=== PATIENT | female | born 1970 | race Caucasian/White ===

== ENCOUNTER 2016-12-08 21:55 | Emergency (ER) | payer OTHER ==
[2016-12-08 22:15] VITALS: BP 144/77
--- NOTE | 2016-12-08 23:25 | UC ---
Malik Duncan Matthew, scribed for AnthonyLeonor DO on 12/08/16 at 2234 . General HPI - HPI Summary HPI Summary: A 46 y/o female presents to the [facility] wanting a medication refill of prozac 120mg/daily. She's been without the medication for 4 days. The patient stated that she had the prescription filled 4 days ago and misplaced the medications. She has a Hx of depression and anxiety and she's been on prozac since she was 14. Associated symptoms include tiredness and cough. She states that she is very anxious and depressed but, she's not having any thoughts of hurting herself or others. She did not lose her klonopin dosage and has been taking it as prescribed. She denies nausea, vomiting, headache, SOB, chest pain, sore throat, ear ache, and abdominal pain. She see's Dr. Member for her medications. - History of Current Complaint Chief Complaint: UCGeneralIllness Stated Complaint: MED REFILL Hx Obtained From: Patient Associated Signs & Symptoms: Positive: Cough, Other - Anxiety, Depression. Negative: Abdominal Pain, Chest Pain, Fever, Headache, Nausea, SOB, Vomiting - Allergy/Home Medications Allergies/Adverse Reactions: Allergies Allergy/AdvReac Type Severity Reaction Status Date / Time Hydromorphone [From Dilaudid] Allergy Severe Nausea Verified 07/17/16 15:01 PMH/Surg Hx/FS Hx/Imm Hx Endocrine History Of: Reports: Diabetes - Type 2, Thyroid Disease - HYPOTHYROIDISM Cardiovascular History Of: Denies: Cardiac Disorders, Hypertension Respiratory History Of: Reports: Asthma Denies: COPD GI/ History Of: Denies: Ulcer Psychological History Of: Reports: Anxiety, Depression - Surgical History Surgical History: Yes Surgery Procedure, Year, and Place: D&C - Family History Known Family History: Positive: Respiratory Disease - COPD, Blood Disorder - blood clots, Other - COPD Family History: FHx of anxiety, depression, OCD - Social History Alcohol Use: Rare Substance Use Type: None Smoking Status (MU): Heavy Every Day Tobacco Smoker Type: Cigarettes Amount Used/How Often: 1/2 ppd or more Length of Time of Smoking/Using Tobacco: since age 13 Have You Smoked in the Last Year: Yes Cessation Counseling: Patient Advised to Stop - Immunization History Most Recent Influenza Vaccination: 2016/2016 season Review of Systems Constitutional: Negative Skin: Negative Eyes: Negative ENT: Negative Respiratory: Negative Cardiovascular: Negative Gastrointestinal: Negative Genitourinary: Negative Motor: Negative Neurovascular: Negative Musculoskeletal: Negative Neurological: Negative Psychological: Anxious, Depressed All Other Systems Reviewed And Are Negative: Yes Physical Exam Triage Information Reviewed: Yes Appearance: Well-Appearing, No Pain Distress, Well-Nourished Vital Signs: Initial Vital Signs Temp 98.5 F 12/08/16 22:06 Pulse 126 12/08/16 22:06 Resp 20 12/08/16 22:06 BP 144/77 12/08/16 22:06 Pulse Ox 96 12/08/16 22:06 Vital Signs Reviewed: Yes Eyes: Positive: Conjunctiva Clear. Negative: Discharge ENT: Positive: Hearing grossly normal. Negative: Muffled/hoarse voice Neck: Positive: Supple, Nontender Respiratory: Positive: Lungs clear, Normal breath sounds, No respiratory distress, No accessory muscle use Cardiovascular: Positive: RRR, No Murmur Musculoskeletal Exam: Normal Musculoskeletal: Positive: Strength Intact Neurological: Positive: Alert, Muscle Tone Normal Psychological Exam: Other - Anxious Skin Exam: Normal Course/Dx - Differential Dx - Multi-Symptom Provider Diagnoses: depression, anxiety - Physician Notifications Discussed Patient Care With: Pharmacist Neha ([facility]) at 22:47 --She said that she does see people getting dosages as high as the dosage prescribed of prozac even though its above the normal maximum daily dosage. Discharge - Discharge Plan Condition: Stable Disposition: HOME Prescriptions: Fluoxetine LIQ* 120 mg PO DAILY #900 ml Patient Education Materials: Depression (ED), Anxiety (ED) Referrals: Vinicio Angela MD [Primary Care Provider] - (follow up in 4-6 days) Additional Instructions: WE WILL REFILL YOUR MEDICATION. PLEASE FOLLOW UP WITH YOUR PCP AND YOUR PSYCHIATRIST THIS WEEK. The documentation as recorded by the Malik jordan Matthew accurately reflects the service I personally performed and the decisions made by me, Leonor Cruz DO.
== END 2016-12-08 23:00 | disposition home or self-care (01) ==
LOC: UCEAST 21:55
DX: F41.8 Other specified anxiety disorders (principal); Z76.0 Encounter for issue of repeat prescription; Z88.5 Allergy status to narcotic agent; F17.210 Nicotine dependence, cigarettes, uncomplicated
CPT/HCPCS: 99212; G0463

== ENCOUNTER 2017-03-25 20:27 | Emergency (ER) | payer OTHER ==
[2017-03-25 20:37] VITALS: BP 106/64
--- NOTE | 2017-03-25 20:42 | UC ---
Cardiac HPI - HPI Summary HPI Summary: 46 YEAR OLD FEMALE PRESENTS WITH COMPLAINS OF LEFT SIDED ARM NUMBNESS/WEAKNESS. PATIENT IS CONCERNED ABOUT A MS/STROKE SO I WILL SEND HER. - History of Current Complaint Chief Complaint: UCGeneralIllness Stated Complaint: CHEST COMPLAINT Time Seen by Provider: 03/25/17 20:41 - Allergy/Home Medications Allergies/Adverse Reactions: Allergies Allergy/AdvReac Type Severity Reaction Status Date / Time environmental Allergy Wheezing Uncoded 03/25/17 22:05 PMH/Surg Hx/FS Hx/Imm Hx - Surgical History Surgical History: Yes Surgery Procedure, Year, and Place: D&C - Family History Known Family History: Positive: Respiratory Disease - COPD, Blood Disorder - blood clots, Other - COPD Family History: FHx of anxiety, depression, OCD - Social History Alcohol Use: Rare Substance Use Type: None Smoking Status (MU): Current Every Day Smoker Type: Cigarettes Amount Used/How Often: 1 PPD Length of Time of Smoking/Using Tobacco: since age 13 Have You Smoked in the Last Year: Yes - Immunization History Most Recent Influenza Vaccination: season Review of Systems Constitutional: Negative Skin: Negative Eyes: Negative ENT: Negative Respiratory: Negative Cardiovascular: Palpitations, Chest Pain, Other - LEFT ARM NUMBNESS Gastrointestinal: Negative Genitourinary: Negative Motor: Negative Neurovascular: Negative Musculoskeletal: Arthralgia Neurological: Negative, Weakness, Paresthesia, Numbness, Other - LEFT ARM NUMBNESS/WEAKNESS Psychological: Negative All Other Systems Reviewed And Are Negative: Yes Physical Exam Triage Information Reviewed: Yes Vital Signs: Initial Vital Signs Temp 37.0 C 03/25/17 20:31 Pulse 91 03/25/17 20:31 Resp 16 03/25/17 20:31 BP 106/64 03/25/17 20:31 Pulse Ox 99 03/25/17 20:31 Eye Exam: Normal ENT Exam: Normal Dental Exam: Normal Neck exam: Normal Neck: Positive: 1 Respiratory Exam: Normal Cardiovascular Exam: Normal Abdominal Exam: Normal Musculoskeletal: Positive: Other: - LEFT ARM WEAKNESS/NUMBNESS Neurological: Positive: Fatigued Psychological Exam: Normal Skin Exam: Normal - Clinical Impression Provider Diagnoses: CHEST PAIN. LEFT ARM NUMBNESS/WEAKNESS Discharge - Discharge Plan Condition: Guarded Disposition: AGAINST MEDICAL ADVICE Referrals: Vinicio Angela MD [Primary Care Provider] - If Needed
== END 2017-03-25 21:30 | disposition left against medical advice (07) ==
LOC: UCEAST 20:27
DX: R07.9 Chest pain, unspecified (principal); R20.0 Anesthesia of skin; F17.210 Nicotine dependence, cigarettes, uncomplicated
CPT/HCPCS: 99212; G0463

== ENCOUNTER 2017-03-25 21:51 | Emergency (ER) | payer OTHER ==
[2017-03-26 00:44] LABS: Hematocrit 39 % (35-47); Hemoglobin 12.5 g/dl (12.0-16.0); Mean Corpuscular HGB Conc 32 g/dl (31-36); Mean Corpuscular Hemoglobin 31 pg (27-31); Mean Corpuscular Volume 97 fL (80-97); Mean Platelet Volume 9 um3 (7.4-10.4); Red Cell Distribution Width 14 % (10.5-15); White Blood Count 11.9 10^3/ul (3.5-10.8)
--- NOTE | 2017-03-26 00:45 | ED ---
Complex/Multi-Sys Presentation - HPI Summary HPI Summary: Patient sent from [facility] with CC of left upper extremity numbness and tingling which has been intermittent. She also states she has been more lethargic than normal. She has been working out more frequently and taking glucosamine OTC, but denies other changes to medical history. Patient states she is disabled and stays home. She is a smoker. Denies SOB, chest pain, diaphoresis or weakness. - History Of Current Complaint Chief Complaint: EDGeneral Time Seen by Provider: 03/25/17 23:19 Hx Obtained From: Patient Onset/Duration: Sudden Onset Timing: Constant Severity Currently: Mild Severity Initially: Mild Associated Signs And Symptoms: Positive: Weakness - Allergies/Home Medications Allergies/Adverse Reactions: Allergies Allergy/AdvReac Type Severity Reaction Status Date / Time environmental Allergy Wheezing Uncoded 03/25/17 22:05 PMH/Surg Hx/FS Hx/Imm Hx Previously Healthy: Yes Endocrine/Hematology History: Reports: Hx Diabetes - Type 2, Hx Thyroid Disease - HYPOTHYROIDISM Cardiovascular History: Reports: Hx Hypercholesterolemia Denies: Hx Hypertension Respiratory History: Reports: Hx Asthma Denies: Hx Chronic Obstructive Pulmonary Disease (COPD) GI History: Denies: Hx Ulcer Musculoskeletal History: Denies: Hx Rheumatoid Arthritis, Hx Osteoporosis Psychiatric History: Reports: Hx Anxiety, Hx Depression - Surgical History Surgery Procedure, Year, and Place: D&C - Immunization History Hx Pertussis Vaccination: No Immunizations Up to Date: Unable to Obtain/Confirm Infectious Disease History: Denies: Hx Clostridium Difficile, Hx Hepatitis, Hx Human Immunodeficiency Virus (HIV), Hx of Known/Suspected MRSA, Hx Shingles, Hx Tuberculosis, Hx Known/ Suspected VRE, Hx Known/Suspected VRSA, History Other Infectious Disease, Traveled Outside the [place] in Last 30 Days - Family History Known Family History: Positive: Respiratory Disease - COPD, Blood Disorder - blood clots, Other - COPD Family History: FHx of anxiety, depression, OCD - Social History Occupation: Unemployed Lives: With Family Alcohol Use: Rare Hx Substance Use: No Substance Use Type: Reports: None Hx Tobacco Use: Yes Smoking Status (MU): Current Every Day Smoker Type: Cigarettes Amount Used/How Often: 1 PPD Length of Time of Smoking/Using Tobacco: since age 13 Have You Smoked in the Last Year: Yes Review of Systems Constitutional: Negative Eyes: Negative Cardiovascular: Negative Respiratory: Negative Positive: no symptoms reported, see HPI Musculoskeletal: Negative Positive: Weakness, Paresthesia, Numbness Psychological: Normal All Other Systems Reviewed And Are Negative: Yes Physical Exam Triage Information Reviewed: Yes Vital Signs On Initial Exam: Initial Vitals Temp Pulse Resp BP Pulse Ox 98.7 F 69 16 99/62 99 03/25/17 22:00 03/25/17 22:00 03/25/17 22:00 03/25/17 22:00 03/25/17 22:00 Vital Signs Reviewed: Yes Appearance: Positive: Well-Appearing, Well-Nourished Skin: Positive: Warm, Skin Color Reflects Adequate Perfusion Respiratory/Lung Sounds: Positive: Clear to Auscultation, Breath Sounds Present Cardiovascular: Positive: Normal, RRR, Pulses are Symmetrical in both Upper and Lower Extremities Musculoskeletal: Positive: Normal, Strength/ROM Intact Neurological: Positive: Sensory/Motor Intact, Alert, Oriented to Person Place, Time, Speech Normal Psychiatric: Positive: Normal AVPU Assessment: Alert - Yanci Coma Scale Coma Scale Total: 15 Diagnostics - Vital Signs Vital Signs Temp Pulse Resp BP Pulse Ox 03/25/17 23:57 67 18 98 03/25/17 22:49 98.7 F 66 16 98/56 98 03/25/17 22:00 98.7 F 69 16 99/62 99 - Laboratory Result Diagrams: 03/26/17 00:27 03/26/17 00:27 Lab Statement: Any lab studies that have been ordered have been reviewed, and results considered in the medical decision making process. Complex Multi-Symp Course/Dx Course Of Treatment: Labs WNL. Discussed treament options with patient. She prefers to follow up with PCP. Ok for discharge. Rx for ibuprofen. - Diagnoses Provider Diagnoses: Lethargy Discharge - Discharge Plan Condition: Stable Disposition: HOME Prescriptions: Ibuprofen TAB* [Motrin TAB* 600 MG] 600 mg PO Q8H PRN #30 tab PRN Reason: Pain Referrals: Vinicio Angela MD [Primary Care Provider] - Additional Instructions: Follow up with Dr. Angela if symptoms become worse. Continue to exercise as normal Discontinue sugar foods Drink plenty of water Stop smoking
[2017-03-26 00:55] LABS: Albumin 4.1 g/dL (3.2-5.2); BUN/Creatinine Ratio 11.1 (8-20); Calcium 9.3 mg/dL (8.6-10.3); EGFR African American 86.7 (>60); EGFR Non-African American 67.4 (>60); Globulin 2.8 g/dL (2-4); Potassium 3.9 mmol/L (3.5-5.0); Total Bilirubin 0.3 mg/dL (0.2-1.0); Total Protein 6.9 g/dL (6.4-8.9)
[2017-03-26 01:01] VITALS: BP 95/58
[2017-03-26] MEDS ORDERED: Ibuprofen TAB* 600 MG PO ONE (01:32)
== END 2017-03-26 01:43 | disposition home or self-care (01) ==
LOC: ED 21:51
DX: R53.83 Other fatigue (principal); R20.0 Anesthesia of skin; R20.2 Paresthesia of skin; E11.9 Type 2 diabetes mellitus without complications; E03.9 Hypothyroidism, unspecified; J45.909 Unspecified asthma, uncomplicated; F41.9 Anxiety disorder, unspecified; F32.9 Major depressive disorder, single episode, unspecified; F17.210 Nicotine dependence, cigarettes, uncomplicated
CPT/HCPCS: 36415; 80053; 84484; 85025; 86141; 99282; A9270-GY

== ENCOUNTER 2017-05-25 21:58 | Emergency (ER) | payer OTHER ==
[2017-05-25 22:16] VITALS: BP 97/66
[2017-05-25] MEDS ORDERED: Penicillin VK TAB* 250 MG PO ONE (22:26)
[2017-05-25] MEDS ORDERED: Ibuprofen TAB* 600 MG PO ONE (22:27)
--- NOTE | 2017-05-25 22:36 | UC ---
UC Dental HPI - HPI Summary HPI Summary: 47 yo female had right upper molar extracted today request script for motrin is also concern re infection has had chill no documented fever also requests nicotine patch because dentist told her not to smoke for three days \ - History of Current Complaint Chief Complaint: UCDentalProblem Stated Complaint: TOOTH PAIN Time Seen by Provider: 05/25/17 22:18 Hx Obtained From: Patient Hx Last Menstrual Period: 2.5 WEEKS AGO Onset/Duration: Gradual Onset, Lasting Hours Severity: Severe Pain Intensity: 7 Pain Scale Used: 0-10 Numeric Aggravating: Chewing Alleviating: Nothing Related History: Swelling - Allergies/Home Medications Allergies/Adverse Reactions: Allergies Allergy/AdvReac Type Severity Reaction Status Date / Time environmental Allergy Wheezing Uncoded 05/25/17 22:09 PMH/Surg Hx/FS Hx/Imm Hx Previously Healthy: Yes Endocrine History: Diabetes, Hypothyroidism, Dyslipidemia Psychological History: Depression - Surgical History Surgical History: Yes Surgery Procedure, Year, and Place: D&C. DENTAL EXTRACTION - Family History Known Family History: Positive: Respiratory Disease - COPD, Blood Disorder - blood clots, Other - COPD Family History: FHx of anxiety, depression, OCD - Social History Alcohol Use: None Substance Use Type: None Smoking Status (MU): Current Every Day Smoker Type: Cigarettes Amount Used/How Often: 3/4 PPD Length of Time of Smoking/Using Tobacco: since age 13 Have You Smoked in the Last Year: Yes - Immunization History Most Recent Influenza Vaccination: season Review of Systems Constitutional: Chills Skin: Negative Eyes: Negative ENT: Dental Pain Respiratory: Negative Cardiovascular: Negative Gastrointestinal: Negative Genitourinary: Negative Motor: Negative Neurovascular: Negative Musculoskeletal: Negative Neurological: Negative Psychological: Negative Is Patient Immunocompromised?: No All Other Systems Reviewed And Are Negative: Yes Physical Exam Triage Information Reviewed: Yes Appearance: Well-Appearing, No Pain Distress, Well-Nourished Vital Signs: Initial Vital Signs Temp 98 F 05/25/17 22:04 Pulse 86 05/25/17 22:04 Resp 16 05/25/17 22:04 BP 97/66 05/25/17 22:04 Pulse Ox 99 05/25/17 22:04 Eye Exam: Normal Eyes: Positive: Conjunctiva Clear ENT: Positive: Hearing grossly normal, TMs normal. Negative: Nasal congestion, Nasal drainage, Tonsillar exudate, Trismus, Muffled/hoarse voice Dental: Positive: Other: - see image Neck: Positive: Supple, Nontender, No Lymphadenopathy Respiratory: Positive: Lungs clear, Normal breath sounds, No respiratory distress, No accessory muscle use Cardiovascular: Positive: RRR, No Murmur Musculoskeletal: Positive: ROM Intact, No Edema Neurological: Positive: Alert Psychological Exam: Normal Skin Exam: Normal Dental Complaint Course/Dx - Differential Dx/Diagnosis Provider Diagnoses: dental pain s/p extraction. tobacco use Discharge - Discharge Plan Condition: Stable Disposition: HOME Prescriptions: Ibuprofen TAB* [Motrin TAB*] 600 mg PO Q6H PRN #40 tab PRN Reason: Pain Nicotine PATCH 21 MG/24 HR* 21 mg TRANSDERM DAILY #1 patch Penicillin VK 500 MG TAB(NF) [Penicillin VK 500 mg Tab] 500 mg PO QID #28 tab Patient Education Materials: Toothache (ED) Referrals: Vinicio Angela MD [Primary Care Provider] - If Needed Additional Instructions: call dentist tomorrow if not improved
== END 2017-05-25 22:43 | disposition home or self-care (01) ==
LOC: UCEAST 21:58
DX: K08.89 Other specified disorders of teeth and supporting structures (principal); K08.409 Partial loss of teeth, unspecified cause, unspecified class; E11.9 Type 2 diabetes mellitus without complications; E03.9 Hypothyroidism, unspecified; E78.5 Hyperlipidemia, unspecified; F32.9 Major depressive disorder, single episode, unspecified; F17.210 Nicotine dependence, cigarettes, uncomplicated
CPT/HCPCS: 99212; A9270-GY; G0463

== ENCOUNTER 2017-06-23 15:31 | Emergency (ER) | payer OTHER ==
[2017-06-23 15:51] VITALS: BP 115/73
--- NOTE | 2017-06-23 16:30 | UC ---
Complaint Female HPI - HPI Summary HPI Summary: 47 yo female presents with moderate sore throat x 3 days also dysuria and frequency of urination x 1 day just finishing her period - History Of Current Complaint Chief Complaint: UCGU Stated Complaint: UTI,SORE THROAT Time Seen by Provider: 06/23/17 16:30 Hx Obtained From: Patient Hx Last Menstrual Period: 2 wks ago Onset/Duration: Gradual Onset, Lasting Days Timing: Constant Severity Initially: Mild Pain Intensity: 4 Pain Scale Used: 0-10 Numeric Character: Burning Aggravating Factor(s): Urination Associated Signs And Symptoms: Negative: Fever, Back Pain, Vaginal Bleeding/ Discharge, Vaginal Discharge, Nausea, Vomiting(# Of Episodes =), Genital Swelling, Genital Blisters, Retained Foregin Body (Specify) - Allergies/Home Medications Allergies/Adverse Reactions: Allergies Allergy/AdvReac Type Severity Reaction Status Date / Time environmental Allergy Wheezing Uncoded 06/23/17 15:52 PMH/Surg Hx/FS Hx/Imm Hx Previously Healthy: Yes Endocrine History: Diabetes Cardiovascular History: Hypertension - Surgical History Surgical History: Yes Surgery Procedure, Year, and Place: D&C. DENTAL EXTRACTION - Family History Known Family History: Positive: Respiratory Disease - COPD, Blood Disorder - blood clots, Other - COPD Family History: FHx of anxiety, depression, OCD - Social History Alcohol Use: None Substance Use Type: Prescribed Smoking Status (MU): Current Every Day Smoker Type: Cigarettes Amount Used/How Often: 3/4 PPD Length of Time of Smoking/Using Tobacco: since age 13 Have You Smoked in the Last Year: Yes - Immunization History Most Recent Influenza Vaccination: 2015/2016 season Review of Systems Constitutional: Negative Skin: Negative Eyes: Negative ENT: Sore Throat Respiratory: Negative Cardiovascular: Negative Gastrointestinal: Negative Genitourinary: Dysuria, Frequency, Urgency Motor: Negative Neurovascular: Negative Musculoskeletal: Negative Neurological: Negative Psychological: Negative Is Patient Immunocompromised?: No All Other Systems Reviewed And Are Negative: Yes Physical Exam Triage Information Reviewed: Yes Appearance: Well-Appearing, No Pain Distress, Well-Nourished Vital Signs: Initial Vital Signs Temp 98.7 F 06/23/17 15:48 Pulse 83 06/23/17 15:48 Resp 18 06/23/17 15:48 BP 115/73 06/23/17 15:48 Pulse Ox 99 10/06/17 15:48 Vital Signs Reviewed: Yes Eyes: Positive: Conjunctiva Clear ENT: Positive: Hearing grossly normal. Negative: Nasal congestion, Nasal drainage, TMs normal, TM bulging, TM dull, TM red, Tonsillar swelling, Tonsillar exudate, Trismus, Muffled/hoarse voice Dental: Negative: Gross Decay/Caries @, Dental Fracture @, Abscess @ Neck: Positive: Supple, Nontender, No Lymphadenopathy Respiratory: Positive: Lungs clear, Normal breath sounds, No respiratory distress, No accessory muscle use Cardiovascular: Positive: RRR, No Murmur Abdomen Description: Positive: Nontender, No Organomegaly, Soft. Negative: CVA Tenderness (R), CVA Tenderness (L) Bowel Sounds: Positive: Present Musculoskeletal: Positive: ROM Intact, No Edema Neurological: Positive: Alert Psychological Exam: Normal Skin Exam: Normal Complaint Female Dx - Differential Dx/Diagnosis Provider Diagnoses: pharyngitis. dysuria Discharge - Discharge Plan Condition: Stable Disposition: HOME Prescriptions: Cephalexin CAP* [Keflex 500 CAP*] 500 mg PO BID #20 cap Oxybutynin Chloride [Oxybutynin Chloride ER] 10 mg PO DAILY #7 tab Phenazopyridine TAB* [Pyridium 100 mg TAB*] 100 mg PO TID #6 tab Patient Education Materials: Pharyngitis (ED), Dysuria (ED) Referrals: Vinicio Angela MD [Primary Care Provider] - 4 Days (if not better)
[2017-06-23] MEDS ORDERED: Cephalexin CAP* 500 MG PO ONE (16:49)
[2017-06-23] MEDS ORDERED: Phenazopyridine TAB* 100 MG PO ONE (16:49)
== END 2017-06-23 17:04 | disposition home or self-care (01) ==
LOC: UCEAST 15:31
DX: J02.9 Acute pharyngitis, unspecified (principal); E11.9 Type 2 diabetes mellitus without complications; I10 Essential (primary) hypertension; F17.210 Nicotine dependence, cigarettes, uncomplicated; R30.0 Dysuria
CPT/HCPCS: 81003; 87070; 87086; 87651; 99213; A9270-GY; G0463

== ENCOUNTER 2017-08-03 20:20 | Emergency (ER) | payer OTHER ==
[2017-08-03 20:26] VITALS: BP 104/49
--- NOTE | 2017-08-03 21:10 | UC ---
Back Pain HPI - HPI Summary HPI Summary: Patient presents with complaints of thoracic back pain x several days. Patient states she was helping a friend move, and she stepped backwards and fell onto some boxes and has been having thoracic back pain since. She denies any incontinence of bowel or bladder, or saddle anasthesia She also has a red spot on her nose that has been evaluated by a dermatologists , and she states that recently it became larger, redder and more painful. - History of Current Complaint Chief Complaint: UCBackPain Stated Complaint: FALL; BACK PAIN Time Seen by Provider: 08/03/17 20:55 Hx Obtained From: Patient Hx Last Menstrual Period: 2 WEEKS AGO Onset/Duration: Sudden Onset, Lasting Days Timing: Constant Severity Initially: Moderate Severity Currently: Moderate Back Pain: Is Discrete @ - t-10,11 Character: Sharp Aggravating Factor(s): Other - palpation Associated Signs And Symptoms: Positive: Bruising - Risk Factors AAA Risk Factors: Negative TAD Risk Factors: Negative Cauda Equina Risk Factors: Negative - Allergies/Home Medications Allergies/Adverse Reactions: Allergies Allergy/AdvReac Type Severity Reaction Status Date / Time environmental Allergy Wheezing Uncoded 08/03/17 20:26 Home Medications: Home Medications Calcium 500 mg PO 08/03/17 [History] Cholecalciferol TAB* [Vitamin D TAB*] 08/03/17 [History] PMH/Surg Hx/FS Hx/Imm Hx Previously Healthy: Yes - Surgical History Surgical History: Yes Surgery Procedure, Year, and Place: D&C. DENTAL EXTRACTION - Family History Known Family History: Positive: Respiratory Disease - COPD, Blood Disorder - blood clots, Other - COPD Family History: FHx of anxiety, depression, OCD - Social History Occupation: Disabled Lives: Alone Alcohol Use: None Substance Use Type: None Smoking Status (MU): Current Every Day Smoker Type: Cigarettes Amount Used/How Often: 1 PPD Length of Time of Smoking/Using Tobacco: since age 13 Have You Smoked in the Last Year: Yes - Immunization History Most Recent Influenza Vaccination: 2016/2016 season Review of Systems Constitutional: Negative Skin: Negative Eyes: Negative ENT: Negative Respiratory: Negative Cardiovascular: Negative Gastrointestinal: Negative Genitourinary: Negative Motor: Negative Neurovascular: Negative Musculoskeletal: Myalgia Neurological: Negative Psychological: Negative All Other Systems Reviewed And Are Negative: Yes Physical Exam Triage Information Reviewed: Yes Appearance: Well-Appearing Vital Signs: Initial Vital Signs Temp 96.8 F 08/03/17 20:22 Pulse 71 08/03/17 20:22 Resp 16 08/03/17 20:22 BP 104/49 08/03/17 20:22 Pulse Ox 100 08/03/17 20:22 Vital Signs Reviewed: Yes Eye Exam: Normal ENT Exam: Normal Neck exam: Normal Neck: Positive: 1 Respiratory Exam: Normal Cardiovascular Exam: Normal Abdominal Exam: Normal Musculoskeletal: Positive: Other: - back inspection, bruising noted left of midline at t11,12,L1,L2.Palpation, tenderness to palpation left of paraspinal processes. rom, intact in all planes. neuro, no deficits to touch distally. Neurological Exam: Normal Psychological Exam: Normal Skin Exam: Normal Back Pain Course/Dx - Course Course Of Treatment: Patient presents s/p traumatic injury of the thoracic and lumbar spine, with smal bruise noted lateral of vertebra at T11,12 and L1,L2. She is neuro-vasc intact. Rom intact. No sign of cauda equina syndrome. Xrays were obtained and were read by the radiologist as negative, which I reviwed with the patient. She also has a red spot on her nose that looks like a pimple, but she states she had the area looked at by a hot molder and I recommend that she follow up with the dermatolgist again. - Differential Dx/Diagnosis Differential Diagnosis/HQI/PQRI: Other - contusion back pain Provider Diagnoses: contusion. back pain Discharge - Discharge Plan Condition: Stable Disposition: HOME Patient Education Materials: Low Back Strain (ED) Referrals: Vinicio Angela MD [Primary Care Provider] - Verena Booth [Medical Doctor] -
--- NOTE | 2017-08-03 21:32 | RAD ---
Indication: Mid to lower thoracic spine pain post fall. Comparison: No relevant prior exams available on the [facility] [place]ACS for comparison. Technique: Standing AP and lateral views centered at the thoracic lumbar junction. Report: Negative for mid to inferior thoracic or lumbar spine fracture or malalignment. Mild multilevel degenerative spondylosis with small vertebral endplate osteophytosis. Moderate disc space narrowing at T7-T8 and T8-T9 without significant change. Unremarkable paraspinal soft tissue contours. IMPRESSION: No traumatic injury evident. No significant change in degenerative spondylosis.
== END 2017-08-03 21:45 | disposition home or self-care (01) ==
LOC: UCEAST 20:20
DX: S20.229A Contusion of unspecified back wall of thorax, initial encounter (principal); M54.9 Dorsalgia, unspecified; F17.210 Nicotine dependence, cigarettes, uncomplicated; W19.XXXA Unspecified fall, initial encounter; Y92.9 Unspecified place or not applicable
CPT/HCPCS: 72080; 99212; G0463

== ENCOUNTER 2018-04-04 15:27 | Emergency (ER) | payer OTHER ==
[2018-04-04 15:48] VITALS: BP 108/66
--- NOTE | 2018-04-04 17:53 | UC ---
Psychiatric Complaint HPI - HPI Summary HPI Summary: Patient is a 48-year-old female with a significant history for anxiety and other psychiatric issues presenting to the with concern for a Klonopin medication refill. During her stay, however she admits to her Klonopin being recently refilled a few hours ago. She is also concerned with a stroke as she has been sweating more frequently now that it is harder temperature outside. She is also requesting a new psychiatrist. Denies any SI/HI at this time. She has been out of Klonopin 4 days. - History Of Current Complaint Chief Complaint: UCMedRefill Stated Complaint: MEDICATION REFILL Time Seen by Provider: 04/04/18 15:40 Hx Obtained From: Patient Hx Last Menstrual Period: unknown 03/07/18 ?: No Onset/Duration: Sudden Onset Timing: Constant Severity Initially: Moderate Severity Currently: Moderate Character: Anxious Aggravating Factor(s): Medication Non-compliance Alleviating Factor(s): Nothing Associated Signs And Symptoms: Negative Has Suicidal: Thoughts Has Homicidal: Thoughts - Allergies/Home Medications Allergies/Adverse Reactions: Allergies Allergy/AdvReac Type Severity Reaction Status Date / Time environmental Allergy Wheezing Uncoded 04/04/18 15:48 Home Medications: Home Medications clonazePAM [Clonazepam] 2 mg PO 04/04/18 [History] PMH/Surg Hx/FS Hx/Imm Hx Previously Healthy: Yes - Surgical History Surgical History: Yes Surgery Procedure, Year, and Place: D&C. DENTAL EXTRACTION - Family History Known Family History: Positive: Respiratory Disease - COPD, Blood Disorder - blood clots, Other - COPD Family History: FHx of anxiety, depression, OCD - Social History Occupation: Unemployed, Disabled Lives: Alone Alcohol Use: None Substance Use Type: None Smoking Status (MU): Current Every Day Smoker Type: Cigarettes Amount Used/How Often: 1 PPD Length of Time of Smoking/Using Tobacco: since age 13 Have You Smoked in the Last Year: Yes - Immunization History Most Recent Influenza Vaccination: 2016/2016 season Review of Systems Constitutional: Negative Skin: Negative Respiratory: Negative Cardiovascular: Negative Motor: Negative Neurovascular: Negative Musculoskeletal: Negative Psychological: Anxious Is Patient Immunocompromised?: No All Other Systems Reviewed And Are Negative: Yes Physical Exam Triage Information Reviewed: Yes Appearance: Well-Appearing, Well-Nourished Vital Signs: Initial Vital Signs Temp 99.1 F 04/04/18 15:43 Pulse 92 04/04/18 15:43 Resp 22 04/04/18 15:43 BP 108/66 04/04/18 15:43 Pulse Ox 99 04/04/18 15:43 Vital Signs Reviewed: Yes Eye Exam: Normal Eyes: Positive: Conjunctiva Clear Neck exam: Normal Neck: Positive: Supple, No Lymphadenopathy Respiratory Exam: Normal Respiratory: Positive: Chest non-tender Cardiovascular Exam: Normal Musculoskeletal: Positive: Strength Intact Neurological: Positive: Alert Psychological: Positive: Decreased Age Appropriate Behavior, Other: - anxious Psych Complaint Course/Dx - Course Course Of Treatment: I have assured her that her Klonopin has been refilled. I am willing to give her our referral group to call to make a request for a new psychiatrist, however we do not have a list on hand in the . I reassured her she is not suffering from he stroke as she appears to be well-hydrated. - Differential Dx/Diagnosis Provider Diagnoses: Anxiety Discharge - Sign-Out/Discharge Documenting (check all that apply): Patient Departure - Discharge Plan Condition: Stable Disposition: HOME Referrals: [facility] [place] [facility] [place] [facility] [Outside] Vinicio Angela MD [Primary Care Provider] - Additional Instructions: We do not have a list of psychiatrists, however, please call the physician referral center for a recommendation - Billing Disposition and Condition Condition: STABLE Disposition: Home
== END 2018-04-04 17:00 | disposition home or self-care (01) ==
LOC: UCEAST 15:27
DX: F41.9 Anxiety disorder, unspecified (principal); F17.210 Nicotine dependence, cigarettes, uncomplicated; Z91.048 Other nonmedicinal substance allergy status; Z79.899 Other long term (current) drug therapy
CPT/HCPCS: 99212; G0463

== ENCOUNTER → 2018-04-27 10:58 | Emergency (ER) | payer OTHER | END | disposition left against medical advice (07) | LOC: ED 10:58 | DX: M79.89 Other specified soft tissue disorders (principal); Z53.21 Procedure and treatment not carried out due to patient leaving prior to being seen by health care provider ==

== ENCOUNTER 2018-04-28 17:44 | Emergency (ER) | payer OTHER ==
--- NOTE | 2018-04-28 17:46 | UC ---
UC General HPI - History of Current Complaint Stated Complaint: EDEMA Time Seen by Provider: 04/28/18 17:46 Hx Last Menstrual Period: unknown 03/07/18 - Allergy/Home Medications Allergies/Adverse Reactions: Allergies Allergy/AdvReac Type Severity Reaction Status Date / Time environmental Allergy Wheezing Uncoded 04/28/18 17:53 PMH/Surg Hx/FS Hx/Imm Hx - Surgical History Surgical History: Yes Surgery Procedure, Year, and Place: D&C. DENTAL EXTRACTION - Family History Known Family History: Positive: Respiratory Disease - COPD, Blood Disorder - blood clots, Other - COPD Family History: FHx of anxiety, depression, OCD - Social History Alcohol Use: None Substance Use Type: None Smoking Status (MU): Current Every Day Smoker Type: Cigarettes Amount Used/How Often: 1 PPD Length of Time of Smoking/Using Tobacco: since age 13 Have You Smoked in the Last Year: Yes - Immunization History Most Recent Influenza Vaccination: 2016/2016 season Review of Systems Constitutional: Negative Discharge - Discharge Plan Referrals: Vinicio Angela MD [Primary Care Provider] -
[2018-04-28 17:52] VITALS: BP 130/65
--- NOTE | 2018-04-28 19:02 | UC ---
UC General HPI - HPI Summary HPI Summary: The patient is a 48-year-old female that presents here for evaluation of bilateral leg edema. She has worn support hose in the past. She states that her left leg edema has been chronic for over 2 years. She is here today because her right leg is started to swell. He has no pain. He states she is here because she wants to make sure the cause of her swelling is not cardiac. He denies any chest pain or shortness of breath. He is a diabetic. Eyes any history of renal disease. She states that she has fatty liver. She denies any past cardiac history. - History of Current Complaint Chief Complaint: UCLowerExtremity Stated Complaint: EDEMA Time Seen by Provider: 04/28/18 17:46 Hx Obtained From: Patient Hx Last Menstrual Period: 2 wks ago Onset/Duration: Gradual Onset, Lasting Hours, Lasting Weeks Onset Severity: Mild Current Severity: Moderate Pain Intensity: 0 Associated Signs & Symptoms: Positive: Edema - Allergy/Home Medications Allergies/Adverse Reactions: Allergies Allergy/AdvReac Type Severity Reaction Status Date / Time environmental Allergy Wheezing Uncoded 04/28/18 17:53 PMH/Surg Hx/FS Hx/Imm Hx Previously Healthy: Yes - Surgical History Surgical History: Yes Surgery Procedure, Year, and Place: D&C. DENTAL EXTRACTION - Family History Known Family History: Positive: Respiratory Disease - COPD, Blood Disorder - blood clots, Other - COPD Family History: FHx of anxiety, depression, OCD - Social History Alcohol Use: None Substance Use Type: None Smoking Status (MU): Current Every Day Smoker Type: Cigarettes Amount Used/How Often: 1 PPD Length of Time of Smoking/Using Tobacco: since age 13 Have You Smoked in the Last Year: Yes - Immunization History Most Recent Influenza Vaccination: 2015/2016 season Review of Systems Constitutional: Negative Skin: Negative Eyes: Negative ENT: Negative Respiratory: Negative Cardiovascular: Negative Gastrointestinal: Negative Genitourinary: Negative Motor: Negative Neurovascular: Negative Musculoskeletal: Edema Neurological: Negative Psychological: Negative Is Patient Immunocompromised?: No All Other Systems Reviewed And Are Negative: Yes Physical Exam Triage Information Reviewed: Yes Appearance: Well-Appearing, No Pain Distress, Well-Nourished Vital Signs: Initial Vital Signs Temp 98.7 F 04/28/18 17:49 Pulse 112 04/28/18 17:49 Resp 18 04/28/18 17:49 BP 130/65 04/28/18 17:49 Pulse Ox 98 04/28/18 17:49 Vital Signs Reviewed: Yes Eyes: Positive: Conjunctiva Clear ENT: Positive: Hearing grossly normal. Negative: Nasal congestion, Nasal drainage, Tonsillar exudate, Trismus, Hoarse voice, Dental tenderness, Sinus tenderness Neck: Positive: Supple, Nontender Respiratory: Positive: Lungs clear, Normal breath sounds, No respiratory distress, No accessory muscle use Cardiovascular: Positive: RRR, No Murmur Abdomen Description: Positive: Nontender, No Organomegaly Musculoskeletal: Positive: ROM Intact, Edema @ - l>R Neurological: Positive: Alert Psychological Exam: Normal Skin Exam: Normal Diagnostics - EKG Cardiac Rate: Tachycardia Cardiac Rhythm: Sinus: Normal Ectopy: None ST Segment: Normal EKG Comparison: No Significant Change Course/Dx - Differential Dx - Multi-Symptom Provider Diagnoses: peripheral edema Discharge - Sign-Out/Discharge Documenting (check all that apply): Patient Departure - Discharge Plan Condition: Stable Disposition: HOME Prescriptions: Furosemide TAB* [Lasix TAB*] 20 mg PO DAILY #3 tab Patient Education Materials: Leg Edema (ED) Referrals: Vinicio Angela MD [Primary Care Provider] - As Soon As Possible (please call Monday to make an appt) Additional Instructions: blood work pending - Billing Disposition and Condition Condition: STABLE Disposition: Home
[2018-04-29 13:56] LABS: ABS Basophils 0.1 10^3/ul (0-0.2); ABS Eosinophils 0.3 10^3/ul (0-0.6); ABS Lymphocytes 1.9 10^3/ul (1.0-4.8); ABS Monocytes 0.5 10^3/ul (0-0.8); ABS Neutrophils 6.3 10^3/ul (1.5-7.7); ABS Nucleated RBC 0 10^3/ul; Eosinophil % 3.5 % (0-6); Hematocrit 35 % (35-47); Hemoglobin 11.6 g/dl (12.0-16.0); Mean Corpuscular HGB Conc 34 g/dl (31-36); Mean Corpuscular Hemoglobin 32 pg (27-31); Mean Corpuscular Volume 95 fL (80-97); Mean Platelet Volume 8.9 um3 (7.4-10.4); Nucleated Red Blood Cells % 0.1; Platelet Count 263 10^3/ul (150-450); Red Blood Count 3.66 10^6/ul (4.00-5.40); Red Cell Distribution Width 14 % (10.5-15); White Blood Count 9.1 10^3/ul (3.5-10.8)
[2018-04-29 14:12] LABS: EGFR Non-African American 71.4 (>60)
--- NOTE | 2018-04-29 15:45 | UC ---
- Progress Note Progress Note: CBC and CMP unremarkable when compared with trended. No change Discharge - Sign-Out/Discharge Documenting (check all that apply): Post-Discharge Follow Up - Discharge Plan Condition: Stable Disposition: HOME Prescriptions: Furosemide TAB* [Lasix TAB*] 20 mg PO DAILY #3 tab Patient Education Materials: Leg Edema (ED) Referrals: Vinicio Angela MD [Primary Care Provider] - As Soon As Possible (please call Monday to make an appt) Additional Instructions: blood work pending - Billing Disposition and Condition Condition: STABLE Disposition: Home
== END 2018-04-28 19:05 | disposition home or self-care (01) ==
LOC: UCEAST 17:44
DX: R60.0 Localized edema (principal); R00.0 Tachycardia, unspecified; Z83.6 Family history of other diseases of the respiratory system; Z83.2 Family history of diseases of the blood and blood-forming organs and certain disorders involving the immune mechanism; F17.210 Nicotine dependence, cigarettes, uncomplicated
CPT/HCPCS: 36415; 80053; 81003; 85025; 93005; 99212; G0463

== ENCOUNTER 2018-05-12 20:20 | Emergency (ER) | payer OTHER ==
--- NOTE | 2018-05-12 20:36 | UC ---
General HPI - HPI Summary HPI Summary: Patient is her with many c/o 1. lost albuterol MDI, ran out of KLonopin (this is confirmed with [facility] ), 3. requesting some minipress until she can see mental health due to increased nightmares, would like to review labs that we maddi a few days ago. 5. c/o nausea and vomiting--(while here and after supportive communication patient was taking po with out difficulty, no nausea or vomiting - History of Current Complaint Chief Complaint: UCMedRefill Stated Complaint: SCRIPT REFILL Time Seen by Provider: 05/12/18 20:29 Hx Obtained From: Patient Hx Last Menstrual Period: 2 wks ago Onset/Duration: Gradual Onset, Worse Since - past 3 days Timing: Constant Onset Severity: Moderate Current Severity: Moderate Associated Signs & Symptoms: Positive: Nausea, Vomiting - Allergy/Home Medications Allergies/Adverse Reactions: Allergies Allergy/AdvReac Type Severity Reaction Status Date / Time shrimp Allergy Severe Anaphylatic Verified 05/12/18 20:38 Shock environmental Allergy Wheezing Uncoded 05/12/18 20:38 Home Medications: Home Medications traZODone TAB* [Desyrel TAB*] 05/12/18 [History] PMH/Surg Hx/FS Hx/Imm Hx Previously Healthy: No Endocrine History: Diabetes, Hypothyroidism, Dyslipidemia Cardiovascular History: Hypertension Psychological History: Anxiety, Depression, Post Traumatic Stress Disorder - Surgical History Surgical History: Yes Surgery Procedure, Year, and Place: D&C. DENTAL EXTRACTION - Family History Known Family History: Positive: Respiratory Disease - COPD, Blood Disorder - blood clots, Other - COPD Family History: FHx of anxiety, depression, OCD - Social History Occupation: Disabled Lives: Dormitory/Roommates Alcohol Use: None Substance Use Type: None Smoking Status (MU): Current Every Day Smoker Type: Cigarettes Amount Used/How Often: 1 PPD Length of Time of Smoking/Using Tobacco: since age 13 Have You Smoked in the Last Year: Yes - Immunization History Most Recent Influenza Vaccination: 2016/2016 season Review of Systems Constitutional: Negative Skin: Negative Eyes: Negative ENT: Negative Respiratory: Cough Cardiovascular: Negative Gastrointestinal: Vomiting, Nausea Genitourinary: Negative Motor: Negative Neurovascular: Negative Musculoskeletal: Negative Neurological: Negative Psychological: Negative Is Patient Immunocompromised?: No All Other Systems Reviewed And Are Negative: Yes Physical Exam Triage Information Reviewed: Yes Appearance: No Pain Distress, Well-Nourished, Ill-Appearing - chronic poor condition appears older than stated age Vital Signs Reviewed: Yes Eye Exam: Normal Eyes: Positive: Conjunctiva Clear ENT Exam: Normal ENT: Positive: Normal ENT inspection, Hearing grossly normal, TMs normal, Uvula midline. Negative: Pharynx normal, Nasal congestion, Trismus, Muffled voice, Hoarse voice, Sinus tenderness Dental Exam: Normal Neck exam: Normal Neck: Positive: Supple, Nontender Respiratory Exam: Normal Respiratory: Positive: Chest non-tender, Lungs clear, Normal breath sounds, No respiratory distress, No accessory muscle use Cardiovascular Exam: Normal Cardiovascular: Positive: RRR, No Murmur, Pulses Normal, Brisk Capillary Refill Abdominal Exam: Normal Abdomen Description: Positive: Nontender, No Organomegaly, Soft. Negative: CVA Tenderness (R), CVA Tenderness (L), McBurney's Point Tenderness Musculoskeletal Exam: Normal Musculoskeletal: Positive: Strength Intact, ROM Intact, No Edema Neurological Exam: Normal Neurological: Positive: Alert, Muscle Tone Normal Psychological Exam: Normal Skin Exam: Normal Course/Dx - Course Course Of Treatment: will refill klonopin to prevent acute w/d, minipress for 7 days, dispense albuterol plan to follow with pcp and [facility] - Differential Dx - Multi-Symptom Provider Diagnoses: acute exacerbation of chronic anxiety, benzo withdrawl, bronchospams, nicotine dependant Discharge - Sign-Out/Discharge Documenting (check all that apply): Patient Departure All imaging exams completed and their final reports reviewed: No Studies - Discharge Plan Condition: Stable Disposition: HOME Prescriptions: clonazePAM TAB(*) [KlonoPIN TAB(*)] 2 mg PO TID PRN #30 tab MDD 6mg PRN Reason: Anxiety Prazosin CAP* [Minipress CAP*] 1 mg PO BEDTIME #7 cap Patient Education Materials: How to Stop Smoking (ED), Obsessive Compulsive Disorder (DC), Anxiety (ED) Referrals: Vinicio Angela MD [Primary Care Provider] - [facility] [Outside] - 2 Days - Billing Disposition and Condition Condition: STABLE Disposition: Home
[2018-05-12 20:38] VITALS: BP 128/90
[2018-05-12] MEDS ORDERED: Albuterol HFA INHALER* 8 gm MDI INH ONE (21:48)
[2018-05-12] MEDS ORDERED: LORazepam TAB(*) 1 MG PO ONE (21:49)
== END 2018-05-12 22:10 | disposition home or self-care (01) ==
LOC: UCEAST 20:20
DX: F41.8 Other specified anxiety disorders (principal); F19.939 Other psychoactive substance use, unspecified with withdrawal, unspecified; J98.01 Acute bronchospasm; F17.210 Nicotine dependence, cigarettes, uncomplicated
CPT/HCPCS: 81003; 99213; A9270-GY; G0463

== ENCOUNTER 2018-05-18 18:30 | Emergency (ER) | payer OTHER ==
[2018-05-18 18:48] VITALS: BP 155/96
--- NOTE | 2018-05-18 19:13 | UC ---
Abdominal Pain Female HPI - HPI Summary HPI Summary: Patient comes to the urgent care this evening with chief complaint of nausea vomiting diarrhea. She also complains of chills and hot flashes. This is similar to the complaint she is here with 5 days ago. She said she had a day or 2 good in between but all symptoms have returned - History of Current Complaint Chief Complaint: UCGeneralIllness Stated Complaint: VOMITING,CHILLS,HOT FLASHES Time Seen by Provider: 05/18/18 19:06 Hx Obtained From: Patient Hx Last Menstrual Period: NOW ?: No Onset/Duration: Other - acute on chronic discomfort Timing: Constant Pain Intensity: 9 Pain Scale Used: 0-10 Numeric Location: Diffuse Radiates: No Character: Cramping Aggravating Factor(s): Food Alleviating Factor(s): Nothing Associated Signs and Symptoms: Positive: Decreased Appetite, Nausea, Vomiting, Diarrhea Allergies/Adverse Reactions: Allergies Allergy/AdvReac Type Severity Reaction Status Date / Time shrimp Allergy Severe Anaphylatic Verified 05/18/18 18:48 Shock environmental Allergy Wheezing Uncoded 05/18/18 18:48 Home Medications: Home Medications Prazosin CAP* [Minipress CAP*] 05/18/18 [History Confirmed 05/18/18] PMH/Surg Hx/FS Hx/Imm Hx Previously Healthy: No Endocrine History: Hypothyroidism GI/ History: Gastroesophageal Reflux Psychological History: Anxiety, Post Traumatic Stress Disorder - Surgical History Surgical History: Yes Surgery Procedure, Year, and Place: D&C. DENTAL EXTRACTION - Family History Known Family History: Positive: Respiratory Disease - COPD, Blood Disorder - blood clots, Other - COPD Family History: FHx of anxiety, depression, OCD - Social History Occupation: Unemployed Lives: Dormitory/Roommates Alcohol Use: None Substance Use Type: None Smoking Status (MU): Current Every Day Smoker Type: Cigarettes Amount Used/How Often: 1/2 PPD Length of Time of Smoking/Using Tobacco: since age 13 Have You Smoked in the Last Year: Yes - Immunization History Most Recent Influenza Vaccination: 2016/2016 season Review of Systems Constitutional: Fever, Chills, Fatigue Skin: Negative Eyes: Negative ENT: Negative Respiratory: Negative Cardiovascular: Negative Gastrointestinal: Abdominal Pain, Vomiting, Diarrhea, Nausea Genitourinary: Negative Motor: Negative Neurovascular: Negative Musculoskeletal: Negative Neurological: Negative Psychological: Anxious Is Patient Immunocompromised?: No All Other Systems Reviewed And Are Negative: Yes Physical Exam Triage Information Reviewed: Yes Appearance: Ill-Appearing - appears uncomfortable and older than stated age, Pain Distress, Obese Vital Signs: Initial Vital Signs Temp 96.7 F 05/18/18 18:42 Pulse 95 05/18/18 18:42 Resp 20 05/18/18 18:42 BP 155/96 05/18/18 18:42 Pulse Ox 97 05/18/18 18:42 Vital Signs Reviewed: Yes Eye Exam: Normal Eyes: Positive: Conjunctiva Clear ENT Exam: Normal ENT: Positive: Normal ENT inspection, Hearing grossly normal. Negative: Trismus , Muffled voice, Hoarse voice Dental Exam: Normal Neck exam: Normal Neck: Positive: Supple, Nontender Respiratory Exam: Normal Respiratory: Positive: Normal breath sounds, No respiratory distress Cardiovascular Exam: Normal Cardiovascular: Positive: RRR, Pulses Normal, Brisk Capillary Refill Abdominal Exam: Normal Abdomen Description: Positive: No Organomegaly, Soft, Other: - diffuse discomfort Musculoskeletal Exam: Normal Musculoskeletal: Positive: Strength Intact, ROM Intact, No Edema Neurological Exam: Normal Neurological: Positive: Alert, Muscle Tone Normal Psychological Exam: Normal Skin Exam: Normal Abd Pain Female Course/Dx - Course Course Of Treatment: this is her second presentation to urgent care with continued worsening symptoms will start iv fluids and send to hospital for further assessment - Differential Dx/Diagnosis Provider Diagnoses: acute on chronic abdmen pain nausea/vomiting/diarrhea Discharge - Sign-Out/Discharge Documenting (check all that apply): Patient Departure All imaging exams completed and their final reports reviewed: No Studies - Discharge Plan Condition: Fair Disposition: TRANS HIGHER LVL OF CARE FAC Patient Education Materials: Acute Nausea and Vomiting (ED) Referrals: Vinicio Angela MD [Primary Care Provider] - Additional Instructions: Nothing to eat or drink please go directly to the emergency department for a higher level f care--- - Billing Disposition and Condition Condition: FAIR Disposition: Trans Higher Lvl of Care Fac
[2018-05-18] MEDS ORDERED: NS 0.9% 1000 ML* 1,000 ML IV ONE (19:17)
== END 2018-05-18 19:40 | disposition short-term general hospital (02) ==
LOC: UCEAST 18:30
DX: R10.9 Unspecified abdominal pain (principal); R19.7 Diarrhea, unspecified; K21.9 Gastro-esophageal reflux disease without esophagitis; E03.9 Hypothyroidism, unspecified
CPT/HCPCS: 99213; G0463

== ENCOUNTER 2018-05-18 20:01 | Emergency (ER) | payer OTHER ==
[2018-05-18] MEDS ORDERED: NS 0.9% 1000 ML* 2,000 ML IV ONE (20:43)
[2018-05-18] MEDS ORDERED: PROCHLORPERAZINE INJ 5 MG/ML 2 ML VIAL IV ONE (20:45)
--- NOTE | 2018-05-18 20:52 | ED ---
Abdominal Pain/Female - HPI Summary HPI Summary: This patient is a 48 year old F BIBA to [facility] with a chief complaint of intermittent diffuse abdominal pain since 4 days ago. The patient reports that she has been unable to keep anything down. The patient was seen at [facility] 4 days ago and was diagnosed with dehydration. At that time she was able to keep down fluids and was not prescribed anything to help with the nausea. The patient rates the pain 0/10 in severity. Symptoms aggravated by food. Symptoms alleviated by nothing. Patient reports N/V/D and chills. Patient denies fever, recent travel, or questionable foods. The patient notes that her diet has been unhealthy foods such as subs and cheeseburgers. Patient has type 2 diabetes and fatty liver disease. - History of Current Complaint Chief Complaint: EDAbdPain Stated Complaint: ABD PAIN Time Seen by Provider: 05/18/18 20:43 Hx Obtained From: Patient Hx Last Menstrual Period: NOW Onset/Duration: Gradual Onset, Lasting Days - 4 days, Still Present Timing: Intermittent Episode Lasting Severity Initially: Mild Severity Currently: None Pain Intensity: 0 Pain Scale Used: 0-10 Numeric Location: Diffuse Radiates: No Aggravating Factor(s): Food Alleviating Factor(s): Nothing Associated Signs and Symptoms: Positive: Nausea, Vomiting, Diarrhea Allergies/Adverse Reactions: Allergies Allergy/AdvReac Type Severity Reaction Status Date / Time shrimp Allergy Severe Anaphylatic Verified 05/18/18 18:48 Shock environmental Allergy Wheezing Uncoded 05/18/18 18:48 PMH/Surg Hx/FS Hx/Imm Hx Endocrine/Hematology History: Reports: Hx Diabetes - Type 2, Hx Thyroid Disease - HYPOTHYROIDISM Cardiovascular History: Reports: Hx Hypercholesterolemia Denies: Hx Hypertension Respiratory History: Reports: Hx Asthma Denies: Hx Chronic Obstructive Pulmonary Disease (COPD) GI History: Reports: Other GI Disorders - fatty liver disease Denies: Hx Ulcer Musculoskeletal History: Denies: Hx Rheumatoid Arthritis, Hx Osteoporosis Psychiatric History: Reports: Hx Anxiety, Hx Depression - Surgical History Surgery Procedure, Year, and Place: D&C. DENTAL EXTRACTION Infectious Disease History: No Infectious Disease History: Denies: Hx Clostridium Difficile, Hx Hepatitis, Hx Human Immunodeficiency Virus (HIV), Hx of Known/Suspected MRSA, Hx Shingles, Hx Tuberculosis, Hx Known/ Suspected VRE, Hx Known/Suspected VRSA, History Other Infectious Disease, Traveled Outside the [place] in Last 30 Days - Family History Known Family History: Positive: Respiratory Disease - COPD, Blood Disorder - blood clots, Other - COPD Family History: FHx of anxiety, depression, OCD - Social History Alcohol Use: Rare Hx Substance Use: No Substance Use Type: Reports: None Hx Tobacco Use: Yes Smoking Status (MU): Current Every Day Smoker Type: Cigarettes Amount Used/How Often: 1/2 PPD Length of Time of Smoking/Using Tobacco: since age 13 Have You Smoked in the Last Year: Yes Review of Systems Positive: Chills. Negative: Fever Negative: Epistaxis Negative: Cough Positive: Abdominal Pain, Vomiting, Diarrhea, Nausea Negative: Headache All Other Systems Reviewed And Are Negative: Yes Physical Exam - Summary Physical Exam Summary: Appearance: Well-appearing, Well-nourished, lying in bed comfortably Skin: Warm, dry, no obvious rash Eyes: sclera anicteric, no conjunctival pallor ENT: mucous membranes moist, pharynx appears normal Neck: Supple, nontender Respiratory: Clear to auscultation, no signs of respiratory distress Cardiovascular: Normal S1, S2. No murmurs. Normal distal pulses in tibial and radial bilaterally. Abdomen: Soft, nontender, normal active bowel sounds present Musculoskeletal: Normal, Strength/ROM Intact Neurological: A&Ox3, awake and alert, mentation is normal, speech is fluent and appropriate Psychiatric: affect is normal, does not appear anxious or depressed Triage Information Reviewed: Yes Vital Signs On Initial Exam: Initial Vitals Temp Pulse Resp BP Pulse Ox 97.5 F 80 16 127/85 96 05/18/18 20:30 05/18/18 20:30 05/18/18 20:30 05/18/18 20:30 05/18/18 20:30 Vital Signs Reviewed: Yes Diagnostics - Vital Signs Vital Signs Temp Pulse Resp BP Pulse Ox 05/18/18 20:40 80 127/85 96 05/18/18 20:30 97.5 F 80 16 127/85 96 - Laboratory Result Diagrams: 05/18/18 21:14 05/18/18 21:14 Lab Statement: Any lab studies that have been ordered have been reviewed, and results considered in the medical decision making process. Abdominal Pain Fem Course/Dx - Course Course Of Treatment: This is a 48-year-old woman who developed symptoms of a viral gastroenteritis but 4 days ago. She was improving until she advanced her diet, probably too quickly with cheeseburger and other heavy foods. His has resulted in a recurrence of her nausea and vomiting and diarrhea today. On exam she is perhaps mildly dehydrated. She has been given IV fluids here as well as antiemetics intravenously and is now tolerating ice chips. Her blood work appears unremarkable, with normal renal function and normal liver function tests. - Diagnoses Provider Diagnoses: Gastroenteritis Discharge - Sign-Out/Discharge Documenting (check all that apply): Patient Departure - Discharge Plan Condition: Improved Disposition: HOME Prescriptions: Prochlorperazine TAB* [Compazine Tab*] 10 mg PO Q6H PRN #10 tab PRN Reason: Nausea Patient Education Materials: Acute Nausea and Vomiting (ED) Referrals: Vinicio Angela MD [Primary Care Provider] - Additional Instructions: Stick to clear liquid diet over the next 24 hours. If you're feeling better you can advance your diet, but do so slowly, starting with simple foods such as rice and noodles. If you do okay with that you can advance further. - Attestation Statements Document Initiated by Scribe: Yes Documenting Scribe: Gali Pimentel Provider For Whom Scribe is Documenting (Include Credential): Chivo Rodrigues MD Scribe Attestation: I, Gali Pimentel, scribed for Chivo Rodrigues MD on 05/18/18 at 2311.
[2018-05-18 21:27] LABS: ABS Basophils 0.1 10^3/ul (0-0.2); ABS Eosinophils 0.1 10^3/ul (0-0.6); ABS Lymphocytes 1.3 10^3/ul (1.0-4.8); ABS Monocytes 0.6 10^3/ul (0-0.8); ABS Neutrophils 5.1 10^3/ul (1.5-7.7); ABS Nucleated RBC 0 10^3/ul; Eosinophil % 1.1 % (0-6); Hematocrit 38 % (35-47); Hemoglobin 12.9 g/dl (12.0-16.0); Lymphocyte % 17.6 % (25-47); Mean Corpuscular HGB Conc 34 g/dl (31-36); Mean Corpuscular Hemoglobin 32 pg (27-31); Mean Corpuscular Volume 95 fL (80-97); Mean Platelet Volume 7.7 um3 (7.4-10.4); Nucleated Red Blood Cells % 0.1; Platelet Count 290 10^3/ul (150-450); Red Cell Distribution Width 14 % (10.5-15); White Blood Count 7.1 10^3/ul (3.5-10.8)
[2018-05-18 21:43] LABS: EGFR Non-African American 71.4 (>60)
[2018-05-19 00:01] VITALS: BP 168/97
== END 2018-05-18 23:30 | disposition home or self-care (01) ==
LOC: ED 20:01
DX: K52.9 Noninfective gastroenteritis and colitis, unspecified (principal); E11.9 Type 2 diabetes mellitus without complications; K76.0 Fatty (change of) liver, not elsewhere classified; F17.210 Nicotine dependence, cigarettes, uncomplicated
CPT/HCPCS: 36415; 80053; 83605; 84702; 85025; 96361; 96374; 99284; J0780

== ENCOUNTER 2018-05-20 21:06 | Emergency (ER) | payer OTHER ==
[2018-05-20 21:20] VITALS: BP 128/82
--- NOTE | 2018-05-20 21:51 | UC ---
Abdominal Pain Female HPI - HPI Summary HPI Summary: takes lomotil chronically for diarrhea secondary to IBS---is here for a bridge scrip for lomotil, patient believes diarrhea is about the same as always--maybe a little more-- - History of Current Complaint Chief Complaint: UCMedRefill Stated Complaint: MEDICATION REFILL Time Seen by Provider: 05/20/18 21:19 Hx Obtained From: Patient Hx Last Menstrual Period: currently ?: No Onset/Duration: Gradual Onset, Still Present Timing: Constant Pain Intensity: 1 Location: Other - diffuse abdomen pain Radiates: No Character: Cramping Aggravating Factor(s): Nothing Alleviating Factor(s): Other: - lomotil Associated Signs and Symptoms: Positive: Nausea - chronic, Vomiting - chronic, Diarrhea - chronic Allergies/Adverse Reactions: Allergies Allergy/AdvReac Type Severity Reaction Status Date / Time shrimp Allergy Severe Anaphylatic Verified 05/20/18 21:21 Shock seafood Allergy Severe hives, Uncoded 05/20/18 21:21 difficulty breathing environmental Allergy Wheezing Uncoded 05/20/18 21:21 Home Medications: Home Medications Calcium Carbonate [Calcium] 500 mg PO DAILY 05/20/18 [History Confirmed 05/20/18 ] Gabapentin CAP(*) [Neurontin 300 CAP(*)] 1 tab PO BEDTIME 05/20/18 [History Confirmed 05/20/18] PMH/Surg Hx/FS Hx/Imm Hx Previously Healthy: No Endocrine History: Diabetes Other GI/ History: IBS Psychological History: Anxiety, Post Traumatic Stress Disorder - Surgical History Surgical History: Yes Surgery Procedure, Year, and Place: D&C. DENTAL EXTRACTION - Family History Known Family History: Positive: Respiratory Disease - COPD, Blood Disorder - blood clots, Other - COPD Family History: FHx of anxiety, depression, OCD - Social History Occupation: Disabled Lives: Dormitory/Roommates Alcohol Use: Rare Substance Use Type: None Smoking Status (MU): Current Every Day Smoker Type: Cigarettes Amount Used/How Often: 1/2 PPD Length of Time of Smoking/Using Tobacco: since age 13 Have You Smoked in the Last Year: Yes Household Exposure Type: Cigarettes - Immunization History Most Recent Influenza Vaccination: 2016/2016 season Review of Systems Constitutional: Negative Skin: Negative Eyes: Negative ENT: Negative Respiratory: Negative Cardiovascular: Negative Gastrointestinal: Abdominal Pain, Vomiting, Diarrhea, Nausea Genitourinary: Negative Motor: Negative Neurovascular: Negative Musculoskeletal: Negative Neurological: Negative Psychological: Negative Is Patient Immunocompromised?: No All Other Systems Reviewed And Are Negative: Yes Physical Exam Triage Information Reviewed: Yes Appearance: Well-Appearing, No Pain Distress, Well-Nourished Vital Signs: Initial Vital Signs Temp 99.1 F 05/20/18 21:12 Pulse 108 05/20/18 21:12 Resp 20 05/20/18 21:12 BP 128/82 05/20/18 21:12 Pulse Ox 98 05/20/18 21:12 Vital Signs Reviewed: Yes Eye Exam: Normal Eyes: Positive: Conjunctiva Clear ENT Exam: Normal ENT: Positive: Normal ENT inspection, Hearing grossly normal. Negative: Trismus , Muffled voice, Hoarse voice Neck exam: Normal Neck: Positive: Supple, Nontender Respiratory Exam: Normal Respiratory: Positive: Chest non-tender, No respiratory distress, No accessory muscle use Cardiovascular Exam: Normal Cardiovascular: Positive: Pulses Normal, Brisk Capillary Refill Abdominal Exam: Normal Abdomen Description: Positive: No Organomegaly, Soft, Other: - diffuse cramping. Negative: CVA Tenderness (R), CVA Tenderness (L), Distended, Guarding , Hepatomegaly, Peritoneal Signs Bowel Sounds: Positive: Present Musculoskeletal Exam: Normal Musculoskeletal: Positive: Strength Intact, ROM Intact, No Edema Neurological Exam: Normal Neurological: Positive: Alert, Muscle Tone Normal Psychological Exam: Normal Skin Exam: Normal Abd Pain Female Course/Dx - Course Course Of Treatment: will obtain stool sample for guiac, culture, bridge lomotil rx referrral to [facility] if she cannot get a timely appointment with Dr. Angela - Differential Dx/Diagnosis Provider Diagnoses: Chronic Diarrhea Discharge - Sign-Out/Discharge Documenting (check all that apply): Patient Departure All imaging exams completed and their final reports reviewed: No Studies - Discharge Plan Condition: Stable Disposition: HOME Prescriptions: Diphenoxylate HCl/Atropine [Lomotil 2.5-0.025 mg Tablet] 1 each PO BID PRN #20 tablet MDD 2 PRN Reason: Diarrhea Patient Education Materials: Irritable Bowel Syndrome (ED), Chronic Diarrhea ( ED) Referrals: [facility] [Outside] - 2 Days Vinicio Angela MD [Primary Care Provider] - 3 Days - Billing Disposition and Condition Condition: STABLE Disposition: Home - Attestation Statements Provider Attestation: Per institutional requirements, I have reviewed the chart, however, I was not consulted specifically or made aware of this patient by the midlevel provider. I did not personally evaluate, interact with , or disposition this patient.
[2018-05-20] MEDS ORDERED: Ondansetron ODT TAB* 4 MG PO ONE (21:55)
== END 2018-05-20 22:00 | disposition home or self-care (01) ==
LOC: UCEAST 21:06
DX: K52.9 Noninfective gastroenteritis and colitis, unspecified (principal); R11.2 Nausea with vomiting, unspecified; Z76.0 Encounter for issue of repeat prescription; Z91.013 Allergy to seafood; Z91.048 Other nonmedicinal substance allergy status; F17.210 Nicotine dependence, cigarettes, uncomplicated
CPT/HCPCS: 99212; A9270-GY; G0463

== ENCOUNTER 2018-06-09 21:44 | Emergency (ER) | payer OTHER ==
[2018-06-09 21:52] VITALS: BP 130/87
--- NOTE | 2018-06-09 22:35 | UC ---
Lower Extremity/Ankle HPI - HPI Summary HPI Summary: complains of 6 days of "restless leg syndrome" states she is her because the pharmacist told her there were 2 prescription medications that would help--- Patient states she sleeps for about 7 hours 5am-12n - History of Current Complaint Chief Complaint: UCLowerExtremity Stated Complaint: RESTLESS LEGS Time Seen by Provider: 06/09/18 22:00 Hx Obtained From: Patient Hx Last Menstrual Period: 1 WEEK AGO ?: No Onset/Duration: Gradual Onset, Lasting Days Pain Intensity: 0 Aggravating Factor(s): Nothing Alleviating Factor(s): Nothing Able to Bear Weight: Yes - Allergies/Home Medications Allergies/Adverse Reactions: Allergies Allergy/AdvReac Type Severity Reaction Status Date / Time shrimp Allergy Severe Anaphylatic Verified 06/09/18 21:52 Shock seafood Allergy Severe hives, Uncoded 05/20/18 21:21 difficulty breathing environmental Allergy Wheezing Uncoded 05/20/18 21:21 PMH/Surg Hx/FS Hx/Imm Hx Previously Healthy: No - polypharmacy Psychological History: Anxiety, Depression, Other Other Psychological History: substance abuse disorder - Surgical History Surgical History: Yes Surgery Procedure, Year, and Place: D&C. DENTAL EXTRACTION - Family History Known Family History: Positive: Respiratory Disease - COPD, Blood Disorder - blood clots, Other - COPD Family History: FHx of anxiety, depression, OCD - Social History Occupation: Disabled Lives: Dormitory/Roommates Alcohol Use: None Substance Use Type: None Smoking Status (MU): Current Every Day Smoker Type: Cigarettes Amount Used/How Often: 1/2 PPD Length of Time of Smoking/Using Tobacco: since age 13 Have You Smoked in the Last Year: Yes Household Exposure Type: Cigarettes - Immunization History Most Recent Influenza Vaccination: 2015/2016 season Review of Systems Constitutional: Negative Skin: Negative Eyes: Negative ENT: Negative Respiratory: Negative Cardiovascular: Negative Gastrointestinal: Negative Genitourinary: Negative Motor: Negative Neurovascular: Negative Musculoskeletal: Myalgia Neurological: Negative Psychological: Anxious Is Patient Immunocompromised?: No All Other Systems Reviewed And Are Negative: Yes Physical Exam Triage Information Reviewed: Yes Appearance: Obese, Other: - unkept Vital Signs: Initial Vital Signs Temp 97.8 F 06/09/18 21:49 Pulse 94 06/09/18 21:49 Resp 16 06/09/18 21:49 BP 130/87 09/22/18 21:49 Pulse Ox 100 06/09/18 21:49 Vital Signs Reviewed: Yes Eye Exam: Normal Eyes: Positive: Conjunctiva Clear ENT Exam: Normal ENT: Positive: Normal ENT inspection, Hearing grossly normal. Negative: Trismus , Muffled voice, Hoarse voice Dental Exam: Normal Neck exam: Normal Neck: Positive: Supple, Nontender Respiratory Exam: Normal Respiratory: Positive: Chest non-tender, No respiratory distress, No accessory muscle use Cardiovascular Exam: Normal Cardiovascular: Positive: RRR, Pulses Normal, Brisk Capillary Refill Abdominal Exam: Normal Musculoskeletal Exam: Normal Musculoskeletal: Positive: Strength Intact, ROM Intact, No Edema Neurological Exam: Normal Neurological: Positive: Alert, Muscle Tone Normal Psychological Exam: Normal Skin Exam: Normal Lower Extremity Course/Dx - Course Course Of Treatment: follow with Dr. Angela. rest sleep when your body is able -- to ed should symptoms worsen or fail to improve - Differential Dx/Diagnosis Provider Diagnoses: polypharmacy, restless legs Discharge - Sign-Out/Discharge Documenting (check all that apply): Patient Departure All imaging exams completed and their final reports reviewed: No Studies - Discharge Plan Condition: Stable Disposition: HOME Patient Education Materials: Restless Legs Syndrome (ED) Referrals: Vinicio Angela MD [Primary Care Provider] - 2 Days - Billing Disposition and Condition Condition: STABLE Disposition: Home
== END 2018-06-09 22:38 | disposition home or self-care (01) ==
LOC: UCEAST 21:44
DX: G25.81 Restless legs syndrome (principal); F17.210 Nicotine dependence, cigarettes, uncomplicated
CPT/HCPCS: 99212; G0463

== ENCOUNTER 2018-06-12 17:52 | Emergency (ER) | payer OTHER ==
--- NOTE | 2018-06-12 22:25 | ED ---
Lower Extremity - HPI Summary HPI Summary: Patient complains of nighttime numbness and tingling in bilateral lower extremities and makes her want to move her legs at night which is keeping her awake at night. Patient states she has had prior diagnosis of restless leg syndrome. Patient states she has appointment with PCP next Monday but cannot wait due to pain. Denies fever, cough, sore throat, CP, SOB, N/V/D, bowel pain , change in urine, change in BM, rash. Medical history is HDL, anxiety, DM 2, hypothyroid, peripheral edema. - History of Current Complaint Chief Complaint: EDExtremityLower Stated Complaint: SWOLLEN FEET/LEG ISSUE Time Seen by Provider: 06/12/18 21:26 Hx Obtained From: Patient Hx Last Menstrual Period: 1 WEEK AGO Mechanism Of Injury: Unknown Onset of Pain: Days Onset/Duration: Days Severity Initially: Moderate Severity Currently: Moderate Pain Intensity: 6 Pain Scale Used: 0-10 Numeric Timing: Intermittent Character Of Pain: Throbbing Associated Signs And Symptoms: Positive: Swelling Aggravating Factor(s): Other Able to Bear Weight: Yes - Allergies/Home Medications Allergies/Adverse Reactions: Allergies Allergy/AdvReac Type Severity Reaction Status Date / Time shrimp Allergy Severe Anaphylatic Verified 06/09/18 21:52 Shock seafood Allergy Severe hives, Uncoded 05/20/18 21:21 difficulty breathing environmental Allergy Wheezing Uncoded 05/20/18 21:21 PMH/Surg Hx/FS Hx/Imm Hx Endocrine/Hematology History: Reports: Hx Diabetes - Type 2, Hx Thyroid Disease - HYPOTHYROIDISM Cardiovascular History: Reports: Hx Hypercholesterolemia Denies: Hx Hypertension Respiratory History: Reports: Hx Asthma Denies: Hx Chronic Obstructive Pulmonary Disease (COPD) GI History: Reports: Other GI Disorders - fatty liver disease Denies: Hx Ulcer Musculoskeletal History: Denies: Hx Rheumatoid Arthritis, Hx Osteoporosis Psychiatric History: Reports: Hx Anxiety, Hx Depression - Surgical History Surgery Procedure, Year, and Place: D&C. DENTAL EXTRACTION - Immunization History Immunizations Up to Date: Yes Infectious Disease History: No Infectious Disease History: Denies: Hx Clostridium Difficile, Hx Hepatitis, Hx Human Immunodeficiency Virus (HIV), Hx of Known/Suspected MRSA, Hx Shingles, Hx Tuberculosis, Hx Known/ Suspected VRE, Hx Known/Suspected VRSA, History Other Infectious Disease, Traveled Outside the [place] in Last 30 Days - Family History Known Family History: Positive: Respiratory Disease - COPD, Blood Disorder - blood clots, Other - COPD Family History: FHx of anxiety, depression, OCD - Social History Alcohol Use: Rare Hx Substance Use: No Substance Use Type: Reports: None Hx Tobacco Use: Yes Smoking Status (MU): Current Every Day Smoker Type: Cigarettes Amount Used/How Often: 1/2 PPD Length of Time of Smoking/Using Tobacco: since age 13 Have You Smoked in the Last Year: Yes Review of Systems Constitutional: Negative Eyes: Negative ENT: Negative Cardiovascular: Negative Respiratory: Negative Gastrointestinal: Negative Genitourinary: Negative Positive: Myalgia Skin: Negative Neurological: Negative Psychological: Normal All Other Systems Reviewed And Are Negative: Yes Physical Exam - Summary Physical Exam Summary: Mild edema to left lower extremity. Motor function intact bilaterally lower extremities. No evidence of bone, erythema, ecchymosis, deformity, swelling, extra warmth. No tenderness to palpation. Coughs soft nontender bilaterally. Full range of motion of all joints of bilateral lower extremities. Triage Information Reviewed: Yes Vital Signs On Initial Exam: Initial Vitals Temp Pulse Resp BP Pulse Ox 97 F 88 16 136/87 98 06/12/18 18:23 06/12/18 18:23 06/12/18 18:23 06/12/18 18:23 06/12/18 18:23 Vital Signs Reviewed: Yes Appearance: Positive: Well-Appearing Skin: Positive: Warm Head/Face: Positive: Normal Head/Face Inspection Eyes: Positive: Normal Neck: Positive: Supple Respiratory/Lung Sounds: Positive: Clear to Auscultation Cardiovascular: Positive: Normal Abdomen Description: Positive: Nontender Musculoskeletal: Positive: Normal Neurological: Positive: Normal Psychiatric: Positive: Normal AVPU Assessment: Alert - [place] Coma Scale Best Eye Response: 4 - Spontaneous Best Motor Response: 6 - Obeys Commands Best Verbal Response: 5 - Oriented Coma Scale Total: 15 Diagnostics - Vital Signs Vital Signs Temp Pulse Resp BP Pulse Ox 06/12/18 18:23 97 F 88 16 136/87 98 - Laboratory Lab Statement: Any lab studies that have been ordered have been reviewed, and results considered in the medical decision making process. Lower Extremity Course/Dx - Course Course Of Treatment: Patient complains of nighttime numbness and tingling in bilateral lower extremities and makes her want to move her legs at night which is keeping her awake at night. Patient states she has had prior diagnosis of restless leg syndrome. Patient states she has appointment with PCP next Monday but cannot wait due to pain. Denies fever, cough, sore throat, CP, SOB, N/V/D, bowel pain, change in urine, change in BM, rash. Medical history is HDL, anxiety, DM 2, hypothyroid, peripheral edema. Physical exam:Mild edema to left lower extremity. Motor function intact bilaterally lower extremities. No evidence of bone, erythema, ecchymosis, deformity, swelling, extra warmth. No tenderness to palpation. Coughs soft nontender bilaterally. Full range of motion of all joints of bilateral lower extremities. Vital signs normal. Patient given Rx for 7 days of Requip. Patient has appointment with PCP X Monday. - Diagnoses Provider Diagnoses: Restless leg syndrome Discharge - Sign-Out/Discharge Documenting (check all that apply): Patient Departure - Discharge Plan Condition: Stable Disposition: HOME Prescriptions: Ropinirole TAB* [Requip TAB*] 0.5 mg PO BEDTIME 7 Days #7 tab Patient Education Materials: Restless Legs Syndrome (ED) Referrals: Vinicio Angela MD [Primary Care Provider] - Additional Instructions: Follow-up with your appointment for primary care next Monday for further evaluation. Return to the ED for any new or worsening symptoms - Billing Disposition and Condition Condition: STABLE Disposition: Home
[2018-06-12] MEDS: Gabapentin CAP(*) 300 MG PO ONE ×2 (22:34→22:38)
[2018-06-12] MEDS ORDERED: Ropinirole TAB* 0.5 MG TAB PO ONE (22:44)
[2018-06-12 22:56] VITALS: BP 130/78
== END 2018-06-12 22:55 | disposition home or self-care (01) ==
LOC: ED 17:52
DX: G25.81 Restless legs syndrome (principal); E11.9 Type 2 diabetes mellitus without complications
CPT/HCPCS: 99282; A9270-GY

== ENCOUNTER 2018-10-07 12:25 | Emergency (ER) | payer OTHER ==
[2018-10-07 12:37] VITALS: BP 130/81
--- NOTE | 2018-10-07 12:46 | UC ---
Eye Complaint HPI - HPI Summary HPI Summary: has had itchy eyes for 2-3 days, today eyes turned red and draining white matter denies any exposure to soap or chemical in eye - History of Current Complaint Chief Complaint: UCEye Stated Complaint: EYE ISSUE Time Seen by Provider: 10/07/18 12:29 Hx Obtained From: Patient Hx Last Menstrual Period: 09/05/19 Onset/Duration: Gradual Onset Timing: Constant Severity Currently: Moderate Pain Intensity: 7 Location of Injury: Conjunctiva Character: Dull Aggravating Factor(s): Blinking Alleviating Factor(s): Nothing Associated Signs And Symptoms: Positive: Drainage (Clear). Negative: Photophobia, Fever, Swelling Related History: Similar Episode - conjunctivitis - Allergies/Home Medications Allergies/Adverse Reactions: Allergies Allergy/AdvReac Type Severity Reaction Status Date / Time shrimp Allergy Severe Anaphylatic Verified 10/07/18 12:38 Shock seafood Allergy Severe hives, Uncoded 10/07/18 12:38 difficulty breathing environmental Allergy Wheezing Uncoded 10/07/18 12:38 PMH/Surg Hx/FS Hx/Imm Hx Previously Healthy: Yes Endocrine History: Hypothyroidism, Dyslipidemia Cardiovascular History: Hypertension Respiratory History: Asthma Psychological History: Anxiety, Depression - Surgical History Surgical History: Yes Surgery Procedure, Year, and Place: D&C. DENTAL EXTRACTION - Family History Known Family History: Positive: Respiratory Disease - COPD, Blood Disorder - blood clots, Other - COPD Family History: FHx of anxiety, depression, OCD - Social History Occupation: Disabled Lives: With Family Alcohol Use: Rare Substance Use Type: None Smoking Status (MU): Current Every Day Smoker Type: Cigarettes Amount Used/How Often: 1/2 PPD Length of Time of Smoking/Using Tobacco: since age 13 Have You Smoked in the Last Year: Yes Household Exposure Type: Cigarettes Cessation Counseling: Patient Advised to Stop - Immunization History Most Recent Influenza Vaccination: 2016/2016 season Review of Systems All Other Systems Reviewed And Are Negative: Yes Constitutional: Positive: Negative Skin: Negative: Rash Eyes: Positive: Drainage, Eye Redness. Negative: Blurred Vision ENT: Positive: Negative. Negative: Sinus Pain/Tenderness Respiratory: Positive: Negative. Negative: Cough Cardiovascular: Positive: Negative Gastrointestinal: Positive: Negative Neurological: Positive: Negative Psychological: Positive: Negative Is Patient Immunocompromised?: No Physical Exam Triage Information Reviewed: Yes Appearance: Obese Vital Signs: Initial Vital Signs Temp 98.7 F 10/07/18 12:34 Pulse 90 10/07/18 12:34 Resp 16 10/07/18 12:34 BP 130/81 10/07/18 12:34 Pulse Ox 95 10/07/18 12:34 Vital Signs Reviewed: Yes Eyes: Positive: Conjunctiva Inflamed, Discharge - bilateral white discharge,, yellow exudate lower lashes ENT Exam: Normal ENT: Positive: Pharynx normal, TMs normal. Negative: Nasal congestion, Sinus tenderness Neck exam: Normal Neck: Positive: No Lymphadenopathy Respiratory Exam: Normal Respiratory: Positive: Lungs clear Cardiovascular Exam: Normal Cardiovascular: Positive: RRR Musculoskeletal Exam: Normal Psychological Exam: Normal Skin Exam: Normal Skin: Negative: Rashes Eye Complaint Course/Dx - Differential Dx/Diagnosis Differential Diagnosis/HQI/PQRI: Conjunctivitis, Corneal Abrasion, Foreign Body Provider Diagnosis: Conjunctivitis Discharge - Sign-Out/Discharge Documenting (check all that apply): Patient Departure All imaging exams completed and their final reports reviewed: No Studies - Discharge Plan Condition: Good Disposition: HOME Prescriptions: Sulfacetamide 10 % OPTH.ANA* [Sulamyd 10% Opth*] 1 drop BOTH EYES Q4H 7 Days #1 btl Referrals: Vinicio Angela MD [Primary Care Provider] - - Billing Disposition and Condition Condition: GOOD Disposition: Home
== END 2018-10-07 13:00 | disposition home or self-care (01) ==
LOC: UCEAST 12:25
DX: H10.33 Unspecified acute conjunctivitis, bilateral (principal); F17.200 Nicotine dependence, unspecified, uncomplicated
CPT/HCPCS: 99212; G0463

== ENCOUNTER 2018-10-20 18:02 | Emergency (ER) | payer OTHER ==
[2018-10-20 18:20] VITALS: BP 117/70
--- NOTE | 2018-10-20 19:13 | UC ---
Eye Complaint HPI - HPI Summary HPI Summary: 48-year-old woman here with a chief complaint of irritation of her eyelids. Worse on the right than the left. No vision changes no trauma. She has tried some sulfa-based antibiotic ointment that did not seem to help. She saw her primary care doctor about it. Patient reports some difficulty with insurance paying for various medications to include antihistamine eyedrops. Patient is allergic to ketotifen eye drop. - History of Current Complaint Chief Complaint: UCEye Stated Complaint: EYE ISSUES Time Seen by Provider: 10/20/18 18:44 Hx Last Menstrual Period: 09/04/2018 Pain Intensity: 8 - Allergies/Home Medications Allergies/Adverse Reactions: Allergies Allergy/AdvReac Type Severity Reaction Status Date / Time shrimp Allergy Severe Anaphylatic Verified 10/07/18 12:38 Shock ketotifen [From [place]] Allergy Eyes Verified 10/20/18 18:22 Itchy/Swollen/Red/Watery seafood Allergy Severe hives, Uncoded 10/07/18 12:38 difficulty breathing environmental Allergy Wheezing Uncoded 10/07/18 12:38 PMH/Surg Hx/FS Hx/Imm Hx Previously Healthy: Yes Endocrine History: Hypothyroidism GI/ History: Gastroesophageal Reflux - Surgical History Surgical History: Yes Surgery Procedure, Year, and Place: D&C. DENTAL EXTRACTION - Family History Known Family History: Positive: Respiratory Disease - COPD, Blood Disorder - blood clots, Other - COPD Family History: FHx of anxiety, depression, OCD - Social History Alcohol Use: Rare Substance Use Type: None Smoking Status (MU): Current Every Day Smoker Type: Cigarettes Amount Used/How Often: 1/2 PPD Length of Time of Smoking/Using Tobacco: since age 13 Have You Smoked in the Last Year: Yes Household Exposure Type: Cigarettes - Immunization History Most Recent Influenza Vaccination: 2016/2016 season Review of Systems All Other Systems Reviewed And Are Negative: Yes Constitutional: Positive: Negative Skin: Positive: Rash - eyelids Eyes: Positive: Other - see hpi ENT: Positive: Negative Respiratory: Positive: Negative Cardiovascular: Positive: Negative Gastrointestinal: Positive: Negative Motor: Positive: Negative Neurovascular: Positive: Negative Musculoskeletal: Positive: Negative Neurological: Positive: Negative Psychological: Positive: Negative Is Patient Immunocompromised?: No Physical Exam Triage Information Reviewed: Yes Appearance: Well-Appearing, No Pain Distress, Well-Nourished Vital Signs: Initial Vital Signs Temp 96.8 F 10/20/18 18:09 Pulse 116 10/20/18 18:09 Resp 16 10/20/18 18:09 BP 117/70 10/20/18 18:09 Pulse Ox 97 10/20/18 18:09 Vital Signs Reviewed: Yes Eyes: Positive: Other: - 2 some dry flaking in the base of erythema with some discharge around both eyes and the eyelids worse on the right of the left. ENT: Negative: Nasal congestion, Nasal drainage Neck exam: Normal Neck: Positive: Supple Respiratory: Positive: No respiratory distress Musculoskeletal Exam: Normal Musculoskeletal: Positive: Strength Intact, ROM Intact Neurological Exam: Normal Neurological: Positive: Alert, Muscle Tone Normal Psychological Exam: Normal Psychological: Positive: Age Appropriate Behavior Skin: Positive: Other - 2 some dry flaking in the base of erythema with some discharge around both eyes and the eyelids worse on the right of the left. Eye Complaint Course/Dx - Course Course Of Treatment: Pharmacies are closed right now so we are giving her some tobramycin eyedrops here. 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 Patient reports insurance doesn't pay for the antihistamines. Patient will follow-up with her primary care doctor she can also follow up with ophthalmology or dermatology. - Differential Dx/Diagnosis Provider Diagnosis: Blepharitis of both eyes Discharge - Sign-Out/Discharge Documenting (check all that apply): Patient Departure All imaging exams completed and their final reports reviewed: No Studies - Discharge Plan Condition: Stable Disposition: HOME Prescriptions: Gentamicin 0.3% OPTH.OINT* 1 applic OPHTHALMIC TID #1 tube Patient Education Materials: Blepharitis (ED) Referrals: Vinicio Angela MD [Primary Care Provider] - Additional Instructions: FOLLOW UP WITH YOUR DOCTOR IF NOT COMPLETELY IMPROVED. GET RECHECKED SOONER WITH ANY WORSENING OF YOUR CONDITION OR QUESTIONS OR CONCERNS. - Billing Disposition and Condition Condition: STABLE Disposition: Home
[2018-10-20] MEDS ORDERED: Tobramycin 0.3% OPHTH.SOL* 5 ML BOT (regular eye drops) BOTH EYES ONE (19:27)
== END 2018-10-20 19:25 | disposition home or self-care (01) ==
LOC: UCEAST 18:02
DX: H01.006 Unspecified blepharitis left eye, unspecified eyelid (principal); H01.003 Unspecified blepharitis right eye, unspecified eyelid; F17.210 Nicotine dependence, cigarettes, uncomplicated; Z88.8 Allergy status to other drugs, medicaments and biological substances; Z91.013 Allergy to seafood; Z91.09 Other allergy status, other than to drugs and biological substances
CPT/HCPCS: 99202; A9270-GY; G0463

== ENCOUNTER 2018-11-11 12:32 | Emergency (ER) | payer OTHER ==
[2018-11-11 12:46] VITALS: BP 103/68
--- NOTE | 2018-11-11 13:37 | UC ---
Skin Complaint HPI - HPI Summary HPI Summary: Patient is a 48 year old woman, who present today to the urgent care with skin lesions for past 3-4 days. She reports that she has noticed three small areas of redness to right calf 3-4 days ago. She reports that she has been on keflex for the past 4 days for an eye infection . She denies any discharge but it's tender to palpate Denies any fever, chills, cough chest pain or shortness of breath . Denies any abdominal pain , nausea or vomiting , diarrhea or constipation. - History of Current Complaint Chief Complaint: UCSkin Time Seen by Provider: 11/11/18 13:05 Stated Complaint: THAKUR ON LEG Hx Obtained From: Patient Hx Last Menstrual Period: 1 month ago ?: No Pain Intensity: 0 - Allergy/Home Medications Allergies/Adverse Reactions: Allergies Allergy/AdvReac Type Severity Reaction Status Date / Time shrimp Allergy Severe Anaphylatic Verified 11/11/18 12:46 Shock ketotifen [From [place]] Allergy Eyes Verified 11/11/18 12:46 Itchy/Swollen/Red/Watery seafood Allergy Severe hives, Uncoded 11/11/18 12:46 difficulty breathing environmental Allergy Wheezing Uncoded 11/11/18 12:46 eye drops Allergy Unknown Uncoded 11/11/18 12:46 Reaction Details Home Medications: Home Medications Cephalexin CAP* [Keflex CAP*] 500 mg PO QID 11/11/18 [History Confirmed 11/11/18 ] metFORMIN* [Glucophage 500 MG TAB *] 500 mg PO BID 11/11/18 [History Confirmed 11/11/18] PMH/Surg Hx/FS Hx/Imm Hx - Additional Past Medical History Additional PMH: Type 2 DM Hypothyroidism Asthma Previously Healthy: Yes - Surgical History Surgical History: Yes Surgery Procedure, Year, and Place: D&C. DENTAL EXTRACTION - Family History Known Family History: Positive: Respiratory Disease - COPD, Blood Disorder - blood clots, Other - COPD Family History: FHx of anxiety, depression, OCD - Social History Alcohol Use: Rare Substance Use Type: None Smoking Status (MU): Current Every Day Smoker Type: Cigarettes Amount Used/How Often: 1/2 PPD Length of Time of Smoking/Using Tobacco: since age 13 Have You Smoked in the Last Year: Yes Household Exposure Type: Cigarettes - Immunization History Most Recent Influenza Vaccination: 2016/2016 season Review of Systems All Other Systems Reviewed And Are Negative: Yes Constitutional: Positive: Negative Skin: Positive: Other - lesions on skin Eyes: Positive: Negative ENT: Positive: Negative Respiratory: Positive: Negative Cardiovascular: Positive: Negative Gastrointestinal: Positive: Negative Genitourinary: Positive: Negative Motor: Positive: Negative Neurovascular: Positive: Negative Musculoskeletal: Positive: Negative Neurological: Positive: Negative Psychological: Positive: Negative Is Patient Immunocompromised?: No Physical Exam - Summary Physical Exam Summary: Physical Exam: Const: Appears well. No signs of apparent distress present. Alert and oriented x 3. Musculo: Walks with a normal gait. Head/Face: Atraumatic, normocephalic on inspection. Eyes: EOMI and PERRLA in both eyes. Conjunctivae clear. No discharge noted ENT: Hearing normal,. CVS: Regular rate and Rhythm, S1S2 normal , no murmurs identified. Extremities: Peripheral circulation is grossly normal. Pulses 2+ Abdomen : Soft non tender. Skin: Right calf : 3 small areas of erythema with scabbing noted in the right lateral calf around the follicles . No drainage noted . Tender to palpate. No fluctuation noted Neuro: Cranial nerves II to XII intact, motor and sensory intact. DTR Intact bilaterally. Mood is normal. Affect is normal. Triage Information Reviewed: Yes Vital Signs: Initial Vital Signs Temp 98.8 F 11/11/18 12:41 Pulse 111 11/11/18 12:41 Resp 16 11/11/18 12:41 BP 103/68 11/11/18 12:41 Pulse Ox 97 11/11/18 12:41 Vital Signs Reviewed: Yes Course/Dx - Course Course Of Treatment: During the visit today, we discussed the findings and further plan. I will prescribe the medication to the pharmacy . Advise her to stop Keflex and start Bactrim. She will also start using Bactroban locally. Patient expressed understanding . - Diagnoses Provider Diagnosis: Folliculitis Discharge - Sign-Out/Discharge Documenting (check all that apply): Patient Departure All imaging exams completed and their final reports reviewed: No Studies - Discharge Plan Condition: Stable Disposition: HOME Prescriptions: Mupirocin 2% OINT* [Bactroban 2 % Oint*] 1 applic TOPICAL BID 7 Days #1 tube Sulfamethox/Trimethoprim DS* [Bactrim DS 800/160 TAB*] 1 tab PO BID 10 Days #20 tab Patient Education Materials: Folliculitis (ED) Referrals: Vinicio Angela MD [Primary Care Provider] - 1 Week Additional Instructions: Please start a using the medications as prescribed to the pharmacy Follow up with your primary care doctor in 1 week. Return to Urgent care / ER if symptoms get worse. - Billing Disposition and Condition Condition: STABLE Disposition: Home
== END 2018-11-11 13:45 | disposition home or self-care (01) ==
LOC: UCEAST 12:32
DX: L73.9 Follicular disorder, unspecified (principal); E11.9 Type 2 diabetes mellitus without complications; J45.909 Unspecified asthma, uncomplicated; F17.210 Nicotine dependence, cigarettes, uncomplicated; Z79.84 Long term (current) use of oral hypoglycemic drugs; Z91.09 Other allergy status, other than to drugs and biological substances; Z91.013 Allergy to seafood; Z88.8 Allergy status to other drugs, medicaments and biological substances
CPT/HCPCS: 99212; G0463

== ENCOUNTER 2019-03-01 20:38 | Emergency (ER) | payer OTHER ==
[2019-03-01 20:50] VITALS: BP 145/83
--- NOTE | 2019-03-01 21:16 | UC ---
Nausea/Vomiting/Diarrhea HPI - HPI Summary HPI Summary: 48-year-old woman comes in with a chief complaint of diarrhea. Patient has a history of chronic diarrhea. She seen her primary care doctor and gastroenterology at [place]. She has used Lomotil the past which she says doesn 't work anymore. Last 4 days ago is been much worse. She reports that the diarrhea is green. She goes multiple times a day basically every time she drinks anything. No abdominal cramping but no focal abdominal pain or anything that stays. No fevers. Has felt a little dizzy. No complaint of let in the stool. She is also worried about her liver and kidneys. No recent antibiotics. - History of Current Complaint Chief Complaint: UCGI Stated Complaint: DIARRHEA Time Seen by Provider: 03/01/19 20:44 Hx Last Menstrual Period: 1 month ago Pain Intensity: 0 - Allergies/Home Medications Allergies/Adverse Reactions: Allergies Allergy/AdvReac Type Severity Reaction Status Date / Time shrimp Allergy Severe Anaphylatic Verified 03/01/19 20:50 Shock ketotifen [From [place]] Allergy Eyes Verified 03/01/19 20:50 Itchy/Swollen/Red/Watery seafood Allergy Severe hives, Uncoded 03/01/19 20:50 difficulty breathing environmental Allergy Wheezing Uncoded 03/01/19 20:50 eye drops Allergy Unknown Uncoded 03/01/19 20:50 Reaction Details PMH/Surg Hx/FS Hx/Imm Hx Previously Healthy: Yes Endocrine History: Diabetes, Hypothyroidism - Surgical History Surgical History: Yes Surgery Procedure, Year, and Place: D&C. DENTAL EXTRACTION - Family History Known Family History: Positive: Respiratory Disease - COPD, Blood Disorder - blood clots, Other - COPD Family History: FHx of anxiety, depression, OCD - Social History Alcohol Use: Weekly Substance Use Type: None Smoking Status (MU): Current Every Day Smoker Type: Cigarettes Amount Used/How Often: 1/2 PPD Length of Time of Smoking/Using Tobacco: since age 13 Have You Smoked in the Last Year: Yes Household Exposure Type: Cigarettes - Immunization History Most Recent Influenza Vaccination: 2016/2016 season Review of Systems All Other Systems Reviewed And Are Negative: Yes Constitutional: Positive: Negative Skin: Positive: Negative Eyes: Positive: Negative ENT: Positive: Negative Respiratory: Positive: Negative Cardiovascular: Positive: Negative Gastrointestinal: Positive: Diarrhea Genitourinary: Positive: Negative Motor: Positive: Negative Neurovascular: Positive: Negative Musculoskeletal: Positive: Negative Neurological: Positive: Negative Psychological: Positive: Negative Is Patient Immunocompromised?: No Physical Exam Triage Information Reviewed: Yes Appearance: Well-Appearing, No Pain Distress, Well-Nourished Vital Signs: Initial Vital Signs Temp 98.6 F 03/01/19 20:43 Pulse 107 03/01/19 20:43 Resp 18 03/01/19 20:43 BP 145/83 03/01/19 20:43 Pulse Ox 97 03/01/19 20:43 Vital Signs Reviewed: Yes Eye Exam: Normal Eyes: Positive: Conjunctiva Clear ENT: Positive: Pharynx normal, Other - ORAL MUCOSA MOIST Neck: Positive: Supple Respiratory: Positive: Lungs clear, Normal breath sounds, No respiratory distress Cardiovascular: Positive: RRR Abdomen Description: Positive: Nontender, Soft Musculoskeletal Exam: Normal Musculoskeletal: Positive: Strength Intact, ROM Intact Neurological: Positive: Alert Psychological: Positive: Age Appropriate Behavior Skin Exam: Normal Naus/Vom/Diarrhea Course/Dx - Course Course Of Treatment: Stool results and CMP pending. F/U gastroenterology and pmd; reeval sooner if worse. - Differential Dx/Diagnosis Provider Diagnosis: Diarrhea Discharge - Sign-Out/Discharge Documenting (check all that apply): Patient Departure All imaging exams completed and their final reports reviewed: No Studies - Discharge Plan Condition: Stable Disposition: HOME Patient Education Materials: Chronic Diarrhea (ED) Referrals: Vinicio Angela MD [Primary Care Provider] - Rafa Vidal DO [Doctor of Osteopathy] - Additional Instructions: FOLLOW UP WITH GASTROENTEROLOGY OR YOUR PRIMARY CARE DOCTOR IF NOT COMPLETELY IMPROVED. GET RECHECKED SOONER IF YOUR CONDITION WORSENS OR ANY QUESTIONS OR CONCERNS. - Billing Disposition and Condition Condition: STABLE Disposition: Home
[2019-03-02 14:15] LABS: Albumin 4.1 g/dL (3.2-5.2); Calcium 9.2 mg/dL (8.6-10.3); Total Bilirubin 0.6 mg/dL (0.2-1.0)
[2019-03-02 14:21] LABS: Albumin/Globulin Ratio 1.3 (1-3); BUN/Creatinine Ratio 11.1 (8-20); EGFR African American 91.3 (>60); EGFR Non-African American 75.5 (>60); Globulin 3.1 g/dL (2-4); Total Protein 7.2 g/dL (6.4-8.9)
== END 2019-03-01 21:51 | disposition home or self-care (01) ==
LOC: UCEAST 20:38
DX: R19.7 Diarrhea, unspecified (principal); E11.9 Type 2 diabetes mellitus without complications; F17.210 Nicotine dependence, cigarettes, uncomplicated
CPT/HCPCS: 36415; 80053; 99212; G0463

== ENCOUNTER 2019-03-29 14:40 | Emergency (ER) | payer OTHER ==
[2019-03-29 15:00] VITALS: BP 118/74
== END 2019-03-29 15:20 | disposition left against medical advice (07) ==
LOC: UCEAST 14:40
DX: Z53.8 Procedure and treatment not carried out for other reasons (principal)

== ENCOUNTER 2019-04-25 18:41 | Emergency (ER) | payer OTHER ==
[2019-04-25 18:56] VITALS: BP 150/90
--- NOTE | 2019-04-25 19:49 | UC ---
Lower Extremity/Ankle HPI - HPI Summary HPI Summary: 49 year old female with PMH + for HDL, anxiety, DM II, anxiety who presents very upset that she has a DVT in bilateral legs. Patients mother recently passed of DVT as well as her father. She has a long standing history of peripheral edema but believes it has been worse over the past 3-4 days. She notes increased pain with ambulation and increased swelling from normal. Per her notes from prior visits, it has been documented that the patient has peripheral edema, worse on the left. She notes she has seen Dr. Angela for this for years without any explanation. I asked if he had done blood work to rule out a clotting disorder, but the patient was not sure. - History of Current Complaint Chief Complaint: UCLowerExtremity Stated Complaint: LEG SWELLING Time Seen by Provider: 04/25/19 19:12 Hx Obtained From: Patient Hx Last Menstrual Period: unknown ?: No Onset/Duration: Sudden Onset, Lasting Weeks, Still Present Severity Initially: Moderate Severity Currently: Moderate Pain Intensity: 5 Pain Scale Used: 0-10 Numeric Aggravating Factor(s): Standing, Ambulation Alleviating Factor(s): Rest, Elevation Able to Bear Weight: Yes - Allergies/Home Medications Allergies/Adverse Reactions: Allergies Allergy/AdvReac Type Severity Reaction Status Date / Time shrimp Allergy Severe Anaphylatic Verified 04/25/19 19:00 Shock ketotifen [From [place]] Allergy Eyes Verified 04/25/19 19:00 Itchy/Swollen/Red/Watery seafood Allergy Severe hives, Uncoded 04/25/19 19:00 difficulty breathing environmental Allergy Wheezing Uncoded 04/25/19 19:00 eye drops Allergy Unknown Uncoded 04/25/19 19:00 Reaction Details PMH/Surg Hx/FS Hx/Imm Hx Previously Healthy: No Psychological History: Anxiety - Surgical History Surgical History: Yes Surgery Procedure, Year, and Place: D&C. DENTAL EXTRACTION - Family History Known Family History: Positive: Respiratory Disease - COPD, Blood Disorder - blood clots, Other - COPD Family History: FHx of anxiety, depression, OCD - Social History Alcohol Use: Weekly Substance Use Type: None Smoking Status (MU): Current Every Day Smoker Type: Cigarettes Amount Used/How Often: 1/2 PPD Length of Time of Smoking/Using Tobacco: since age 13 Have You Smoked in the Last Year: Yes Household Exposure Type: Cigarettes - Immunization History Most Recent Influenza Vaccination: season Review of Systems All Other Systems Reviewed And Are Negative: Yes Constitutional: Positive: Negative Skin: Positive: Rash - mild redness Respiratory: Negative: Shortness Of Breath Cardiovascular: Negative: Palpitations, Chest Pain Musculoskeletal: Positive: Arthralgia, Decreased ROM, Edema, Myalgia Psychological: Positive: Anxious Is Patient Immunocompromised?: No Physical Exam Triage Information Reviewed: Yes Appearance: Well-Appearing, No Pain Distress, Well-Nourished Vital Signs: Initial Vital Signs Temp 97.8 F 04/25/19 18:50 Pulse 92 04/25/19 18:50 Resp 17 04/25/19 18:50 BP 150/90 04/25/19 18:50 Pulse Ox 98 04/25/19 18:50 Vital Signs Reviewed: Yes Eyes: Positive: Conjunctiva Clear ENT: Positive: Hearing grossly normal Neck: Positive: Supple, Nontender, No Lymphadenopathy Respiratory: Positive: Chest non-tender, Lungs clear, Normal breath sounds, No respiratory distress, No accessory muscle use. Negative: Crackles, Rhonchi, Stridor, Wheezing Cardiovascular: Positive: RRR, No Murmur Musculoskeletal: Positive: Edema @ - b/l LEs with L>R, minimal TTP over L ankle with mild erythema noted. pitting edema +1 b/l, mild worse on L. full ROM of ankle b/l active, = strength against resistence b/l, neg homans b/l. VA 2+ b/l. no knee pain, tenderness. SITLT distal to knees b/l. Neurological: Positive: Alert, Muscle Tone Normal Psychological Exam: Normal Psychological: Positive: Other: - anxious Skin: Positive: Other - b/l LEs with L>R, minimal TTP over L ankle with mild erythema noted. pitting edema +1 b/l, mild worse on L. full ROM of ankle b/ l active, = strength against resistence b/l, neg homans b/l. VA 2+ b/l. no knee pain, tenderness. SITLT distal to knees b/l. Lower Extremity Course/Dx - Course Course Of Treatment: Venous dppler- negative L side. Blood work drawn for possible cause Due to increased erythema, keflex prescription given, follow up with PCP within 2-3 days for re-eval, wound check. - Differential Dx/Diagnosis Differential Diagnosis/HQI/PQRI: Cellulitis, DVT, Osteomyelitis, Tendonitis, Tenosynovitis Provider Diagnosis: Cellulitis of right leg, Peripheral edema Discharge - Sign-Out/Discharge Documenting (check all that apply): Patient Departure All imaging exams completed and their final reports reviewed: Yes - Discharge Plan Condition: Good Disposition: HOME Prescriptions: Cephalexin CAP* [Keflex CAP*] 500 mg PO TID #21 cap Patient Education Materials: Cellulitis (ED), Leg Edema (ED) Referrals: Vinicio Angela MD [Primary Care Provider] - Additional Instructions: Cellulitis - Keflex 500mg three times daily x 7 days - Increase fluid intake - Elevate legs as much as possible - Tylenol/ Motrin as needed for pain - Compression stockings while awake. - Follow up with primary physician within 2-3 days for re-check - lab results will be in tomorrow, call for results, we will call with abnormals. - Billing Disposition and Condition Condition: GOOD Disposition: Home - Attestation Statements Provider Attestation: This patient was not seen by me. I was available for consult. ANTOINE
[2019-04-25] MEDS ORDERED: Cephalexin CAP* 500 MG PO ONE (20:43)
[2019-04-25 23:30] LABS: Albumin 3.8 g/dL (3.2-5.2); Calcium 8.9 mg/dL (8.6-10.3); Potassium 3.8 mmol/L (3.5-5.0); Total Bilirubin 0.2 mg/dL (0.2-1.0)
[2019-04-25 23:36] LABS: Albumin/Globulin Ratio 1.5 (1-3); BUN/Creatinine Ratio 9.6 (8-20); EGFR African American 102.5 (>60); EGFR Non-African American 84.7 (>60); Globulin 2.6 g/dL (2-4); Total Protein 6.4 g/dL (6.4-8.9)
[2019-04-25 23:39] LABS: INR 1.01 (0.82-1.09)
--- NOTE | 2019-04-26 07:27 | UC ---
- Progress Note Progress Note: PLEASE CALL PATIENT. LABWORK ALL NORMAL EXCEPT SLIGHTLY ELEVATED D-DIMER. THIS IS NONSPECIFIC. NO NEED FOR ANY ACUTE INTERVENTION ESPECIALLY IN LIGHT OF NEGATIVE VENOUS DOPPLER. FOLLOW-UP WITH PCP. Course/Dx - Diagnoses Provider Diagnoses: Cellulitis of right leg, Peripheral edema Discharge - Sign-Out/Discharge Documenting (check all that apply): Post-Discharge Follow Up All imaging exams completed and their final reports reviewed: Yes - Discharge Plan Condition: Good Disposition: HOME Prescriptions: Cephalexin CAP* [Keflex CAP*] 500 mg PO TID #21 cap Patient Education Materials: Cellulitis (ED), Leg Edema (ED) Referrals: Vinicio Angela MD [Primary Care Provider] - Additional Instructions: Cellulitis - Keflex 500mg three times daily x 7 days - Increase fluid intake - Elevate legs as much as possible - Tylenol/ Motrin as needed for pain - Compression stockings while awake. - Follow up with primary physician within 2-3 days for re-check - lab results will be in tomorrow, call for results, we will call with abnormals. - Billing Disposition and Condition Condition: GOOD Disposition: Home
== END 2019-04-25 21:04 | disposition home or self-care (01) ==
LOC: UCEAST 18:41
DX: L03.115 Cellulitis of right lower limb (principal); R60.9 Edema, unspecified; E11.9 Type 2 diabetes mellitus without complications; F41.9 Anxiety disorder, unspecified; E78.5 Hyperlipidemia, unspecified; F17.210 Nicotine dependence, cigarettes, uncomplicated; Z83.2 Family history of diseases of the blood and blood-forming organs and certain disorders involving the immune mechanism
CPT/HCPCS: 36415; 80053; 85379; 85610; 99212; A9270-GY; G0463

== ENCOUNTER 2019-04-28 18:06 | Emergency (ER) | payer OTHER ==
[2019-04-28 19:26] LABS: ABS Basophils 0.1 10^3/ul (0-0.2); ABS Eosinophils 0.3 10^3/ul (0-0.6); ABS Lymphocytes 1.1 10^3/ul (1.0-4.8); ABS Monocytes 0.6 10^3/ul (0-0.8); ABS Neutrophils 6.5 10^3/ul (1.5-7.7); Hematocrit 38 % (35-47); Mean Corpuscular HGB Conc 34 g/dL (31-36); Mean Corpuscular Hemoglobin 33 pg (27-31); Mean Corpuscular Volume 97 fL (80-97); Mean Platelet Volume 7.5 fL (7.4-10.4); Platelet Count 288 10^3/uL (150-450); Red Blood Count 3.97 10^6 /uL (3.70-4.87); Red Cell Distribution Width 13 % (10-15); White Blood Count 8.7 10^3/uL (3.5-10.8)
[2019-04-28 19:43] LABS: Albumin 3.7 g/dL (3.2-5.2); Albumin/Globulin Ratio 1.2 (1-3); BUN/Creatinine Ratio 7.7 (8-20); C Reactive Protein 1.08 mg/L (<8.01); Calcium 8.5 mg/dL (8.6-10.3); EGFR Non-African American 78.5 (>60); Potassium 3.9 mmol/L (3.5-5.0); Total Bilirubin 0.4 mg/dL (0.2-1.0); Total Protein 6.7 g/dL (6.4-8.9)
--- NOTE | 2019-04-28 20:36 | ED ---
Lower Extremity - HPI Summary HPI Summary: Patient complains of bilateral lower extremity edema times years with increase in recent swelling bilaterally, and edema and bilateral eyelids tonight. Patient states swelling worse with standing, improved with lying down and elevation. Denies fever, cough, sore throat, CP, SOB, N/V/D, abdominal pain, change in urine, change in BM. Medical history is DM, hypothyroid. - History of Current Complaint Chief Complaint: EDExtremityLower Stated Complaint: LEG SWELLING PER EMS Time Seen by Provider: 04/28/19 18:24 Hx Obtained From: Patient Hx Last Menstrual Period: unknown Mechanism Of Injury: Unknown Onset/Duration: Weeks Severity Initially: Moderate Severity Currently: Moderate Pain Intensity: 4 Pain Scale Used: 0-10 Numeric Timing: Intermittent, Lasting Hours Location: Is Discrete @ Associated Signs And Symptoms: Positive: Swelling Aggravating Factor(s): Standing, Ambulation Alleviating Factor(s): Rest, Elevation Able to Bear Weight: Yes - Allergies/Home Medications Allergies/Adverse Reactions: Allergies Allergy/AdvReac Type Severity Reaction Status Date / Time shrimp Allergy Severe Anaphylatic Verified 04/25/19 19:00 Shock ketotifen [From [place]] Allergy Eyes Verified 04/25/19 19:00 Itchy/Swollen/Red/Watery seafood Allergy Severe hives, Uncoded 04/25/19 19:00 difficulty breathing environmental Allergy Wheezing Uncoded 04/25/19 19:00 eye drops Allergy Unknown Uncoded 04/25/19 19:00 Reaction Details PMH/Surg Hx/FS Hx/Imm Hx Endocrine/Hematology History: Reports: Hx Diabetes - Type 2, Hx Thyroid Disease - HYPOTHYROIDISM Cardiovascular History: Reports: Hx Hypercholesterolemia Denies: Hx Hypertension Respiratory History: Reports: Hx Asthma Denies: Hx Chronic Obstructive Pulmonary Disease (COPD) GI History: Reports: Other GI Disorders - fatty liver disease Denies: Hx Ulcer Musculoskeletal History: Denies: Hx Rheumatoid Arthritis, Hx Osteoporosis Sensory History: Denies: Hx Legally Blind Opthamlomology History: Denies: Hx Eye Prosthesis EENT History: Denies: Hx Deafness Neurological History: Denies: Hx Dementia Psychiatric History: Reports: Hx Anxiety, Hx Depression - Surgical History Surgery Procedure, Year, and Place: D&C. DENTAL EXTRACTION Infectious Disease History: No Infectious Disease History: Denies: Hx Clostridium Difficile, Hx Hepatitis, Hx Human Immunodeficiency Virus (HIV), Hx of Known/Suspected MRSA, Hx Shingles, Hx Tuberculosis, Hx Known/ Suspected VRE, Hx Known/Suspected VRSA, History Other Infectious Disease, Traveled Outside the [place] in Last 30 Days - Family History Known Family History: Positive: Respiratory Disease - COPD, Blood Disorder - blood clots, Other - COPD Family History: FHx of anxiety, depression, OCD - Social History Alcohol Use: Weekly Hx Substance Use: No Substance Use Type: Reports: None Hx Tobacco Use: Yes Smoking Status (MU): Current Every Day Smoker Type: Cigarettes Amount Used/How Often: 1/2 PPD Length of Time of Smoking/Using Tobacco: since age 13 Have You Smoked in the Last Year: Yes Review of Systems Constitutional: Negative Eyes: Negative ENT: Negative Cardiovascular: Negative Respiratory: Negative Gastrointestinal: Negative Genitourinary: Negative Musculoskeletal: Negative Skin: Other Neurological: Negative Psychological: Normal All Other Systems Reviewed And Are Negative: Yes Physical Exam - Summary Physical Exam Summary: Mild swelling of bilateral eyelids with no erythema, ecchymosis, deformity noted. EOMI. No conjunctival injection noted or discharge noted. Bilateral lower extremity edema 1+ pitting edema. PMS intact distally. No erythema, ecchymosis, deformity noted. Calves soft nontender bilaterally. Triage Information Reviewed: Yes Vital Signs On Initial Exam: Initial Vitals Temp Pulse Resp BP Pulse Ox 98.2 F 106 18 134/107 97 04/28/19 18:12 04/28/19 18:12 04/28/19 18:12 04/28/19 18:12 04/28/19 18:12 Vital Signs Reviewed: Yes Appearance: Positive: Well-Appearing Skin: Positive: Warm Head/Face: Positive: Normal Head/Face Inspection Eyes: Positive: Normal ENT: Positive: Normal ENT inspection Neck: Positive: Supple Respiratory/Lung Sounds: Positive: Clear to Auscultation Cardiovascular: Positive: Normal Abdomen Description: Positive: Nontender Musculoskeletal: Positive: Normal Neurological: Positive: Normal Psychiatric: Positive: Normal AVPU Assessment: Alert - [place] Coma Scale Best Eye Response: 4 - Spontaneous Best Motor Response: 6 - Obeys Commands Best Verbal Response: 5 - Oriented Coma Scale Total: 15 Diagnostics - Vital Signs Vital Signs Temp Pulse Resp BP Pulse Ox 04/28/19 19:14 88 118/84 92 04/28/19 19:00 99 93 04/28/19 18:44 91 115/83 93 04/28/19 18:15 108 95 04/28/19 18:14 104 134/107 95 04/28/19 18:12 98.2 F 106 18 134/107 97 - Laboratory Lab Results: Lab Results 04/28/19 04/28/19 04/28/19 Range/Units 19:13 19:18 19:18 WBC 8.7 (3.5-10.8) 10^3/uL RBC 3.97 (3.70-4.87) 10^6 /uL Hgb 13.0 (12.0-16.0) g/dL Hct 38 (35-47) % MCV 97 (80-97) fL MCH 33 H (27-31) pg MCHC 34 (31-36) g/dL RDW 13 (10-15) % Plt Count 288 (150-450) 10^3/uL MPV 7.5 (7.4-10.4) fL Neut % (Auto) 75.6 % Lymph % (Auto) 13.0 % [place] % (Auto) 7.2 % Eos % (Auto) 3.0 % Baso % (Auto) 1.2 % Absolute Neuts (auto) 6.5 (1.5-7.7) 10^3/ul Absolute Lymphs (auto) 1.1 (1.0-4.8) 10^3/ul Absolute Monos (auto) 0.6 (0-0.8) 10^3/ul Absolute Eos (auto) 0.3 (0-0.6) 10^3/ul Absolute Basos (auto) 0.1 (0-0.2) 10^3/ul Absolute Nucleated RBC 0.0 10^3/ul Nucleated RBC % 0.0 Sodium 138 (135-145) mmol/L Potassium 3.9 (3.5-5.0) mmol/L Chloride 104 (101-111) mmol/L Carbon Dioxide 27 (22-32) mmol/L Anion Gap 7 (2-11) mmol/L BUN 6 (6-24) mg/dL Creatinine 0.78 (0.51-0.95) mg/dL Est GFR ( Amer) 95.0 (>60) Est GFR (Non-Af Amer) 78.5 (>60) BUN/Creatinine Ratio 7.7 L (8-20) Glucose 105 H (70-100) mg/dL Calcium 8.5 L (8.6-10.3) mg/dL Total Bilirubin 0.40 (0.2-1.0) mg/dL AST 29 (13-39) U/L ALT 21 (7-52) U/L Alkaline Phosphatase 61 (34-104) U/L C-Reactive Protein 1.08 (<8.01) mg/L B-Natriuretic Peptide 92 (<=100) pg/mL Total Protein 6.7 (6.4-8.9) g/dL Albumin 3.7 (3.2-5.2) g/dL Globulin 3.0 (2-4) g/dL Albumin/Globulin Ratio 1.2 (1-3) Result Diagrams: 04/28/19 19:18 04/28/19 19:18 Lab Statement: Any lab studies that have been ordered have been reviewed, and results considered in the medical decision making process. Lower Extremity Course/Dx - Course Course Of Treatment: Patient complains of bilateral lower extremity edema times years with increase in recent swelling bilaterally, and edema and bilateral eyelids tonight. Patient states swelling worse with standing, improved with lying down and elevation. Denies fever, cough, sore throat, CP, SOB, N/V/D, abdominal pain, change in urine, change in BM. Medical history is DM, hypothyroid. Vital signs within normal limits. Labs unremarkable. Chest x- ray unremarkable. Bilateral eyelid edema improved on second exam. Follow-up with primary care for management of edema. - Diagnoses Provider Diagnoses: Bilateral lower extremity edema Discharge - Sign-Out/Discharge Documenting (check all that apply): Patient Departure Patient Received Moderate/Deep Sedation with Procedure: No - Discharge Plan Condition: Stable Disposition: HOME Patient Education Materials: Leg Edema (ED) Referrals: Vinicio Angela MD [Primary Care Provider] - Additional Instructions: Follow-up with primary care for further evaluation. - Billing Disposition and Condition Condition: STABLE Disposition: Home - Attestation Statements Provider Attestation: I was available for consultation for this patient. I did not evaluate the patient or participate in any medical decision making or disposition decisions unless I am specifically named in the chart as having consulted on the patient. If I have consulted on the patient, please see my own ED note on the patient encounter. Negra Rothman MD
[2019-04-28 20:58] VITALS: BP 115/78
== END 2019-04-28 21:17 | disposition home or self-care (01) ==
LOC: ED 18:06
DX: R60.0 Localized edema (principal); H02.846 Edema of left eye, unspecified eyelid; H02.843 Edema of right eye, unspecified eyelid; E11.9 Type 2 diabetes mellitus without complications; Z88.8 Allergy status to other drugs, medicaments and biological substances; Z91.013 Allergy to seafood; F17.210 Nicotine dependence, cigarettes, uncomplicated
CPT/HCPCS: 36415; 71046; 80053; 83880; 85025; 86140; 99282

== ENCOUNTER 2019-05-21 05:37 | Emergency (ER) | payer OTHER ==
--- NOTE | 2019-05-21 05:50 | ED ---
HPI Chest Pain - HPI Summary HPI Summary: Pt. is a 49 y.o female who presents to the ER with complaints of ongoing left sided chest pain, leg swelling, and now swelling to eyes. Pt. was admitted after a dx of PEs on CTA. She is currently on Xarelto which she states she has been taking on a regular basis other than possibly missing one dose. She notes SOB has improved. Pt. notes she has been having leg swelling for years. Pt. was concerned with increased leg swelling and swelling around her eyes so presents for re-exam. Pt. had an echo done on admission that showed normal EF and no heart strain. Pt. denies fever, cough, cp, ad. pain. Sxs are moderate in severity. No current modifying factors. Pt. currently taking morphine chronically for pain. Pt. medical hx of PE, HTN, HLD, depression, obesity, alcohol and nicotine use. - History of Current Complaint Chief Complaint: EDChestPainROMI Time Seen by Provider: 05/21/19 05:45 Hx Obtained From: Patient Hx Last Menstrual Period: unknown Pain Intensity: 10 - Additional Pertinent History Primary Care Physician: PATRICA - Allergy/Home Medications Allergies/Adverse Reactions: Allergies Allergy/AdvReac Type Severity Reaction Status Date / Time shrimp Allergy Severe Anaphylatic Verified 05/11/19 17:48 Shock ketotifen [From [place]] Allergy Eyes Verified 05/11/19 17:48 Itchy/Swollen/Red/Watery seafood Allergy Severe hives, Uncoded 05/11/19 17:48 difficulty breathing environmental Allergy Wheezing Uncoded 05/11/19 17:48 eye drops Allergy Unknown Uncoded 05/11/19 17:48 Reaction Details PMH/Surg Hx/FS Hx/Imm Hx Previously Healthy: Yes Endocrine/Hematology History: Reports: Hx Diabetes - Type 2, Hx Thyroid Disease - HYPOTHYROIDISM Cardiovascular History: Reports: Hx Hypercholesterolemia, Hx Hypertension Respiratory History: Reports: Hx Asthma Denies: Hx Chronic Obstructive Pulmonary Disease (COPD) GI History: Reports: Other GI Disorders - fatty liver disease Denies: Hx Ulcer Musculoskeletal History: Denies: Hx Rheumatoid Arthritis, Hx Osteoporosis Sensory History: Reports: Hx Contacts or Glasses Denies: Hx Eye Prosthesis, Hx Legally Blind, Hx Deafness, Hx Hearing Aid Opthamlomology History: Reports: Hx Contacts or Glasses Denies: Hx Eye Prosthesis, Hx Legally Blind Neurological History: Denies: Hx Dementia Psychiatric History: Reports: Hx Anxiety, Hx Depression - Surgical History Surgery Procedure, Year, and Place: D&C. DENTAL EXTRACTION Infectious Disease History: No Infectious Disease History: Denies: Hx Clostridium Difficile, Hx Hepatitis, Hx Human Immunodeficiency Virus (HIV), Hx of Known/Suspected MRSA, Hx Shingles, Hx Tuberculosis, Hx Known/ Suspected VRE, Hx Known/Suspected VRSA, History Other Infectious Disease, Traveled Outside the [place] in Last 30 Days - Family History Known Family History: Positive: Respiratory Disease - COPD, Blood Disorder - blood clots, Other - COPD Family History: FHx of anxiety, depression, OCD - Social History Occupation: Unemployed Lives: Alone Alcohol Use: Weekly Hx Substance Use: No Substance Use Type: Reports: None Hx Tobacco Use: Yes Smoking Status (MU): Current Every Day Smoker Type: Cigarettes Amount Used/How Often: 1/2 PPD Length of Time of Smoking/Using Tobacco: since age 13 Have You Smoked in the Last Year: Yes Review of Systems Constitutional: Negative Negative: Fever, Chills Eyes: Negative ENT: Negative Positive: Chest Pain Respiratory: Negative Negative: Shortness Of Breath, Cough Gastrointestinal: Negative Negative: Abdominal Pain Musculoskeletal: Negative Skin: Negative Neurological: Negative All Other Systems Reviewed And Are Negative: Yes Physical Exam Triage Information Reviewed: Yes Vital Signs On Initial Exam: Initial Vitals Temp Pulse Resp BP Pulse Ox 97.5 F 85 18 112/75 97 05/21/19 05:39 05/21/19 05:39 05/21/19 05:39 05/21/19 05:39 05/21/19 05:39 Vital Signs Reviewed: Yes Appearance: Positive: Well-Appearing - Pt. sitting up in bed in NAD. Anxious. Poorly kept. Skin: Positive: Warm, Dry Head/Face: Positive: Normal Head/Face Inspection Eyes: Positive: Normal, EOMI Neck: Positive: Supple Respiratory/Lung Sounds: Positive: Clear to Auscultation, Breath Sounds Present Cardiovascular: Positive: Normal, RRR Abdomen Description: Positive: Other: - Obese. Soft and nontender throughout. Musculoskeletal: Positive: Normal, Strength/ROM Intact, Other - Mild bilaterally leg edema. Neurological: Positive: Normal, CN Intact II-III Psychiatric: Positive: Affect/Mood Appropriate Diagnostics - Vital Signs Vital Signs Temp Pulse Resp BP Pulse Ox 05/21/19 05:39 97.5 F 85 18 112/75 97 - Laboratory Result Diagrams: 05/21/19 05:58 05/21/19 05:58 Lab Statement: Any lab studies that have been ordered have been reviewed, and results considered in the medical decision making process. Chest Pain Course/Dx - Course Course Of Treatment: Pt. presenting with ongoing leg swelling and left sided chest pain. She is afebrile with stable VS. O2 saturation around 98% which is normal. Pt. notes she feels she needs to be re-admitted to see a lead atg developer. ECG done at 0544 shows a sinus rhythm of 73bpm, normal axis, no ST elvation or depression. Labs unremarkable other than mildly elevated BNP of 278. CXR negative for effusion or acute findings per my reading. 0800: Results discussed with Dr. Rodgers who agrees there is no admission criteria today. Results and plan discussed with pt. She is very upset she will not be admitted. Pt. now notes new complaints of feeling dizzy and also notes her left leg has been numb today. Pt. requesting to speak with Dr. Rodgers. Dr. Rodgers discussed case with pt.'s nurse and ordered some medication for her complaints. Pt. then decided she wanted to be dc and does not want to wait to talk to Dr. Rodgers. Pt. demanding to be dc home. Will dc home to .u with PCP in 2-3 days. To continue home medications as directed. Will return to ER if sxs change or worsen. - Chest Pain Differential Diagnosis/HQI/PQRI: Acute OK, ACS, CHF, Chest Wall, Pulmonary Edema , Pulmonary Embolism - Diagnoses Provider Diagnoses: Pulmonary embolism, Leg edema Discharge ED - Sign-Out/Discharge Documenting (check all that apply): Patient Departure Patient Received Moderate/Deep Sedation with Procedure: No - Discharge Plan Condition: Good Disposition: HOME Patient Education Materials: Pulmonary Embolism (ED), Leg Edema (ED) Referrals: Vinicio Angela MD [Primary Care Provider] - Additional Instructions: Call your PCP today to schedule an appointment for recheck within 2-3 days Continue home medications as directed Elevate legs Return to ER if symptoms change or worsen - Billing Disposition and Condition Condition: GOOD Disposition: Home
[2019-05-21 06:13] LABS: ABS Basophils 0.1 10^3/ul (0-0.2); ABS Eosinophils 0.4 10^3/ul (0-0.6); ABS Lymphocytes 2.2 10^3/ul (1.0-4.8); ABS Monocytes 1.1 10^3/ul (0-0.8); ABS Neutrophils 6.7 10^3/ul (1.5-7.7); Eosinophil % 3.8 %; Hematocrit 35 % (35-47); Hemoglobin 11.9 g/dL (12.0-16.0); Lymphocyte % 20.9 %; Mean Corpuscular HGB Conc 34 g/dL (31-36); Mean Corpuscular Hemoglobin 33 pg (27-31); Mean Corpuscular Volume 97 fL (80-97); Platelet Count 335 10^3/uL (150-450); Red Blood Count 3.57 10^6 /uL (3.70-4.87); Red Cell Distribution Width 14 % (10-15); White Blood Count 10.6 10^3/uL (3.5-10.8)
[2019-05-21 06:22] LABS: Activated Partial Thrombo Time 44.8 seconds (26.0-38.0); INR 2.22 (0.82-1.09)
[2019-05-21 06:33] LABS: Albumin 3.6 g/dL (3.2-5.2); Albumin/Globulin Ratio 1.3 (1-3); BUN/Creatinine Ratio 7.7 (8-20); Calcium 8.7 mg/dL (8.6-10.3); EGFR African American 79.5 (>60); EGFR Non-African American 65.7 (>60); Globulin 2.7 g/dL (2-4); Potassium 3.7 mmol/L (3.5-5.0); Total Bilirubin 0.3 mg/dL (0.2-1.0); Total Protein 6.3 g/dL (6.4-8.9)
[2019-05-21 06:35] LABS: Troponin I 0.01 ng/mL (<0.04)
--- OUTSIDE RECORDS SUMMARY | 2019-05-21 06:54 | XMS REPORT | Summary of Care ---
:1970 Author Organization [facility] Address [address] [facility] [place] [address] Care Team Providers Name Role Phone Vinicio Angela MD Primary Care Provider Reason for Referral Refer to Department Only (Routine) Status Reason Specialty Diagnoses / Referred By Referred To Procedures Contact Contact Pending Review Vascular Surgery Diagnoses Other pulmonary embolism without acute cor pulmonale, unspecified chronicity ( HCC) Peripheral edema Vinicio Angela MD [address] [place] [address] Reason for Visit Reason Comments Transitional Care Management pt presents for TCM from admission [place] [facility] [place] Dis[place] pt presents for foul greenish vaginal discharge, pt denies being sexually active at this time. Started couple of days ago while in hospital. Encounter Details Date Type Department Care Team Description 05/16/2019 Office Visit [facility] Vinicio Angela MD Other pulmonary embolism without acute cor pulmonale, unspecified chronicity ( HCC) (Primary Dx); Practice [address] Chronic obstructive pulmonary disease, unspecified COPD type (HCC); [address] [place] [address] Acute vaginitis; [place] [address] Tobacco user; [phone] Anxiety; Peripheral edema Allergies Active Allergy Reactions Severity Noted Date Comments Ketotifen Other 03/14/2019 Swollen lids, discharge Sulfacetamide Sodium Dermatologic Reaction 12/24/2018 Environmental Respiratory Reaction 11/25/2010 Gentamicin CERTIFIED CREDIT COUNSELOR Reaction 11/08/2018 Eyes extremely itchy/crusty Olopatadine Other 03/14/2019 "made my eyes more infected" Astelin Other 11/19/2013 Itchy eyes Polymyxin B Swelling High 10/01/2015 Pt. Thinks she is allergic to it made her eyes worse Shell Fish 11/07/2007 documented as of this encounter (statuses as of 05/16/2019) Medications Medication Sig Dispensed Refills Start Date End Date Status citalopram (CELEXA) 20 Take 1 Tab by 0 Active MG PO TABS mouth DAILY. Spacer/Aero-Holding 1 Device by Does 1 Each 0 07/03/2012 Active Chambers Does not not apply route apply DIRECTED. To use DeviceIndications: with albuterol Unspecified inhaler for asthma asthma(493.90) (ICD 493.0) Glucosamine-Chondroiti Take 1 Cap by 90 Cap 5 02/08/2016 Active n (GLUCOSAMINE CHONDR mouth THREE TIMES COMPLEX) 500-400 MG DAILY. Oral Cap Glucose Blood 1 Strip by In 100 Strip 3 12/19/2016 Active (ONETOUCH VERIO) In Vitro route TWICE Vitro Strip DAILY. contolled non-insulin dependent diabetes ONETOUCH DELICA 1 Each by Does not 100 Each 3 12/19/2016 Active LANCETS FINE Does not apply route TWICE apply Misc DAILY. Glucose Blood In Vitro 1 Strip by In 100 Strip 5 04/04/2017 Active StripIndications: Type Vitro route TWICE 2 diabetes mellitus DAILY. E11.9 last without complication, OV 03/14/17 without long-term Freestyle test current use of insulin strips ([facility]) Fluoxetine HCl 40 MG Take 3 Caps by 90 Cap 2 04/07/2017 Active Oral Cap mouth DAILY. cloNIDine (CATAPRES) TAKE 1 TABLET BY 30 Tab 0 06/13/2017 Active 0.1 MG Oral Tab MOUTH DAILY mupirocin (BACTROBAN) Apply three times 22 g 1 08/09/2017 Active 2 % Apply externally daily to area on OintmentIndications: nose Excoriation Omeprazole delayed rel TAKE 1 CAPSULE BY 30 Cap 5 06/07/2018 Active cap 20 MG Oral CAPSULE MOUTH DAILY DELAYED RELEASE trazodone (DESYREL) TAKE 2 TABLETS BY 60 Tab 1 06/18/2018 Active 100 MG Oral Tab MOUTH EVERY NIGHT AT BEDTIME NEEDED celeCOXIB (CELEBREX) Take 1 Cap by 30 Cap 2 10/18/2018 Active 200 MG Oral Cap mouth DAILY. fluticasone-salmeterol Take 1 INHL by 3 Inhaler 1 10/25/2018 Active diskus (ADVAIR DISKUS) inhalation TWICE 250-50 MCG/DOSE DAILY. Inhalation AEROSOL POWDER, BREATH ACTIVATEDIndications: Moderate persistent asthma, uncomplicated Rosuvastatin Calcium Take 1 Tab by 90 Tab 1 11/05/2018 Active (CRESTOR) 20 MG Oral mouth DAILY. Tab Dextran Place 1 Drop to 1 Each 5 11/16/2018 Active 70-Hypromellose, PF, the external eye (ARTIFICIAL TEARS PF) FOUR TIMES DAILY. 0.1-0.3 % Ophthalmic Solution Calcipotriene TOPICAL 1 Appl by Topical 60 g 5 11/16/2018 Active (DOVONEX) 0.005 % route TWICE DAILY. Apply externally Cream clonazePAM (KLONOPIN) Take 1 Tab by 21 Tab 0 11/28/2018 Active 2 MG Oral Tab mouth THREE TIMES DAILY. Max Daily Amount: [address] Mendez or Ronaldo has not sent it in gabapentin (NEURONTIN) Take 2 Caps by 60 Cap 5 01/16/2019 Active 300 MG Oral Cap mouth EVERY BEDTIME. Additional information Patient taking differently: 600 mg Oral QHS, 100mg 3 AM and 6 qhs, Reported on 05/16/2019 6:01 PM medroxyPROGESTERone (PROVERA Take 5 mg by mouth 30 Tab 5 01/21/2019 Active 10 MG) 10 MG Oral Tab DAILY. tretinoin (RETIN-A) 0.01 % 1 Appl by Topical 15 g 0 01/25/2019 Active Apply externally Gel route EVERY BEDTIME. fluticasone (FLONASE) 50 USE 2 SPRAYS IN 16 g 5 02/07/2019 Active MCG/ACT Nasal Suspension EACH NOSTRIL ONCE DAILY allopurinol (ZYLOPRIM) 300 Take 1 Tab by 30 Tab 4 02/07/2019 Active MG Oral Tab mouth DAILY. ferrous sulfate 325 (65 Fe) Take 1 Tab by 30 Tab 5 02/07/2019 Active MG Oral Tab mouth DAILY. hydrOXYzine HCL (ATARAX) 25 Take 1 Tab by 90 Tab 5 02/07/2019 Active MG Oral Tab mouth EVERY EIGHT HOURS NEEDED (itch). levothyroxine (SYNTHROID) 25 Take 1 Tab by 90 Tab 0 02/07/2019 Active MCG Oral TabIndications: mouth BEFORE Hypothyroidism, unspecified BREAKFAST. type Oxybutynin Chloride 15 MG Take 1 Tab by 30 Tab 5 02/07/2019 Active Oral TABLET SR 24 HR mouth DAILY. CALCITRATE 950 MG Oral Tab TAKE 1 TABLET BY 90 Tab 1 02/18/2019 Active MOUTH EVERY DAY diphenoxylate-atropine Take 1 Tab by 60 Tab 1 03/01/2019 Active (LOMOTIL) 2.5-0.025 MG Oral mouth FOUR TIMES Tab DAILY NEEDED for diarrhea. Max Daily Amount: 4 Tabs. fexofenadine (MIKIE) 180 Take 1 Tab by 30 Tab 4 03/19/2019 Active MG Oral Tab mouth DAILY. metFORMIN (GLUCOPHAGE) 500 Take 1 Tab by 60 Tab 3 2019 Active MG Oral Tab mouth TWICE DAILY. furosemide (LASIX) 20 MG Take 1 Tab by 10 Tab 0 04/05/2019 Active Oral Tab mouth DAILY NEEDED (edema). Multiple Vitamins-Iron TAKE 1 TABLET BY 30 Tab 5 04/16/2019 Active (TAB-A-SERGEY/IRON) Oral Tab MOUTH EVERY DAY albuterol HFA (VENTOLIN) 108 INHALE 2 PUFFS BY 18 Inhaler 5 04/16/2019 Active (90 Base) MCG/ACT Inhalation MOUTH EVERY 4 Aero SolnIndications: HOURS NEEDED Moderate persistent asthma, FOR BREATHING uncomplicated cholestyramine (QUESTRAN) 4 Take 1 PKT by 30 Packet 0 04/16/2019 Active g Oral Pack mouth TWICE DAILY. Epinastine HCl (ELESTAT) Place 1 Drop to 5 mL 2 04/18/2019 05/19/20 Active 0.05 % Ophthalmic Solution the external eye 19 TWICE DAILY for 31 days. prazosin (MINIPRESS) 1 MG Take 1-2 Caps by 60 Cap 0 05/01/2019 Active Oral Cap mouth EVERY BEDTIME. Cholecalciferol (VITAMIN D3) Take 1 Cap by 90 Cap 3 05/15/2019 Active 2000 units Oral Cap mouth DAILY. morphine 15 MG Oral Take 1 Tab by 45 Tab 0 05/15/2019 Active TabIndications: Chronic mouth THREE TIMES bilateral low back pain DAILY NEEDED without sciatica (back pain). Max Daily Amount: 45 mg. clotrimazole (LOTRIMIN) 1 % 1 Appl by Topical 45 g 1 05/15/2019 Active Apply externally Cream route TWICE DAILY. To groin and toe Mometasone Furo-Formoterol Take 2 INHL by 0 Active Fum (DULERA) 200-5 MCG/ACT inhalation TWICE Inhalation Aerosol DAILY. nicotine transdermal Place 21 mg onto 0 Active patch-daily (NICODERM) 21 skin DAILY. MG/24HR Transdermal PATCH 24 HR rivaroxaban (XARELTO) 15 MG Take 15 mg by 0 Active Oral Tab mouth TWICE DAILY. ibuprofen (MOTRIN) 600 MG Take 600 mg by 0 Active Oral Tab mouth EVERY EIGHT HOURS NEEDED. Clindamycin HCl 300 MG Oral Take 1 Cap by 14 Cap 0 05/16/2019 Active Cap mouth TWICE DAILY. Hospital, Clinic, or Other Ordered Dose Route Frequency Start Date End Date Status Facility Administered Medication miconazole (DESENEX) topical TOP BID 12/21/2016 Active powder 2 %Indications: Infected nail bed of toe documented as of this encounter (statuses as of 05/16/2019) Active Problems Problem Noted Date Type 2 diabetes mellitus without complication, without long-term current 10/18 use of insulin Bilateral low back pain without sciatica 12/02/2015 Hypothyroidism 10/15/2011 BMI 33.0-33.9,adult 04/05/2011 Overview: This patient's BMI has been calculated and is above average, and BMI management plan is completed. General patient education discussion including: weight loss link to reduction of risk factors for car diac and other diseases and is managed by exercise. Tobacco user 04/05/2011 Hepatic steatosis 12/28/2009 IBS (irritable bowel syndrome) 12/28/2009 Allergic Rhinitis 11/07/2007 Overview: Seasonal allergies. Mixed hyperlipidemia 11/07/2007 Depression 11/07/2007 GERD (gastroesophageal reflux disease) 11/07/2007 Asthma 05/11/2007 documented as of this encounter (statuses as of 05/16/2019) Resolved Problems Problem Noted Date Resolved Date DM (diabetes mellitus), secondary, with complications 11/16/2018 02/09/2019 Morbid obesity due to excess calories 02/15/2018 02/27/2018 Right arm pain 02/24/2016 04/10/2016 Lateral epicondylitis, right elbow 02/24/2016 02/27/2018 Diabetes 12/18/2013 10/31/2017 IGT (impaired glucose tolerance) 08/22/2013 04/10/2016 Overview: Per Dr. Angela referral for nutrition counseling 08/05/13. Allergic conjunctivitis 09/28/2012 04/10/2016 Elevated LFTs 10/15/2011 04/05/2013 Cystic acne 11/07/2007 12/28/2009 Arthrosis 11/07/2007 04/10/2016 Overview: Both knees. BMI 36.0-36.9,adult 02/27/2018 Overview: This patient's BMI This patient's BMI has been calculated and is above average, and BMI management plan is completed. General patient education discussion including: weight loss link to reduction of r isk factors for cardiac and other diseases, importance of long-term maintenance treatment in weight loss, and accomplish with exercise as tolerated and diet control documented as of this encounter (statuses as of 05/16/2019) Immunizations Name Administration Dates Next Due H1N1 Injectable Adult 09/22/2009 Hep A / Hep B Combined Vaccine (Adult) 05/12/2017 Influenza (IM) Preservative Free 06/26/2018, 07/30/2015, 07/26/2013, 07/03/2012, 07/01/2011, 06/19/2009 Influenza (IM) W/Pres 06/08/2016, 10/03/2014 Influenza Vaccine Whole 05/13/2017 PNEUMOCOCCAL POLYSACCHARIDE VACCINE 06/26/2018 TDAP Vaccine 01/07/2016 documented as of this encounter Social History Tobacco Use Types Packs/Day Years Used Date Current Every Day Smoker Cigarettes 0.5 30 Smokeless Tobacco: Never Used Alcohol Use Drinks/Week oz/Week Comments Yes 0 Standard drinks or equivalent 0.0 Sex Assigned at Date Recorded Not on file Job Start Date Occupation Industry Not on file Not on file Not on file Travel History Travel Start Travel End No recent travel history available. documented as of this encounter Last Filed Vital Signs Vital Sign Reading Time Taken Comments Blood Pressure 124/66 05/16/2019 5:27 PM EDT Pulse 58 05/16/2019 5:27 PM EDT Temperature - - Respiratory Rate - - Oxygen Saturation 96% 05/16/2019 5:27 PM EDT Inhaled Oxygen Concentration - - Weight 95.5 kg (210 lb 9.6 oz) 05/16/2019 5:27 PM EDT Height 167.6 cm (5' 6") 05/16/2019 5:27 PM EDT Body Mass Index 33.99 05/16/2019 5:27 PM EDT documented in this encounter Patient Instructions Patient InstructionsVinicio Angela MD - 05/16/2019 4:00 PM EDTfollow up 2 weeks documented in this encounter Progress Notes Vinicio Angela MD - 05/16/2019 4:00 PM EDT PATIENT: Renae Lobo : 1970 DATE OF SERVICE: 05/16/2019 CHIEF COMPLAINT: Chief Complaint Patient presents with Transitional Care Management pt presents for TCM from admission to [facility] [place] Dis[place] pt presents for foul greenish vaginal discharge, pt denies being sexually active at this time. Started couple of days ago while in hospital. Subjective HISTORY OF PRESENT ILLNESS: Renae Lobo is a 49-y.o. female. In for hospital follow up. TCM call was made. Admitted 05/11 and discharged . Diagnosis was PE . Chest pain 1000x worse than her CP she had in the past , SOB, thought would , pleuritic character. Required oygen when she arrived at hospital Found multiple PE but no DVT despite her recurrent edema The CT read as multiple bilateral thin and eccentric PE in the RUL R and L lower lobes that may be subacute or chronic , trace left pleural effusion ECHO no LV strain EF 55% No wall motion abnormality RV fxn normal troponin negative CBC stable HCT 36, normal WBC , her hypercoagulable tests are Pending She was put on xarelto 15 bid and has the Rx for 20 mg a day in 2 weeks She feels better from a breathing standpoint. She still had desats in the hospital till d/c The hospital told her she had start of COPD, and she is very worried about that. She has stopped smoking since out of the hospital but she has cravings and she asks about vaping They changed her to Dulera . She not feel the nicotine patch helps She is using motrin 1 a day While she was in hospital she discussed her etoh and she had a psych consult She did not want Dr Mendez to know as she would lose the klonopin but Dr Serrato thought she could be on clonopin and go to rehab/ She said no one ever got back to her about inpatient rehab so she is going to out patient rehab and excited about it Got the green vaginal d/c while in the hospital , odor and itchy She wanted a med for fungus but sounds like BV Past Medical History: Diagnosis Date Allergic Rhinitis 11/07/2007 Seasonal allergies. 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 Asthma 05/11/2007 [place] Back pain spondylosis on xray BMI 36.0-36.9,adult Cataract Cystic acne 11/07/2007 Dr Farah Depression 11/07/[address] Jones Diabetes mellitus (HCC) Eczema Fatty liver 12/28/2009 CHRISTIE/metabolic syndrome GERD (gastroesophageal reflux disease) 11/07/2007 [place] prilosec not work Glucose intolerance (impaired glucose tolerance) no retinopathy 2013 Hyperlipidemia 11/07/2007 IBS (irritable bowel syndrome) [place] Nulliparity Osteoarthritis PCOS (polycystic ovarian syndrome) Bishop Psoriasis Tobacco user 04/05/2011 Vitamin D deficiency Family History Problem Relation Age of Onset No Known Problems Paternal Grandmother Psoriasis Mother Skin Cancer Maternal Grandmother No Known Problems Father No Known Problems Sister No Known Problems Brother No Known Problems Maternal Aunt No Known Problems Maternal Uncle No Known Problems Paternal Aunt No Known Problems Paternal Uncle No Known Problems Maternal Grandfather No Known Problems Paternal Grandfather Breast Cancer Other ? age at dx Glaucoma No family history Blindness No family history Macular Degeneration No family history Current Outpatient Medications Medication Sig albuterol HFA (VENTOLIN) 108 (90 Base) MCG/ACT Inhalation Aero Soln INHALE 2 PUFFS BY MOUTH EVERY 4 HOURS NEEDED FOR BREATHING allopurinol (ZYLOPRIM) 300 MG Oral Tab Take 1 Tab by mouth DAILY. Calcipotriene TOPICAL (DOVONEX) 0.005 % Apply externally Cream 1 Appl by Topical route TWICE DAILY. CALCITRATE 950 MG Oral Tab TAKE 1 TABLET BY MOUTH EVERY DAY celeCOXIB (CELEBREX) 200 MG Oral Cap Take 1 Cap by mouth DAILY. Cholecalciferol (VITAMIN D3) 2000 units Oral Cap Take 1 Cap by mouth DAILY. cholestyramine (QUESTRAN) 4 g Oral Pack Take 1 PKT by mouth TWICE DAILY. citalopram (CELEXA) 20 MG PO TABS Take 1 Tab by mouth DAILY. clonazePAM (KLONOPIN) 2 MG Oral Tab Take 1 Tab by mouth THREE TIMES DAILY. Max Daily Amount: [address] Mendez or Ronaldo has not sent it in cloNIDine (CATAPRES) 0.1 MG Oral Tab TAKE 1 TABLET BY MOUTH DAILY clotrimazole (LOTRIMIN) 1 % Apply externally Cream 1 Appl by Topical route TWICE DAILY. To groin and toe Dextran 70-Hypromellose, PF, (ARTIFICIAL TEARS PF) 0.1-0.3 % Ophthalmic Solution Place 1 Dropto the external eye FOUR TIMES DAILY. diphenoxylate-atropine (LOMOTIL) 2.5-0.025 MG Oral Tab Take 1 Tab by mouth FOUR TIMES DAILY NEEDED for diarrhea. Max Daily Amount: 4 Tabs. Epinastine HCl (ELESTAT) 0.05 % Ophthalmic Solution Place 1 Drop to the external eye TWICE DAILY for 31 days. ferrous sulfate 325 (65 Fe) MG Oral Tab Take 1 Tab by mouth DAILY. fexofenadine (MIKIE) 180 MG Oral Tab Take 1 Tab by mouth DAILY. Fluoxetine HCl 40 MG Oral Cap Take 3 Caps by mouth DAILY. fluticasone (FLONASE) 50 MCG/ACT Nasal Suspension USE 2 SPRAYS IN EACH NOSTRIL ONCE DAILY fluticasone-salmeterol diskus (ADVAIR DISKUS) 250-50 MCG/DOSE Inhalation AEROSOL POWDER, BREATH ACTIVATED Take 1 INHL by inhalation TWICE DAILY. furosemide (LASIX) 20 MG Oral Tab Take 1 Tab by mouth DAILY NEEDED ( edema). gabapentin (NEURONTIN) 300 MG Oral Cap Take 2 Caps by mouth EVERY BEDTIME. Glucosamine-Chondroitin (GLUCOSAMINE CHONDR COMPLEX) 500-400 MG Oral Cap Take 1 Cap by mouth THREE TIMES DAILY. Glucose Blood (ONETOUCH VERIO) In Vitro Strip 1 Strip by In Vitro route TWICE DAILY. contolled non-insulin dependent diabetes Glucose Blood In Vitro Strip 1 Strip by In Vitro route TWICE DAILY. E11.9 last OV 03/14/17 Freestyle test strips hydrOXYzine HCL (ATARAX) 25 MG Oral Tab Take 1 Tab by mouth EVERY EIGHT HOURS NEEDED (itch). levothyroxine (SYNTHROID) 25 MCG Oral Tab Take 1 Tab by mouth BEFORE BREAKFAST. medroxyPROGESTERone (PROVERA 10 MG) 10 MG Oral Tab Take 5 mg by mouth DAILY. metFORMIN (GLUCOPHAGE) 500 MG Oral Tab Take 1 Tab by mouth TWICE DAILY. morphine 15 MG Oral Tab Take 1 Tab by mouth THREE TIMES DAILY NEEDED ( back pain). Max Daily Amount: 45 mg. Multiple Vitamins-Iron (TAB-A-SERGEY/IRON) Oral Tab TAKE 1 TABLET BY MOUTH EVERY DAY mupirocin (BACTROBAN) 2 % Apply externally Ointment Apply three times daily to area on nose Omeprazole delayed rel cap 20 MG Oral CAPSULE DELAYED RELEASE TAKE 1 CAPSULE BY MOUTH DAILY ONETOUCH DELICA LANCETS FINE Does not apply Misc 1 Each by Does not apply route TWICE DAILY. Oxybutynin Chloride 15 MG Oral TABLET SR 24 HR Take 1 Tab by mouth DAILY. prazosin (MINIPRESS) 1 MG Oral Cap Take 1-2 Caps by mouth EVERY BEDTIME. Rosuvastatin Calcium (CRESTOR) 20 MG Oral Tab Take 1 Tab by mouth DAILY. Spacer/Aero-Holding Chambers Does not apply Device 1 Device by Does not apply route DIRECTED. To use with albuterol inhaler for asthma (ICD 493.0) trazodone (DESYREL) 100 MG Oral Tab TAKE 2 TABLETS BY MOUTH EVERY NIGHT AT BEDTIME NEEDED tretinoin (RETIN-A) 0.01 % Apply externally Gel 1 Appl by Topical route EVERY BEDTIME. Current Facility-Administered Medications Medication miconazole (DESENEX) topical powder 2 % Allergies Allergen Reactions Polymyxin B Swelling Pt. Thinks she is allergic to it made her eyes worse [place] [Ketotifen] Other Swollen lids, discharge Bleph-10 [Sulfacetamide Sodium] Dermatologic Reaction Environmental Respiratory Reaction Gentamycin [Gentamicin] CERTIFIED CREDIT COUNSELOR Reaction Eyes extremely itchy/crusty Olopatadine Other "made my eyes more infected" Optivar [Astelin] Other Itchy eyes Seafood [Shell Fish] Social History Socioeconomic History Marital status: Single Spouse name: Not on file Number of children: Not on file Years of education: Not on file Highest education level: Not on file Occupational History Not on file Social Needs Financial resource strain: Not on file Food insecurity: Worry: Not on file Inability: Not on file Transportation needs: Medical: Not on file Non-medical: Not on file Tobacco Use Smoking status: Current Every Day Smoker Packs/day: 0.50 Years: 30.00 Pack years: 15.00 Types: Cigarettes Smokeless tobacco: Never Used Substance and Sexual Activity Alcohol use: Yes Alcohol/week: 0.0 standard drinks Drug use: No Sexual activity: Never Lifestyle Physical activity: Days per week: Not on file Minutes per session: Not on file Stress: Not on file Relationships Social connections: Talks on phone: Not on file Gets together: Not on file Attends rastafarian service: Not on file Active member of club or organization: Not on file Attends meetings of clubs or organizations: Not on file Relationship status: Not on file Intimate partner violence: Fear of current or ex partner: Not on file Emotionally abused: Not on file Physically abused: Not on file Forced sexual activity: Not on file Other Topics Concern Back Care Not Asked Bike Helmet Not Asked Blood Transfusions Not Asked Caffeine Concern Not Asked Exercise Not Asked Hobby Hazards Not Asked International Travel Not Asked Service Not Asked Occupational Exposure Not Asked Seat Belt Not Asked Self-Exams Not Asked Sleep Concern Not Asked Special Diet Not Asked Stress Concern Not Asked Weight Concern Not Asked Social History Narrative Lives alone in [place], unemployed. REVIEW OF SYSTEMS: Review of Systems Respiratory: Using albuterol 2 x a day Gastrointestinal: She takes PPI prn not daily Questran = constipation Genitourinary: Oxybutynin is 15 not 10 Not take provera Musculoskeletal: Glucosamine bid Uses allopurinol Endo/Heme/Allergies: Synthroid only 25 not 50 Vit D 1999 not 1000 On iron Psychiatric/Behavioral: Neurontin 300 AM and 600 PM Off minipress Uses atarax 1 in AM She says on celexa although hospital not have it Objective PHYSICAL EXAM: VITALS: BP 124/66 (BP Location: Left arm, Patient Position: Sitting) | Pulse 58 | Ht 5' 6" (1.676m) | Wt 210 lb 9.6 oz (95.5 kg) | SpO2 96% | BMI 33.99 kg/m Body mass index is 33.99 kg/m. Physical Exam Constitutional: No distress (up 8 lb). HENT: Mouth/Throat: Oropharynx is clear and moist. Cardiovascular: Normal rate, regular rhythm and normal heart sounds. Pulmonary/Chest: Effort normal and breath sounds normal. No respiratory distress. Genitourinary: Genitourinary Comments: + odor Perineum normal, normal vagina, not really much d /c Musculoskeletal: She exhibits edema (much worse). Vitals reviewed. ASSESSMENT / IMPRESSION: ICD-9-CM ICD-10-CM 1. Other pulmonary embolism without acute cor pulmonale, unspecified chronicity (HCC) multiple, small ? Subacute so not sure why she has them ? False + The hypercoagulable tests pending Malignant ?? 415.19 I26.99 2. Chronic obstructive pulmonary disease, unspecified COPD type do PFTs and follow up 2 weeks 496 J44.9 SPIROMETRY PRE / POST BRONCHODILATION 3. Acute vaginitis ? BV by hx not by exam Give clindmycin As excoriations on feet risk [id number] N76.0 RODGER / JILLIAN / TRIC DNA PROBE RODGER / JILLIAN / TRIC DNA PROBE 4. Tobacco user do not agree with vaping but she is going to do it 305.1 Z72.0 5. Anxiety needs to quit etoh 300.00 F41.9 Plan Peripheral edema , she wants to go back to Dr Garcia. I think this boudreaux to make sure not a PE TCM Statement. Review of the hospitalization: I am seeing for transition of care following hospitalization. The date of discharge was: 05/14 The discharge diagnosis was PE. I reviewed the discharge summary, discharge instructions, and pertinent additional documentation obtained during hospitalization. I reconciled the medications. I also reviewed the Transition of Care documentation done by staff. The tests that were not available at the time of discharge were reviewed. Additional tests which are not yet available include: Hypercoagulable Coordination of care. (delete one and this phrase) - I am satisfied that appropriate referrals are in place to deal with the problems identified during hospitalization, and that the patient has adequate community resources and support in place. - Additional testing related to hospitilization was requested today: yes See orders. I confirmed the patient's understanding of the diagnosis and plan of care. Specific education that was provided today: Patient Instructions follow up 2 weeks The current and discharge medications were reconciled by me, today The source document was written list of medications given to the patient Author: Vinicio Angela MD 05/16/2019 17:42 documented in this encounter Plan of Treatment Date Type Specialty Care Team Description 05/22/2019 Orders Only Cardiology 05/22/2019 Office Visit Family Practice Vinicio Angela MD [address] [place] [id number] 05/29/2019 Office Visit Cardiology Bishop Reyes MD [facility] [place] [address] 05/31/2019 Office Visit Family Practice Vinicio Angela MD [address] [place] [address] [phone] 06/17/2019 Office Visit General Surgery Constance Berrios MD [address] [place] [address] [phone] 04/21/2020 Ocular Visit Optometry Davian Hoffman, OD [address] [place] [address] Name Type Priority Associated Diagnoses Order Schedule SPIROMETRY PRE / POST Procedures Routine Chronic obstructive Ordered: 05/16 BRONCHODILATION pulmonary disease, unspecified COPD type (HCC) RODGER / JILLIAN / TRIC DNA Lab Routine Acute vaginitis 1 Occurrences PROBE starting 05/16/2019 until 11/12/2019 Name Type Priority Associated Diagnoses Order Schedule REFER TO VASCULAR Referral Routine Other pulmonary embolism Expected: 05/16, SURGERY without acute cor Expires: 05/16/2020 pulmonale, unspecified chronicity (HCC) Peripheral edema Health Maintenance Due Date Last Done Comments INFLUENZA VACCINE (#1) 2019 06/26/2018, 05/13/2017, 06/08/2016, Additional history exists FOOT EXAM 06/26/2019 06/26/2018, 06/26/2018, 11/24/2016, Additional history exists HEMOGLOBIN A1C 10/06/2019 04/05/2019, 11/20/2018, 06/26/2018, Additional history exists LIPID DISORDER SCREENING 11/21/2019 11/20/2018, 11/05/2018, 06/26/2018, Additional history exists URINE MICROALBUMIN 12/05/2019 12/04/2018, 02/23/2018, 06/08/2016, Additional history exists DEPRESSION SCREENING 02/08/2020 Postponed from 1982 (Patient refused) Diabetic Eye Exam 04/18/2020 04/18/2019, 04/18/2019, 02/14/2018, Additional history exists PAP SMEAR 11/10/2020 11/10/2017, 11/11/2014, 06/22/2012, Additional history exists PNEUMOCOCCAL 0-64 YRS Completed 06/26/2018 HPV IMMUNIZATION SERIES Aged Out No longer eligible based on patient's age to complete this topic MENINGOCOCCAL VACCINE IMM Aged Out No longer eligible based on patient's age to complete this topic documented as of this encounter Goals Goal Patient Goal Associated Recent Patient-Stated? Author Type Problems Progress Depression Depression No charlie Angela (PHQ-9) MD Vinicio total score < 5 Note: This is an individualized treatment (depression) goal for Renae Lobo: Displayed above is your goal for a depression screening (PHQ-9) score that would indicate good control of your depression. Glycohemoglobin A1c < 7.0 Diabetes 5.9 (04/05/2019 11:06 AM No Vinicio Angela MD EDT) Note: This is an individualized treatment (diabetes control, HgbA1C) goal for Renae Lobo: Displayed above is your progress towards your HgbA1C goal. Your goal is shown above (on the left); your most recent HgbA1C is shown on the right. Note that lower numbers are better. Weight loss vs. 18 mo Lifestyle 23.4 (05/16/2019 5:27 PM No Vinicio Angela MD max (lbs) >= 10 EDT) Note: This is an individualized lifestyle goal for Renae Lobo: Your body mass index (BMI) is more than 30. You should lose weight. A reasonable starting goal is to lose 10 pounds. Displayed above is how many pounds you have lost thus far towards your 10 pound weight loss goal. Keep a regular sleep schedule Lifestyle No Vinicio Angela MD Note: This is an individualized lifestyle goal for Renae Lobo: Please maintain a regular sleep schedule. This may help with some symptoms of depression. Keep immunizations current Lifestyle No Vinicio Angela MD Note: This is an individualized lifestyle goal for Renae Lobo: Please be sure to keep up-to-date on recommended immunizations. For example, this would include a yearly influenza vaccine. Immunization status can be seen by looking at the Health Maintenance sections of your [facility], Plan of Care, and any After Visit Summaries. Take all prescribed medications as directed Self-management No Vinicio Angela MD Note: This is an individualized self-management goal for Renae Lobo: Please take all prescribed medications as directed. 1. Do not skip doses. If you cannot afford your medications, talk with your doctor. 2. Use a pill reminder system such as a pill box if needed. Your pharmacist can help you with this. 3. Contact your Pharmacy 5 days before your medication runs out. If you cannot take your medications for any reasons, talk with your doctor. 4. Please bring all of your medication bottles and inhalers (or a list of all your medications/inhalers) with you to every visit. Potential barriers to meeting all of your care plan goals will continue to be addressed on an ongoing basis. documented as of this encounter Results Not on filedocumented in this encounter Visit Diagnoses Diagnosis Other pulmonary embolism without acute cor pulmonale, unspecified chronicity ( HCC) - Primary Chronic obstructive pulmonary disease, unspecified COPD type (HCC) Acute vaginitis Vaginitis and vulvovaginitis, unspecified Tobacco user Tobacco use disorder Anxiety Anxiety state, unspecified Peripheral edema Edema documented in this encounter documented as of this encounter
[2019-05-21] MEDS ORDERED: Gabapentin CAP(*) 300 MG PO ONE (08:21)
[2019-05-21] MEDS ORDERED: diPHENhydraMINE PO* 25 MG PO ONE (08:22)
[2019-05-21 08:55] VITALS: BP 111/75
== END 2019-05-21 08:45 | disposition home or self-care (01) ==
LOC: ED 05:37
DX: I26.99 Other pulmonary embolism without acute cor pulmonale (principal); R60.0 Localized edema; I10 Essential (primary) hypertension; E78.00 Pure hypercholesterolemia, unspecified; E03.9 Hypothyroidism, unspecified; J45.909 Unspecified asthma, uncomplicated; F41.9 Anxiety disorder, unspecified; F32.9 Major depressive disorder, single episode, unspecified; F17.210 Nicotine dependence, cigarettes, uncomplicated; Z79.84 Long term (current) use of oral hypoglycemic drugs; Z79.01 Long term (current) use of anticoagulants; Z79.899 Other long term (current) drug therapy; Z88.8 Allergy status to other drugs, medicaments and biological substances
CPT/HCPCS: 36415; 71045; 80053; 83605; 83880; 84484; 85025; 85610; 85730; 93005; 99283; A9270-GY

== ENCOUNTER 2019-05-23 13:08 | Inpatient (IN) | payer OTHER ==
--- NOTE | 2019-05-23 14:32 | ED ---
HPI Chest Pain - HPI Summary HPI Summary: 49 year old F presenting to [facility] via ambulance with a chief complaint of chest pain since 1200 today, 05/23/19, per triage, constant since onset today, but patient has been experiencing symptoms for weeks. Patient reports a hx of pulmonary embolism diagnosed on 05/11/19, DVT ruled out. Patient experiences sore pain in her legs and difficulty breathing with no change in symptoms since her last hospital visit on 05/21/19, yesterday 05/22/19, and since todays hospitalization on 05/23/2019. Patient reports pain in the left side of her chest and pain while breathing. Patient does not own an oxygen-administering device at home. Symptoms are aggravated by movement, i.e. sitting up from a supine position. Symptoms alleviated by nothing. Patient also reports worsening of leg edema since onset. The patient rates the pain 10/10 in severity. When asked where she lives, patient was aware and responded accordingly. Patient lives at home, local to [facility], with a pet dog. - History of Current Complaint Chief Complaint: EDChestPainROMI Time Seen by Provider: 05/23/19 13:16 Hx Obtained From: Patient Hx Last Menstrual Period: unknown Onset/Duration: Started Hours Ago - since 1200 today, 05/23/19, per triage, constant since onset today, but patient has been experiencing symptoms for years , Still Present Timing: Constant - no change in symptoms since her last hospital visit on 05/21/19 , yesterday 05/22/19, and since todays hospitalization on 05/23/2019 Current Severity: Severe Pain Intensity: 10 Pain Scale Used: 0-10 Numeric Chest Pain Location: Diffuse, Left Lateral Character: Other: - painful, difficulty breathing Aggravating Factor(s): Movement - i.e. sitting up from a supine position, Deep Breaths Alleviating Factor(s): Nothing Associated Signs and Symptoms: Positive: Edema - bilateral pedal edema, worse since onset, Other: - soreness in legs Related History: Similar Episode/Dx as: - two prior visits on 05/21/19 and 05/11/19 - Risk Factors Pulmonary Embolism Risk Factors: Negative - DVT, Previous PE - diagnosed 05/11/19 - Additional Pertinent History Primary Care Physician: PATRICA - Allergy/Home Medications Allergies/Adverse Reactions: Allergies Allergy/AdvReac Type Severity Reaction Status Date / Time shrimp Allergy Severe Anaphylatic Verified 05/11/19 17:48 Shock ketotifen [From [place]] Allergy Eyes Verified 05/11/19 17:48 Itchy/Swollen/Red/Watery seafood Allergy Severe hives, Uncoded 05/11/19 17:48 difficulty breathing environmental Allergy Wheezing Uncoded 05/11/19 17:48 eye drops Allergy Unknown Uncoded 05/11/19 17:48 Reaction Details Home Medications: Home Medications Allopurinol TAB* [Zyloprim 300 MG TAB*] 300 mg PO DAILY 05/23/19 [History Confirmed 05/23/19] Calcipotriene 1 applic TOPICAL BID 05/23/19 [History Confirmed 05/23/19] Calcium Citrate [Calcitrate] 950 mg PO DAILY 05/23/19 [History Confirmed ] Cholestyramine Resin* [Questran*] 4 gm PO BID 05/23/19 [History Confirmed ] Citalopram TAB* [CeleXA TAB*] 20 mg PO DAILY 05/23/19 [History Confirmed ] Clindamycin Cap(NF) [Clindamycin Cap 300 mg Cap(NF)] 300 mg PO BID 05/23/19 [ History Confirmed 05/23/19] Clotrimazole 1% CREAM* [Clotrimazole 1%*] 1 applic TOPICAL BID 05/23/19 [ History Confirmed 05/23/19] Dextran 70/Hypromellose Tears [Natural Balance Tears 70.01-0.3 %] 1 drop BOTH EYES QID 05/23/19 [History Confirmed 05/23/19] Diphenoxylate HCl/Atropine [Lomotil 2.5-0.025 mg Tablet] 1 each PO QID PRN MDD 2 05/23/19 [History Confirmed 05/23/19] Ferrous Sulfate TAB* 325 mg PO DAILY 05/23/19 [History Confirmed 05/23/19] Fluticasone-Salmeterol 250-50* [Advair Diskus 250-50*] 1 puff INH BID 05/23/19 [ History Confirmed 05/23/19] Furosemide TAB* [Lasix TAB*] 20 mg PO DAILY 05/23/19 [History Confirmed 05/23/19 ] Glucosamine/Chondroitn/C/Hrai [Glucosamine-Chondr Complex Tab] 1 each PO TID 02/03 [History Confirmed 05/23/19] Ibuprofen TAB* [Motrin TAB* 600 MG] 600 mg PO Q8H PRN 05/23/19 [History Confirmed 05/23/19] Mupirocin 2% OINT* [Bactroban 2 % Oint*] 1 applic TOPICAL TID 05/23/19 [History Confirmed 05/23/19] Nicotine PATCH 21 MG/24 HR* 21 mg TRANSDERM DAILY 05/23/19 [History Confirmed ] Oxybutynin Chloride [Oxybutynin Chloride ER] 15 mg PO DAILY 05/23/19 [History Confirmed 05/23/19] Prazosin CAP* [Minipress CAP*] 1 - 2 mg PO BEDTIME 05/23/19 [History Confirmed 05/23/19] Tretinoin [Retin-A] 1 applic TOPICAL BEDTIME 05/23/19 [History Confirmed ] celeCOXIB CAP* [CeleBREX CAP*] 200 mg PO DAILY 05/23/19 [History Confirmed 05/23] hydrOXYzine HCL TAB* [Atarax 25 MG TAB*] 25 mg PO TID PRN 05/23/19 [History Confirmed 05/23/19] medroxyPROGESTERone TAB* [Provera TAB*] 5 mg PO DAILY 05/23/19 [History Confirmed 05/23/19] PMH/Surg Hx/FS Hx/Imm Hx Endocrine/Hematology History: Reports: Hx Diabetes - Type 2, Hx Thyroid Disease - HYPOTHYROIDISM Cardiovascular History: Reports: Hx Hypercholesterolemia, Hx Hypertension Respiratory History: Reports: Hx Asthma Denies: Hx Chronic Obstructive Pulmonary Disease (COPD) GI History: Reports: Other GI Disorders - fatty liver disease Denies: Hx Ulcer Musculoskeletal History: Denies: Hx Rheumatoid Arthritis, Hx Osteoporosis Sensory History: Reports: Hx Contacts or Glasses Denies: Hx Eye Prosthesis, Hx Legally Blind, Hx Deafness, Hx Hearing Aid Opthamlomology History: Reports: Hx Contacts or Glasses Denies: Hx Eye Prosthesis, Hx Legally Blind Neurological History: Denies: Hx Dementia Psychiatric History: Reports: Hx Anxiety, Hx Depression - Surgical History Surgical History: Yes Surgery Procedure, Year, and Place: D&C. DENTAL EXTRACTION Infectious Disease History: No Infectious Disease History: Denies: Hx Clostridium Difficile, Hx Hepatitis, Hx Human Immunodeficiency Virus (HIV), Hx of Known/Suspected MRSA, Hx Shingles, Hx Tuberculosis, Hx Known/ Suspected VRE, Hx Known/Suspected VRSA, History Other Infectious Disease, Traveled Outside the [place] in Last 30 Days - Family History Known Family History: Positive: Respiratory Disease - COPD, Blood Disorder - blood clots, Other - COPD Family History: FHx of anxiety, depression, OCD - Social History Alcohol Use: Occasionally Alcohol Amount: "sometimes, it depends" Hx Substance Use: No Substance Use Type: Reports: None Hx Tobacco Use: Yes Smoking Status (MU): Current Every Day Smoker Type: Cigarettes Amount Used/How Often: 1/2 PPD Length of Time of Smoking/Using Tobacco: since age 13 Have You Smoked in the Last Year: Yes Review of Systems Negative: Fever - 97.7F, per triage Positive: Chest Pain - located in the left side Positive: Other - difficulty and pain with breathing due to chest pain Musculoskeletal: Other - sore pain in legs Positive: Edema - bilateral pedal edema All Other Systems Reviewed And Are Negative: Yes Physical Exam - Summary Physical Exam Summary: Appearance: The patient is well-nourished in no acute distress and in no acute pain. Skin: Mild erythema on ankles. HEENT: The head is normocephalic and atraumatic. The pupils are equal and reactive. The conjunctivae are clear and without drainage. Nares are patent and without drainage. Mouth reveals moist mucous membranes, and the throat is without erythema and exudate. The external ears are intact. The ear canals are patent and without drainage. The tympanic membranes are intact. Neck: The neck is supple with full range of motion and non-tender. There are no carotid bruits. There is no neck vein distension Respiratory: Chest is non-tender. Lungs are clear to auscultation and breath sounds are symmetrical and equal. Cardiovascular: Heart is regular rate and rhythm. There is no murmur or rub auscultated. There is bilateral pedal edema, pulses are symmetrical and equal. Abdomen: The abdomen is soft and non-tender. There are normal bowel sounds heard in all four quadrants and there is no organomegaly palpated. Musculoskeletal: There is no back tenderness noted. Extremities are non-tender with full range of motion. There is good capillary refill. There is bilateral pedal edema. Neurological: Patient is alert and oriented to person, place and time. The patient has symmetrical motor strength in all four extremities. Cranial nerves are grossly intact. Deep tendon reflexes are symmetrical and equal in all four extremities. Psychiatric: The patient has an appropriate affect and does not exhibit any anxiety or depression. Triage Information Reviewed: Yes Vital Signs On Initial Exam: Initial Vitals Temp Pulse Resp BP Pulse Ox 97.7 F 89 16 110/80 90 05/23/19 13:11 05/23/19 13:11 05/23/19 13:11 05/23/19 13:11 05/23/19 13:11 Vital Signs Reviewed: Yes Skin: Positive: Erythema @ - both ankles Cardiovascular: Positive: Leg Edema Left, Leg Edema Right Musculoskeletal: Positive: Edema Left - pedal, Edema Right - pedal Diagnostics - Vital Signs Vital Signs Temp Pulse Resp BP Pulse Ox 05/23/19 13:45 83 19 112/77 96 05/23/19 13:15 89 18 110/80 91 05/23/19 13:11 97.7 F 89 16 110/80 90 - Laboratory Result Diagrams: 05/23/19 14:32 05/23/19 14:32 Lab Statement: Any lab studies that have been ordered have been reviewed, and results considered in the medical decision making process. - CT Chest/Thorax CTA CT Interpretation Completed By: Radiologist Summary of CT Findings: IMPRESSION: No definite pulmonary embolus is noted. No definite aortic dissection is noted. Previously identified filling defects in the pulmonary arteries are not identified on the current study. The ED physician has reviewed this report. - EKG 1314 Cardiac Rate: NL EKG Rhythm: Sinus Rhythm ST Segment: Normal Ectopy: None Summary of EKG Findings: Normal sinus rhythm of 87bpm, normal ST, no ectopy, no STEMI. Re-Evaluation - Re-Evaluation First Eval Re-Evaluation Time: 18:18 Change: Improved Comment: ambulating properly on 97% oxygen Chest Pain Course/Dx - Course Course Of Treatment: Ms. Lobo is only complaining that she was having worsening shortness of breath and chest pain since her previous admission a week or so ago where she was found have small PEs. She is now on Eliquis. Her pulse ox was in the 80s on arrival and she required 2 L of nasal cannula to get her above 90. Every time I try to take her off of it her respiratory rate would go into the 30s and her pulse ox would drop into the 80s. I repeated her CTA and he was improved. I consult the hospitalist as I'm not sure exactly why she is short of breath. She does have peripheral edema but her BNP and her chest CTA did not reveal any pulmonary edema. I heard no wheezes and she is not hyperinflated. - Diagnoses Provider Diagnoses: Hypoxia, Chest pain - Provider Notifications Discussed Care Of Patient With: Rafiq Fuentes Time Discussed With Above Provider: 19:30 Instructed by Provider To: Other - Discussed with Dr. Fuentes, hospitalist, about patient care. Dr. Fuentes agrees to admit patient. - Critical Care Time Critical Care Time: 30-74 min Discharge ED - Sign-Out/Discharge Documenting (check all that apply): Patient Departure - admission to hospitalist Patient Received Moderate/Deep Sedation with Procedure: No - Discharge Plan Condition: Stable Disposition: ADMITTED TO [facility] Referrals: Vinicio Angela MD [Primary Care Provider] - - Billing Disposition and Condition Condition: STABLE Disposition: Admitted to [facility] - Attestation Statements Document Initiated by Rikye: Yes Documenting Scribe: Mookie Montalvo Provider For Whom Gil is Documenting (Include Credential): Chivo Vazquez MD Scribe Attestation: I, Mookie Montalvo, scribed for Chivo Vazquez MD on at 2144. Scribe Documentation Reviewed: Yes Provider Attestation: The documentation as recorded by the isatuibe, Mookie Montalvo accurately reflects the service I personally performed and the decisions made by me, Chivo Vazquez MD Status of Scribe Document: Viewed
[2019-05-23] MEDS ORDERED: Morphine 4 MG/ML VIAL (1 ml) 4 MG/ML VIAL IV ONE (14:38)
[2019-05-23 14:43] LABS: ABS Basophils 0.1 10^3/ul (0-0.2); ABS Eosinophils 0.7 10^3/ul (0-0.6); ABS Monocytes 0.7 10^3/ul (0-0.8); ABS Neutrophils 3.5 10^3/ul (1.5-7.7); Eosinophil % 9.6 %; Hematocrit 34 % (35-47); Hemoglobin 11.4 g/dL (12.0-16.0); Lymphocyte % 29.1 %; Mean Corpuscular HGB Conc 34 g/dL (31-36); Mean Corpuscular Hemoglobin 33 pg (27-31); Mean Corpuscular Volume 97 fL (80-97); Mean Platelet Volume 7.4 fL (7.4-10.4); Nucleated Red Blood Cells % 0.1; Platelet Count 345 10^3/uL (150-450); Red Blood Count 3.48 10^6 /uL (3.70-4.87); Red Cell Distribution Width 14 % (10-15); White Blood Count 6.9 10^3/uL (3.5-10.8)
[2019-05-23 14:49] LABS: INR 1.95 (0.82-1.09)
[2019-05-23 15:03] LABS: Albumin 3.7 g/dL (3.2-5.2); Albumin/Globulin Ratio 1.4 (1-3); BUN/Creatinine Ratio 6.8 (8-20); C Reactive Protein 3.49 mg/L (<8.01); Calcium 8.6 mg/dL (8.6-10.3); EGFR African American 102.5 (>60); EGFR Non-African American 84.7 (>60); Globulin 2.7 g/dL (2-4); Potassium 3.6 mmol/L (3.5-5.0); Total Bilirubin 0.2 mg/dL (0.2-1.0); Total Protein 6.4 g/dL (6.4-8.9)
[2019-05-23] MEDS ORDERED: Iodixanol* (CONTRAST) 320 MG/ML 100 ML SDV IV ONE (15:30)
[2019-05-23] MEDS ORDERED: NS 0.9% 1000 ML** 1,000 ML IV SCH (20:45)
[2019-05-23] MEDS ORDERED: Thiamine INJ* 100 MG/ML 2 ML VIAL IM ONE (20:48)
--- NOTE | 2019-05-23 23:32 | HP ---
CC: Dr. Vinicio Angela* ADMISSION HISTORY AND PHYSICAL: DATE OF ADMISSION: 05/23/19 PRIMARY CARE PHYSICIAN: Dr. Vinicio Angela. CHIEF COMPLAINT: Chest pain. HISTORY OF PRESENT ILLNESS: This is a 49-year-old female with past medical history of type 2 diabetes, hypercholesterolemia, chronic smoker. She was recently admitted on 05/11/19 and diagnosed with bilateral pulmonary embolism and was started on Xarelto. She also has a history of alcohol abuse, but states that she has been cutting back and has not been drinking much, although her last drink was this morning. She comes in again with the same exact complaints as the admission on 05/11/19 with regard to chest pain and lower extremity edema. Her chest pain is localized in the left side. Again, she states that it is nonradiating, 9/10 in intensity, and has been present since the admission in April on and off, and she states her lower extremity edema got better after discharge, but then again gotten worse and feels more puffy, so she decided to come back to the ER for reevaluation. PAST MEDICAL HISTORY: As mentioned, type 2 diabetes, hypercholesterolemia, allergic asthma/COPD, gastroesophageal reflux disease, major depressive disorder , anxiety, low normal blood pressure, gout, hypothyroidism, chronic low back pain for which she is on narcotics. She also has severe polypharmacy and is currently listed to be on close to 30 to 35 medications, which she states she takes intermittently as she also knows that some of them do not go well with alcohol, but she is not able to state which one she stops taking whenever she drinks alcohol. PAST SURGICAL HISTORY: History of D and C. HOME MEDICATIONS: As mentioned, she is on polypharmacy. The list sent from her primary care physician Dr. Angela's office includes: 1. Tretinoin topical daily at bedtime. 2. Trazodone 200 mg p.o. at bedtime. 3. Rosuvastatin 20 mg oral daily. 4. Xarelto 50 mg p.o. b.i.d. 5. Prazosin 1 to 2 mg p.o. daily at bedtime. 6. Oxybutynin 15 mg oral daily. 7. Nicotine patch transdermal 21 mg daily. 8. Mupirocin topical t.i.d. 9. Multivitamins 1 tablet oral daily. 10. Morphine 15 mg p.o. t.i.d. 11. Dulera 2 puffs by inhalation b.i.d. 12. Metformin 500 mg p.o. b.i.d. 13. Provera 15 mg oral daily. 14. Levothyroxine 25 mcg oral daily. 15. Ibuprofen 600 mg p.o. every 8 hours. 16. Hydroxyzine 25 mg p.o. t.i.d. p.r.n. anxiety. 17. Glucosamine and chondroitin complex 1 tablet p.o. t.i.d. 18. Gabapentin 600 mg daily at bedtime. 19. Lasix 20 mg oral daily. 20. Advair Diskus 1 puff by inhalation b.i.d. 21. Fluticasone 2 sprays both nares daily. 22. Anh Allergy 180 mg p.o. daily. 22. Fluoxetine 120 mg every morning. 23. Ferrous sulfate 325 mg oral daily. 24. Lomotil p.o. p.r.n. q.i.d. 25. Natural Balance Tears 1 drop both eyes q.i.d. 26. Clotrimazole cream topical b.i.d. 27. Catapres 0.1 mg p.o. daily at bedtime. 28. Clonazepam 2 mg p.o. t.i.d. 29. Clindamycin 300 mg p.o. b.i.d. 30. Celexa 20 mg oral daily. 31. Questran 4 mg p.o. b.i.d. 32. Vitamin D 2000 units oral daily. 33. Celecoxib 200 mg oral daily. 34. Calcium citrate 950 mg oral daily. 35. Calcipotriene 1 topical application b.i.d. 36. Allopurinol 300 mg oral daily. 37. Ventolin HFA 2 puffs by inhalation q.4 hours p.r.n. ALLERGIES: The patient allergic to shrimp, KETOTIFEN from [employer], seafood, environmental, and EYE DROPS, all causes unknown reaction. FAMILY HISTORY: Father in his 50s with DVTs and PEs and mother at age 54 with COPD, DVT, and PE. SOCIAL HISTORY: As mentioned, she does have a history of alcohol, has gone to multiple [employer] meetings. She states that she does not drink as much anymore, but her last drink was today and she does state that she does stop her certain medications as they do not go well with alcohol, but she is not able to recall which ones. She overall seems to be a very unreliable historian with respect to her med list and she does have polypharmacy. History of smoking half pack per day for the last 30 years. She is attempting to quit and has been taking the nicotine patch, but went back to smoking again, and she is currently disabled and lives by herself. Denies any other drug abuse. The patient is otherwise full code and wants to be resuscitated, and Shilpa Gilbert, her far cousin, would be her healthcare proxy, and she has a friend Toni Dos Santos who she wants to be the secondary person to talk to. REVIEW OF SYSTEMS: A 14-point review of systems did not reveal any new information other than what is mentioned in the HPI. PHYSICAL EXAMINATION GENERAL: The patient is awake, alert, oriented x3, did not appear to be in any acute respiratory distress. VITAL SIGNS: BP was 127/91, heart rate 86, respiration rate 14, saturating 89% on room air, temperature 97.7. HEAD AND NECK: Atraumatic, normocephalic. Bilateral pupils were reactive. Oral mucosa was moist. Neck supple. No jugular venous distention. LUNGS: Clear to auscultation bilaterally. No wheezing, rhonchi, or rales. HEART: S1, S2. Regular rate and rhythm. ABDOMEN: Soft, nontender, nondistended. EXTREMITIES: The patient does have bilateral lower extremity edema, pitting in nature up to her gr. DIAGNOSTIC STUDIES/LAB DATA: CBC showed normal white count of 6.9, hemoglobin 11.4, hematocrit 34, platelet count was 345. Coagulation profile shows INR of 1.95. ABG shows pH of 7.42, pCO2 of 42, PaO2 of 62, and oxygen saturation of 92.7% on room air. Comprehensive metabolic panel was unremarkable except for minimally elevated random glucose at 107 and low BUN at 5, serum alcohol level was noted to be 206. CTA of chest showed no definite pulmonary embolism is noted. No definite aortic dissection. Previously identified filling defects in the pulmonary arteries are not identified on the current study. EKG shows sinus rhythm at 87 beats per minute without any ST elevation. When compared to her old EKG from 2 days ago, is unchanged and another EKG from 05/11 admission essentially looked the same. IMPRESSION: This is a 49-year-old female with a history of diabetes, possible chronic obstructive pulmonary disease, smoking, alcohol abuse, comes in again with the same complaints of chest pain and lower extremity edema as she did in 05/11/19 and was noted to be hypoxic in the ER, especially to any mild ambulation. ASSESSMENT: 1. Chest pain. Previously already had entire workup done with the exception of a stress test. We will add that stress test study to make sure that she does not have any coronary event, although this chest pain does not sound classic for any coronary event. 2. Hypoxic respiratory failure possibly from chronic obstructive pulmonary disease. The patient has been advised smoking cessation again and she has been restarted on her nicotine patch. She does not appear to be having any wheezing , but we will start the patient on some DuoNeb and consider a pulmonary consultation. Previous echocardiogram did not state the patient having any pulmonary hypertension, which could cause hypoxia in a patient of such condition. 3. History of alcohol abuse. Even though the patient minimizes her symptoms, she is clearly still using a significant amount of alcohol given the alcohol level being 206. I will start the patient on WAM protocol, and I have advised that she could get help with Psychiatry with respect to her alcohol withdrawal and alcohol use, but the patient is completely refusing any help with respect to her alcohol problem. 4. History of hypothyroidism. Restart home medication. 5. History of type 2 diabetes. We will check fingerstick monitoring a.c. and h.s. and consider starting the patient on sliding scale once her stress test is done and she is on a diet. 6. History of hypothyroidism. Restart home medication. The patient's last TSH check on April admission was noted to be normal. 7. History of dyslipidemia. We will check a lipid panel with morning labs and restart her statins. 8. History of polypharmacy. We will try to recommend the PCP Dr. Vinicio Angela regarding the patient being on over 30 medications including multiple creams and they should consider reevaluating her medications. 9. History of depression and anxiety. Restart home medication. 10. History of chronic low back pain. Restart her home morphine dosage. 11. History of gout. Restart home medications. 12. History of pulmonary embolism without any evidence of deep vein thrombosis in the past. Continue her Xarelto even though the CTA at this point is negative. I could consider discussing with animal keeper head, if available, regarding the patient's long-term anticoagulation goal, especially if she is going to remain alcoholic. 13. Code status: The patient is full code. [id number]/CPS #: [id number] MTDD
[2019-05-23] MEDS: Cholestyramine Resin* 4 GM POWDER PO SCH (23:38)
[2019-05-23] MEDS: traZODone TAB* 100 MG PO SCH (23:42)
[2019-05-23] MEDS: Gabapentin CAP(*) 300 MG PO SCH (23:42)
[2019-05-23] MEDS: Rivaroxaban TAB(*) 15 MG PO SCH (23:43)
[2019-05-23] MEDS: LORazepam TAB(*) 1 MG PO SCH (23:45)
[2019-05-23] MEDS: Morphine ORAL.SOLN 10 mg* 2 MG/ML UDC 5 ml PO PRN (23:45)
[2019-05-23] MEDS: Dextran 70/Hypromellose Tears Eye Drops 15 ml BTL (for Artificials Tears) BOTH EYES SCH (23:57)
[2019-05-23] MEDS: Atorvastatin* 40 MG TAB PO SCH (23:58)
[2019-05-24] MEDS: Mometasone/Formoter 200/5 MDI INH SCH ×3 (00:26→20:34)
[2019-05-24] MEDS: Albuterol/Ipratropium NEB.SOL* Albuterol 2.5 MG/Ipratropium 0.5 MG 3 ML INH SCH ×3 (00:26→07:43)
[2019-05-24] MEDS: LORazepam TAB(*) 1 MG PO SCH ×4 (04:44→22:05)
[2019-05-24 04:56] LABS: ABS Eosinophils 0.5 10^3/ul (0-0.6); ABS Lymphocytes 1.8 10^3/ul (1.0-4.8); ABS Monocytes 0.6 10^3/ul (0-0.8); ABS Neutrophils 9.3 10^3/ul (1.5-7.7); Hematocrit 34 % (35-47); Hemoglobin 11.2 g/dL (12.0-16.0); Lymphocyte % 14.7 %; Mean Corpuscular HGB Conc 33 g/dL (31-36); Mean Corpuscular Hemoglobin 32 pg (27-31); Mean Corpuscular Volume 97 fL (80-97); Mean Platelet Volume 7.4 fL (7.4-10.4); Platelet Count 327 10^3/uL (150-450); Red Blood Count 3.52 10^6 /uL (3.70-4.87); Red Cell Distribution Width 14 % (10-15); White Blood Count 12.2 10^3/uL (3.5-10.8)
[2019-05-24 05:07] LABS: BUN/Creatinine Ratio 6.4 (8-20); Calcium 7.6 mg/dL (8.6-10.3); EGFR Non-African American 78.5 (>60); HDL Cholesterol 49.1 mg/dL; Potassium 3.8 mmol/L (3.5-5.0)
[2019-05-24] MEDS: Levothyroxine TAB* 25 MCG TAB PO SCH (05:49)
[2019-05-24] MEDS ORDERED: NON FORMULARY MED* (Multivitamin [Multivitamins] 1 CAP) PO SCH (09:00)
[2019-05-24] MEDS: Cholecalciferol TAB* 1000 UNITS PO SCH (10:16)
[2019-05-24] MEDS: Folic Acid TAB* 1 MG PO SCH (10:17)
[2019-05-24] MEDS: Multivitamins/Minerals TAB PO SCH (10:17)
[2019-05-24] MEDS: Cholestyramine Resin* 4 GM POWDER PO SCH ×2 (10:17→21:01)
[2019-05-24] MEDS: Thiamine TAB* 100 MG TAB PO SCH (10:18)
[2019-05-24] MEDS: Allopurinol TAB* 300 MG PO SCH (10:18)
[2019-05-24] MEDS: Citalopram TAB* 20 MG PO SCH (10:19)
[2019-05-24] MEDS: Rivaroxaban TAB(*) 15 MG PO SCH ×2 (10:19→21:00)
[2019-05-24] MEDS: FLUoxetine CAP* 20 MG PO SCH (10:20)
[2019-05-24] MEDS: Oxybutynin XL TAB* 5 MG PO SCH (10:21)
[2019-05-24] MEDS: Fluticasone NASAL SPRAY 50MCG* 16 gm SPRAY BTL BOTH NARES SCH (10:22)
[2019-05-24] MEDS: Calcium Citrate TAB* 200 MG PO SCH (10:22)
[2019-05-24] MEDS: Dextran 70/Hypromellose Tears Eye Drops 15 ml BTL (for Artificials Tears) BOTH EYES SCH ×4 (10:22→21:00)
[2019-05-24] MEDS: Nicotine PATCH 21 MG/24 HR* PATCH TRANSDERM SCH (10:24)
[2019-05-24] MEDS: Morphine ORAL.SOLN 10 mg* 2 MG/ML UDC 5 ml PO PRN ×2 (11:13→22:05)
[2019-05-24] MEDS ORDERED: Ibuprofen TAB* 800 MG PO PRN (11:20)
[2019-05-24] MEDS ORDERED: Dextrose 50% VIAL 50 ml IV PUSH PRN (11:24)
--- NOTE | 2019-05-24 11:58 | PN ---
Subjective Date of Service: 05/24/19 Interval History: Patient tells me she's having chest pain in the left aspect of her chest that radiates to the left back around the shoulder blade. She says the chest pain is work with deep breaths. The patient feels her breathing is comfortable today. She denies abd pain, fever/chills, nausea. She complains of her LE edema which has been longstanding and has had outpatient echo. Objective Active Medications: Albuterol/Ipratropium (Duoneb (Albuterol 2.5 Mg/Ipratropium 0.5 Mg)) 1 neb INH Q4H PRN PRN Reason: SOB/WHEEZING Allopurinol (Zyloprim Tab*) 300 mg PO DAILY [facility] Last Admin: 05/24/19 10:18 Dose: 300 mg Artificial Tears (Natural Balance Tears Eye Drop) 1 drop BOTH EYES QID [facility] Last Admin: 05/24/19 10:22 Dose: Not Given Atorvastatin Calcium (Lipitor*) 40 mg PO 2100 [facility] Last Admin: 05/23/19 23:58 Dose: 40 mg Calcium Citrate (Citracal Tab*) 200 mg PO DAILY [facility] Last Admin: 05/24/19 10:22 Dose: 200 mg Cholecalciferol (Vitamin D Tab*) 2,000 units PO DAILY [facility] Last Admin: 05/24/19 10:16 Dose: 2,000 units Cholestyramine Resin (Questran*) 4 gm PO BID [facility] Last Admin: 05/24/19 10:17 Dose: Not Given Citalopram Hydrobromide (Celexa Tab*) 20 mg PO DAILY [facility] Last Admin: 05/24/19 10:19 Dose: 20 mg Dextrose (Dextrose 50% Vial 50 Ml*) 25 ml IV PUSH .FOR FS < 60 - SS PRN PRN Reason: FS < 60 Fluoxetine HCl (Prozac Cap*) 120 mg PO QAM [facility] Last Admin: 05/24/19 10:20 Dose: 120 mg Fluticasone Propionate (Flonase Nasal [place] 50mcg*) 2 spray BOTH NARES DAILY [facility] Last Admin: 05/24/19 10:22 Dose: 2 spray Folic Acid (Folvite Tab*) 1 mg PO DAILY [facility] Last Admin: 05/24/19 10:17 Dose: 1 mg Furosemide (Lasix Tab*) 20 mg PO DAILY [facility] Gabapentin (Neurontin Cap(*)) 600 mg PO BEDTIME [facility] Last Admin: 05/23/19 23:42 Dose: 600 mg Sodium Chloride (Ns 0.9% 1000 Ml) 1,000 mls @ 100 mls/hr IV PER RATE [facility] Last Admin: 05/23/19 23:59 Dose: 100 mls/hr Ibuprofen (Motrin Tab*) 800 mg PO Q8H PRN PRN Reason: PAIN - MODERATE Insulin Human Lispro (Humalog*) 0 units SUBCUT ACHS [facility]; Protocol Levothyroxine Sodium (Synthroid Tab*) 25 mcg PO 0600 [facility] Last Admin: 05/24/19 05:49 Dose: 25 mcg Lorazepam (Ativan Tab(*)) 0 - 6 mg PO .PER [facility] PROTOCOL [facility]; Protocol Last Admin: 05/24/19 04:44 Dose: 2 mg Lorazepam (Ativan Tab(*)) 2 mg PO Q8H [facility]; Taper Stop: 05/26/19 16:59 Last Admin: 05/24/19 05:51 Dose: Not Given Mometasone Furoate/Formoterol Fumar (Dulera 200/5 Mdi*) 2 puff INH BID [facility] Last Admin: 05/24/19 07:43 Dose: 2 puff Morphine Sulfate (Morphine Oral.Soln 10 Mg*) 15 mg PO TID PRN PRN Reason: PAIN - SEVERE Multivitamins/Minerals (Theragran/Minerals Tab*) 1 tab PO DAILY [facility] Last Admin: 05/24/19 10:17 Dose: 1 tab Nicotine (Nicotine Patch 21 Mg/24 Hr*) 1 patch TRANSDERM DAILY [facility] Last Admin: 05/24/19 10:24 Dose: 1 patch Oxybutynin Chloride (Ditropan Xl Tab*) 15 mg PO DAILY [facility] Last Admin: 05/24/19 10:21 Dose: 15 mg Pharmacy Profile Note (Nicotine Patch Removal Note*) 1 note PATCH OFF 2100 [facility] Rivaroxaban (Xarelto(*)) 15 mg PO BID [facility] Last Admin: 05/24/19 10:19 Dose: 15 mg Thiamine HCl (Vitamin B-1 Tab*) 100 mg PO DAILY [facility] Last Admin: 05/24/19 10:18 Dose: 100 mg Trazodone HCl (Desyrel Tab*) 200 mg PO BEDTIME [facility] Last Admin: 05/23/19 23:42 Dose: 200 mg Vital Signs - 8 hr 05/24/19 05/24/19 05/24/19 04:29 04:44 05:21 Temperature Pulse Rate Respiratory 18 18 18 Rate Blood Pressure (mmHg) O2 Sat by Pulse Oximetry 05/24/19 05/24/19 05/24/19 05:51 07:45 07:59 Temperature Pulse Rate 95 Respiratory 18 18 19 Rate Blood Pressure (mmHg) O2 Sat by Pulse 100 Oximetry 05/24/19 05/24/19 05/24/19 08:04 08:05 11:13 Temperature 98.6 F Pulse Rate 100 Respiratory 18 19 18 Rate Blood Pressure 121/79 (mmHg) O2 Sat by Pulse 99 Oximetry Oxygen Devices in Use Now: Nasal Cannula Appearance: Obese middle age female, who appears older than stated age, laying upright in bed appearing in NAD Eyes: No Scleral Icterus, PERRLA Ears/Nose/Mouth/Throat: Mucous Membranes Moist Neck: NL Appearance and Movements; NL JVP Respiratory: Symmetrical Chest Expansion and Respiratory Effort, Clear to Auscultation Cardiovascular: NL Sounds; No Murmurs; No JVD, RRR, - - left antenterior chest tender to palpation in the region of the pectoralis muscle Abdominal: - - abd soft, nontender, nondistended Extremities: No Clubbing, Cyanosis, - - trace bilateral pedal edema Skin: - - dry patches to bilateral upper extremities, consistent with known eczema Neurological: Alert and Oriented x 3 Result Diagrams: 05/24/19 04:41 05/24/19 04:41 Assess/Plan/Problems-Billing Assessment: 49 yo female with PMHx DMT2, asthma, COPD, chronic pain, alcohol abuse, and recent dx of bilateral PEs presents with chest pain. - Patient Problems (1) Acute respiratory failure with hypoxia Current Visit: Yes Status: Acute Code(s): J96.01 - ACUTE RESPIRATORY FAILURE WITH HYPOXIA SNOMED Code(s): 87598823 Comment: -hypoxia with oxygen saturations to 90% at admission -now with good O2sats on 2L, will wean -possibly chronic related to COPD; patient not with evidence of acute exacerbation at admission nor today -will continue (2) Chest pain Current Visit: No Status: Acute Code(s): R07.9 - CHEST PAIN, UNSPECIFIED SNOMED Code(s): 87121842 Comment: - Trops all 0.00; no evidence of ischemia on EKG - Patient with recent diagnosis of bilateral PE, though CTA during this admission demonstrates resolution of the emboli - Stress test with intermediate risk per radiology. Reviewed by Dr. Arriola with cardiology service who determined patient needs no further intervention at this time. If the patient or the PCP are concerned then he would recommend an outpatient cardiology follow up. - Likely musculoskeletal as tender to palpation - Started 800 mg ibuprofen, encouraged use (3) Alcohol withdrawal Current Visit: Yes Status: Acute Code(s): F10.239 - ALCOHOL DEPENDENCE WITH WITHDRAWAL, UNSPECIFIED SNOMED Code(s): 832595794 Comment: -[place] protocol in place, patient is presenting with signs/sxs of withdrawal -patient arrived to emergency dept with serum alcohol elevated, will likely have worsened withdrawal signs in the next 24 hours -ativan not yet needed based on [facility] protocol -patient tells me she is interested in cessation, SW involved but did not evaluate patient today (4) Leg edema Current Visit: Yes Status: Acute Code(s): R60.0 - LOCALIZED EDEMA SNOMED Code(s): 924401814 Comment: -patient has had chronic LE edema and she is prescribed prn lasix outpatient -she had an outpatient echo last week without evidence of hypokinesis or diastolic dysfunction; EF 55-60% -it is quite likely that multiple of her medications are causing this edema. Provera or minipress are most likely, while less likely includes omeprazole, gabapentin, and trazodone. Medication review should be advised to the PCP at discharge. (5) Hypocalcemia Current Visit: Yes Status: Acute Code(s): E83.51 - HYPOCALCEMIA SNOMED Code(s): 0885210 Comment: -likely related to poor oral intake as patient has significant alcohol use -ionized calcium 0.99 -ordered 1 gm calcium gluconate -will follow up (6) Leukocytosis Current Visit: Yes Status: Acute Code(s): D72.829 - ELEVATED WHITE BLOOD CELL COUNT, UNSPECIFIED SNOMED Code(s): 779870687 Comment: -patient developed leukocytosis today -possibly related to stress of alcohol withdrawal -afebrile -checking urine -CTA without evidence of infiltrate (7) Chronic pain Current Visit: No Status: Acute Code(s): G89.29 - OTHER CHRONIC PAIN SNOMED Code(s): 77205956 Comment: - Would recommend weaning patient off morphine outpatient considering her polypharmacy and alcohol use - Continue gabapentin, morphine (8) Hypertension Current Visit: No Status: Acute Code(s): I10 - ESSENTIAL (PRIMARY) HYPERTENSION SNOMED Code(s): 77223125 Comment: - Normotensive - Continue clonidine (9) Hypothyroidism Current Visit: No Status: Acute Code(s): E03.9 - HYPOTHYROIDISM, UNSPECIFIED SNOMED Code(s): 78503949 Comment: - Continue levothyroxine (10) Pulmonary embolism Current Visit: No Status: Acute Code(s): I26.99 - OTHER PULMONARY EMBOLISM WITHOUT ACUTE COR PULMONALE SNOMED Code(s): 44960095 Comment: -bilateral PE diagnosed during recent admission, discharged 05/14/19 -CTA repeated this admission demonstrating resolution of emboli -continue Xarelto (11) Diabetes Current Visit: No Status: Acute Code(s): E11.9 - TYPE 2 DIABETES MELLITUS WITHOUT COMPLICATIONS SNOMED Code(s): 27012887 Comment: - Ac1 5.8% during recent admission - Holding home metformin - continue lispro SS (12) DVT prophylaxis Current Visit: No Status: Acute Code(s): Z29.9 - ENCOUNTER FOR PROPHYLACTIC MEASURES, UNSPECIFIED SNOMED Code(s): 290533441 Comment: - Xarelto (13) Full code status Current Visit: No Status: Acute Code(s): Z78.9 - OTHER SPECIFIED HEALTH STATUS SNOMED Code(s): 422803175 Comment:
[2019-05-24] MEDS: Insulin LISPRO* 1 UNITS UNIT SUBCUT SCH ×3 (13:41→21:02)
[2019-05-24] MEDS ORDERED: Regadenoson* 0.4 MG/5 ML SYRINGE ONE (14:01)
[2019-05-24] MEDS: Cetirizine* 10 MG TAB PO SCH (15:05)
[2019-05-24] MEDS: Furosemide TAB* 20 MG PO SCH (15:06)
[2019-05-24] MEDS ORDERED: Triamcinolone 0.5% OINT * 15 GM TUBE TOPICAL PRN (20:55)
[2019-05-24] MEDS: Atorvastatin* 40 MG TAB PO SCH (20:58)
[2019-05-24] MEDS: Gabapentin CAP(*) 300 MG PO SCH (20:59)
[2019-05-24] MEDS: traZODone TAB* 100 MG PO SCH (21:00)
[2019-05-24] MEDS: Nicotine Patch Removal NOTE PATCH OFF SCH (21:02)
[2019-05-24] MEDS ORDERED: Calcium Gluconate INJ* 1 GM in NS 0.9% 50 ML* 50 ML IVPB ONE (21:30)
[2019-05-24] MEDS: Albuterol/Ipratropium NEB.SOL* Albuterol 2.5 MG/Ipratropium 0.5 MG 3 ML INH PRN (23:05)
[2019-05-25 02:20] LABS: Urine Appearance Clear; Urine Bacteria Absent (Absent); Urine Bilirubin Negative (Negative); Urine Blood 3+ (Negative); Urine Color Straw; Urine Glucose Negative (Negative); Urine Ketones Negative (Negative); Urine Nitrite Negative (Negative); Urine Protein Negative (Negative); Urine Red Blood Cell 3+(>10/hpf) (Absent); Urine Specific Gravity 1.002 (1.010-1.030); Urine Squamous Epithelial Cell Present (Absent); Urine Urobilinogen Negative (Negative); Urine White Blood Cell Trace(0-5/hpf) (Absent)
[2019-05-25] MEDS: LORazepam TAB(*) 1 MG PO SCH ×2 (03:34→21:19)
[2019-05-25] MEDS: Levothyroxine TAB* 25 MCG TAB PO SCH (05:43)
[2019-05-25 06:51] LABS: BUN/Creatinine Ratio 7.8 (8-20); Calcium 8.4 mg/dL (8.6-10.3); EGFR African American 96.4 (>60); EGFR Non-African American 79.7 (>60); Potassium 3.8 mmol/L (3.5-5.0)
[2019-05-25] MEDS: Mometasone/Formoter 200/5 MDI INH SCH ×2 (08:04→20:03)
[2019-05-25] MEDS: Insulin LISPRO* 1 UNITS UNIT SUBCUT SCH ×4 (10:07→21:24)
[2019-05-25] MEDS: Cholestyramine Resin* 4 GM POWDER PO SCH ×2 (10:08→21:05)
[2019-05-25] MEDS: Dextran 70/Hypromellose Tears Eye Drops 15 ml BTL (for Artificials Tears) BOTH EYES SCH ×4 (10:09→21:04)
[2019-05-25] MEDS: Cetirizine* 10 MG TAB PO SCH (10:10)
[2019-05-25] MEDS: Calcium Citrate TAB* 200 MG PO SCH ×2 (10:10→21:05)
[2019-05-25] MEDS: FLUoxetine CAP* 20 MG PO SCH (10:10)
[2019-05-25] MEDS: Cholecalciferol TAB* 1000 UNITS PO SCH (10:10)
[2019-05-25] MEDS: Folic Acid TAB* 1 MG PO SCH (10:10)
[2019-05-25] MEDS: Thiamine TAB* 100 MG TAB PO SCH (10:11)
[2019-05-25] MEDS: Rivaroxaban TAB(*) 15 MG PO SCH ×2 (10:11→20:59)
[2019-05-25] MEDS: Citalopram TAB* 20 MG PO SCH (10:11)
[2019-05-25] MEDS: Fluticasone NASAL SPRAY 50MCG* 16 gm SPRAY BTL BOTH NARES SCH (10:11)
[2019-05-25] MEDS: Oxybutynin XL TAB* 5 MG PO SCH (10:11)
[2019-05-25] MEDS: Nicotine PATCH 21 MG/24 HR* PATCH TRANSDERM SCH (10:11)
[2019-05-25] MEDS: Furosemide TAB* 20 MG PO SCH (10:11)
[2019-05-25] MEDS: Allopurinol TAB* 300 MG PO SCH (10:11)
[2019-05-25] MEDS: Multivitamins/Minerals TAB PO SCH (10:11)
[2019-05-25 12:57] LABS: Vitamin D Total 25(OH) 30.6 ng/mL (20-50)
[2019-05-25] MEDS: Morphine ORAL.SOLN 10 mg* 2 MG/ML UDC 5 ml PO PRN (16:17)
--- NOTE | 2019-05-25 18:32 | PN ---
Subjective Date of Service: 05/25/19 Interval History: Patient is very shaky and a little disoriented. Patient complains and perseverates on her LE edema, stating at one point "I can't go on with my legs swelling like this." Patient has persistent chest pain, worse with breathing and reproducible with palpation. Patient denies CP, SOB, dizziness, F/C, or other pain. Patient is very concerned about her LE edema and possible COPD and would like to see specialists regarding this. Family History: Unchanged from Admission Social History: Unchanged from Admission Past Medical History: Unchanged from Admission Objective Active Medications: Albuterol/Ipratropium (Duoneb (Albuterol 2.5 Mg/Ipratropium 0.5 Mg)) 1 neb INH Q4H PRN PRN Reason: SOB/WHEEZING Last Admin: 05/24/19 23:05 Dose: 1 neb Allopurinol (Zyloprim Tab*) 300 mg PO DAILY [facility] Last Admin: 05/25/19 10:11 Dose: 300 mg Artificial Tears (Natural Balance Tears Eye Drop) 1 drop BOTH EYES QID [facility] Last Admin: 05/25/19 16:19 Dose: Not Given Atorvastatin Calcium (Lipitor*) 40 mg PO 2100 [facility] Last Admin: 05/24/19 20:58 Dose: 40 mg Calcium Citrate (Citracal Tab*) 400 mg PO BID [facility] Cetirizine HCl (Zyrtec*) 10 mg PO DAILY [facility] Last Admin: 05/25/19 10:10 Dose: 10 mg Cholecalciferol (Vitamin D Tab*) 2,000 units PO DAILY [facility] Last Admin: 05/25/19 10:10 Dose: 2,000 units Cholestyramine Resin (Questran*) 4 gm PO BID [facility] Last Admin: 05/25/19 10:08 Dose: Not Given Citalopram Hydrobromide (Celexa Tab*) 20 mg PO DAILY [facility] Last Admin: 05/25/19 10:11 Dose: 20 mg Dextrose (Dextrose 50% Vial 50 Ml*) 25 ml IV PUSH .FOR FS < 60 - SS PRN PRN Reason: FS < 60 Fluoxetine HCl (Prozac Cap*) 120 mg PO QAM [facility] Last Admin: 05/25/19 10:10 Dose: 120 mg Fluticasone Propionate (Flonase Nasal [place] 50mcg*) 2 spray BOTH NARES DAILY [facility] Last Admin: 05/25/19 10:11 Dose: 2 spray Folic Acid (Folvite Tab*) 1 mg PO DAILY [facility] Last Admin: 05/25/19 10:10 Dose: 1 mg Furosemide (Lasix Tab*) 20 mg PO DAILY [facility] Last Admin: 05/25/19 10:11 Dose: 20 mg Gabapentin (Neurontin Cap(*)) 600 mg PO BEDTIME [facility] Last Admin: 05/24/19 20:59 Dose: 600 mg Guaifenesin (Mucinex*) 1,200 mg PO BID [facility] Ibuprofen (Motrin Tab*) 800 mg PO Q8H PRN PRN Reason: PAIN - MODERATE Insulin Human Lispro (Humalog*) 0 units SUBCUT ACHS [facility]; Protocol Last Admin: 05/25/19 16:38 Dose: Not Given Levothyroxine Sodium (Synthroid Tab*) 25 mcg PO 0600 [facility] Last Admin: 05/25/19 05:43 Dose: 25 mcg Lorazepam (Ativan Tab(*)) 0 - 6 mg PO .PER WA PROTOCOL [facility]; Protocol Last Admin: 05/24/19 22:05 Dose: 2 mg Mometasone Furoate/Formoterol Fumar (Dulera 200/5 Mdi*) 2 puff INH BID [facility] Last Admin: 05/25/19 08:04 Dose: 2 puff Morphine Sulfate (Morphine Oral.Soln 10 Mg*) 15 mg PO TID PRN PRN Reason: PAIN - SEVERE Last Admin: 05/25/19 16:17 Dose: 15 mg Multivitamins/Minerals (Theragran/Minerals Tab*) 1 tab PO DAILY [facility] Last Admin: 05/25/19 10:11 Dose: 1 tab Nicotine (Nicotine Patch 21 Mg/24 Hr*) 1 patch TRANSDERM DAILY [facility] Last Admin: 05/25/19 10:11 Dose: 1 patch Oxybutynin Chloride (Ditropan Xl Tab*) 15 mg PO DAILY [facility] Last Admin: 05/25/19 10:11 Dose: 15 mg Pharmacy Profile Note (Nicotine Patch Removal Note*) 1 note PATCH OFF 2100 [facility] Last Admin: 05/24/19 21:02 Dose: 1 note Rivaroxaban (Xarelto(*)) 15 mg PO BID [facility] Last Admin: 05/25/19 10:11 Dose: 15 mg Thiamine HCl (Vitamin B-1 Tab*) 100 mg PO DAILY [facility] Last Admin: 05/25/19 10:11 Dose: 100 mg Trazodone HCl (Desyrel Tab*) 200 mg PO BEDTIME [facility] Last Admin: 05/24/19 21:00 Dose: 200 mg Triamcinolone Acetonide (Triamcinolone 0.5% Oint *) 1 applic TOPICAL BID PRN PRN Reason: RASH Vital Signs - 8 hr 05/25/19 05/25/19 05/25/19 12:00 14:00 16:00 Temperature 97.7 F 97.5 F 97.6 F Pulse Rate 66 70 68 Respiratory 16 16 16 Rate Blood Pressure 105/58 93/64 116/67 (mmHg) O2 Sat by Pulse 96 96 98 Oximetry 05/25/19 16:17 Temperature Pulse Rate Respiratory 22 Rate Blood Pressure (mmHg) O2 Sat by Pulse Oximetry Oxygen Devices in Use Now: None Appearance: Patient is a 49yo female who appears stated age and is sitting in the bed in [facility]. Eyes: No Scleral Icterus, PERRLA Ears/Nose/Mouth/Throat: NL Teeth, Lips, Gums, Clear Oropharnyx, Mucous Membranes Moist Neck: NL Appearance and Movements; NL JVP, Trachea Midline Respiratory: Symmetrical Chest Expansion and Respiratory Effort, Clear to Auscultation Cardiovascular: NL Sounds; No Murmurs; No JVD, RRR, No Edema Abdominal: NL Sounds; No Tenderness; No Distention, No Hepatosplenomegaly Lymphatic: No Cervical Adenopathy Extremities: No Clubbing, Cyanosis, - - 1+ LLE edema and trace RLE edema. Skin: No Rash or Ulcers, No Nodules or Sclerosis Neurological: Alert and Oriented x 3, NL Sensation, NL Muscle Strength and Tone , - - CN II-XII intact. Tremulous, somewhat confused. Result Diagrams: 05/24/19 04:41 05/25/19 05:36 Assess/Plan/Problems-Billing Assessment: 49 yo female with PMHx DMT2, asthma, COPD, chronic pain, alcohol abuse, and recent dx of bilateral PEs presents with chest pain with a negative a stress test and is now withdrawing from alcohol. - Patient Problems (1) Alcohol withdrawal Current Visit: Yes Status: Acute Code(s): F10.239 - ALCOHOL DEPENDENCE WITH WITHDRAWAL, UNSPECIFIED SNOMED Code(s): 837280939 Comment: -WAM protocol in place, patient is presenting with signs/sxs of withdrawal -patient arrived to emergency dept with serum alcohol elevated, will likely have worsened withdrawal signs in the next 24 hours - Scoring on WAM at this time - Patient tells me she is interested in cessation, SW involved but did not evaluate patient today (2) Hypocalcemia Current Visit: Yes Status: Acute Code(s): E83.51 - HYPOCALCEMIA SNOMED Code(s): 9869345 Comment: -likely related to poor oral intake as patient has significant alcohol use -ionized calcium 0.99 - Supplement orally, possibly contributing to LE edema. (3) Leg edema Current Visit: Yes Status: Acute Code(s): R60.0 - LOCALIZED EDEMA SNOMED Code(s): 297943378 Comment: -patient has had chronic LE edema and she is prescribed prn lasix outpatient -she had an outpatient echo last week without evidence of hypokinesis or diastolic dysfunction; EF 55-60% - Likely combination of medications, venous insufficiency, possible post- thrombitic syndrome, and hypocalcemia. - Compression stockings, lasix, will refer to vasular at D/C. (4) Alcohol abuse Current Visit: No Status: Acute Code(s): F10.10 - ALCOHOL ABUSE, UNCOMPLICATED SNOMED Code(s): 75101500 Comment: - No signs of withdrawal - D/C WAM and seizure precautions (5) Asthma Current Visit: No Status: Acute Code(s): J45.909 - UNSPECIFIED ASTHMA, UNCOMPLICATED SNOMED Code(s): 701592202 Comment: - With mild COPD likely based on smoking history - No evidence of acute exacerbation - Continue Dulera - Follow up Outpatient Pulmonology. (6) Chest pain Current Visit: No Status: Acute Code(s): R07.9 - CHEST PAIN, UNSPECIFIED SNOMED Code(s): 75308371 Comment: - Trops all 0.00; no evidence of ischemia on EKG - Patient with recent diagnosis of bilateral PE, though CTA during this admission demonstrates resolution of the emboli - Stress test with intermediate risk per radiology. Reviewed by Dr. Arriola with cardiology service who determined patient needs no further intervention at this time. If the patient or the PCP are concerned then he would recommend an outpatient cardiology follow up. - Likely musculoskeletal as tender to palpation - Started 800 mg ibuprofen, encouraged use (7) Chronic pain Current Visit: No Status: Acute Code(s): G89.29 - OTHER CHRONIC PAIN SNOMED Code(s): 63301161 Comment: - Would recommend weaning patient off morphine outpatient considering her polypharmacy and alcohol use - Continue gabapentin, morphine (8) Depression Current Visit: No Status: Acute Code(s): F32.9 - MAJOR DEPRESSIVE DISORDER, SINGLE EPISODE, UNSPECIFIED SNOMED Code(s): 62018191 Comment: - With anxiety - Continue clonazepam, Prozac (9) Diabetes Current Visit: No Status: Acute Code(s): E11.9 - TYPE 2 DIABETES MELLITUS WITHOUT COMPLICATIONS SNOMED Code(s): 91061297 Comment: - Ac1 5.8% during recent admission - Holding home metformin - continue lispro SS (10) Full code status Current Visit: No Status: Acute Code(s): Z78.9 - OTHER SPECIFIED HEALTH STATUS SNOMED Code(s): 839456837 Comment: (11) Hyperlipidemia Current Visit: No Status: Acute Code(s): E78.5 - HYPERLIPIDEMIA, UNSPECIFIED SNOMED Code(s): 42354658 Comment: - Continue atorvastatin (12) Hypertension Current Visit: No Status: Acute Code(s): I10 - ESSENTIAL (PRIMARY) HYPERTENSION SNOMED Code(s): 07871308 Comment: - Normotensive - Continue clonidine (13) Hypothyroidism Current Visit: No Status: Acute Code(s): E03.9 - HYPOTHYROIDISM, UNSPECIFIED SNOMED Code(s): 69549735 Comment: - Continue levothyroxine (14) Pulmonary embolism Current Visit: No Status: Acute Code(s): I26.99 - OTHER PULMONARY EMBOLISM WITHOUT ACUTE COR PULMONALE SNOMED Code(s): 90477262 Comment: -bilateral PE diagnosed during recent admission, discharged 05/14/19 -CTA repeated this admission demonstrating resolution of emboli -continue Xarelto - Anticoagulation indefinitely. (15) DVT prophylaxis Current Visit: No Status: Acute Code(s): Z29.9 - ENCOUNTER FOR PROPHYLACTIC MEASURES, UNSPECIFIED SNOMED Code(s): 884174598 Comment: - Xarelto
[2019-05-25] MEDS: Albuterol/Ipratropium NEB.SOL* Albuterol 2.5 MG/Ipratropium 0.5 MG 3 ML INH PRN (20:14)
[2019-05-25] MEDS: Atorvastatin* 40 MG TAB PO SCH (20:59)
[2019-05-25] MEDS: traZODone TAB* 100 MG PO SCH (20:59)
[2019-05-25] MEDS: Gabapentin CAP(*) 300 MG PO SCH (21:00)
[2019-05-25] MEDS: guaiFENesin ER TAB 600 MG PO SCH (21:00)
[2019-05-25] MEDS: Nicotine Patch Removal NOTE PATCH OFF SCH (21:38)
[2019-05-26] MEDS: Levothyroxine TAB* 25 MCG TAB PO SCH (05:33)
[2019-05-26 06:40] LABS: ABS Basophils 0.1 10^3/ul (0-0.2); ABS Eosinophils 0.5 10^3/ul (0-0.6); ABS Monocytes 0.6 10^3/ul (0-0.8); ABS Neutrophils 7.3 10^3/ul (1.5-7.7); Eosinophil % 4.8 %; Hematocrit 32 % (35-47); Mean Corpuscular HGB Conc 34 g/dL (31-36); Mean Corpuscular Hemoglobin 33 pg (27-31); Mean Corpuscular Volume 96 fL (80-97); Mean Platelet Volume 7.5 fL (7.4-10.4); Platelet Count 313 10^3/uL (150-450); Red Blood Count 3.32 10^6 /uL (3.70-4.87); Red Cell Distribution Width 13 % (10-15); White Blood Count 10.4 10^3/uL (3.5-10.8)
[2019-05-26 06:58] LABS: BUN/Creatinine Ratio 10.7 (8-20); Calcium 8.4 mg/dL (8.6-10.3); EGFR African American 99.4 (>60); EGFR Non-African American 82.1 (>60); Magnesium 1.6 mg/dL (1.9-2.7); Potassium 3.6 mmol/L (3.5-5.0)
[2019-05-26] MEDS ORDERED: Magnesium Sulf 4 GM/100 ML IV* 4,000 MG/100 ML BAG IVPB ONE (07:30)
[2019-05-26] MEDS: Mometasone/Formoter 200/5 MDI INH SCH (08:01)
[2019-05-26] MEDS: Insulin LISPRO* 1 UNITS UNIT SUBCUT SCH ×2 (08:21→12:27)
[2019-05-26] MEDS ORDERED: Magnesium Oxide TAB* 400 MG PO SCH (09:00)
[2019-05-26] MEDS: Cholestyramine Resin* 4 GM POWDER PO SCH (10:37)
[2019-05-26] MEDS: Nicotine PATCH 21 MG/24 HR* PATCH TRANSDERM SCH (10:39)
[2019-05-26] MEDS: Dextran 70/Hypromellose Tears Eye Drops 15 ml BTL (for Artificials Tears) BOTH EYES SCH ×4 (10:41→16:50)
[2019-05-26] MEDS: Fluticasone NASAL SPRAY 50MCG* 16 gm SPRAY BTL BOTH NARES SCH (10:41)
[2019-05-26] MEDS: FLUoxetine CAP* 20 MG PO SCH (10:42)
[2019-05-26] MEDS: Cholecalciferol TAB* 1000 UNITS PO SCH (10:43)
[2019-05-26] MEDS: Cetirizine* 10 MG TAB PO SCH (10:43)
[2019-05-26] MEDS: Oxybutynin XL TAB* 5 MG PO SCH (10:44)
[2019-05-26] MEDS: Multivitamins/Minerals TAB PO SCH (10:44)
[2019-05-26] MEDS: Allopurinol TAB* 300 MG PO SCH (10:45)
[2019-05-26] MEDS: Citalopram TAB* 20 MG PO SCH (10:45)
[2019-05-26] MEDS: Furosemide TAB* 20 MG PO SCH (10:45)
[2019-05-26] MEDS: Folic Acid TAB* 1 MG PO SCH (10:45)
[2019-05-26] MEDS: Rivaroxaban TAB(*) 15 MG PO SCH (10:46)
[2019-05-26] MEDS: Thiamine TAB* 100 MG TAB PO SCH (10:46)
[2019-05-26] MEDS: Calcium Citrate TAB* 200 MG PO SCH (10:46)
[2019-05-26] MEDS: guaiFENesin ER TAB 600 MG PO SCH (10:46)
[2019-05-26] MEDS ORDERED: Albuterol HFA INHALER* 8 gm MDI INH PRN (11:58)
[2019-05-26] MEDS ORDERED: Diphenoxylat/Atrop 2.5-0.025M* 1 TAB PO PRN (11:58)
[2019-05-26] MEDS ORDERED: hydrOXYzine HCL TAB* 25 MG PO PRN (11:58)
[2019-05-26] MEDS ORDERED: Ibuprofen TAB* 600 MG PO PRN (11:58)
[2019-05-26] MEDS: Morphine ORAL.SOLN 10 mg* 2 MG/ML UDC 5 ml PO PRN (12:16)
[2019-05-26] MEDS ORDERED: clonazePAM TAB(*) 1 MG PO SCH (14:00)
[2019-05-26 14:40] VITALS: BP 120/76
[2019-05-26] MEDS ORDERED: metFORMIN* 500 MG TAB PO SCH (17:00)
[2019-05-26] MEDS ORDERED: cloNIDine TAB* 0.1 MG PO SCH (21:00)
--- NOTE | 2019-05-27 02:27 | DS ---
CC: Dr. Vinicio Angela * DISCHARGE SUMMARY: DATE OF ADMISSION: 05/23/19 DATE OF DISCHARGE: 05/26/19 PRIMARY CARE PROVIDER: Dr. Vinicio Angela. MY ATTENDING WHILE IN THE HOSPITAL: Dr. Gerson Yarbrough.* (DICTATED BY FELICIA ESTEBAN) PRIMARY DISCHARGE DIAGNOSES: 1. Chest pain, likely musculoskeletal, rule out acute coronary syndrome. 2. Alcohol withdrawal. 3. Mild anxiety. SECONDARY DISCHARGE DIAGNOSES: 1. Chronic obstructive pulmonary disease/asthma. 2. Hypercholesteremia. 3. Diabetes mellitus type 2. 4. Gastroesophageal reflux disease. 5. Major depressive disorder. 6. Gout. 7. Hypothyroidism. 8. Chronic low back pain. STUDIES DONE WHILE IN THE HOSPITAL: Chest thorax CTA from 05/23/19 shows no evidence of pulmonary embolus, no active infection noted, previously identified filling defects with pulmonary arteries are not identified. Electrocardiogram from 05/23/19 read as normal sinus rhythm, no ST segment elevation or depression , normal axis. No hypertrophy or enlargement. Nuclear medicine scan read as intermediate risk based on imaging criteria. The TID ratio is elevated which is consistent with multivessel disease, but may be artifactual, no definite fixed or perfusion defects. This case was discussed with Dr. Jesus Arriola of Cardiology who believes that the elevated TID ratio was artifactual and this was a low risk study. MEDICATIONS AT DISCHARGE: Of note, the patient states she does not take all these medications, most notably she states that she does not take Provera or Minipress any longer. 1. Clonidine 0.1 mg p.o. daily at bedtime. 2. Fexofenadine 100 mg p.o. daily. 3. Fluoxetine 120 mg p.o. daily. 5. Morphine 50 mg p.o. t.i.d. as needed. 6. Levothyroxine 25 mcg p.o. daily. 7. Vitamin D 1000 units p.o. daily. 8. Clonazepam 2 mg p.o. t.i.d. 9. Trazodone 2 mg p.o. at bedtime. 10. Gabapentin 600 mg p.o. at bedtime. 11. Metformin 500 mg p.o. b.i.d. 12. Flonase two sprays both nares daily. 13. Albuterol inhaler 2 puffs inhalation q.4 hours as needed. 14. Rosuvastatin 20 mg p.o. daily. 15. Mometasone formoterol 2 puffs inhalation b.i.d. 16. Rivaroxaban 50 mg p.o. b.i.d. 17. Prazosin one to 2 mg p.o. at bedtime. 18. Nicotine patch 21 mg transdermal daily. 19. Mupirocin one application topical t.i.d. 20. Provera 5 mg p.o. daily. 21. Ibuprofen 600 mg p.o. q. 8 hours as needed. 22. Hydroxyzine 25 mg p.o. t.i.d. as needed. 23. Glucosamine chondroitin 1 each p.o. t.i.d. 24. Furosemide 20 mg p.o. daily. 25. Ferrous sulfate 325 mg p.o. daily. 26. Dextran one drop both eyes q.i.d. 27. Clotrimazole one application topical b.i.d. 28. Clindamycin 300 mg p.o. b.i.d. 29. Celexa 20 mg p.o. daily. 30. Cholestyramine 12 mg p.o. b.i.d. 31. Celecoxib 200 mg p.o. daily. 32. Calcium citrate 400 mg p.o. b.i.d. 33. Calcipotriene 120 mg topical b.i.d. 34. Allopurinol 300 mg p.o. daily. 35. Tretinoin one application topical at bedtime. 36. Oxybutynin 15 mg p.o. daily. 37. Lomotil 2.5-0.025 1 tab 4 times a day as needed. 38. Magnesium oxide 400 mg p.o. daily. New medications on discharge: 1. Calcium citrate . 2. Magnesium oxide. Medication discontinued at discharge: 1. Calcium citrate down to 150 mg p.o. daily. HOSPITAL COURSE: This is a brief summary of the patient's presentation. For more details, please see history and physical from Dr. Rafiq Fuentes on 05/23/19. In brief, the patient is a 49-year-old female with past medical history significant for above who presents to the emergency department after recently being discharged from this institution due to the new onset of pulmonary embolism and chest pain. The patient at that time was treated with ibuprofen, Xarelto, and discharged to home. The patient states that at home she was not doing well, she has attempted to seek help for her alcohol abuse and was denied though she is unclear about the reasons for this. The patient began drinking again though not very much and began smoking again despite having been counseled not to do so. The patient is not quite sure which medication she was not taking before her admission besides her Minipress and her Provera. The patient in the emergency department complained of 9/10 non- radiating pain in her left chest that was reproducible with palpation. The patient admitted to the hospital, had a nuclear medicine scan which was read as above. The patient' s chest pain persisted and was treated with ibuprofen, Tylenol, and the patient' s home morphine. The patient in the hospital again showed signs of mild alcohol withdrawal, started on WAM protocol and improved quickly to the point that she felt back to her baseline without any outward signs of alcohol withdrawal. On 05/26/19, the patient had many questions regarding her lower extremity edema and COPD and was very dissatisfied with the fact that she was not going to see specialist regarding these issues while inpatient. The patient was also very anxious about her possibility of inpatient rehab. The patient was discussed with the upper caser and the social worker assistant and she would be eligible to go to inpatient rehab in the outpatient after she is discharged. The patient also was interested in the [facility] in [place], which was previously referred in her inpatient admission. The patient was given the information to contact these institutions, though she did not want them contact while she was inpatient and was stable and amendable for discharge. PHYSICAL EXAM ON DAY OF DISCHARGE: General: Patient is 49-year-old female who appears stated age, sitting comfortably in the bed in no acute distress. Vital Signs: Temperature 97.5, pulse rate 93, respiratory rate 16, oxygen saturation 97% on room air, blood pressure 120/76. HEENT: Head normocephalic, atraumatic. Sclerae anicteric. No conjunctival injection. Nasal mucosa is moist. Oral mucosa moist. No pharyngeal erythema, discharge or exudate. Neck : Supple, nontender. No lymphadenopathy. No carotid bruit auscultated. No JVD. Cardiac: Regular rate and rhythm. No clicks, murmurs, gallops, or rubs. Pulses 2+ in the bilateral dorsalis pedis, posterior tibialis, and radial areas. The patient has 1+pitting edema in the left lower extremity, trace pitting edema in the right lower extremity. Respiratory: Clear to auscultation bilaterally. No wheezes, rales, or rhonchi. Good air exchange bilaterally. Abdomen: Soft, nontender, nondistended. Bowel sounds are present and normoactive in all 4 quadrants. No hepatosplenomegaly. No abdominal bruits auscultated. No hepatojugular reflux. Genitourinary: No suprapubic tenderness or CVA tenderness. Skin: Clean, dry, and intact. No rash. Neuro: Cranial nerves II through XII grossly intact. No focal deficits. Alert and oriented x3. Psychiatric: Pleasant and cooperative. Very anxious. DISCHARGE PLAN: 1. Chest pain. The patient's chest pain is reproduced with palpation, as the patient had negative stress test and no signs of recurrent or even persistent PE on CT of the chest, no other abnormality on CT of the chest. The patient will be treated with her home medications, which already can include a large amount of narcotics as well as gabapentin, ibuprofen, and Tylenol. 2. Alcohol abuse. The patient had minor withdrawal while she was in the hospital, this may have also been due to the fact that her Klonopin was held and she was put on Ativan and her Ativan dosing was actually less than her Klonopin dosing. The patient is resumed on her Klonopin. The patient was seen in consultation by Dr. David Serrato when she was previously inpatient for stating that there was no contraindication to her going through drug rehab while on Klonopin as she has been on Klonopin for 27 years and she was likely to go poorly if she attempted to discontinue this medication. The patient is currently showing no overt signs of withdrawal nor are her vital signs abnormal. 3. COPD. Continue the patient's as needed and chronic inhalers. The patient should follow up with her primary care doctor and then a photo stylist for PFTs to confirm this diagnosis and optimize her respiratory care. The patient should be on LAMA and LABA, given she already has her Dulera, this will not be sent at this time. 4. Anxiety. Continue the patient's outpatient medication. The patient's anxiety is somewhat poorly controlled. The patient to follow up with outpatient psychiatrist though she cannot even say who her psychiatrist is, but states that she will see them. 5. History of PE. The patient is currently on day #15 of 21 of b.i.d. dosing for her Xarelto. The patient should then go down to 20 mg daily. The patient should follow up with her primary care provider at this time. The patient has no evidence of persistent disease. 6. Diabetes mellitus type 2. Continue outpatient metformin, which she is tolerating well. 7. Edema. The patient's edema is likely multifactorial possibly from postthrombotic syndrome, venous insufficiency, hypocalcemia. The patient has no signs of heart failure. The patient's calcium supplementation has been increased and her magnesium supplementation has been given. The patient was given MARIA LUISA stockings to wear and patient is interested in a vascular specialist opinion on her lower extremity edema as she does not believe that it is not related to her heart. CONDITION: Stable. DISPOSITION: Home. TIME SPENT: Approximately 75 minutes was spent on this discharge, 30 of which spent [id number] with the patient obtaining history and physical and discussing the treatment plan. FELICIA ESTEBAN [id number]/[facility] #: [id number] CHARU
[2019-05-27] MEDS ORDERED: celeCOXIB CAP* 200 MG PO SCH (09:00)
[2019-05-27] MEDS ORDERED: Fexofenadine (NF) 60 MG TAB PO SCH (09:00)
[2019-05-27] MEDS ORDERED: Ferrous Sulfate TAB* 325 MG PO SCH (09:00)
== END 2019-05-26 17:00 | disposition home or self-care (01) | DRG 133 ==
LOC: ED 13:08 → MEDTELE 20:36
PROVIDERS: ADMIT Internal Medicine; ATTEND Internal Medicine
DX: J96.01 Acute respiratory failure with hypoxia (principal); F10.239 Alcohol dependence with withdrawal, unspecified; R07.89 Other chest pain; Y90.7 Blood alcohol level of 200-239 mg/100 ml; F41.9 Anxiety disorder, unspecified; J44.9 Chronic obstructive pulmonary disease, unspecified; E78.00 Pure hypercholesterolemia, unspecified; E11.9 Type 2 diabetes mellitus without complications; K21.9 Gastro-esophageal reflux disease without esophagitis; F32.9 Major depressive disorder, single episode, unspecified; E58 Dietary calcium deficiency; M10.9 Gout, unspecified; E78.5 Hyperlipidemia, unspecified; E03.9 Hypothyroidism, unspecified; M54.5 Low back pain; D72.829 Elevated white blood cell count, unspecified; G89.29 Other chronic pain; F17.210 Nicotine dependence, cigarettes, uncomplicated; R60.0 Localized edema; Z86.711 Personal history of pulmonary embolism; Z79.01 Long term (current) use of anticoagulants; Z79.84 Long term (current) use of oral hypoglycemic drugs; Z79.1 Long term (current) use of non-steroidal anti-inflammatories (NSAID); Z79.891 Long term (current) use of opiate analgesic; Z79.51 Long term (current) use of inhaled steroids; Z79.899 Other long term (current) drug therapy; Z88.8 Allergy status to other drugs, medicaments and biological substances; Z91.013 Allergy to seafood; Z82.5 Family history of asthma and other chronic lower respiratory diseases
CPT/HCPCS: 36415; 71275; 78452; 80048; 80053; 80061; 80320; 81003; 81015; 82306; 82330; 82803; 83735; 83880; 84484; 85025; 85610; 86140; 87086; 93005; 93017; 94640; 99284; A9270-GY; A9502; G0480; J0610; J2270; J2785; J3411; J3475; Q9967

== ENCOUNTER 2019-07-10 08:34 | Emergency (ER) | payer OTHER ==
--- OUTSIDE RECORDS SUMMARY | 2019-07-10 08:42 | XMS REPORT | Summary of Care ---
:1970 Author Organization [facility] Address [address] [facility] [place] [address] Care Team Providers Name Role Phone Vinicio Angela Primary Care Provider Reason for Visit Reason Comments Follow Up pt presents for follow up from previous visit. Encounter Details Date Type Department Care Team Description 06/25/2019 Office Visit [facility] Vinicio Angela MD Dizziness (Primary Dx); Practice [address] [facility] Alcoholism (HCC); [address] [place] [address] Tobacco user; [place] [address] Peripheral edema; [phone] Other acute pulmonary embolism without acute cor pulmonale ([facility]); Eczema, unspecified type; Fever, unspecified fever cause Allergies Active Allergy Reactions Severity Noted Date Comments Ketotifen Other 03/14/2019 Swollen lids, discharge Sulfacetamide Sodium Dermatologic Reaction 12/24/2018 Environmental Respiratory Reaction 11/25/2010 Gentamicin ALARM SIGNAL OPERATOR Reaction 11/08/2018 Eyes extremely itchy/crusty Olopatadine Other 03/14/2019 "made my eyes more infected" Astelin Other 11/19/2013 Itchy eyes Polymyxin B Swelling High 10/01/2015 Pt. Thinks she is allergic to it made her eyes worse Shell Fish 11/07/2007 documented as of this encounter (statuses as of 06/25/2019) Medications Medication Sig Dispensed Refills Start Date [...] current use of insulin strips ([facility]) Fluoxetine HCl 40 MG Take 3 Caps [...] 6 qhs, Reported on 05/16/2019 6:01 PM tretinoin (RETIN-A) 0.01 % 1 Appl by Topical 15 g 0 01/25/2019 Active Apply externally Gel route EVERY BEDTIME. fluticasone (FLONASE) 50 USE 2 SPRAYS IN 16 g 5 02/07/2019 Active MCG/ACT Nasal Suspension EACH NOSTRIL ONCE DAILY allopurinol (ZYLOPRIM) 300 Take 1 Tab by 30 Tab 4 02/07/2019 Active MG Oral Tab mouth DAILY. ferrous sulfate 325 (65 Take 1 Tab by 30 Tab 5 02/07/2019 Active Fe) MG Oral Tab mouth DAILY. hydrOXYzine HCL (ATARAX) Take 1 Tab by 90 Tab 5 02/07/2019 Active 25 MG Oral Tab mouth EVERY EIGHT HOURS NEEDED (itch). Oxybutynin Chloride 15 MG Take 1 Tab by 30 Tab 5 02/07/2019 Active Oral TABLET SR 24 HR mouth DAILY. CALCITRATE 950 MG Oral Tab TAKE 1 TABLET BY 90 Tab 1 02/18/2019 Active MOUTH EVERY DAY diphenoxylate-atropine Take 1 Tab by 60 Tab 1 03/01/2019 Active (LOMOTIL) 2.5-0.025 MG mouth FOUR TIMES Oral Tab DAILY NEEDED for diarrhea. Max Daily Amount: 4 Tabs. metFORMIN (GLUCOPHAGE) 500 Take 1 Tab by 60 Tab 3 2019 Active MG Oral Tab mouth TWICE DAILY. Multiple Vitamins-Iron TAKE 1 TABLET BY 30 Tab 5 04/16/2019 Active (TAB-A-SERGEY/IRON) Oral Tab MOUTH EVERY DAY cholestyramine (QUESTRAN) Take 1 PKT by 30 Packet 0 04/16/2019 Active 4 g Oral Pack mouth TWICE DAILY. prazosin (MINIPRESS) 1 MG Take 1-2 Caps by 60 Cap 0 05/01/2019 Active Oral Cap mouth EVERY BEDTIME. Cholecalciferol (VITAMIN Take 1 Cap by 90 Cap 3 05/15/2019 Active D3) 2000 units Oral Cap mouth DAILY. clotrimazole (LOTRIMIN) 1 1 Appl by Topical 45 g 1 05/15/2019 Active % Apply externally Cream route TWICE DAILY. To groin and toe nicotine transdermal Place 21 mg onto 0 Active patch-daily (NICODERM) 21 skin DAILY. MG/24HR Transdermal PATCH 24 HR ibuprofen (MOTRIN) 600 MG Take 600 mg by 0 Active Oral Tab mouth EVERY EIGHT HOURS NEEDED. albuterol HFA (VENTOLIN) Take 2 Puffs by 1 Inhaler 5 05/31/2019 Active 108 (90 Base) MCG/ACT inhalation EVERY Inhalation Aero Soln FOUR HOURS NEEDED (SOB). fexofenadine (MIKIE) 180 Take 1 Tab by 30 Tab 4 05/31/2019 Active MG Oral Tab mouth DAILY. furosemide (LASIX) 20 MG Take 1 Tab by 15 Tab 0 05/31/2019 Active Oral Tab mouth EVERY OTHER DAY. Mometasone Furo-Formoterol Take 2 INHL by 1 Inhaler 5 05/31/2019 Active Fum (DULERA) 200-5 MCG/ACT inhalation TWICE Inhalation Aerosol DAILY. morphine 15 MG Oral Tab Take 1 Tab by 45 Tab 0 05/31/2019 Active mouth THREE TIMES DAILY NEEDED (back pain). Max Daily Amount: 45 mg. levothyroxine (SYNTHROID) TAKE 1 TABLET BY 30 Tab 5 06/03/2019 Active 25 MCG Oral MOUTH EVERY DAY TabIndications: BEFORE BREAKFAST Hypothyroidism, unspecified type XARELTO 20 MG Oral Tab TAKE 1 TABLET BY 0 05/14/2019 Active MOUTH EVERY DAY (START AFTER COMPLETING 15MG TWICE DAILY LOADING DOSE) rivaroxaban (XARELTO) 20 Take 1 Tab by 30 Tab 1 06/03/2019 Active MG Oral Tab mouth DAILY. magnesium oxide (MAG-OX) TAKE 1 TABLET BY 30 Tab 1 06/12/2019 Active 400 (241.3 Mg) MG Oral Tab MOUTH EVERY DAY clotrimazole (LOTRIMIN AF) Apply to feet 2 x 45 g 1 06/11/2019 Active 1 % Apply externally Cream a day triamcinolone Apply to wrists 2 45 g 0 06/25/2019 Active (KENALOG,ARISTOCORT) 0.1 % x a day Apply externally Cream medroxyPROGESTERone Take 5 mg by 30 Tab 5 01/21/201906/25/ Discontinued (PROVERA 10 MG) 10 MG Oral mouth DAILY. 2019 Tab rivaroxaban (XARELTO) 15 Take 15 mg by 0 06/25/ Discontinued MG Oral Tab mouth TWICE 2019 DAILY. Clindamycin HCl 300 MG Take 1 Cap by 14 Cap 0 05/16/201906/25/ Discontinued Oral Cap mouth TWICE 2019 DAILY. Hospital, Clinic, or Other Ordered Dose Route Frequency Start Date End Date Status Facility Administered Medication miconazole (DESENEX) topical TOP BID 12/21/2016 Active powder 2 %Indications: Infected nail bed of toe documented as of this encounter (statuses as of 06/25/2019) Active Problems Problem Noted Date Asthma-COPD overlap syndrome 06/01/2019 Alcoholism 06/01/2019 Type 2 diabetes mellitus without complication, without [...] exercise. Tobacco user 04/05/2011 Hepatic steatosis 12/28/2009 Allergic Rhinitis 11/07/2007 Overview: Seasonal allergies. Mixed hyperlipidemia 11/07/2007 Depression 11/07/2007 GERD (gastroesophageal reflux disease) 11/07/2007 documented as of this encounter (statuses as of 06/25/2019) Resolved Problems Problem Noted Date Resolved Date DM (diabetes mellitus), secondary, with complications 11/16/2018 02/09/2019 Morbid obesity due to excess calories 02/15/2018 02/27/2018 Right arm pain 02/24/2016 04/10/2016 Lateral epicondylitis, right elbow 02/24/2016 02/27/2018 Diabetes 12/18/2013 10/31/2017 IGT (impaired glucose tolerance) 08/22/2013 04/10/2016 Overview: Per Dr. Angela referral for nutrition counseling 08/05/13. Allergic conjunctivitis 09/28/2012 04/10/2016 Elevated LFTs 10/15/2011 04/05/2013 IBS (irritable bowel syndrome) 12/28/2009 06/01/2019 Cystic acne 11/07/2007 12/28/2009 Arthrosis 11/07/2007 04/10/2016 Overview: Both knees. Asthma 05/11/2007 06/01/2019 BMI 36.0-36.9,adult 02/27/2018 Overview: This patient's BMI [...] as of this encounter (statuses as of 06/25/2019) Immunizations Name Administration Dates Next Due H1N1 [...] Cigarettes 0.5 30 Smokeless Tobacco: Never Used Tobacco Cessation: Ready to Quit: No; Counseling Given: Yes Alcohol Use Drinks/Week oz/Week Comments Yes 0 Standard drinks or equivalent 0.0 Sex Assigned at Date Recorded Not on file Job Start Date Occupation Industry Not on file Not on file Not on file Travel History Travel Start Travel End No recent travel history available. documented as of this encounter Last Filed Vital Signs Vital Sign Reading Time Taken Comments Blood Pressure 104/62 06/25/2019 1:21 PM EDT Pulse 105 06/25/2019 1:21 PM EDT Temperature 37.9 06/25/2019 1:21 PM C (100.3 EDT F) Respiratory Rate - - Oxygen Saturation 97% 06/25/2019 1:21 PM EDT Inhaled Oxygen Concentration - - Weight 90.9 kg (200 lb 6.4 oz) 06/25/2019 1:21 PM EDT Height 167.6 cm (5' 6") 06/25/2019 1:21 PM EDT Body Mass Index 32.35 06/25/2019 1:21 PM EDT documented in this encounter Progress Notes Vinicio Angela MD - 06/25/2019 1:20 PM EDT PATIENT: Renae Lobo : 1970 DATE OF SERVICE: 06/25/2019 CHIEF COMPLAINT: Chief Complaint Patient presents with Follow Up pt presents for follow up from previous visit. Subjective HISTORY OF PRESENT ILLNESS: Renae Lobo is a 49-y.o. female. She missed her cardiology appointment. This was for CP and edema . She is not doing well. Having transportation issues, the alcohol clinic wont return her calls. They said something about taking other drugs but her urine drug screen was only narcotics that were Rx here She got dizzy one day and she fell . No other symptoms like CP or SOB. Cant tell me if she ate etc. She has had other attacks of dizziness randomly not tied to AM/PM, eating not eating . She is still drinking , smoking and vaping She missed her cardiology appointment. This was for CP and edema She tried to cancel her cardiology appointment but could not get thru She did not have a ride She does take clonidine more for mood than BP and minipress also on her list but kayleen not refilled it She wants it back as morenightmares She takes lasix qod for her edema Also missed the breast clinic appointment as well She has itching on her wrists, hx of eczema Feet also being treated with antifungal She does not feel ill, no uri, GI or uti complaints Past Medical History: Diagnosis Date Allergic Rhinitis 11/07/2007 Seasonal allergies. 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 Asthma 05/11/2007 [place] Back pain spondylosis on xray BMI 36.0-36.9,adult Cataract Cystic acne 11/07/2007 Dr Farah Depression 11/07/[address] Jones Diabetes mellitus (HCC) Eczema Fatty liver 12/28/2009 CHRISTIE/metabolic syndrome GERD (gastroesophageal reflux disease) 11/07/2007 Cabrera king not work Glucose intolerance (impaired glucose tolerance) no retinopathy 2013 Hyperlipidemia 11/07/2007 IBS (irritable bowel syndrome) Eres Nulliparity Osteoarthritis PCOS (polycystic ovarian syndrome) Bishop [...] 108 (90 Base) MCG/ACT Inhalation Aero Soln Take 2 Puffs by inhalation EVERY FOUR HOURS NEEDED (SOB). allopurinol (ZYLOPRIM) 300 MG Oral Tab Take [...] TAKE 1 TABLET BY MOUTH DAILY clotrimazole (LOTRIMIN AF) 1 % Apply externally Cream Apply to feet 2 x a day clotrimazole (LOTRIMIN) 1 % Apply externally Cream 1 Appl by Topical route TWICE DAILY. To groin and toe Dextran 70-Hypromellose, PF, (ARTIFICIAL TEARS PF) 0.1-0.3 % Ophthalmic Solution Place 1 Dropto the external eye FOUR TIMES DAILY. diphenoxylate-atropine (LOMOTIL) 2.5-0.025 MG Oral Tab Take 1 Tab by mouth FOUR TIMES DAILY NEEDED for diarrhea. Max Daily Amount: 4 Tabs. ferrous sulfate 325 (65 Fe) MG Oral [...] Tab Take 1 Tab by mouth EVERY OTHER DAY. gabapentin (NEURONTIN) 300 MG Oral Cap Take 2 Caps by mouth EVERY BEDTIME. (Patient taking differently: Take 600 mg by mouth EVERY BEDTIME. 100mg 3 AM and 6 qhs) Glucosamine-Chondroitin (GLUCOSAMINE CHONDR COMPLEX) 500-400 MG Oral [...] by mouth EVERY EIGHT HOURS NEEDED (itch). ibuprofen (MOTRIN) 600 MG Oral Tab Take 600 mg by mouth EVERY EIGHT HOURS NEEDED. levothyroxine (SYNTHROID) 25 MCG Oral Tab TAKE 1 TABLET BY MOUTH EVERY DAY BEFORE BREAKFAST magnesium oxide (MAG-OX) 400 (241.3 Mg) MG Oral Tab TAKE 1 TABLET BY MOUTH EVERY DAY metFORMIN (GLUCOPHAGE) 500 MG Oral Tab Take 1 Tab by mouth TWICE DAILY. Mometasone Furo-Formoterol Fum (DULERA) 200-5 MCG/ACT Inhalation Aerosol Take 2 INHL by inhalation TWICE DAILY. morphine 15 MG Oral Tab Take 1 Tab by mouth THREE TIMES DAILY NEEDED ( back pain). Max Daily Amount: 45 mg. Multiple Vitamins-Iron (TAB-A-SERGEY/IRON) Oral Tab TAKE 1 TABLET BY MOUTH EVERY DAY mupirocin (BACTROBAN) 2 % Apply externally Ointment Apply three times daily to area on nose nicotine transdermal patch-daily (NICODERM) 21 MG/24HR Transdermal PATCH [address] 21 mg onto skin DAILY. Omeprazole delayed rel cap 20 MG Oral CAPSULE DELAYED RELEASE TAKE 1 CAPSULE BY MOUTH DAILY ONETOUCH DELICA LANCETS FINE Does not apply Misc 1 Each by Does not apply route TWICE DAILY. Oxybutynin Chloride 15 MG Oral TABLET SR 24 HR Take 1 Tab by mouth DAILY. prazosin (MINIPRESS) 1 MG Oral Cap Take 1-2 Caps by mouth EVERY BEDTIME. rivaroxaban (XARELTO) 20 MG Oral Tab Take 1 Tab by mouth DAILY. Rosuvastatin Calcium (CRESTOR) 20 MG Oral Tab [...] 1 Appl by Topical route EVERY BEDTIME. triamcinolone (KENALOG,ARISTOCORT) 0.1 % Apply externally Cream Apply to wrists 2 x a day XARELTO 20 MG Oral Tab TAKE 1 TABLET BY MOUTH EVERY DAY (START AFTER COMPLETING 15MG TWICE DAILY LOADING DOSE) Current Facility-Administered Medications Medication miconazole (DESENEX) topical powder 2 % Allergies Allergen Reactions Polymyxin B Swelling Pt. Thinks she is allergic to it made her eyes worse [place] [Ketotifen] Other Swollen lids, discharge Bleph-10 [Sulfacetamide Sodium] Dermatologic Reaction Environmental Respiratory Reaction Gentamycin [Gentamicin] ALARM SIGNAL OPERATOR Reaction Eyes extremely itchy/crusty Olopatadine Other "made [...] file Gets together: Not on file Attends restoration service: Not on file Active member of [...] Asked Social History Narrative Lives alone in [place], unemployed. REVIEW OF SYSTEMS: Review of Systems Genitourinary: Never took provera Objective PHYSICAL EXAM: VITALS: BP 104/62 (BP Location: Left arm, Patient Position: Sitting) | Pulse 105 | Temp 100.3 F (37.9 C) | Ht 5' 6" (1.676 m) | Wt 200 lb 6.4 oz ( 90.9 kg) | SpO2 97% | BMI 32.35 kg/m Body mass index is 32.35 kg/m. Physical Exam Vitals signs reviewed. Constitutional: Appearance: She is not ill-appearing. HENT: Mouth/Throat: Pharynx: Oropharynx is clear. Cardiovascular: Rate and Rhythm: Normal rate and regular rhythm. Heart sounds: Normal heart sounds. Pulmonary: Effort: Pulmonary effort is normal. No respiratory distress. Breath sounds: Normal breath sounds. Musculoskeletal: Right lower leg: No edema. Left lower leg: No edema. Skin: Comments: Both wrists excoriated Both feet peeling but not inflamed ASSESSMENT / IMPRESSION: ICD-9-CM ICD-10-CM 1. Dizziness random Will re establish with cardiology but this could also be due to her ETOH 780.4R42 CBC WITH DIFFERENTIAL 2. Alcoholism (HCC) 303.90 F10.20 3. Tobacco user Ready to quit: No Counseling given: Yes 305.1 Z72.0 4. Peripheral edema Seems better Happens every summer, likely heat, doubt she needs lasix iecnint876.3 R60.9 BASIC METABOLIC PANEL 5. Other acute pulmonary embolism without acute cor pulmonale (HCC) im not convinced she had the clots in first place Plan to stay on xarelto little longer 415.19 I26.99 D DIMER 6. Eczema, unspecified type triamcinolone 692.9 L30.9 7. Fever, unspecified fever cause I rechecked and temp 100 No focus Call if declares itself otherwise checking labs today D dimer to see if still possible clot which can cause low grade fever 780.60 R50.9 Plan Author: Vinicio Angela MD 06/25/2019 13:35 documented in this encounter Plan of Treatment Date Type Specialty Care Team Description 07/15/2019 Office Visit Cardiology Bishop Reyes MD [address] [place] [address] 07/15/2019 Office Visit General Surgery Constance Berrios MD [address] [place] [address] [phone] 07/25/2019 Office Visit Family Practice Vinicio Angela MD [address] [place] [address] 04/21/2020 Ocular Visit Optometry Davian Hoffman, OD [address] [place] [address] Name Type Priority Associated Diagnoses Date/Time CBC WITH DIFFERENTIAL Lab Routine Dizziness 06/25/2019 2:15 PM EDT D DIMER Lab Routine Other acute pulmonary 06/25/2019 2:15 PM EDT embolism without acute cor pulmonale (HCC) BASIC METABOLIC PANEL Lab Routine Peripheral edema 06/25/2019 2:15 PM EDT Health Maintenance Due Date Last Done Comments INFLUENZA VACCINE (#1) 2019 06/26/2018, 05/13/2017, 06/08/2016, Additional history exists HEMOGLOBIN A1C 10/06/2019 04/05/2019, 11/20/2018, 06/26/2018, Additional history exists LIPID DISORDER SCREENING 11/21/2019 11/20/2018, 11/05/2018, 06/26/2018, Additional history exists URINE MICROALBUMIN 12/05/2019 12/04/2018, 02/23/2018, 06/08/2016, Additional history exists DEPRESSION SCREENING 02/08/2020 Postponed from 1982 (Patient refused) Diabetic Eye Exam 04/18/2020 04/18/2019, 04/18/2019, 02/14/2018, Additional history exists FOOT EXAM 06/11/2020 06/11/2019, 06/11/2019, 06/26/2018, Additional history exists PAP SMEAR 11/10/2020 11/10/2017, [...] Associated Recent Patient-Stated? Author Type Problems Progress Smoking COPD No Mechelle Angela MD Note: This is an individualized treatment (COPD) goal for Renae Lobo: Quit smoking immediately! Your provider has information and resources that may help you to quit. Depression screen (PHQ-9) total score < 5 Depression No Vinicio Angela MD Note: This is an individualized treatment (depression) [...] better. Weight loss vs. 18 mo Lifestyle 33.6 (06/25/2019 1:21 PM No Vinicio Angela MD max (lbs) [...] filedocumented in this encounter Visit Diagnoses Diagnosis Dizziness - Primary Dizziness and giddiness Alcoholism (HCC) Other and unspecified alcohol dependence, unspecified drinking behavior Tobacco user Tobacco use disorder Peripheral edema Edema Other acute pulmonary embolism without acute cor pulmonale (HCC) Eczema, unspecified type Fever, unspecified fever cause documented in this encounter Guarantor Name Account Type Relation to Date of Phone Billing Address Patient Renae Lobo Personal/Famil 1970 [address] (Home) [facility] [phone] [place] [id number] (Work) [place] [address] documented as of this encounter
--- OUTSIDE RECORDS SUMMARY | 2019-07-10 08:42 | XMS REPORT | Summary of Care ---
:1970 Author Organization [facility] Address [address] [place] [address] Care Team Providers Name Role Phone Vinicio Angela MD Primary Care Provider Reason for Visit Reason Comments Transitional Care Management pt presents for hospital follow up Encounter Details Date Type Department Care Team Description 06/11/2019 Office Visit [facility] Vinicio Angela MD Asthma-COPD overlap syndrome (HCC) (Primary Dx); Practice [address] [facility] Tobacco user; [address] [place] [address] Peripheral edema; [place] [address] Alcoholism (HCC); [phone] Chronic bilateral low back pain without sciatica Allergies Active Allergy Reactions Severity Noted Date Comments Ketotifen Other 03/14/2019 Swollen lids, discharge Sulfacetamide Sodium Dermatologic Reaction 12/24/2018 Environmental Respiratory Reaction 11/25/2010 Gentamicin DIP LUBE OPERATOR Reaction 11/08/2018 Eyes extremely itchy/crusty Olopatadine Other 03/14/2019 "made my eyes more infected" Astelin Other 11/19/2013 Itchy eyes Polymyxin B Swelling High 10/01/2015 Pt. Thinks she is allergic to it made her eyes worse Shell Fish 11/07/2007 documented as of this encounter (statuses as of 06/11/2019) Medications Medication Sig Dispensed Refills Start Date [...] Freestyle test current use of insulin strips ([facility]) Fluoxetine HCl 40 MG Take 3 Caps [...] Reported on 05/16/2019 6:01 PM medroxyPROGESTERone (PROVERA 10 Take 5 mg by mouth 30 Tab 5 01/21/2019 Active MG) 10 MG Oral Tab DAILY. tretinoin (RETIN-A) 0.01 % 1 Appl by Topical 15 g 0 01/25/2019 Active Apply externally Gel route EVERY BEDTIME. fluticasone (FLONASE) 50 USE 2 SPRAYS IN EACH 16 g 5 02/07/2019 Active MCG/ACT Nasal Suspension NOSTRIL ONCE DAILY allopurinol (ZYLOPRIM) 300 MG Take 1 Tab by mouth 30 Tab 4 02/07/2019 Active Oral Tab DAILY. ferrous sulfate 325 (65 Fe) MG Take 1 Tab by mouth 30 Tab 5 02/07/2019 Active Oral Tab DAILY. hydrOXYzine HCL (ATARAX) 25 MG Take 1 Tab by mouth 90 Tab 5 02/07/2019 Active Oral Tab EVERY EIGHT HOURS NEEDED (itch). Oxybutynin Chloride 15 MG Oral Take 1 Tab by mouth 30 Tab 5 02/07/2019 Active TABLET SR 24 HR DAILY. CALCITRATE 950 MG Oral Tab TAKE 1 TABLET BY MOUTH 90 Tab 1 02/18/2019 Active EVERY DAY diphenoxylate-atropine Take 1 Tab by mouth 60 Tab 1 03/01/2019 Active (LOMOTIL) 2.5-0.025 MG Oral Tab FOUR TIMES DAILY NEEDED for diarrhea. Max Daily Amount: 4 Tabs. metFORMIN (GLUCOPHAGE) 500 MG Take 1 Tab by mouth 60 Tab 3 2019 Active Oral Tab TWICE DAILY. Multiple Vitamins-Iron TAKE 1 TABLET BY MOUTH 30 Tab 5 04/16/2019 Active (TAB-A-SERGEY/IRON) Oral Tab EVERY DAY cholestyramine (QUESTRAN) 4 g Take 1 PKT by mouth 30 Packet 0 04/16/2019 Active Oral Pack TWICE DAILY. prazosin (MINIPRESS) 1 MG Oral Take 1-2 Caps by mouth 60 Cap 0 05/01/2019 Active Cap EVERY BEDTIME. Cholecalciferol (VITAMIN D3) Take 1 Cap by mouth 90 Cap 3 05/15/2019 Active 2000 units Oral Cap DAILY. clotrimazole (LOTRIMIN) 1 % 1 Appl by Topical 45 g 1 05/15/2019 Active Apply externally Cream route TWICE DAILY. To groin and toe nicotine transdermal Place 21 mg onto skin 0 Active patch-daily (NICODERM) 21 DAILY. MG/24HR Transdermal PATCH 24 HR rivaroxaban (XARELTO) 15 MG Take 15 mg by mouth 0 Active Oral Tab TWICE DAILY. ibuprofen (MOTRIN) 600 MG Oral Take 600 mg by mouth 0 Active Tab EVERY EIGHT HOURS NEEDED. Clindamycin HCl 300 MG Oral Cap Take 1 Cap by mouth 14 Cap 0 05/16/2019 Active TWICE DAILY. albuterol HFA (VENTOLIN) 108 Take 2 Puffs by 1 Inhaler 5 05/31/2019 Active (90 Base) MCG/ACT Inhalation inhalation EVERY FOUR Aero Soln HOURS NEEDED (SOB). fexofenadine (MIKIE) 180 MG Take 1 Tab by mouth 30 Tab 4 05/31/2019 Active Oral Tab DAILY. furosemide (LASIX) 20 MG Oral Take 1 Tab by mouth 15 Tab 0 05/31/2019 Active Tab EVERY OTHER DAY. Mometasone Furo-Formoterol Fum Take 2 INHL by 1 Inhaler 5 05/31/2019 Active (DULERA) 200-5 MCG/ACT inhalation TWICE Inhalation Aerosol DAILY. morphine 15 MG Oral Tab Take 1 Tab by mouth 45 Tab 0 05/31/2019 Active THREE TIMES DAILY NEEDED (back pain). Max Daily Amount: 45 mg. levothyroxine (SYNTHROID) 25 TAKE 1 TABLET BY MOUTH 30 Tab 5 06/03/2019 Active MCG Oral TabIndications: EVERY DAY BEFORE Hypothyroidism, unspecified BREAKFAST type XARELTO 20 MG Oral Tab TAKE 1 TABLET BY MOUTH 0 05/14/2019 Active EVERY DAY (START AFTER COMPLETING 15MG TWICE DAILY LOADING DOSE) rivaroxaban (XARELTO) 20 MG Take 1 Tab by mouth 30 Tab 1 06/03/2019 Active Oral Tab DAILY. clotrimazole (LOTRIMIN AF) 1 % Apply to feet 2 x a 45 g 1 06/11/2019 Active Apply externally Cream day Hospital, Clinic, or Other Ordered Dose Route Frequency Start Date End Date Status Facility Administered Medication miconazole (DESENEX) topical TOP BID 12/21/2016 Active powder 2 %Indications: Infected nail bed of toe documented as of this encounter (statuses as of 06/11/2019) Active Problems Problem Noted Date Asthma-COPD overlap [...] as of this encounter (statuses as of 06/11/2019) Resolved Problems Problem Noted Date Resolved Date [...] as of this encounter (statuses as of 06/11/2019) Immunizations Name Administration Dates Next Due H1N1 [...] Sign Reading Time Taken Comments Blood Pressure 104/64 06/11/2019 4:08 PM EDT Pulse 92 06/11/2019 4:08 PM EDT Temperature - - Respiratory Rate - - Oxygen Saturation 94% 06/11/2019 4:08 PM EDT Inhaled Oxygen Concentration - - Weight 91.2 kg (201 lb) 06/11/2019 4:08 PM EDT Height 167.6 cm (5' 6") 06/11/2019 4:08 PM EDT Body Mass Index 32.44 06/11/2019 4:08 PM EDT documented in this encounter Patient Instructions Patient InstructionsVinicio Angela MD - 06/11/2019 3:20 PM EDT documented in this encounter Progress Notes Vinicio Angela MD - 06/11/2019 3:20 PM EDT PATIENT: Renae Lobo : 1970 DATE OF SERVICE: 06/11/2019 CHIEF COMPLAINT: Chief Complaint Patient presents with Transitional Care Management pt presents for hospital follow up Subjective HISTORY OF PRESENT ILLNESS: Renae Lobo is a 49-y.o. female. She went to the ER in [place] on 06/09. She was having another episode of CP and SOB. She is askingto get into cardiology sooner . However she already had a stress test that was negative . She has been smoking and vaping a lot even though she promised she would stop . The feet are peeling. She has been cleaning feet with wet ones and spray with desonex She was supposed to be going to alcohol application counselor but she thinks she is going to be dismissed . Soundslike transportation issue they also said her urine sample had a street drug in it. Past Medical History: Diagnosis Date Allergic Rhinitis 11/07/2007 Seasonal allergies. 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 Asthma 05/11/2007 [place] Back pain spondylosis on xray BMI 36.0-36.9,adult Cataract Cystic acne 11/07/2007 Dr Farah Depression 11/07/[address] Jones Diabetes mellitus (HCC) Eczema Fatty liver 12/28/2009 CHRISTIE/metabolic syndrome GERD (gastroesophageal reflux disease) 11/07/2007 [facility], avonse not work Glucose intolerance (impaired glucose tolerance) [...] TABS Take 1 Tab by mouth DAILY. Clindamycin HCl 300 MG Oral Cap Take 1 Cap by mouth TWICE DAILY. clonazePAM (KLONOPIN) 2 MG Oral Tab [...] TABLET BY MOUTH EVERY DAY BEFORE BREAKFAST medroxyPROGESTERone (PROVERA 10 MG) 10 MG Oral [...] TAKE 1 CAPSULE BY MOUTH DAILY ONETOUCH DELEDMAR LANCETS FINE Does not apply Misc 1 Each by Does not apply route TWICE DAILY. Oxybutynin Chloride 15 MG Oral TABLET SR 24 HR Take 1 Tab by mouth DAILY. prazosin (MINIPRESS) 1 MG Oral Cap Take 1-2 Caps by mouth EVERY BEDTIME. rivaroxaban (XARELTO) 15 MG Oral Tab Take 15 mg by mouth TWICE DAILY. rivaroxaban (XARELTO) 20 MG Oral Tab Take [...] 1 Appl by Topical route EVERY BEDTIME. XARELTO 20 MG Oral Tab TAKE 1 TABLET BY MOUTH EVERY DAY (START AFTER COMPLETING 15MG TWICE DAILY LOADING DOSE) Current Facility-Administered Medications Medication miconazole (DESENEX) topical powder 2 % Allergies Allergen Reactions Polymyxin B Swelling Pt. Thinks she is allergic to it made her eyes worse [place] [Ketotifen] Other Swollen lids, discharge Bleph-10 [Sulfacetamide Sodium] Dermatologic Reaction Environmental Respiratory Reaction Gentamycin [Gentamicin] DIP LUBE OPERATOR Reaction Eyes extremely itchy/crusty Olopatadine Other [...] file Gets together: Not on file Attends zoroastrian service: Not on file Active member of [...] Asked Social History Narrative Lives alone in [place], unemployed. REVIEW OF SYSTEMS: ROS Objective PHYSICAL EXAM: VITALS: BP 104/64 (BP Location: Left arm, Patient Position: Sitting) | Pulse 92 | Ht 5' 6" (1.676m) | Wt 201 lb (91.2 kg) | SpO2 94% | BMI 32.44 kg/m Body mass index is 32.44 kg/m. Physical Exam Constitutional: No distress. Cardiovascular: Normal rate and regular rhythm. Pulmonary/Chest: Effort normal and breath sounds normal. No respiratory distress. She exhibits no tenderness. Musculoskeletal: She exhibits edema. Psychiatric: Dress and hygiene fair stable Good eye contact Thoughts and speech rambled Affect Appropriate obsessing as usual Vitals reviewed. ASSESSMENT / IMPRESSION: ICD-9-CM ICD-10-CM 1. Asthma-COPD overlap syndrome (HCC) im not sure what is causing her CP but likely not PE or CAD Consider a d dimer She will stay on xarelto for another month Vascular did not comment on her PE but did comment on that she has no dvt and normal vessels Edema likely due to weight 493.20 J44.9 2. Tobacco user she is told she needs to stop smoking and vaping which can contribute to her CP 305.1 Z72.0 3. Peripheral edema continue lasix for now 782.3 R60.9 4. Alcoholism (HCC) I believe her she not using a street drug she is willing to have me test her urine 303.90 F10.20 5. Chronic bilateral low back pain without sciatica 724.2 M54.5 URINE DRUG SCREEN 338.29 G89.29 Use lotrimin on the feet Consider carmol Plan Author: Vinicio Angela MD 06/11/2019 16:21 documented in this encounter Plan of Treatment Date Type Specialty Care Team Description 06/17/2019 Office Visit General Surgery Constance Berrios MD [address] [place] [address] 06/24/2019 Office Visit Cardiology Bishop Reyes MD [address] [place] [address] [phone] 04/21/2020 Ocular Visit Optometry Davian Hoffman, OD [address] [place] [address] [phone] Name Type Priority Associated Diagnoses Order Schedule CREATINE KINASE Lab Routine Ordered: 06/11/2019 URINE DRUG SCREEN Lab Routine Chronic bilateral low back Expected: 2018 pain without sciatica (Approximate), Expires: 06/11/2020 D DIMER Lab Routine Peripheral edema Expected: 06/11/2019 (Approximate), Expires: 06/11/2020 Health Maintenance Due Date Last Done Comments [...] Type Problems Progress Smoking COPD No Mechelle Agnela MD Note: This is an individualized treatment [...] better. Weight loss vs. 18 mo Lifestyle 33 (06/11/2019 4:08 PM EDT) No Vinicio Angela MD max (lbs) >= 10 Note: This is an individualized lifestyle goal [...] ongoing basis. documented as of this encounter Procedures Procedure Name Priority Date/Time Associated Diagnosis Comments DIABETES FOOT EXAM Routine 06/11/2019 documented in this encounter Results DIABETES FOOT EXAM (06/11/2019) FOOT EXAM normal vibration [facility] POCT Performing Organization Address City/State/Zipcode Phone Number [facility] POCT [address] [facility] [place] [address] documented in this encounter Visit Diagnoses Diagnosis Asthma-COPD overlap syndrome (HCC) - Primary Tobacco user Tobacco use disorder Peripheral edema Edema Alcoholism (HCC) Other and unspecified alcohol dependence, unspecified drinking behavior Chronic bilateral low back pain without sciatica documented in this encounter documented as of this encounter
--- OUTSIDE RECORDS SUMMARY | 2019-07-10 08:42 | XMS REPORT | Summary of Care ---
:1970 Author Organization [facility] Address [address] [facility] [place] [address] Care Team Providers Name Role Phone Vinicio Angela MD Primary Care Provider Reason for Visit Reason Comments Follow Up Encounter Details Date Type Department Care Team Description 06/04/2019 Office Visit [place] [facility], Leg swelling (Primary Surgery MD Betty Dx) [address] [place] [address] [place] [address] Allergies Active Allergy Reactions Severity Noted Date Comments Ketotifen Other 03/14/2019 Swollen lids, discharge Sulfacetamide Sodium Dermatologic Reaction 12/24/2018 Environmental Respiratory Reaction 11/25/2010 Gentamicin R D INTERN Reaction 11/08/2018 Eyes extremely itchy/crusty Olopatadine Other 03/14/2019 "made my eyes more infected" Astelin Other 11/19/2013 Itchy eyes Polymyxin B Swelling High 10/01/2015 Pt. Thinks she is allergic to it made her eyes worse Shell Fish 11/07/2007 documented as of this encounter (statuses as of 06/06/2019) Medications Medication Sig Dispensed Refills Start Date [...] Freestyle test current use of insulin strips ([facility]) Fluoxetine HCl 40 MG Take 3 Caps [...] FOUR Aero Soln HOURS NEEDED (SOB). fexofenadine (MIIKE) 180 MG Take 1 Tab by mouth [...] Tab 1 06/03/2019 Active Oral Tab DAILY. Hospital, Clinic, or Other Ordered Dose Route Frequency Start Date End Date Status Facility Administered Medication miconazole (DESENEX) topical TOP BID 12/21/2016 Active powder 2 %Indications: Infected nail bed of toe documented as of this encounter (statuses as of 06/06/2019) Active Problems Problem Noted Date Asthma-COPD overlap [...] as of this encounter (statuses as of 06/06/2019) Resolved Problems Problem Noted Date Resolved Date [...] as of this encounter (statuses as of 06/06/2019) Immunizations Name Administration Dates Next Due H1N1 [...] Sign Reading Time Taken Comments Blood Pressure 106/78 06/04/2019 11:28 AM EDT Pulse 80 06/04/2019 11:28 AM EDT Temperature - - Respiratory Rate - - Oxygen Saturation - - Inhaled Oxygen Concentration - - Weight 92.1 kg (203 lb) 06/04/2019 11:28 AM EDT Height 167.6 cm (5' 6") 06/04/2019 11:28 AM EDT Body Mass Index 32.77 06/04/2019 11:28 AM EDT documented in this encounter Progress Notes Stephan Valdez NP - 06/04/2019 11:20 AM EDT PATIENT: Renae Lobo : 1970 DATE OF SERVICE: 06/04/2019 CHIEF COMPLAINT: Chief Complaint Patient presents with Follow Up SUBJECTIVE / HISTORY OF PRESENT ILLNESS: Renae Lobo is a 49-y.o. female. HPI With an extensive history of multiple medical problems presents with the left forefoot rashes and erythema. Patient's also complains of long-standing bilateral lower extremity edema. Patient denies bilateral lower extremity pain on walking. Patient has visited emergency room for the bilateral lower extremity swelling few times and had duplex exam performed Few times that showed no evidence of deep vein thrombosis. Patient denies any trauma or recent travel. [id number]: comes for follow up visit, no new complaints, continues to experience bilateral lower extremity swelling and rashes. Complains of toe nail fungus infection and requesting antifungal ointment. 06/05/2019 Today patient seen with complaints of bilateral lower leg, feet, and toe swelling daily. She reportselevating legs but swelling never entirely goes away. Reports she has been hospitalized at least 3 times recently for bilateral leg swelling, pain, and redness. Reports she was also having chest pain and fatique with these episodes. Given Lasix with improvement. Reports the left leg is worse than the right. The swelling is better in the morning but never completely gone. They swell throughout the dayuntil at the end of the day are swollen into her finger tips. She denies any varicose veins. Denies any calf pain or cramping with walking or at rest. Denies any open wounds or ulcers. Reports she doesnot wear compression stockings due to an allergy to them. Venous duplex 06/26/18 indicating no DVT orSVT, bilateral veins appear competent with no evidence of reflux. Patient insistent that we examine her veins again. She denies any chest pain, shortness of breath, or recent fever or chills at this time. PREVIOUS DIAGNOSTICS: 06/26/2018 IMPRESSIONS: Bilateral lower extremity edema with the left being worse than the right A sonogram of the bilateral lower extremity deep venous system was performed assessing grayscale appearance, color doppler flow, pulsed doppler waveforms and compressibility. Duplex imaging of the bilateral lower extremities shows no gross evidence of deep or superficial venous thrombosis. Bilaterally the deep and superficial venous systems appear to be competent with no evidence of reflux seen throughout. There appears to be little to no change seen since the previous study completed on 07/18/17. 07/18/2017 Imaging- I personally reviewed the venous duplex imaging; IMPRESSIONS: 46 year old female with left swelling, foot swelling with anterior weeping rash. Previous ultrasound in past few months shows no evidence for deep vein thrombosis, checking for competency.Duplex imaging of the left lower extremity shows the deep vein, greater saphenous vein and short saphenous vein to be competent and phasic. IMPRESSIONS: Patient complains left calf swelling and left toe infection. ABIS and PVRs of the bilateral lower extremities indicates a normal resting ankle brachial index study. PVRs of the bilateral thighs, calves, ankles, metatarsals and toe digits are normal. Bilateral triphasic DP/PTs Right DARRYL: 1.3 Left DARRYL: 1.3 There is no previous examavailable for comparison Past Medical History: Diagnosis Date Allergic Rhinitis 11/07/2007 Seasonal allergies. 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 Asthma 05/11/2007 [place] Back pain spondylosis on xray BMI 36.0-36.9,adult Cataract Cystic acne 11/07/2007 Dr Farah Depression 11/07/2007 anxiety [facility] Diabetes mellitus (HCC) Eczema Fatty liver 12/28/2009 [...] Dermatologic Reaction Environmental Respiratory Reaction Gentamycin [Gentamicin] R D INTERN Reaction Eyes extremely itchy/crusty Olopatadine Other "made [...] file Gets together: Not on file Attends moravian service: Not on file Active member of [...] Asked Social History Narrative Lives alone in [place], unemployed. REVIEW OF SYSTEMS: Review of Systems Constitutional: Positive for malaise/fatigue. Negative for fever. Eyes: Negative for blurred vision. Respiratory: Negative for cough. Cardiovascular: Positive for leg swelling. Negative for chest pain. Gastrointestinal: Negative for heartburn. Musculoskeletal: Positive for myalgias. Skin: Positive for itching and rash. Neurological: Negative for headaches. Psychiatric/Behavioral: Positive for depression. OBJECTIVE / PHYSICAL EXAM: VITALS: BP 106/78 (BP Location: Right arm, Patient Position: Sitting) | Pulse 80 | Ht 5' 6" (1.676 m) | Wt 203 lb (92.1 kg) | BMI 32.77 kg/m Body mass index is 32.77 kg/m. Physical Exam Constitutional: She is well-developed, well-nourished, and in no distress. HENT: Head: Normocephalic. Neck: Normal range of motion. Cardiovascular: Normal rate. Pulmonary/Chest: Breath sounds normal. Abdominal: Soft. Musculoskeletal: Bilateral lower extremity mild edema present 1+ Rashes present in left forefoot without ulceration (along the direction of the slipper top bars). Multiple superficial rashes present. No surrounding erythema or cellulitis. Palpable bilateral pedal pulses Bilateral foot warm to touch No gangrene or ulceration. No evidence of varicose veins. No evidence of lipodermatosclerosis. Nursing note and vitals reviewed. [id number]: unchanged physical exam, no ulceration or rashes, toe nail deformity ( multiple , bilateral) with scaling present. bilateral lower extremity are warm with good capillary refill 06/05/2019 Unchanged physical exam, bilateral lower extremity palpable pedal arteries. Bilateral lower leg and feet with 2+ edema. No ulcerations noted. DIAGNOSTICS: 06/04/2019 IMPRESSIONS: Patient complains of constant bilateral leg pain. A sonogram of the lower extremity deep and superficial venous system was performed assessing grayscale appearance, color doppler flow, pulsed doppler waveforms and compressibility. Venous duplex and compressions of the bilateral lower extremities shows no evidence for deep or superficial venous thrombosis. There has been no change since previous exam of 06/2018. ASSESSMENT / IMPRESSION: 47-year-old female with the left forefoot rashes with mild edema: NO evidence of deep vein thrombosis or superficial venous insufficiency. Normal ankle brachial index. Patient's symptoms are unrelated to arterial or venous disease. 06/04/2019 Patient with long standing bilateral lower leg and foot edema. Duplex today shows no evidence for deep or superficial venous thrombosis. Edema does not appear to be vascular in nature. PLAN: 1. continue compression stockings for symptomatic relief (another pair of prescriptions given). 2. Medical evaluation to rule out other causes of limb edema and leg rash. 3. Dermatology evaluation for skin rashes (No attributable vascular lesions; arterial or venous). Possible toe nail fungal infection; prescription for Lotrimin powder sent. 4. Follow up as needed. 06/26/2018: no obvious vascular or venous causes of leg swelling. Continue compression stockings for relief of edema and heaviness, Referral to lymphedema clinic given. Prescriptions given for compression stockings knee high 20 - 30 mm. 06/04/2019: Patient refusing compression stockings due to allergic reaction to them. Does not want togo to the lymphedema clinic. Recommend patient wrap both legs from base of toes to groin with NEREYDA wraps daily, remove at bedtime. Legs wrapped for patient and she was instructed on how to wrap them at home. Patient' s questions answered. Follow up with Vascular Surgery as needed. Author: Stephan Valdez NP 06/05/2019 15:42 Associated attestation - Betty Her MD - [facility]/06/2019 8[facility] Supervising MD Documentation Date of Service: [id number] B# [id number] I saw and evaluated the patient. Discussed with resident and agree with the resident's findings andplan as documented in the resident's note. Additional Comments: Patient complains of bilateral lower extremity swelling, with improvement seen upon using Lasix. Planes of redness and erythema in the lower leg. No varicose veins. Patient has been tested multiple times, there is no evidence of deep vein thrombosis or superficial venous thrombosis or venous incompetence. Venous duplex scan on 06/04/2019 again demonstrated no evidence of deep vein thrombosis. There are no attributable vascular causes for patient's bilateral lower extremity swelling recommendfollow-up with primary care doctor to evaluate medical causes of leg swelling and follow-up with lymphedema clinic. I spent 30 minutes discussing patient's diagnosis, imaging findings, possible cause of leg edema andmanagement options. Follow-up as needed. Betty Her MD Supervising Physiciandocumented in this encounter Plan of Treatment Date Type Specialty Care Team Description 06/17/2019 Office Visit General Surgery Constance Berrios MD [address] [place] [address] 06/24/2019 Office Visit Cardiology Bishop Reyes MD [address] [place] [address] [phone] 04/21/2020 Ocular Visit Optometry Davian Hoffman, OD [address] [place] [address] [phone] Health Maintenance Due Date Last Done Comments [...] better. Weight loss vs. 18 mo Lifestyle 31 (06/04/2019 11:28 AM EDT) No Vinicio Angela MD max (lbs) [...] filedocumented in this encounter Visit Diagnoses Diagnosis Leg swelling - Primary Swelling of limb documented in this encounter documented as of this encounter
--- OUTSIDE RECORDS SUMMARY | 2019-07-10 08:42 | XMS REPORT | Summary of Care ---
:1970 Author Organization [facility] Address [address] [place] [address] Care Team Providers Name Role Phone Vinicio Angela MD Primary Care Provider Reason for Visit Reason Comments Transitional Care Management pt presents for TCM from admission to [facility] from 05/23/19-05/26/19 Encounter Details Date Type Department Care Team Description 05/31/2019 Office Visit [facility] Vinicio Angela MD Other acute pulmonary embolism without acute cor pulmonale (HCC) (Primary Dx); Practice [address] [facility] BMI 33.0-33.9,adult; [address] [place] [place] [address] Tobacco user; [place] [address] Asthma-COPD overlap syndrome (HCC); [phone] Obsessive-compulsive disorder, unspecified type; Peripheral edema; Alcoholism (HCC) Allergies Active Allergy Reactions Severity Noted Date Comments Ketotifen Other 03/14/2019 Swollen lids, discharge Sulfacetamide Sodium Dermatologic Reaction 12/24/2018 Environmental Respiratory Reaction 11/25/2010 Gentamicin PAINTER HELPER SPRAY Reaction 11/08/2018 Eyes extremely itchy/crusty Olopatadine Other 03/14/2019 "made my eyes more infected" Astelin Other 11/19/2013 Itchy eyes Polymyxin B Swelling High 10/01/2015 Pt. Thinks she is allergic to it made her eyes worse Shell Fish 11/07/2007 documented as of this encounter (statuses as of 06/01/2019) Medications Medication Sig Dispensed Refills Start Date [...] Freestyle test current use of insulin strips ([facility]) Fluoxetine HCl 40 MG Take 3 Caps [...] qhs, Reported on 05/16/2019 6:01 PM medroxyPROGESTERone Take 5 mg by 30 Tab 5 01/21/2019 Active (PROVERA 10 MG) 10 MG mouth DAILY. Oral Tab tretinoin (RETIN-A) 0.01 1 Appl by 15 g 0 01/25/2019 Active % Apply externally Gel Topical route EVERY BEDTIME. fluticasone (FLONASE) 50 USE 2 SPRAYS IN 16 g 5 02/07/2019 Active MCG/ACT Nasal Suspension EACH NOSTRIL ONCE DAILY allopurinol (ZYLOPRIM) Take 1 Tab by 30 Tab 4 02/07/2019 Active 300 MG Oral Tab mouth DAILY. ferrous sulfate 325 (65 Take 1 Tab by 30 Tab 5 02/07/2019 Active Fe) MG Oral Tab mouth DAILY. hydrOXYzine HCL (ATARAX) Take 1 Tab by 90 Tab 5 02/07/2019 Active 25 MG Oral Tab mouth EVERY EIGHT HOURS NEEDED (itch). levothyroxine Take 1 Tab by 90 Tab 0 02/07/2019 Active (SYNTHROID) 25 MCG Oral mouth BEFORE TabIndications: BREAKFAST. Hypothyroidism, unspecified type Oxybutynin Chloride 15 Take 1 Tab by 30 Tab 5 02/07/2019 Active MG Oral TABLET SR 24 HR mouth DAILY. CALCITRATE 950 MG Oral TAKE 1 TABLET 90 Tab 1 02/18/2019 Active Tab BY MOUTH EVERY DAY diphenoxylate-atropine Take 1 Tab by 60 Tab 1 03/01/2019 Active (LOMOTIL) 2.5-0.025 MG mouth FOUR Oral Tab TIMES DAILY NEEDED for diarrhea. Max Daily Amount: 4 Tabs. metFORMIN (GLUCOPHAGE) Take 1 Tab by 60 Tab 3 2019 Active 500 MG Oral Tab mouth TWICE DAILY. Multiple Vitamins-Iron TAKE 1 TABLET 30 Tab 5 04/16/2019 Active (TAB-A-SERGEY/IRON) Oral BY MOUTH EVERY Tab DAY cholestyramine Take 1 PKT by 30 Packet 0 04/16/2019 Active (QUESTRAN) 4 g Oral Pack mouth TWICE DAILY. prazosin (MINIPRESS) 1 Take 1-2 Caps 60 Cap 0 05/01/2019 Active MG Oral Cap by mouth EVERY BEDTIME. Cholecalciferol (VITAMIN Take 1 Cap by 90 Cap 3 05/15/2019 Active D3) 2000 units Oral Cap mouth DAILY. clotrimazole (LOTRIMIN) 1 Appl by 45 g 1 05/15/2019 Active 1 % Apply externally Topical route Cream TWICE DAILY. To groin and toe nicotine transdermal Place 21 mg 0 Active patch-daily (NICODERM) onto skin 21 MG/24HR Transdermal DAILY. PATCH 24 HR rivaroxaban (XARELTO) 15 Take 15 mg by 0 Active MG Oral Tab mouth TWICE DAILY. ibuprofen (MOTRIN) 600 Take 600 mg by 0 Active MG Oral Tab mouth EVERY EIGHT HOURS NEEDED. Clindamycin HCl 300 MG Take 1 Cap by 14 Cap 0 05/16/2019 Active Oral Cap mouth TWICE DAILY. albuterol HFA (VENTOLIN) Take 2 Puffs by 1 Inhaler 5 05/31/2019 Active 108 (90 Base) MCG/ACT inhalation Inhalation Aero Soln EVERY FOUR HOURS NEEDED (SOB). fexofenadine (MIKIE) Take 1 Tab by 30 Tab 4 05/31/2019 Active 180 MG Oral Tab mouth DAILY. furosemide (LASIX) 20 MG Take 1 Tab by 15 Tab 0 05/31/2019 Active Oral Tab mouth EVERY OTHER DAY. Mometasone Take 2 INHL by 1 Inhaler 5 05/31/2019 Active Furo-Formoterol Fum inhalation (DULERA) 200-5 MCG/ACT TWICE DAILY. Inhalation Aerosol morphine 15 MG Oral Tab Take 1 Tab by 45 Tab 0 05/31/2019 Active mouth THREE TIMES DAILY NEEDED (back pain). Max Daily Amount: 45 mg. fexofenadine (MIKIE) Take 1 Tab by 30 Tab 4 03/19/201905/31 Discontinued 180 MG Oral Tab mouth DAILY. (Reorder) furosemide (LASIX) 20 MG Take 1 Tab by 10 Tab 0 04/05/201905/31 Discontinued Oral Tab mouth DAILY /2018 (Reorder) NEEDED (edema). albuterol HFA (VENTOLIN) INHALE 2 PUFFS 18 Inhaler 5 04/16/201905/31 Discontinued 108 (90 Base) MCG/ACT BY MOUTH EVERY (Reorder) Inhalation Aero 4 HOURS SolnIndications: NEEDED FOR Moderate persistent BREATHING asthma, uncomplicated morphine 15 MG Oral Take 1 Tab by 45 Tab 0 05/15/201905/31 Discontinued TabIndications: Chronic mouth THREE (Reorder) bilateral low back pain TIMES DAILY without sciatica NEEDED (back pain). Max Daily Amount: 45 mg. Mometasone Take 2 INHL by 0 05/31 Discontinued Furo-Formoterol Fum inhalation (Reorder) (DULERA) 200-5 MCG/ACT TWICE DAILY. Inhalation Aerosol Hospital, Clinic, or Other Ordered Dose Route Frequency Start Date End Date Status Facility Administered Medication miconazole (DESENEX) topical TOP BID 12/21/2016 Active powder 2 %Indications: Infected nail bed of toe documented as of this encounter (statuses as of 06/01/2019) Active Problems Problem Noted Date Asthma-COPD overlap [...] as of this encounter (statuses as of 06/01/2019) Resolved Problems Problem Noted Date Resolved Date [...] as of this encounter (statuses as of 06/01/2019) Immunizations Name Administration Dates Next Due H1N1 [...] Sign Reading Time Taken Comments Blood Pressure 102/62 05/31/2019 1:59 PM EDT Pulse 91 05/31/2019 1:59 PM EDT Temperature - - Respiratory Rate - - Oxygen Saturation 99% 05/31/2019 1:59 PM EDT Inhaled Oxygen Concentration - - Weight 91.2 kg (201 lb) 05/31/2019 1:59 PM EDT Height 167.6 cm (5' 6") 05/31/2019 1:59 PM EDT Body Mass Index 32.44 05/31/2019 1:59 PM EDT documented in this encounter Progress Notes Vinicio Angela MD - 05/31/2019 1:40 PM EDT PATIENT: Renae Lobo : 1970 DATE OF SERVICE: 05/31/2019 CHIEF COMPLAINT: Chief Complaint Patient presents with Transitional Care Management pt presents for TCM from admission to [facility] from 05/23/19-05/26/19 Subjective HISTORY OF PRESENT ILLNESS: Renae Lobo is a 49-y.o. female. In for hospital follow up. She was just in the hospital end of last month with PE diagnosis among other things so this can not be a TCM call . Admitted 05/23 and discharged 05/26. Diagnosis was chest pain musculoskeletal Rule out ACS with a negative stress test She was diagnosis last month with a PE. There were scattered very small emboli thruout both lungs. However her complaint was left sided CP and SOB. Of note she had fallen onher left side and she had pain was the reason for the visit . She did not have a DVT found although swollen legs every summer.D dimer was elevated her hypercoagulable workup was not back at the time of the last visit but is nowback and negative She was not feeling well with CP and SOB and called 911. She then did not go willingly to the ER The ambulance called me and I had to tell her to go She sounded slurred but they could not tell me if she was drunk. In the ER she had told them she went back to drinking and smoking although told not to. She was not sure of the meds she was taking. Her Chest pain again left sided But was reproducedwith palpation . She had a stress test that was interpreted as low risk. They did another CT scan and this time no clots. She is due to go on the lower dose of xarelto in 2 days She reports having the Rx at home When I saw her last she was having a green d/c from vagina. Sounded like BV and given clindamycin oral as her feet were badly excoriated . She was tested but all were negative and she never really finished the clindamycin as she went on her period She said the bleeding is worse than in the past with many large clots She brings in her tampon with clots around for me to look at . She has had a hard time with finding [employer] care supposed to be onprovera but never followed up She wanted to see pulmonary and vascular for her COPD diagnosis and her edema but those were to be done as out patient and she was dissatisfied with that The last hospitalization mentioned start of COPD which upset her we did the PFT today and it showed normal FEV1 but did improve slightly with albuterol but not statistically significant . The 25-75 improved the most 66-83 She has stopped smoking but is vaping 4 x a day At the last hospitalization they also recommended cardiology. She missed that appointment because she was too tired to get out of bed . Every summer she complains of the peripheral edema . She has been worked up and nothing found. In the hospital bed and taking lasix she said her legs were thin. Shetried stockings but got a rash on the legs so thinks she is allergic She has appointment with Dr Garcia next week. They put her on the [facility] protocol and she not like that because in the process she was off klonopin which she has been on for years . They could not tell if her symptoms due to off klonopin or off etoh but she eventually got back to baseline. She again did not like the psychiatrist and afraid Dr Mendez will find out and take away her klonopin . Again Dr Serrato wrote that she could do rehab on klonopinshould not come off it. She wants me to write it if Dr Mendez wont give it to her. They did give her names for rehab facilities to go to but she has not followed thru . She has no money to board her dog and her friend did not take the dog out and dog had urine and stool thruout her apartment Past Medical History: Diagnosis Date Allergic Rhinitis [...] NEEDED. levothyroxine (SYNTHROID) 25 MCG Oral Tab Take [...] Take 15 mg by mouth TWICE DAILY. Rosuvastatin Calcium (CRESTOR) 20 MG Oral [...] Dermatologic Reaction Environmental Respiratory Reaction Gentamycin [Gentamicin] PAINTER HELPER SPRAY Reaction Eyes extremely itchy/crusty Olopatadine Other "made [...] file Gets together: Not on file Attends hindu service: Not on file Active member of [...] Asked Social History Narrative Lives alone in [place], unemployed. REVIEW OF SYSTEMS: ROS Objective PHYSICAL EXAM: VITALS: BP 102/62 (BP Location: Left arm, Patient Position: Sitting) | Pulse 91 | Ht 5' 6" (1.676m) | Wt 201 lb (91.2 kg) | SpO2 99% | BMI 32.44 kg/m Body mass index is 32.44 kg/m. Physical Exam Constitutional: No distress. HENT: Mouth/Throat: Oropharynx is clear and moist. Cardiovascular: Normal rate, regular rhythm and normal heart sounds. Pulmonary/Chest: Effort normal and breath sounds normal. No respiratory distress. Musculoskeletal: Edema: improved but still present. Skin: Excoriations and psoriasis improved not resolved The calves have some petechial type caballero Psychiatric: Dress and hygiene good Good eye contact Thoughts and speech normal Affect Appropriate Mood stable OCD Vitals reviewed. ASSESSMENT / IMPRESSION: ICD-9-CM ICD-10-CM 1. Other acute pulmonary embolism without acute cor pulmonale (HCC) im not convinced she ever had a PE. Even after the initial report they were so small and scattered I thought may be artifact. The problem is the family hx of PE. Will transition to the 20mg 1 a day xarelto See if vaginal bleeding improves and see vascular Mayneed to go to hematology . The CP was likely due to the fall and contusion to the chest and SOB her breathing issues and anxiety combined 415.19 I26.99 2. BMI 33.0-33.9,adult likely contributes to edema V85.33 Z68.33 3. Tobacco user vaping is naot an alternative She was told this both visits and she hears what she wants to hear 305.1 Z72.0 4. Asthma-COPD overlap syndrome (HCC) stay on dulera , not sure she needs to see pulmonary 493.20 J44.9 5. Obsessive-compulsive disorder, unspecified type makes her care difficult Needs to stop etoh , not sure they would give her the klonopin 300.3 F42.9 6. Peripheral edema is multifactorial her weight playing a role I suspect that dehydration may haveplayed a role in her "PE" findings so make the lasix qod. The hospital told her to see cardiology but I feel the heart is ok 782.3 R60.9 7. Alcoholism (HCC) 303.90 F10.20 Plan 55minutes were required for this appointment with at least 1/2 the time spent in counseling, education, coordination of care, disease management and/or disposition Author: Vinicio Angela MD 06/01/2019 08:25 documented in this encounter Plan of Treatment Date Type Specialty Care Team Description 06/04/2019 Office Visit Vascular Surgery Betty Her MD [address] [place] [address] [phone] 06/04/2019 Ancillary Procedure Radiology 06/17/2019 Office Visit General Surgery Constance Berrios MD [address] [place] [address] [phone] 06/24/2019 Office Visit Cardiology Bishop Reyes MD [facility] [place] [address] [phone] 04/21/2020 Ocular Visit Optometry Davian Hoffman, OD [address] [place] [address] Health Maintenance Due Date Last Done Comments [...] Weight loss vs. 18 mo Lifestyle 33 (05/31/2019 1:59 PM EDT) No Vinicio Angela MD max [...] in this encounter Visit Diagnoses Diagnosis Other acute pulmonary embolism without acute cor pulmonale (HCC) - Primary BMI 33.0-33.9,adult Body Mass Index 33.0-33.9, adult Tobacco user Tobacco use disorder Asthma-COPD overlap syndrome (HCC) Obsessive-compulsive disorder, unspecified type Peripheral edema Edema Alcoholism (HCC) Other and unspecified alcohol dependence, unspecified drinking behavior documented in this encounter Guarantor Name Account Type Relation to Date of Phone Billing Address Patient Renae Lobo Personal/Famil 1970 [address] (Home) [facility] [phone] [place] [address] (Work) [place] [address] documented as of this encounter
[2019-07-10 08:55] VITALS: BP 100/62
--- NOTE | 2019-07-10 09:34 | UC ---
Skin Complaint HPI - HPI Summary HPI Summary: 49-year-old woman comes in with a chief complaint of bilateral hand wounds. Patient has eczema she is being treated by her primary care for the eczema. The hand wounds itch a lot so she is scratching them until they bleed. Primary care doctor has her on Keflex at this time. Also she is on hydroxyzine and an antihistamine for the itching but her itching continues to be bad enough where she scratches the eczema until it bleeds. No fevers no chills. - History of Current Complaint Chief Complaint: UCSkin Time Seen by Provider: 07/10/19 09:18 Stated Complaint: SKIN ISSUE Hx Last Menstrual Period: 06/18/19 Pain Intensity: 10 - Allergy/Home Medications Allergies/Adverse Reactions: Allergies Allergy/AdvReac Type Severity Reaction Status Date / Time shrimp Allergy Severe Anaphylatic Verified 07/10/19 08:43 Shock ketotifen [From [place]] Allergy Eyes Verified 07/10/19 08:43 Itchy/Swollen/Red/Watery latex Allergy Rash Verified 07/10/19 08:43 seafood Allergy Severe hives, Uncoded 07/10/19 08:43 difficulty breathing environmental Allergy Wheezing Uncoded 07/10/19 08:43 eye drops Allergy Unknown Uncoded 07/10/19 08:43 Reaction Details Home Medications: Home Medications Cephalexin CAP* [Keflex 500 CAP*] 500 mg PO TID 07/10/19 [History Confirmed ] PMH/Surg Hx/FS Hx/Imm Hx Previously Healthy: Yes Endocrine History: Diabetes - Surgical History Surgical History: Yes Surgery Procedure, Year, and Place: D&C. DENTAL EXTRACTION - Family History Known Family History: Positive: Respiratory Disease - COPD, Blood Disorder - blood clots, Other - COPD Family History: FHx of anxiety, depression, OCD - Social History Alcohol Use: Occasionally Alcohol Amount: pt states occasional use of alcohol Substance Use Type: None Smoking Status (MU): Smoker, Current Status Unknown Type: Cigarettes Amount Used/How Often: vapes Length of Time of Smoking/Using Tobacco: since age 13 Have You Smoked in the Last Year: Yes Household Exposure Type: Cigarettes - Immunization History Most Recent Influenza Vaccination: 2016/2016 season Most Recent Pneumonia Vaccination: never Review of Systems All Other Systems Reviewed And Are Negative: Yes Constitutional: Positive: Negative Skin: Positive: Other - SEE HPI Eyes: Positive: Negative ENT: Positive: Negative Respiratory: Positive: Negative Cardiovascular: Positive: Negative Gastrointestinal: Positive: Negative Motor: Positive: Negative Neurovascular: Positive: Negative Musculoskeletal: Positive: Negative Neurological: Positive: Negative Psychological: Positive: Anxious Is Patient Immunocompromised?: No Physical Exam Triage Information Reviewed: Yes Appearance: Well-Appearing, No Pain Distress, Well-Nourished Vital Signs: Initial Vital Signs Temp 98.7 F 07/10/19 08:45 Pulse 98 07/10/19 08:45 Resp 18 07/10/19 08:45 BP 100/62 07/10/19 08:45 Pulse Ox 98 07/10/19 08:45 Vital Signs Reviewed: Yes Eye Exam: Normal Eyes: Positive: Conjunctiva Clear Neck: Positive: Supple Respiratory: Positive: No respiratory distress Musculoskeletal: Positive: Strength Intact, ROM Intact Neurological: Positive: Alert, Muscle Tone Normal Psychological: Positive: Age Appropriate Behavior Skin: Positive: Other - Patient has extensive eczema on both hands and wrists. On her left hand on the dorsum the whole dorsum is draining clear serous fluid. No streaking. No erythema. Fingers and wrists have full range of motion full -strength. Course/Dx - Course Course Of Treatment: Patient started being treated for her eczema and she also has different anti- itch medication she's taken by mouth are not helping. Patient's unable to keep herself from scratching until she takes all the skin off. The plan is a wound care center follow-up. An appointment was made for the patient at the [facility] wound care center for July 24 at 1:45 PM. Here in clinic she was dressed with nonstick dressing. Patient should get reevaluated sooner if worse or any questions or concerns. - Diagnoses Provider Diagnosis: Eczema of both hands Discharge ED - Sign-Out/Discharge Documenting (check all that apply): Patient Departure All imaging exams completed and their final reports reviewed: No Studies - Discharge Plan Condition: Stable Disposition: HOME Patient Education Materials: Eczema (ED) Referrals: Vinicio Angela MD [Primary Care Provider] - Additional Instructions: FOLLOW UP WITH THE [facility] ON MONDAY, July, AT 1: 45PM. [address] [place] [address] GO TO THE EMERGENCY DEPARTMENT IF YOUR CONDITION WORSENS; PAIN, FEVER, YOUR WOUNDS WORSEN, YOU FEEL ILL OR ANY QUESTIONS OR CONCERNS. - Billing Disposition and Condition Condition: STABLE Disposition: Home
== END 2019-07-10 10:49 | disposition home or self-care (01) ==
LOC: UCEAST 08:34
DX: L30.9 Dermatitis, unspecified (principal); E11.9 Type 2 diabetes mellitus without complications; Z88.8 Allergy status to other drugs, medicaments and biological substances; F17.210 Nicotine dependence, cigarettes, uncomplicated; Z91.09 Other allergy status, other than to drugs and biological substances; Z88.1 Allergy status to other antibiotic agents; Z91.040 Latex allergy status; Z91.013 Allergy to seafood
CPT/HCPCS: 99212; G0463

== ENCOUNTER 2019-07-16 20:33 | Emergency (ER) | payer OTHER ==
[2019-07-16 21:35] VITALS: BP 142/87
--- NOTE | 2019-07-16 21:52 | UC ---
Eye Complaint HPI - HPI Summary HPI Summary: PATIENT COMPLAINING OF 5 DAYS OF BILATERAL EYE ITCHING, WATERING AND IRRITATION. NO CURRENT URI SYMPTOMS. HAS A HISTORY OF ALLERGIES. IS ALSO COMPLAINING OF CONTINUED ITCHING AND IRRITATION AND RASH TO HER BILATERAL HANDS AND WRISTS THAT SHE'S HAD FOR SEVERAL MONTHS. IS FOLLOWING WITH HER PCP FOR THIS. NO FEVER. - History of Current Complaint Chief Complaint: UCEye Stated Complaint: EYE COMPLAINT Time Seen by Provider: 07/16/19 21:45 Hx Obtained From: Patient Hx Last Menstrual Period: 06/18/19 Onset/Duration: Gradual Onset, Lasting Days, Still Present Timing: Constant Severity Initially: Moderate Severity Currently: Moderate Pain Intensity: 0 Pain Scale Used: 0-10 Numeric Location of Injury: Conjunctiva, Periorbital Aggravating Factor(s): Nothing Alleviating Factor(s): Nothing Associated Signs And Symptoms: Positive: Drainage (Clear). Negative: Photophobia, Vision Impairment Bilateral - Allergies/Home Medications Allergies/Adverse Reactions: Allergies Allergy/AdvReac Type Severity Reaction Status Date / Time shrimp Allergy Severe Anaphylatic Verified 07/16/19 21:38 Shock ketotifen [From [place]] Allergy Eyes Verified 07/16/19 21:38 Itchy/Swollen/Red/Watery latex Allergy Rash Verified 07/16/19 21:38 seafood Allergy Severe hives, Uncoded 07/16/19 21:38 difficulty breathing environmental Allergy Wheezing Uncoded 07/16/19 21:38 eye drops Allergy Unknown Uncoded 07/16/19 21:38 Reaction Details PMH/Surg Hx/FS Hx/Imm Hx Endocrine History: Diabetes Cardiovascular History: Hypertension Respiratory History: COPD, Asthma - Surgical History Surgical History: Yes Surgery Procedure, Year, and Place: D&C. DENTAL EXTRACTION - Family History Known Family History: Positive: Respiratory Disease - COPD, Blood Disorder - blood clots, Other - COPD Family History: FHx of anxiety, depression, OCD - Social History Alcohol Use: Occasionally Alcohol Amount: pt states occasional use of alcohol Substance Use Type: None Smoking Status (MU): Former Smoker Type: Cigarettes Amount Used/How Often: vapes Length of Time of Smoking/Using Tobacco: since age 13 Have You Smoked in the Last Year: Yes Household Exposure Type: Cigarettes - Immunization History Most Recent Influenza Vaccination: 2016/2016 season Most Recent Pneumonia Vaccination: never Review of Systems All Other Systems Reviewed And Are Negative: Yes Constitutional: Positive: Negative Skin: Positive: Rash Eyes: Positive: Drainage, Eye Redness ENT: Positive: Negative Respiratory: Positive: Negative Cardiovascular: Positive: Negative Gastrointestinal: Positive: Negative Physical Exam Triage Information Reviewed: Yes Appearance: Well-Appearing, No Pain Distress, Well-Nourished Vital Signs: Initial Vital Signs Temp 97.7 F 07/16/19 21:26 Pulse 99 07/16/19 21:26 Resp 16 07/16/19 21:26 BP 142/87 07/16/19 21:26 Pulse Ox 100 07/16/19 21:26 Vital Signs Reviewed: Yes Eyes: Positive: Conjunctiva Inflamed - MILD CONJUNCTIVAL INJECTION BILATERALLY, Other: - EOMI, PERRL. BILATERAL EYELID EDEMA. Negative: Discharge ENT: Positive: Hearing grossly normal Neck: Positive: Supple Respiratory: Positive: No respiratory distress, No accessory muscle use Cardiovascular: Positive: Pulses Normal Abdomen Description: Positive: Soft Musculoskeletal: Positive: No Edema Neurological: Positive: Alert Psychological: Positive: Age Appropriate Behavior Skin: Positive: Rashes - FLAKY, SCABBED, CRUSTED PLAQUES OVER BILATERAL WRISTS AND HANDS. NO WEEPING OR DRAINAGE. NO SURROUNDING ERYTHEMA Eye Complaint Course/Dx - Differential Dx/Diagnosis Provider Diagnosis: Allergic conjunctivitis, Chronic dermatitis of hands Discharge ED - Sign-Out/Discharge Documenting (check all that apply): Patient Departure All imaging exams completed and their final reports reviewed: No Studies - Discharge Plan Condition: Stable Disposition: HOME Prescriptions: Cetirizine HCl 10 mg PO DAILY #30 tablet Olopatadine 0.1% OPHTH (NF) [Patanol 0.1% OPHTH (NF)] 1 drop BOTH EYES BID PRN # 1 btl PRN Reason: Allergy Symptoms predniSONE TAB* [Deltasone TAB*] 50 mg PO DAILY #4 tab Patient Education Materials: Dermatitis (ED), Conjunctivitis (ED) Referrals: Vinicio Angela MD [Primary Care Provider] - 1 Week Additional Instructions: YOUR EYE SYMPTOMS ARE CONSISTENT WITH ALLERGIC CONJUNCTIVITIS. THE SKIN CONDITION ON YOUR WRISTS AND HANDS IS CONSISTENT IN APPEARANCE WITH AN INFLAMMATORY DERMATITIS. IT DOES NOT APPEAR INFECTED. NO INDICATION FOR ANTIBIOTICS AT PRESENT. TAKE THE PREDNISONE DAILY PRESCRIBED. COOL COMPRESSES. TRY CHANGING FROM MIKIE TO CETIRIZINE FOR YOUR DAILY ANTIHISTAMINE. FOLLOW-UP WITH BOTH AN BOX CHIPPER AND A APPLICATION SUPPORT ANALYST. [facility] Address: [address], [place] [address] [facility] [address] [place], [place] [address] [address] [place] [address] MITCHEL BIRD (DOES NOT SEE PTS ON MONDAYS OR TUESDAYS) [facility], [address]; [address] [place] [address] Dr. Verena Barajas Address: [address] [place] [address] DR. JENNA QUINN, DR. ARELY GARCIA [facility] Dermatology [address] [place] [address] [address] [place] Dr[address] Avis Morfin DERMATOLOGY IN [place] DR. JENNA QUINN [phone] - Billing Disposition and Condition Condition: STABLE Disposition: Home
[2019-07-16] MEDS ORDERED: LoraTADine TAB(NF) 10 MG TAB (AUTOSUB to CETIRIZINE) PO ONE (22:11)
[2019-07-16] MEDS ORDERED: predniSONE TAB* 20 MG PO ONE (22:11)
== END 2019-07-16 22:35 | disposition home or self-care (01) ==
LOC: UCEAST 20:33
DX: H10.13 Acute atopic conjunctivitis, bilateral (principal); L25.9 Unspecified contact dermatitis, unspecified cause; I10 Essential (primary) hypertension; Z91.013 Allergy to seafood; Z88.8 Allergy status to other drugs, medicaments and biological substances; Z91.040 Latex allergy status; Z91.09 Other allergy status, other than to drugs and biological substances; E11.9 Type 2 diabetes mellitus without complications; J44.9 Chronic obstructive pulmonary disease, unspecified; Z87.891 Personal history of nicotine dependence
CPT/HCPCS: 99212; A9270-GY; G0463; J7512

== ENCOUNTER 2019-07-17 00:27 | Emergency (ER) | payer OTHER ==
--- NOTE | 2019-07-17 02:17 | ED ---
Skin Complaint - HPI Summary HPI Summary: 49 year old F presenting to [facility] complains of rash on her bilateral wrists and hands with pus drainage, blood drainage, and itchiness "like fire" for several months. States she has seen her primary care provider for the rash on her bilateral wrists, hands, and distal forearms and has been prescribed Keflex which she had been taking until she recently ran out of it. Has also tried several topical ointments recommended to her by her primary care provider which she does not know the names of and she has misplaced. Additionally complains of erythema and swelling below her bilateral eyes which is affecting her vision x5 days. States she was seen at [facility] yesterday 07/16/19 morning where they "did absolutely nothing for me." Has been trying "cheap OTC eye stuff." The patient rates the pain 10/10 in severity. Symptoms aggravated by nothing. Symptoms alleviated by medications and topical ointments. States she cannot take Benadryl, takes Anh. States she is not prescribed steroids. - History of Current Complaint Chief Complaint: EDRashSkinAbscess Time Seen by Provider: 07/17/19 02:13 Stated Complaint: SWOLLEN EYES,SKIN RASH PER PT Hx Obtained From: Patient Hx Last Menstrual Period: 06/18/19 Onset/Duration: Started Days Ago, Started Weeks Ago, Still Present Skin Exposure Onset/Duration: Days Ago, Weeks Ago Timing: Constant Current Severity: Severe Pain Intensity: 10 Pain Scale Used: 0-10 Numeric Skin Location: Arm - biateral distal forearms, Hand - bilteral, Other: - bilateral wrists, below bilateral eyes Aggravating Symptom(s): Nothing Alleviating Symptom(s): Other: - medications and topical ointments - Additional Pertinent History Primary Care Physician: PATRICA - Allergy/Home Medications Allergies/Adverse Reactions: Allergies Allergy/AdvReac Type Severity Reaction Status Date / Time shrimp Allergy Severe Anaphylatic Verified 07/17/19 00:38 Shock ketotifen [From [place]] Allergy Eyes Verified 07/17/19 00:38 Itchy/Swollen/Red/Watery latex Allergy Rash Verified 07/17/19 00:38 seafood Allergy Severe hives, Uncoded 07/16/19 21:38 difficulty breathing environmental Allergy Wheezing Uncoded 07/16/19 21:38 eye drops Allergy Unknown Uncoded 07/16/19 21:38 Reaction Details PMH/Surg Hx/FS Hx/Imm Hx Endocrine/Hematology History: Reports: Hx Diabetes - Type 2, Hx Thyroid Disease - HYPOTHYROIDISM Denies: Hx Anemia Cardiovascular History: Reports: Hx Angina, Hx Embolism - pulmonary embolism, Hx Hypercholesterolemia, Hx Hypertension Denies: Hx Aneurysm, Hx Angioplasty, Hx Auto Implanted Cardiovert Defib, Hx Cardiac Arrest, Hx Cardiomegaly, Hx Congenital Heart Disease, Hx Congestive Heart Failure, Hx Coronary Artery Disease, Hx Deep Vein Thrombosis, Hx Myocardial Infarction, Hx Valvular Heart Disease Respiratory History: Reports: Hx Asthma, Hx Chronic Obstructive Pulmonary Disease (COPD), Hx Pulmonary Embolism, Hx Seasonal Allergies GI History: Reports: Other GI Disorders - fatty liver disease Denies: Hx Ulcer History: Denies: Hx Chronic Renal Failure, Hx Renal Disease Musculoskeletal History: Denies: Hx Rheumatoid Arthritis, Hx Osteoporosis Sensory History: Reports: Hx Contacts or Glasses Denies: Hx Eye Prosthesis, Hx Legally Blind, Hx Deafness, Hx Hearing Aid Opthamlomology History: Reports: Hx Contacts or Glasses Denies: Hx Eye Prosthesis, Hx Legally Blind Neurological History: Denies: Hx Dementia, Hx Developmental Delay, Hx Headaches, Hx Migraine, Hx Nerve Disease, Hx Seizures, Hx Spinal Cord Injury, Hx Transient Ischemic Attacks (TIA) Psychiatric History: Reports: Hx Anxiety, Hx Depression - Surgical History Surgery Procedure, Year, and Place: D&C. DENTAL EXTRACTION Infectious Disease History: No Infectious Disease History: Denies: Hx Clostridium Difficile, Hx Hepatitis, Hx Human Immunodeficiency Virus (HIV), Hx of Known/Suspected MRSA, Hx Shingles, Hx Tuberculosis, Hx Known/ Suspected VRE, Hx Known/Suspected VRSA, History Other Infectious Disease, Traveled Outside the [place] in Last 30 Days - Family History Known Family History: Positive: Respiratory Disease - COPD, Blood Disorder - blood clots, Other - COPD Family History: FHx of anxiety, depression, OCD - Social History Alcohol Use: Occasionally Alcohol Amount: pt states occasional use of alcohol Hx Substance Use: No Substance Use Type: Reports: None Hx Tobacco Use: Yes Smoking Status (MU): Former Smoker Type: Cigarettes Amount Used/How Often: vapes Length of Time of Smoking/Using Tobacco: since age 13 Have You Smoked in the Last Year: Yes Review of Systems - ROS Summary Review of Systems Summary: Home Medications Medication Instructions Recorded Confirmed Type cloNIDine TAB* [Catapres 0.1 MG 0.1 mg PO BEDTIME 03/28/13 07/17/19 History TAB*] FLUoxetine CAP* [Prozac CAP*] 120 mg PO QAM 01/11/15 07/17/19 History Multivitamin [Multivitamins] 1 cap PO DAILY 01/11/15 07/17/19 History Levothyroxine Sodium 25 mcg PO DAILY 04/02/16 07/17/19 History Morphine TAB (NF) [Morphine 30 MG 15 mg PO TID PRN 04/02/16 07/17/19 History TAB (NF)] Cholecalciferol TAB* [Vitamin D 2,000 mg PO DAILY 08/03/17 07/17/19 History TAB*] clonazePAM [Clonazepam] 2 mg PO TID MDD 3 04/04/18 07/17/19 History traZODone TAB* [Desyrel TAB*] 200 mg PO BEDTIME 05/12/18 07/17/19 History Gabapentin CAP(*) [Neurontin 300 600 mg PO BEDTIME 05/20/18 07/17/19 History CAP(*)] metFORMIN* [Glucophage 500 MG TAB 500 mg PO BID 11/11/18 07/17/19 History *] Fluticasone NASAL SPRAY 50MCG* 2 spray BOTH NARES DAILY 03/29/19 07/17/19 History [Flonase NASAL SPRAY 50MCG*] Albuterol HFA INHALER* [Ventolin 2 puff INH Q4HR PRN 05/11/19 07/17/19 History HFA Inhaler*] Rosuvastatin (NF) [Crestor (NF)] 20 mg PO DAILY 05/12/19 07/17/19 History Mometasone/Formoter 200/5 MDI* 2 puff INH BID #1 mdi 05/14/19 07/17/19 Rx [Dulera 200/5 MDI*] Rivaroxaban TAB(*) [Xarelto 15 15 mg PO BID 19 Days #38 tab 05/14/19 07/17/19 Rx mg(*)] Allopurinol TAB* [Zyloprim 300 MG 300 mg PO DAILY 05/23/19 07/17/19 History TAB*] Calcipotriene 1 applic TOPICAL BID 05/23/19 07/17/19 History Calcium Citrate [Calcitrate] 950 mg PO DAILY 05/23/19 07/17/19 History Cholestyramine Resin* [Questran*] 4 gm PO BID 05/23/19 07/17/19 History Citalopram TAB* [Celexa TAB*] 20 mg PO DAILY 05/23/19 07/17/19 History Clotrimazole 1% CREAM* 1 applic TOPICAL BID 05/23/19 07/17/19 History [Clotrimazole 1%*] Dextran 70/Hypromellose Tears 1 drop BOTH EYES QID 05/23/19 07/17/19 History [Natural Balance Tears Eye Drop] Diphenoxylate HCl/Atropine 1 each PO QID PRN MDD 2 05/23/19 07/17/19 History [Lomotil 2.5-0.025 mg Tablet] Ferrous Sulfate TAB* 325 mg PO DAILY 05/23/19 07/17/19 History Furosemide TAB* [Lasix TAB*] 20 mg PO DAILY 05/23/19 07/17/19 History Glucosamine/Chondroitn/C/Hari 1 each PO TID 05/23/19 07/17/19 History [Glucosamine-Chondr Complex Tab] Ibuprofen TAB* [Motrin TAB* 600 MG] 600 mg PO Q8H PRN 05/23/19 07/17/19 History Mupirocin 2% OINT* [Bactroban 2 % 1 applic TOPICAL TID 05/23/19 07/17/19 History Oint*] Oxybutynin Chloride [Oxybutynin 15 mg PO DAILY 05/23/19 07/17/19 History Chloride ER] Prazosin CAP* [Minipress CAP*] 1 - 2 mg PO BEDTIME 05/23/19 07/17/19 History Tretinoin [Retin-A] 1 applic TOPICAL BEDTIME 05/23/19 07/17/19 History celeCOXIB CAP* [Celebrex CAP*] 200 mg PO DAILY 05/23/19 07/17/19 History hydrOXYzine HCL TAB* [Atarax 25 MG 25 mg PO TID PRN 05/23/19 07/17/19 History TAB*] medroxyPROGESTERone TAB* [Provera 5 mg PO DAILY 05/23/19 07/17/19 History TAB*] Magnesium Oxide TAB* [MagOx 400 400 mg PO DAILY #30 tab 05/26/19 07/17/19 Rx TAB*] Mupirocin 1 applic TOPICAL BID #22 gm 07/10/19 07/17/19 Rx Cetirizine HCl 10 mg PO DAILY #30 tablet 07/16/19 07/17/19 Rx Olopatadine 0.1% OPHTH (NF) 1 drop BOTH EYES BID PRN #1 btl 07/16/19 07/17/19 Rx [Patanol 0.1% OPHTH (NF)] predniSONE TAB* [Deltasone TAB*] 50 mg PO DAILY #4 tab 07/16/19 07/17/19 Rx Ketotifen Fumarate [Itchy Eye] 5 ml OP QID #30 drops 07/17/19 Rx Positive: Blurred Vision, Other - erythema and swelling below her bilateral eyes Positive: Other - rash on her bilateral wrists, hands, distal forearms with pus drainage, blood drainage, and itchiness "like fire" All Other Systems Reviewed And Are Negative: Yes Physical Exam - Summary Physical Exam Summary: General: Obese FEMALE who is unkempt. No acute distress. HEENT: Normocephalic, Atraumatic. Eyes: Conjuctiva normal, PERRL. Ears: TMs within normal limits. Nares: (-) discharge, (-) erythema. Oropharynx: Clear, mucous membranes moist, (-) exudates. Neck: Soft, FROM, (-) lymphadenopathy, (-) thyromegaly, (-) JVD. Cardiovascular: Normal sinus rhythm, (-) murmur. Lungs: Clear to auscultation bilaterally (-) wheezes, (-) rales, (-) rhonchi. Abdomen: Soft, non-tender, non-distended, (-) organomegaly, normal bowel sounds. Back: (-) CVA tenderness Extremities: No edema. Skin: She has erythema and swelling around her eyes mostly in the inferior areas. Her hands wrists and distal forearms have severe chronic dermatitis with erythema and oozing. Neuro: Alert and oriented x3, no focal deficits. Psychiatric: Mood normal, affect normal. Triage Information Reviewed: Yes Vital Signs On Initial Exam: Initial Vitals Temp Pulse Resp BP Pulse Ox 97.2 F 100 18 135/89 96 07/17/19 00:34 07/17/19 00:34 07/17/19 00:34 07/17/19 00:34 07/17/19 00:34 Vital Signs Reviewed: Yes Procedures - Sedation Patient Received Moderate/Deep Sedation with Procedure: No Diagnostics - Vital Signs Vital Signs Temp Pulse Resp BP Pulse Ox 07/17/19 00:34 97.2 F 100 18 135/89 96 - Laboratory Lab Statement: Any lab studies that have been ordered have been reviewed, and results considered in the medical decision making process. Re-Evaluation - Re-Evaluation First Eval Re-Evaluation Time: 03:26 Change: Improved Comment: I have discussed results with the patient and sx have resolved. Discussed symptoms that warrant immediate return to ED. Course/Dx - Course Course Of Treatment: 49-year-old female with complaints of chronic dermatitis on her hands and wrists. Worried about the drainage. She is on blood thinners. Also has swelling and erythema below her eyes bilaterally. Patient did go to urgent care today but was unhappy with her treatment and left. After history and physical. I discussed patient's diagnoses with her. Chronic dermatitis. She states she has misplaced her cream seems to be on for that. I will call in refills for her. Also will start her on Keflex. And prednisone. Allergic drops for her eyes. Follow up with PCP. Follow-up sooner for any worsening symptoms. - Diagnoses Provider Diagnoses: Chronic dermatitis of hands, Allergic conjunctivitis Discharge ED - Sign-Out/Discharge Documenting (check all that apply): Patient Departure - Discharge - Discharge Plan Condition: Stable Disposition: HOME Prescriptions: Calcipotriene 1 applic TOPICAL BID #1 cream..g. Clotrimazole 1% CREAM* [Clotrimazole 1%*] 1 applic TOPICAL BID 30 Days #1 tube Ketotifen Fumarate [Itchy Eye] 5 ml OP QID #30 drops Patient Education Materials: Dermatitis (ED), Conjunctivitis (ED) Referrals: Vinicio Angela MD [Primary Care Provider] - 3 Days Additional Instructions: Please follow up with your primary care physician within 3 days. Please return to Emergency Department for any new or worsening symptoms. - Billing Disposition and Condition Condition: STABLE Disposition: Home - Attestation Statements Document Initiated by Scribe: Yes Documenting Scribe: So Contreras Provider For Whom Scribe is Documenting (Include Credential): Shena Muniz MD Scribe Attestation: I, So Contreras, scribed for Shena Muniz MD on 07/17/19 at 0451. Scribe Documentation Reviewed: Yes Provider Attestation: The documentation as recorded by the scribe, So Contreras accurately reflects the service I personally performed and the decisions made by me, Shena Muniz MD Status of Scribe Document: Viewed
[2019-07-17] MEDS ORDERED: predniSONE TAB* 20 MG PO ONE (03:03)
[2019-07-17] MEDS ORDERED: Cephalexin CAP* 500 MG PO ONE (03:04)
[2019-07-17 03:41] VITALS: BP 133/88
[2019-07-17] MEDS ORDERED: CALCIPOTRIENE TOPICAL SCH (09:00)
[2019-07-17] MEDS ORDERED: Clotrimazole 1% CREAM* 45 GM TOPICAL SCH (09:00)
== END 2019-07-17 03:31 | disposition home or self-care (01) ==
LOC: ED 00:27
DX: L30.8 Other specified dermatitis (principal); H10.13 Acute atopic conjunctivitis, bilateral; E11.9 Type 2 diabetes mellitus without complications; E03.9 Hypothyroidism, unspecified; E78.00 Pure hypercholesterolemia, unspecified; I10 Essential (primary) hypertension; Z86.711 Personal history of pulmonary embolism; J44.9 Chronic obstructive pulmonary disease, unspecified; F41.9 Anxiety disorder, unspecified; F32.9 Major depressive disorder, single episode, unspecified; Z87.891 Personal history of nicotine dependence; Z79.01 Long term (current) use of anticoagulants; Z79.84 Long term (current) use of oral hypoglycemic drugs; Z79.890 Hormone replacement therapy; Z79.899 Other long term (current) drug therapy; Z88.8 Allergy status to other drugs, medicaments and biological substances; Z91.040 Latex allergy status
CPT/HCPCS: 99283; A9270-GY; J7512

== ENCOUNTER 2019-07-25 20:38 | Emergency (ER) | payer OTHER ==
--- OUTSIDE RECORDS SUMMARY | 2019-07-25 22:05 | XMS REPORT ---
:1970 Author Name Bree Macdonald Address [address] [address] Care Team Providers Name Role Phone Mendez Unavailable Unavailable Bree Macdonald Unavailable Unavailable Allergies, Adverse Reactions, Alerts Allergy Code CodeSystem Reaction Severity Status Substance RxNorm Medications Medication Medication Medication Start Route Dose Status Fill Code CodeSystem Date Instructions RxNorm NoCurrentDosage No NoCurrentFrequency Longer Active gabapentin RxNorm 2018-0 oral 100 mg capsule No for 30 8-03 Longer day(s) Active gabapentin RxNorm 2018-0 oral 300 mg capsule No for 14 9-25 Longer day(s) Active melatonin RxNorm 2018-0 oral 3 mg tablet No for 30 8-03 Longer day(s) Active trazodone RxNorm 2018-1 oral 100 mg tablet No for 30 0-01 Longer day(s) Active citalopram RxNorm 2018-0 oral 20 mg tablet No for 30 8-03 Longer day(s) Active clonazepam RxNorm 2018-1 oral 2 mg tablet No for 30 1-15 Longer day(s) Active clonidine RxNorm 2018-1 oral 0.1 mg tablet No for 30 HCl 1-16 Longer day(s) Active fluoxetine RxNorm 2018-1 oral 40 mg capsule No for 30 1-15 Longer day(s) Active gabapentin RxNorm 2019-0 oral 300 mg capsule No for 14 4-26 Longer day(s) Active gabapentin RxNorm 2019-0 oral 100 mg capsule No for 30 4-26 Longer day(s) Active clonazepam RxNorm 2019-0 oral 2 mg tablet No for 30 6-14 Longer day(s) Active gabapentin RxNorm 2019-0 oral 100 mg capsule Active for 30 8-02 day(s) gabapentin RxNorm 2019-0 oral 300 mg capsule Active for 30 8-02 day(s) Hospital Discharge Medications Medication Direction Start Date Status Indications Fill Instuctions No Discharge Medication Problems Problem Name Code CodeSystem Start Date End Date Status SNOMED-CT 2018-12-07 Active SNOMED-CT 2018-12-25 Active SNOMED-CT 2018-12-25 Active SNOMED-CT 2018-12-25 Active SNOMED-CT 2018-12-25 Active Laboratory Values/Results Test Test Code Code System Actual Result Date LOINC Procedures Procedure Name Code CodeSystem Target Site Date of Procedure SNOMED-CT () 2019-04-11 SNOMED-CT () 2019-05-16 SNOMED-CT () 2019-01-11 SNOMED-CT () 2019-06-14 SNOMED-CT () 2018-12-25 SNOMED-CT () 2019-01-11 SNOMED-CT () 2019-03-22 Encounter Diagnosis Code CodeSystem Description Date Finding Finding Code Status 09556 CPT Non-Billable - SNOMED-CT Active 1 Vital Signs Vitals Date Value Immunizations Vaccine Name Vaccine Code CodeSystem Date Status Social History Element Description Start Date End Date Code CodeSystem Description SNOMED-CT Hospital Discharge Instructions Reason For Referral
--- OUTSIDE RECORDS SUMMARY | 2019-07-25 22:05 | XMS REPORT | Summary of Care ---
:1970 Author Organization [facility] Address [address] [facility] [place] [address] Care Team Providers Name Role Phone Julio CésarVinicio vásquez Primary Care Provider Reason for Visit Reason Comments Follow Up 6 month follow up / previous nipple discharge Encounter Details Date Type Department Care Team Description 07/15/2019 Office Visit [facility] Constance Berrios Nipple discharge in female (Primary Dx); Surgery MD Suzie Encounter for screening mammogram for malignant neoplasm of breast [address] [facility] [address] [place] [id number] [place] [address] [phone] Allergies Active Allergy Reactions Severity Noted Date Comments Ketotifen Other 03/14/2019 Swollen lids, discharge Sulfacetamide Sodium Dermatologic Reaction 12/24/2018 Environmental Respiratory Reaction 11/25/2010 Gentamicin CUPOLA OPERATOR Reaction 11/08/2018 Eyes extremely itchy/crusty Olopatadine Other 03/14/2019 "made my eyes more infected" Astelin Other 11/19/2013 Itchy eyes Polymyxin B Swelling High 10/01/2015 Pt. Thinks she is allergic to it made her eyes worse Shell Fish 11/07/2007 documented as of this encounter (statuses as of 07/15/2019) Medications Medication Sig Dispensed Refills Start Date [...] current use of insulin strips ([facility]) Fluoxetine HCl 40 MG Take 3 Caps [...] FOUR TIMES DAILY. 0.1-0.3 % Ophthalmic Solution clonazePAM (KLONOPIN) Take 1 Tab by 21 [...] Reported on 05/16/2019 6:01 PM tretinoin (RETIN-A) 1 Appl by 15 g 0 01/25/2019 Active 0.01 % Apply Topical route externally Gel EVERY BEDTIME. fluticasone (FLONASE) USE 2 SPRAYS IN 16 g 5 02/07/2019 Active 50 MCG/ACT Nasal EACH NOSTRIL Suspension ONCE DAILY allopurinol (ZYLOPRIM) Take 1 Tab by 30 Tab 4 02/07/2019 Active 300 MG Oral Tab mouth DAILY. ferrous sulfate 325 Take 1 Tab by 30 Tab 5 02/07/2019 Active (65 Fe) MG Oral Tab mouth DAILY. hydrOXYzine HCL Take 1 Tab by 90 Tab 5 02/07/2019 Active (ATARAX) 25 MG Oral mouth EVERY Tab EIGHT HOURS NEEDED (itch). Oxybutynin Chloride 15 Take 1 Tab by 30 Tab 5 02/07/2019 Active MG Oral TABLET SR 24 mouth DAILY. HR CALCITRATE 950 MG Oral TAKE 1 TABLET BY 90 Tab 1 02/18/2019 Active Tab MOUTH EVERY DAY diphenoxylate-atropine Take 1 Tab by 60 Tab 1 03/01/2019 Active (LOMOTIL) 2.5-0.025 MG mouth FOUR TIMES Oral Tab DAILY NEEDED for diarrhea. Max Daily Amount: 4 Tabs. metFORMIN (GLUCOPHAGE) Take 1 Tab by 60 Tab 3 2019 Active 500 MG Oral Tab mouth TWICE DAILY. Multiple Vitamins-Iron TAKE 1 TABLET BY 30 Tab 5 04/16/2019 Active (TAB-A-SERGEY/IRON) Oral MOUTH EVERY DAY Tab cholestyramine Take 1 PKT by 30 Packet 0 04/16/2019 Active (QUESTRAN) 4 g Oral mouth TWICE Pack DAILY. prazosin (MINIPRESS) 1 Take 1-2 Caps by 60 Cap 0 05/01/2019 Active MG Oral Cap mouth EVERY BEDTIME. Cholecalciferol Take 1 Cap by 90 Cap 3 05/15/2019 Active (VITAMIN D3) 2000 mouth DAILY. units Oral Cap clotrimazole 1 Appl by 45 g 1 05/15/2019 Active (LOTRIMIN) 1 % Apply Topical route externally Cream TWICE DAILY. To groin and toe nicotine transdermal Place 21 mg onto 0 Active patch-daily (NICODERM) skin DAILY. 21 MG/24HR Transdermal PATCH 24 HR ibuprofen (MOTRIN) 600 Take 600 mg by 0 Active MG Oral Tab mouth EVERY EIGHT HOURS NEEDED. albuterol HFA Take 2 Puffs by 1 Inhaler 5 05/31/2019 Active (VENTOLIN) 108 (90 inhalation EVERY Base) MCG/ACT FOUR HOURS Inhalation Aero Soln NEEDED (SOB). fexofenadine (MIKIE) Take 1 Tab by 30 Tab 4 05/31/2019 Active 180 MG Oral Tab mouth DAILY. Mometasone Take 2 INHL by 1 Inhaler 5 05/31/2019 Active Furo-Formoterol Fum inhalation TWICE (DULERA) 200-5 MCG/ACT DAILY. Inhalation Aerosol levothyroxine TAKE 1 TABLET BY 30 Tab 5 06/03/2019 Active (SYNTHROID) 25 MCG MOUTH EVERY DAY Oral TabIndications: BEFORE BREAKFAST Hypothyroidism, unspecified type XARELTO 20 MG Oral Tab TAKE 1 TABLET BY 0 05/14/2019 Active MOUTH EVERY DAY (START AFTER COMPLETING 15MG TWICE DAILY LOADING DOSE) rivaroxaban (XARELTO) Take 1 Tab by 30 Tab 1 06/03/2019 Active 20 MG Oral Tab mouth DAILY. magnesium oxide TAKE 1 TABLET BY 30 Tab 1 06/12/2019 Active (MAG-OX) 400 (241.3 MOUTH EVERY DAY Mg) MG Oral Tab clotrimazole (LOTRIMIN Apply to feet 2 45 g 1 06/11/2019 Active AF) 1 % Apply x a day externally Cream triamcinolone Apply to wrists 45 g 0 06/25/2019 Active (KENALOG,ARISTOCORT) 2 x a day 0.1 % Apply externally Cream cephalexin (KEFLEX) Take 1 Cap by 21 Cap 0 07/05/2019 Active 500 MG Oral Cap mouth THREE TIMES DAILY. Calcipotriene TOPICAL 1 Appl by 60 g 5 07/05/2019 Active (DOVONEX) 0.005 % Topical route Apply externally Cream TWICE DAILY. clobetasol (TEMOVATE) 1 Appl by 45 g 0 07/05/2019 Active 0.05 % Apply Topical route externally Cream TWO TIMES DAILY NEEDED (rash wrist). furosemide (LASIX) 20 Take 1 Tab by 15 Tab 0 07/11/2019 Active MG Oral Tab mouth EVERY OTHER DAY. morphine 15 MG Oral Take 1 Tab by 45 Tab 0 05/31/2019 Tab mouth THREE 2019 (Reorder) TIMES DAILY NEEDED (back pain). Max Daily Amount: 45 mg. Hospital, Clinic, or Other Ordered Dose Route Frequency Start Date End Date Status Facility Administered Medication miconazole (DESENEX) topical TOP BID 12/21/2016 Active powder 2 %Indications: Infected nail bed of toe documented as of this encounter (statuses as of 07/15/2019) Active Problems Problem Noted Date Asthma-COPD overlap [...] as of this encounter (statuses as of 07/15/2019) Resolved Problems Problem Noted Date Resolved Date [...] as of this encounter (statuses as of 07/15/2019) Immunizations Name Administration Dates Next Due H1N1 [...] Yes 0 Standard drinks or equivalent 0.0 Vaping instead of smoking Sex Assigned at Date Recorded Not on file Job Start Date Occupation Industry Not on file Not on file Not on file Travel History Travel Start Travel End No recent travel history available. documented as of this encounter Last Filed Vital Signs Not on filedocumented in this encounter Progress Notes Constance Berrios MD - 07/15/2019 2:30 PM EDT PATIENT: Renae Lobo : 1970 DATE OF SERVICE: 07/15/2019 REFERRING PRACTITIONER: Vinicio Angela PRIMARY CARE PROVIDER: Vinicio Angela CHIEF COMPLAINT: Chief Complaint Patient presents with Follow Up 6 month follow up / previous nipple discharge HISTORY OF PRESENT ILLNESS: Renae Lobo is a 49-y.o. female who presents for follow-up of bilateral breast retroareolar tenderness and right nipple discharge. She says these symptoms are mild and stable. Ms. Lobo says she has had spontaneous clear yellow right nipple discharge for years. He says the volume of discharge is low, just a few drops occasionally staining her clothes. She says the discharge occurs just a few times per month. She also has bilateral breast tenderness which is mild and not constant. She has no other symptoms related to her breasts. Gynecologic history: OB History AB 1 1 TAB 1 Obstetric Comments Menarche @ (states she doesn't know when she started) Having irregular periods at present BCP a long time ago Family history: Family History Problem Relation Age of Onset [...] family history Macular Degeneration No family history Past Medical History: Diagnosis Date Allergic Rhinitis 11/07/2007 Seasonal allergies. 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 Asthma 05/11/2007 [place] Back pain spondylosis on xray BMI 36.0-36.9,adult Cataract Cystic acne 11/07/2007 Dr Farah Depression 11/07/[address] Jones Diabetes mellitus (HCC) Eczema Fatty liver 12/28/2009 CHRISTIE/metabolic syndrome GERD (gastroesophageal reflux disease) [facility]07[facility]2007 [facility] Glucose intolerance (impaired glucose tolerance) no retinopathy 2013 Hyperlipidemia 11/07/2007 IBS (irritable bowel syndrome) Rees Nulliparity Osteoarthritis PCOS (polycystic ovarian syndrome) Bishop Psoriasis Tobacco user 04/05/2011 Vitamin D deficiency Past Surgical History: Procedure Laterality Date COLONOSCOPY 2006 Rees HYSTEROSCOPY, DILATATION AND CURETTAGE N/A 11/20/2014 Procedure: HYSTEROSCOPY, DILATATION AND CURETTAGE; Surgeon: Chivo Keating MD; Location: [facility] MAIN OR MAMMOGRAPHY NEC 04/14/11 normal Current Outpatient Medications Medication Sig albuterol HFA [...] Cap Take 1 Cap by mouth DAILY. cephalexin (KEFLEX) 500 MG Oral Cap Take 1 Cap by mouth THREE TIMES DAILY. Cholecalciferol (VITAMIN D3) 2000 units Oral Cap Take 1 Cap by mouth DAILY. cholestyramine (QUESTRAN) 4 g Oral Pack Take 1 PKT by mouth TWICE DAILY. citalopram (CELEXA) 20 MG PO TABS Take 1 Tab by mouth DAILY. clobetasol (TEMOVATE) 0.05 % Apply externally Cream 1 Appl by Topical route TWO TIMES DAILY NEEDED (rash wrist). clonazePAM (KLONOPIN) 2 MG Oral Tab Take [...] E11.9 last OV 03/14/17 Freestyle test strips halobetasol (ULTRAVATE) 0.05 % Apply externally Ointment 1 application 2 x a day hydrOXYzine HCL (ATARAX) 25 MG Oral Tab [...] TAKE 1 CAPSULE BY MOUTH DAILY ONETOUCH XOCHITL MACHUCA FINE Does not apply Misc 1 Each [...] Dermatologic Reaction Environmental Respiratory Reaction Gentamycin [Gentamicin] CUPOLA OPERATOR Reaction Eyes extremely itchy/crusty Olopatadine Other "made my eyes more infected" Optivar [Astelin] Other Itchy eyes Seafood [Shell Fish] Social History Tobacco Use Smoking status: Current Every Day Smoker Packs/day: 0.50 Years: 30.00 Pack years: 15.00 Types: Cigarettes Smokeless tobacco: Never Used Substance Use Topics Alcohol use: Yes Alcohol/week: 0.0 standard drinks Comment: Vaping instead of smoking Drug use: No Social History Patient does not qualify to have social determinant information on file (likely too young). Social History Narrative Lives alone in [place], unemployed. PHYSICAL EXAMINATION: VITALS: There were no vitals taken for this visit. There is no height or weight on file to calculate BMI. GENERAL: alert LUNGS: Nonlabored respirations. BREASTS: Comprehensive breast examination was done with the patient in the sitting and recumbent positions with her arms elevated and at her sides. Breasts are symmetric in size. Right nipple is everted Left nipple is everted. Nipple rash or crusting: None Nipple discharge: None Breast masses: None Palpable axillary, lymph nodes: None Palpable supraclavicular or cervical lymph nodes: None Results: 12/24/2018 bilateral breast ultrasound mild to moderate ductal hypertrophy in her retroareolar breasts bilaterally. Impression: Renae Lobo has occasional scant right nipple discharge. She also has retroareolar tendernessbilaterally. No nipple discharge was evident on today's physical examination. She has no suspicious findings on her breast physical examination or on breast imaging studies done earlier this year. Plan: Return in 12/2019 for screening bilateral breast tomosynthesis and a breast physical examination. She expressed understanding and agreement with this recommendation. I spent a total of 20 minutes with Ms. Lobo, over 75% of which was spent in counseling/coordination of care. All of her questions were answered to her satisfaction. Author: Constance Berrios MD 07/15/2019 22:51 cc: Vinicio Perez documented in this encounter Plan of Treatment Date Type Specialty Care Team Description 07/25/2019 Office Visit Family Practice Vinicio Angela MD [address] [place] [address] [phone] 12/18/2019 Ancillary Procedure Radiology 12/23/2019 Office Visit General Surgery Constance Berrios MD [address] [place] [address] [phone] 04/21/2020 Ocular Visit Optometry Davian Hoffman, OD [address] [place] [address] [phone] Name Type Priority Associated Diagnoses Order Schedule MAMMO SCREENING Imaging Routine Encounter for Expected: TOMOSYNTHESIS BILATERAL screening mammogram 07/15/2019, Expires: for malignant neoplasm 10/12/2020 of breast Health Maintenance Due Date Last Done Comments INFLUENZA VACCINE (#1) 2019 06/26/2018, 05/13/2017, 06/08/2016, Additional history exists HEMOGLOBIN A1C 10/06/2019 04/05/2019, 11/20/2018, 06/26/2018, Additional history exists LIPID DISORDER SCREENING 11/21/2019 11/20/2018, 11/05/2018, 06/26/2018, Additional history exists URINE MICROALBUMIN 12/05/2019 12/04/2018, 02/23/2018, 06/08/2016, Additional history exists DEPRESSION SCREENING 02/08/2020 Postponed from 1982 (Patient refused) FOOT EXAM 06/11/2020 06/11/2019, 06/11/2019, 06/26/2018, Additional history exists PAP SMEAR 11/10/2020 11/10/2017, 11/11/2014, 06/22/2012, Additional history exists Diabetic Eye Exam 04/18/2021 04/18/2019, 04/18/2019, 02/14/2018, Additional history exists PNEUMOCOCCAL 0-64 YRS Completed [...] better. Weight loss vs. 18 mo Lifestyle 30 (07/15/2019 1:54 PM EDT) No Vinicio Angela MD max [...] filedocumented in this encounter Visit Diagnoses Diagnosis Nipple discharge in female - Primary Other sign and symptom in breast Encounter for screening mammogram for malignant neoplasm of breast Other screening mammogram documented in this encounter Guarantor Name Account Type Relation to Date of Phone Billing Address Patient Renae Lobo Personal/Famil 1970 [address] (Home) [facility] [phone] [place] [phone] (Work) [place] [address] documented as of this encounter
--- OUTSIDE RECORDS SUMMARY | 2019-07-25 22:05 | XMS REPORT | Summary of Care ---
:1970 Author Organization [facility] Address 1 [facility] [place] [address] Care Team Providers Name Role Phone Vinicio Angela Primary Care Provider Reason for Visit Reason Comments New Patient Pt. referred by Dr. Angela for Peripheral Edema. Pt. reports some chest pressure, non radiating. Pt. also reports Shortness of Breath with exertion. Echo done on 05/22/19 Refer to Department Only (Routine) Status Reason Specialty Diagnoses / Referred By Referred To Procedures Contact Contact Pending Review CARDIOLOGY / Diagnoses Peripheral edema Vinicio Angela [facility] [place] [facility] Cardiology [facility] [address], [place] [id number] [place] [address] Phone: [phone] Phone: Encounter Details Date Type Department Care Team Description 07/15/2019 Office Visit Cb Man McClintic, Lower extremity edema ( Primary Dx); Cardiology MD Bishop Chest pain, unspecified type [address] [place] [address] [place] [address] [phone] Allergies Active Allergy Reactions Severity Noted Date Comments Ketotifen Other 03/14/2019 Swollen lids, discharge Sulfacetamide Sodium Dermatologic Reaction 12/24/2018 Environmental Respiratory Reaction 11/25/2010 Gentamicin SHOP HELPER Reaction 11/08/2018 Eyes extremely itchy/crusty Olopatadine Other [...] Freestyle test current use of insulin strips ([facility]) Fluoxetine HCl 40 MG Take 3 [...] Sign Reading Time Taken Comments Blood Pressure 102/72 07/15/2019 1:54 PM EDT Pulse 90 07/15/2019 1:54 PM EDT Temperature - - Respiratory Rate - - Oxygen Saturation - - Inhaled Oxygen Concentration - - Weight 92.5 kg (204 lb) 07/15/2019 1:54 PM EDT Height 167.6 cm (5' 6") 07/15/2019 1:54 PM EDT Body Mass Index 32.93 07/15/2019 1:54 PM EDT documented in this encounter Patient Instructions Patient InstructionsBishop Reyes MD - 07/15/2019 1:40 PM EDT No further cardiac testing at this time. No medication changes today. 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 No need for routine follow up with me, but don't hesitate to come back at any time if new questions/concerns arise. documented in this encounter Progress Notes Bishop Reyes MD - 07/15/2019 1:40 PM EDT [facility] Note Patient: Renae Lobo Date of : 1970 Date of Service: 07/15/2019 REFERRING PRACTITIONER: Vinicio Angela PRIMARY CARE PROVIDER: Vinicio Angela Chief Complaint: Chief Complaint Patient presents with New Patient Pt. referred by Dr. Angela for Peripheral Edema. Pt. reports some chest pressure, non radiating. Pt. also reports Shortness of Breath with exertion. Echo done on 05/22/19 History of Present Illness: We had the pleasure of seeing Renae Lobo today at the [facility] Cardiology Office. She is a 49-y.o. female with obesity, DM2, asthma, hyperlipidemia, tobacco and EtOH abuse, SÁNCHEZ, ? bilateral PEs on Xarelto, and lower extremity edema. Ms. Lobo presents to cardiology clinic today for further evaluation of LE edema and SÁNCHEZ as well as CP. She was seen in [facility] in April and diagnosed with bilateral PEs and started on Xarelto. She then re-presented on 05/23 with pleuritic and reproducible CP. Repeat chest CTA that admission apparently showed resolution of her PEs but she was continued on Xarelto and the inpatient providers recommended indefinite anticoagulation. On that second admission she also had a nuclear stress test that showed TID but no perfusion defects. From a symptom standpoint now, she reports that her LE edema has been worsening and she's also been dealing with a painful scaly rash of her bilateral hands. She continues to have chest pains at times; these come and go and aren't clearly associated with exertion. Her SÁNCHEZ has worsened over the past couple of years and she's worried about that. Continues to vape throughout the day. Gets very dizzybut hasn't had any syncope. Patient Active Problem List Diagnosis Allergic Rhinitis Mixed hyperlipidemia Depression GERD (gastroesophageal reflux disease) Hepatic steatosis BMI 33.0-33.9,adult Tobacco user Hypothyroidism Bilateral low back pain without sciatica Type 2 diabetes mellitus without complication, without long-term current use of insulin (HCC) Asthma-COPD overlap syndrome (HCC) Alcoholism (HCC) Past Medical History: Diagnosis Date Allergic Rhinitis 11/07/2007 Seasonal allergies. 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 Asthma 05/11/2007 [place] Back pain spondylosis on xray BMI 36.0-36.9,adult Cataract Cystic acne 11/07/2007 Dr Farah Depression 11/07/[address] Jones Diabetes mellitus (HCC) Eczema Fatty liver 12/28/2009 CHRISTIE/metabolic syndrome GERD (gastroesophageal reflux disease) 11/07/2007 Rees prilosec not work Glucose intolerance (impaired glucose tolerance) no retinopathy 2013 Hyperlipidemia 11/07/2007 IBS (irritable bowel syndrome) Rees Nulliparity Osteoarthritis PCOS (polycystic ovarian syndrome) Bishop Psoriasis Tobacco user 04/05/2011 Vitamin D deficiency Past Surgical History: Procedure Laterality Date COLONOSCOPY 2006 Rees HYSTEROSCOPY, DILATATION AND CURETTAGE N/A 11/20/2014 Procedure: HYSTEROSCOPY, DILATATION AND CURETTAGE; Surgeon: Chivo Keating MD; Location: [facility] MAIN OR MAMMOGRAPHY NEC 04/14/11 normal Allergies Allergen Reactions Polymyxin B Swelling Pt. Thinks she is allergic to it made her eyes worse [place] [Ketotifen] Other Swollen lids, discharge Bleph-10 [Sulfacetamide Sodium] Dermatologic Reaction Environmental Respiratory Reaction Gentamycin [Gentamicin] SHOP HELPER Reaction Eyes extremely itchy/crusty Olopatadine Other "made my eyes more infected" Optivar [Astelin] Other Itchy eyes Seafood [Shell Fish] Current Outpatient Medications Medication albuterol HFA (VENTOLIN) 108 (90 Base) MCG/ACT Inhalation Aero Soln allopurinol (ZYLOPRIM) 300 MG Oral Tab Calcipotriene TOPICAL (DOVONEX) 0.005 % Apply externally Cream CALCITRATE 950 MG Oral Tab celeCOXIB (CELEBREX) 200 MG Oral Cap cephalexin (KEFLEX) 500 MG Oral Cap Cholecalciferol (VITAMIN D3) 2000 units Oral Cap cholestyramine (QUESTRAN) 4 g Oral Pack citalopram (CELEXA) 20 MG PO TABS clobetasol (TEMOVATE) 0.05 % Apply externally Cream clonazePAM (KLONOPIN) 2 MG Oral Tab cloNIDine (CATAPRES) 0.1 MG Oral Tab clotrimazole (LOTRIMIN AF) 1 % Apply externally Cream clotrimazole (LOTRIMIN) 1 % Apply externally Cream Dextran 70-Hypromellose, PF, (ARTIFICIAL TEARS PF) 0.1-0.3 % Ophthalmic Solution diphenoxylate-atropine (LOMOTIL) 2.5-0.025 MG Oral Tab ferrous sulfate 325 (65 Fe) MG Oral Tab fexofenadine (MIKIE) 180 MG Oral Tab Fluoxetine HCl 40 MG Oral Cap fluticasone (FLONASE) 50 MCG/ACT Nasal Suspension fluticasone-salmeterol diskus (ADVAIR DISKUS) 250-50 MCG/DOSE Inhalation AEROSOL POWDER, BREATH ACTIVATED furosemide (LASIX) 20 MG Oral Tab gabapentin (NEURONTIN) 300 MG Oral Cap Glucosamine-Chondroitin (GLUCOSAMINE CHONDR COMPLEX) 500-400 MG Oral Cap Glucose Blood (ONETOUCH VERIO) In Vitro Strip Glucose Blood In Vitro Strip hydrOXYzine HCL (ATARAX) 25 MG Oral Tab ibuprofen (MOTRIN) 600 MG Oral Tab levothyroxine (SYNTHROID) 25 MCG Oral Tab magnesium oxide (MAG-OX) 400 (241.3 Mg) MG Oral Tab metFORMIN (GLUCOPHAGE) 500 MG Oral Tab Mometasone Furo-Formoterol Fum (DULERA) 200-5 MCG/ACT Inhalation Aerosol morphine 15 MG Oral Tab Multiple Vitamins-Iron (TAB-A-SERGEY/IRON) Oral Tab mupirocin (BACTROBAN) 2 % Apply externally Ointment nicotine transdermal patch-daily (NICODERM) 21 MG/24HR Transdermal PATCH 24 HR Omeprazole delayed rel cap 20 MG Oral CAPSULE DELAYED RELEASE ONETOUCH DELICA LANCETS FINE Does not apply Misc Oxybutynin Chloride 15 MG Oral TABLET SR 24 HR prazosin (MINIPRESS) 1 MG Oral Cap rivaroxaban (XARELTO) 20 MG Oral Tab Rosuvastatin Calcium (CRESTOR) 20 MG Oral Tab Spacer/Aero-Holding Chambers Does not apply Device trazodone (DESYREL) 100 MG Oral Tab tretinoin (RETIN-A) 0.01 % Apply externally Gel triamcinolone (KENALOG,ARISTOCORT) 0.1 % Apply externally Cream XARELTO 20 MG Oral Tab Family History Problem Relation Age of Onset [...] family history Macular Degeneration No family history Social History Socioeconomic History Marital status: Single [...] file Gets together: Not on file Attends sabianism service: Not on file Active member of [...] Asked Social History Narrative Lives alone in [place], [facility]. Nursing Notes: Mary Morales LPN 07/15/2019 2:03 PM Signed PATIENT: Renae Lobo : 1970 DATE OF SERVICE: 07/15/2019 CARDIOLOGY AMBULATORY NURSING INTAKE FORM HISTORY COLLECTED BY CLINICAL STAFF: Héctor REVIEW OF SYSTEMS: GENERAL: Fever: no Weight loss/gain: yes - gain Fatigue: no Recent febrile illness: no NEUROLOGIC: Headache: no Syncope: yes - dizziness CVA/TIA: no Change in sensation: no CARDIOVASCULAR: Chest Pain: yes - chest pressure Palpitations: no Orthopnea: no Rheumatic Fever (history of): no Edema: yes - LE RESPIRATORY: Cough: no Shortness Of Breath: yes - With exertion Hemoptysis: no Underlying Lung Disease: yes - Asthma/COPD GASTROINTESTINAL: Nausea: no Vomiting: no Constipation: no Diarrhea: no Melena: no PUD (history of): no Hematemesis: no Gastrointestinal Disorder: yes - Acid Reflux GENITOURINARY: Hematuria: no Urinary Tract Infection(s): no Nocturia: no Prostate Problem(s): no HEMATOLOGIC: Easy bruising: Yes Bleeding: yes - MUSCULOSKELETAL/PERIPHERAL VASCULAR SYSTEM: Muscle Pain: no Muscle Cramping: yes - LE Stiffness: no Muscle Weakness: no BEHAVIORAL/PSYCH: Depression: yes - on medication ENDOCRINE: Tremors: Yes Heat or cold intolerance: no Author: Mary Morales LPN 07/15/2019 13:50 I have reviewed the ROS obtained by my nurse and concur as detailed above. Physical Exam: Vitals: 07/15/19 1354 BP: 102/72 BP Location: Right arm Patient Position: Sitting Pulse: 90 Weight: 204 lb (92.5 kg) Height: 5' 6" (1.676 m) Body mass index is 32.93 kg/m. General: Obese, alert 49-y.o. female in NAD HEENT: anicteric, MMM, no E/E OP, conj pink Neck: JVP approx 5 cm above RA, no carotid bruits or LAD CV: RRR, normal s1/s2, no appreciable murmurs, rubs, or gallops Pulm: CTA bilaterally with scant expiratory wheezes. No increased work of breathing. Abd: soft, obese, NT, ND, +BS. No appreciable pulsatile masses or bruits. Ext: 1+ bilateral lower extremity edema, no cyanosis, no cords, redness, or warmth, 2+ distal pulses Neuro: no gross focal deficits Skin: Erythematous, scaly rash on bilateral hands. Labs: Lab Results Component Value Date NA 140 06/25/2019 K 3.4 (L) 06/25/2019 CL 104 06/25/2019 CO2 34 (H) 06/25/2019 GLUCOSE 89 06/25/2019 BUN 9 06/25/2019 CREATININE 0.8 06/25/2019 CALCIUM 9.1 06/25/2019 TP 7.3 04/05/2019 ALBUMIN 4.1 04/05/2019 AST 45 04/05/2019 ALT 43 04/05/2019 ALK 70 04/05/2019 TBILI 0.5 04/05/2019 EGFR >60 06/25/2019 No results found for: BNP Lab Results Component Value Date CHOL 162 11/20/2018 TRIG 146 11/20/2018 HDL 55 11/20/2018 LDL 78 11/20/2018 LDLHDLRATIO 1.4 11/20/2018 CHOLHDLRATIO 2.9 11/20/2018 Cardiac Studies: EKG Today (I personally reviewed): NSR in 90s with PACs. Low voltage. QTc prolongation of 481ms. Regadenoson SPECT at [facility] 05/24/2019: -No fixed or reversible perfusion defects -TID index elevated at 1.36. -Read as intermediate risk d/t the TID. TTE 05/22/2019: FINAL IMPRESSION: Normal left heart size with normal LV systolic function and no regional wall motion abnormalities; estimated LVEF 55-60%. Normal right heart size and RV systolic function. No structurally or hemodynamically significant valvular disease. No pericardial effusion. Compared to resting portion of prior stress echo report 04/19/2017, no significant changes are apparent. Exercise Stress Echo 04/19/2017: FINAL IMPRESSION: Exercise tolerance of the patient is fair. Appropriate heart rate and blood pressure response to exercise. This test is negative for ischemia by symptoms, EKG and echocardiographic imaging at an adequate cardiac workload, as described. Probability for significant, obstructive coronary artery disease is low by this test. Assessment & Plan: Renae Lobo is a 49-y.o. female with obesity, DM2, asthma, hyperlipidemia , tobacco and EtOH abuse, SÁNCHEZ, ? bilateral PEs on Xarelto, and lower extremity edema. ICD-9-CM ICD-10-CM 1. Lower extremity edema 782.3 R60.0 1. Atypical Chest Pain: Non-exertional and reproducible to palpation. Recent nuclear stress test was reassuring, and the finding of TID in the absence of any perfusion defects does not correlate with increased risk of obstructive CAD (when compared with cCTA studies). No further ischemic testing is needed at this time. 2. LE Edema: I explained to pt that there is no evidence of increased R heart filling pressures by exam (normal JVP) or echo. Her edema is therefore not cardiogenic and most likely related to her obesity and venous stasis. She does describe some periorbital edema (although I see none on exam today),and this may be related to an inflammatory disorder or low oncotic pressure (although serum albumin was normal in March). No further cardiac w/u is needed, and I recommended working on weight loss, a low sodium diet, and weight loss. Thank you for allowing me to participate in the care of Renae Lobo. We have not scheduled routine f/u in our office, but She can certainly return at any time if symptoms worsen or if there are any new cardiac concerns. If you have any questions or concerns please feel free to call our office at . Bishop Reyes MD, 07/15/2019, 14:13 This note was created using my previous note as a template; changes were made where appropriate, andall information in the current note is up to date to the best of my knowledge.Electronically signed by Bishop Reyes MD at 2018 8:30 PM EDTdocumented in this encounter Plan of Treatment Date Type Specialty Care Team Description 07/25/2019 Office Visit Family Practice Vinicio Angela MD [address] [place] [address] [phone] 12/18/2019 Ancillary Procedure Radiology 12/23/2019 Office Visit General Surgery Constance Berrios MD [address] [place] [address] [phone] 04/21/2020 Ocular Visit Optometry Davian Hoffman, OD [address] [place] [address] Name Type Priority Associated Diagnoses Order Schedule AMBULATORY 12 LEAD EKG EKG Routine Chest pain, unspecified Ordered: 2018 (GLOBAL) type Health Maintenance Due Date Last Done Comments [...] individualized treatment (diabetes control, HgbA1C) goal for Rneae Lobo: Displayed above is your progress towards [...] filedocumented in this encounter Visit Diagnoses Diagnosis Lower extremity edema - Primary Edema Chest pain, unspecified type documented in this encounter Guarantor Name Account Type Relation to Date of Phone Billing Address Patient Renae Lobo Personal/Famil 1970 [address] ([address]) [facility] [phone] [facility] [address] (Work) [place] [address] documented as of this encounter
--- NOTE | 2019-07-25 22:47 | ED ---
Complex/Multi-Sys Presentation - HPI Summary HPI Summary: Patient is a 49 y/o F presenting to [facility] with complaints of BLE pain and edema as well as cracking, bleeding to hands bilaterally. Patient reports that she has had these Sx over the past few months and states they have been progressively worsening. She came to [facility] to be evaluated due to pain and decreased ROM of her hands. She reports some intermittent SOB as well; patient is a current smoker and vapes. Patient has been prescribed prednisone and topical creams by her PCP with no reported relief in Sx. She is concerned for staph infection. Patient notes that she consumes alcohol and notes some consumption earlier today. She states that she has not been able to see a medical affairs leader yet. On triage, pain is rated 10/10, nothing is noted to aggravate /alleviate Sx. Home medications and allergies are reviewed. - History Of Current Complaint Chief Complaint: EDExtremityUpper Time Seen by Provider: 07/25/19 22:33 Hx Obtained From: Patient Onset/Duration: Lasting Weeks, Still Present, Worse Since Timing: Constant, Weeks Severity Currently: Severe Location: Pain At: - hands, BLE Aggravating Factor(s): nothing Alleviating Factor(s): nothing Associated Signs And Symptoms: Positive: Edema - BLE, Other - positive - BLE pain, cracking, bleeding to hands - Allergies/Home Medications Allergies/Adverse Reactions: Allergies Allergy/AdvReac Type Severity Reaction Status Date / Time shrimp Allergy Severe Anaphylatic Verified 07/25/19 20:43 Shock ketotifen [From [facility]] Allergy Eyes Verified 07/25/19 20:43 Itchy/Swollen/Red/Watery latex Allergy Rash Verified 07/25/19 20:43 seafood Allergy Severe hives, Uncoded 07/25/19 20:43 difficulty breathing environmental Allergy Wheezing Uncoded 07/25/19 20:43 eye drops Allergy Unknown Uncoded 07/25/19 20:43 Reaction Details PMH/Surg Hx/FS Hx/Imm Hx Endocrine/Hematology History: Reports: Hx Diabetes - Type 2, Hx Thyroid Disease - HYPOTHYROIDISM Denies: Hx Anemia Cardiovascular History: Reports: Hx Angina, Hx Embolism - pulmonary embolism, Hx Hypercholesterolemia, Hx Hypertension Denies: Hx Aneurysm, Hx Angioplasty, Hx Auto Implanted Cardiovert Defib, Hx Cardiac Arrest, Hx Cardiomegaly, Hx Congenital Heart Disease, Hx Congestive Heart Failure, Hx Coronary Artery Disease, Hx Deep Vein Thrombosis, Hx Myocardial Infarction, Hx Valvular Heart Disease Respiratory History: Reports: Hx Asthma, Hx Chronic Obstructive Pulmonary Disease (COPD), Hx Pulmonary Embolism, Hx Seasonal Allergies GI History: Reports: Other GI Disorders - fatty liver disease Denies: Hx Ulcer History: Denies: Hx Chronic Renal Failure, Hx Renal Disease Musculoskeletal History: Denies: Hx Rheumatoid Arthritis, Hx Osteoporosis Sensory History: Reports: Hx Contacts or Glasses Denies: Hx Eye Prosthesis, Hx Legally Blind, Hx Deafness, Hx Hearing Aid Opthamlomology History: Reports: Hx Contacts or Glasses Denies: Hx Eye Prosthesis, Hx Legally Blind Neurological History: Denies: Hx Dementia, Hx Developmental Delay, Hx Headaches, Hx Migraine, Hx Nerve Disease, Hx Seizures, Hx Spinal Cord Injury, Hx Transient Ischemic Attacks (TIA) Psychiatric History: Reports: Hx Anxiety, Hx Depression - Surgical History Surgery Procedure, Year, and Place: [facility]&C. DENTAL EXTRACTION Infectious Disease History: No Infectious Disease History: Denies: Hx Clostridium Difficile, Hx Hepatitis, Hx Human Immunodeficiency Virus (HIV), Hx of Known/Suspected MRSA, Hx Shingles, Hx Tuberculosis, Hx Known/ Suspected VRE, Hx Known/Suspected VRSA, History Other Infectious Disease, Traveled Outside the [place] in Last 30 Days - Family History Known Family History: Positive: Respiratory Disease - COPD, Blood Disorder - blood clots, Other - COPD Family History: FHx of anxiety, depression, OCD - Social History Alcohol Use: Occasionally Alcohol Amount: pt states occasional use of alcohol Hx Substance Use: No Substance Use Type: Reports: None Hx Tobacco Use: Yes Smoking Status (MU): Former Smoker Type: Cigarettes Amount Used/How Often: vapes Length of Time of Smoking/Using Tobacco: since age 13 Have You Smoked in the Last Year: Yes Review of Systems Positive: Shortness Of Breath Musculoskeletal: Other - positive - BLE pain Positive: Decreased ROM, Edema - BLE Skin: Other - cracking, bleeding of hands All Other Systems Reviewed And Are Negative: Yes Physical Exam - Summary Physical Exam Summary: Appearance: Well-appearing, Well-nourished, lying in bed comfortable Skin: There is erythema, cracking, swelling, and drying of hands a few inches past the wrists that is consistent with eczema. There are no signs of bacterial infection. Eyes: sclera anicteric, no conjunctival pallor ENT: mucous membranes moist Neck: deferred Respiratory: No signs of respiratory distress Cardiovascular: Appears well perfused, pulses are nml Abdomen: deferred Musculoskeletal: BLE pitting edema, no evidence for cellulitis noted. Moving all 4 extremities without obvious discomfort Neurological: Awake and alert, mentation is normal, speech is fluent and appropriate Psychiatric: affect is normal, does not appear anxious or depressed Triage Information Reviewed: Yes Vital Signs On Initial Exam: Initial Vitals Temp Pulse Resp BP Pulse Ox 98.0 F 88 18 122/91 99 07/25/19 20:43 07/25/19 20:43 07/25/19 20:43 07/25/19 20:43 07/25/19 20:43 Vital Signs Reviewed: Yes Procedures - Sedation Patient Received Moderate/Deep Sedation with Procedure: No Diagnostics - Vital Signs Vital Signs Temp Pulse Resp BP Pulse Ox 07/25/19 20:43 98.0 F 88 18 122/91 99 - Laboratory Result Diagrams: 07/25/19 23:21 07/25/19 23:21 Lab Statement: Any lab studies that have been ordered have been reviewed, and results considered in the medical decision making process. Complex Multi-Symp Course/Dx Course Of Treatment: Patient is a 49 y/o F presenting to [facility] with complaints of BLE pain and edema as well as cracking, bleeding to hands bilaterally. Patient reports that she has had these Sx over the past few months and states they have been progressively worsening. She came to [facility] to be evaluated due to pain and decreased ROM of her hands. She reports some intermittent SOB as well; patient is a current smoker and vapes. Patient has been prescribed prednisone and topical creams by her PCP with no reported relief in Sx. She is concerned for staph infection. Patient notes that she consumes alcohol and notes some consumption earlier today. She states that she has not been able to see a medical affairs leader yet. There is erythema, cracking, swelling, and drying of hands a few inches past the wrists that is consistent with eczema. There are no signs of bacterial infection. BLE pitting edema is observed, no evidence for cellulitis noted. Bloodwork was obtained. Abnormal values include RBC 3.59, Hgb 11.4, MCH 32, calcium 8.1, AST 65. Serum alcohol was 173. Otherwise, bloodwork was within normal limits. During ED course, Triamcinolone was applied to patient s hands. Patient was discharged to home with prescription for Triamcinolone and dermatology follow up. - Diagnoses Provider Diagnoses: Eczema of both hands, Alcohol intoxication Discharge ED - Sign-Out/Discharge Documenting (check all that apply): Patient Departure - discharge - Discharge Plan Condition: Stable Disposition: HOME Prescriptions: Triamcinolone 0.5% CREAM(NF) [Triamcinolone 0.5% CREAM*] 1 applic TOPICAL BID # 60 gm Patient Education Materials: Eczema (ED), Alcohol Intoxication (ED), Abuse of Alcohol (ED) Referrals: Turner Pina MD [Medical Doctor] - Vinicio Angela MD [Primary Care Provider] - Additional Instructions: I suspect there is something in your environment that is causing this chronic inflammation, something you get on your hands on a regular basis. If you cannot identify it, a medical affairs leader like Dr. Pina can do skin testing to try to determine the culprit. In the meantime use the prescribed cream twice a day. It will take probably a week before seeing significant results. Your alcohol level was quite high tonight and I also suspect you have a drinking problem. I would urge you to seek some kind of treatment for this, as alcohol will worsen nearly all of your chronic medical conditions. - Billing Disposition and Condition Condition: STABLE Disposition: Home - Attestation Statements Document Initiated by Gil: Yes Documenting Scribe: FRANKO PURCELL Provider For Whom Gil is Documenting (Include Credential): FANNY CALDERON MD Scribe Attestation: IFRANKO, scribed for FANNY CALDERON MD on 07/26/19 at 0555. Scribe Documentation Reviewed: Yes Provider Attestation: The documentation as recorded by the FRANKO jordan accurately reflects the service I personally performed and the decisions made by me, FANNY CALDERON MD Status of Scribe Document: Viewed
[2019-07-25] MEDS ORDERED: Triamcinolone 0.5% OINT * 15 GM TUBE TOPICAL SCH (23:00)
[2019-07-25 23:34] LABS: ABS Basophils 0.1 10^3/ul (0-0.2); ABS Eosinophils 0.6 10^3/ul (0-0.6); ABS Lymphocytes 2.1 10^3/ul (1.0-4.8); ABS Monocytes 0.5 10^3/ul (0-0.8); ABS Neutrophils 2.7 10^3/ul (1.5-7.7); Eosinophil % 9.5 %; Hematocrit 35 % (35-47); Hemoglobin 11.4 g/dL (12.0-16.0); Mean Corpuscular HGB Conc 33 g/dL (31-36); Mean Corpuscular Hemoglobin 32 pg (27-31); Mean Corpuscular Volume 97 fL (80-97); Mean Platelet Volume 7.4 fL (7.4-10.4); Nucleated Red Blood Cells % 0.1; Platelet Count 231 10^3/uL (150-450); Red Blood Count 3.59 10^6 /uL (3.70-4.87); Red Cell Distribution Width 13 % (10-15); White Blood Count 5.9 10^3/uL (3.5-10.8)
[2019-07-25 23:48] LABS: ALT 36 U/L (7-52); AST 65 U/L (13-39); Albumin 3.6 g/dL (3.2-5.2); Albumin/Globulin Ratio 1.2 (1-3); Alkaline Phosphatase 43 U/L (34-104); Anion Gap 6 mmol/L (2-11); BUN/Creatinine Ratio 13.3 (8-20); Blood Urea Nitrogen 10 mg/dL (6-24); C Reactive Protein < 1.00 mg/L (<8.01); CO2 Carbon Dioxide 29 mmol/L (22-32); Calcium 8.1 mg/dL (8.6-10.3); Chloride 105 mmol/L (101-111); EGFR African American 99.4 (>60); EGFR Non-African American 82.1 (>60); Globulin 2.9 g/dL (2-4); Glucose 98 mg/dL (70-100); Potassium 3.8 mmol/L (3.5-5.0); Sodium 140 mmol/L (135-145); Total Protein 6.5 g/dL (6.4-8.9)
[2019-07-26 00:06] LABS: Alcohol 173 mg/dL (<10)
[2019-07-26 00:32] VITALS: BP 100/79
== END 2019-07-26 00:32 | disposition home or self-care (01) ==
LOC: ED 20:38
DX: L30.9 Dermatitis, unspecified (principal); F10.929 Alcohol use, unspecified with intoxication, unspecified; E11.9 Type 2 diabetes mellitus without complications; E03.9 Hypothyroidism, unspecified; E78.00 Pure hypercholesterolemia, unspecified; I10 Essential (primary) hypertension; J44.9 Chronic obstructive pulmonary disease, unspecified; Z86.711 Personal history of pulmonary embolism; Z87.891 Personal history of nicotine dependence; Z88.8 Allergy status to other drugs, medicaments and biological substances; Z91.040 Latex allergy status
CPT/HCPCS: 36415; 80053; 80320; 85025; 86140; 99282; A9270-GY; G0480

== ENCOUNTER 2019-08-18 10:50 | Emergency (ER) | payer OTHER ==
--- NOTE | 2019-08-18 11:03 | ED ---
Adult Trauma - HPI Summary HPI Summary: Patient is a 49 y/o F presenting to the ED via EMS for a chief complaint of right-side flank and back pain that occurred after a fall approximately one hour [employer]. She reports she went to walk her dog when she slipped on ice and fell down 3 concrete stairs at her house. Patient notes she fell on the right-side of the back and currently complains of neck pain, right flank pain, right-sided back pain, and right hip pain. After the fall, patient was able to crawl back into her house and was found in her house with her dog by EMS. She also notes shortness of breath due to the pain. She admits a possible head injury. Patient rates her current pain as 13/10 in severity and describes the pain as a stabbing and stinging sensation. Patient denies any fever, chills, erythema of eyes, sore throat, CP, cough, abdominal pain, N/V, dysuria, hematuria, edema, rash, syncope, or dizziness. She denies any aggravating or alleviating factors. She takes Xaralto for a PMHx of blood clots in the bilateral LE which she states was misdiagnosed, and 15 mg of morphine for a PMHx of chronic back pain that she last took the morning of 08/18/19. - History of Current Complaint Stated Complaint: FALL- BACK PAIN PER EMS Hx Obtained From: Patient Hx Last Menstrual Period: 06/18/19 Mechanism of Injury: Fall Ambulatory at the Scene: Yes Loss of Consciousness: no loss of consciousness Force: Medium Onset/Duration: Started Minutes Ago, Traumatic, Still Present Onset of Pain: Immediate Onset Severity: Severe Current Severity: Severe Pain Intensity: 13 Pain Scale Used: 0-10 Numeric Location: Back - Right-sided, Abdomen/Pelvis - Right hip, Other - Right flank Character: Stabbing - And stinging Aggravating Factor(s): Nothing Alleviating Factor(s): Nothing Associated Signs & Symptoms: Positive: SOB. Negative: Chest Pain, Cough, Hematuria, Abdominal Pain, Fever, Nausea/Vomiting, Loss of Consciousness Related History: Anticoagulants - Xaralto - Additional Pertinent History Primary Care Physician: PATRICA - Allergy/Home Medications Allergies/Adverse Reactions: Allergies Allergy/AdvReac Type Severity Reaction Status Date / Time shrimp Allergy Severe Anaphylatic Verified 07/25/19 20:43 Shock ketotifen [From [place]] Allergy Eyes Verified 07/25/19 20:43 Itchy/Swollen/Red/Watery latex Allergy Rash Verified 07/25/19 20:43 seafood Allergy Severe hives, Uncoded 07/25/19 20:43 difficulty breathing environmental Allergy Wheezing Uncoded 07/25/19 20:43 eye drops Allergy Unknown Uncoded 07/25/19 20:43 Reaction Details PMH/Surg Hx/FS Hx/Imm Hx Previously Healthy: Yes Endocrine/Hematology History: Reports: Hx Diabetes - Type 2, Hx Thyroid Disease - HYPOTHYROIDISM Denies: Hx Anemia Cardiovascular History: Reports: Hx Angina, Hx Embolism - pulmonary embolism, Hx Hypercholesterolemia, Hx Hypertension Denies: Hx Aneurysm, Hx Angioplasty, Hx Auto Implanted Cardiovert Defib, Hx Cardiac Arrest, Hx Cardiomegaly, Hx Congenital Heart Disease, Hx Congestive Heart Failure, Hx Coronary Artery Disease, Hx Deep Vein Thrombosis, Hx Myocardial Infarction, Hx Valvular Heart Disease Respiratory History: Reports: Hx Asthma, Hx Chronic Obstructive Pulmonary Disease (COPD), Hx Pulmonary Embolism, Hx Seasonal Allergies GI History: Reports: Other GI Disorders - fatty liver disease Denies: Hx Ulcer History: Denies: Hx Chronic Renal Failure, Hx Renal Disease Musculoskeletal History: Denies: Hx Rheumatoid Arthritis, Hx Osteoporosis Sensory History: Reports: Hx Contacts or Glasses Denies: Hx Eye Prosthesis, Hx Legally Blind, Hx Deafness, Hx Hearing Aid Opthamlomology History: Reports: Hx Contacts or Glasses Denies: Hx Eye Prosthesis, Hx Legally Blind EENT History: Denies: Hx Deafness Neurological History: Denies: Hx Dementia, Hx Developmental Delay, Hx Headaches, Hx Migraine, Hx Nerve Disease, Hx Seizures, Hx Spinal Cord Injury, Hx Transient Ischemic Attacks (TIA) Psychiatric History: Reports: Hx Anxiety, Hx Depression - Surgical History Surgical History: Yes Surgery Procedure, Year, and Place: [facility]. DENTAL EXTRACTION Infectious Disease History: Denies: Hx Clostridium Difficile, Hx Hepatitis, Hx Human Immunodeficiency Virus (HIV), Hx of Known/Suspected MRSA, Hx Shingles, Hx Tuberculosis, Hx Known/ Suspected VRE, Hx Known/Suspected VRSA, History Other Infectious Disease - Family History Known Family History: Positive: Respiratory Disease - COPD, Blood Disorder - blood clots, Other - COPD Family History: FHx of anxiety, depression, OCD - Social History Occupation: Disabled Lives: With Family Alcohol Use: Occasionally Alcohol Amount: pt states occasional use of alcohol Hx Substance Use: No Substance Use Type: Reports: None Hx Tobacco Use: Yes Smoking Status (MU): Former Smoker Type: Cigarettes Amount Used/How Often: vapes Length of Time of Smoking/Using Tobacco: since age 13 Have You Smoked in the Last Year: Yes Review of Systems Negative: Fever, Chills Negative: Erythema Negative: Sore Throat Negative: Chest Pain Positive: Shortness Of Breath - Due to pain. Negative: Cough Negative: Abdominal Pain, Vomiting, Nausea Positive: flank pain - Right. Negative: dysuria, hematuria Positive: Arthralgia - Right hip, Myalgia - Right side of back, right flank, neck. Negative: Edema Negative: Rash Neurological: Other - Negative dizziness Negative: Syncope All Other Systems Reviewed And Are Negative: Yes Physical Exam - Summary Physical Exam Summary: Constitutional: Well-developed, Well-nourished, Alert, Cooperative Skin: Warm, Dry HENT: Normocephalic; No Racoons eyes; No joseph's sign; No abrasion; No contusion; No hemotympanum; No maxilla facial tenderness or instability; Dentition are smooth; No dental trauma; No trismus Eyes: EOM normal, PERRL Neck: Trachea is midline. No stridor; No JVD; No step off; No posterior cervical spine tenderness Cardio: Rhythm regular, rate normal Heart sounds normal; Intact distal pulses; The pedal pulses are 2+ and symmetric. Radial pulses are 2+ and symmetric. Pulmonary/Chest wall: Effort normal; Breath sounds normal; Equal chest rise; No flail segment; No rib tenderness; No sternal tenderness Abd: Soft, Appearance normal. No distension; No tenderness; No palpable pulsatile mass; No Cullens sign; No Koroma-Turners sign Musculoskeletal: Full ROM and no tenderness at hips, ankles, shoulders, elbows and knees; No joint swelling; No vertebral body tenderness; No paraspinal tenderness; No step off or deformity of the spine; Pelvis is stable to lateral compression and rock. 4/5 strength and symmetry in the bilateral LE, abrasion on the right elbow with full ROM of the elbow, no tenderness to the extremities , right flank tenderness, right LE tenderness, midline tenderness over the midline spine. Neuro: Alert, Oriented x3, Strength 5/5 all extremities. : No blood at urethral meatus Psych: Mood and affect Normal Triage Information Reviewed: Yes Vital Signs Reviewed: Yes - Yanci Coma Scale Best Eye Response: 4 - Spontaneous Best Motor Response: 6 - Obeys Commands Best Verbal Response: 5 - Oriented Coma Scale Total: 15 Procedures - Sedation Patient Received Moderate/Deep Sedation with Procedure: No Diagnostics - Laboratory Result Diagrams: 08/18/19 11:17 08/18/19 11:17 Lab Statement: Any lab studies that have been ordered have been reviewed, and results considered in the medical decision making process. - Radiology Chest X-ray Radiology Interpretation Completed By: Radiologist Summary of Radiographic Findings: Chest X-ray IMPRESSION: Minimally displaced right posterior 10th and 11th rib fractures. No pneumothorax. Reviewed by Dr. Murdock. - CT Brain CT CT Interpretation Completed By: Radiologist Summary of CT Findings: Brain CT IMPRESSION: No acute intracranial abnormality. Reviewed by Dr. Murdock. Chest/Abdomen/Pelvis CT CT Interpretation Completed By: Radiologist Summary of CT Findings: Chest/Abdomen/Pelvis CT IMPRESSION: 1. MILDLY DISPLACED POSTERIOR RIGHT 10TH AND 11TH RIB FRACTURES. NO PNEUMOTHORAX. 2. OLD LEFT LATERAL FIFTH RIB FRACTURE. 3. A NONDISPLACED FRACTURE THROUGH THE RIGHT 12TH COSTOVERTEBRAL JUNCTION. 4. MINIMALLY DISTRACTED FRACTURES THROUGH THE RIGHT L1 AND L2 TRANSVERSE PROCESSES. 5. NO VISCERAL INJURY IDENTIFIED. Reviewed by Dr. Murdock. Cervical Spine CT CT Interpretation Completed By: Radiologist Summary of CT Findings: Cervical Spine CT IMPRESSION: 1. No fracture or traumatic malalignment of the cervical spine. 2. Varying degrees of multilevel spondylosis does not result in severe osseous encroachment spinal canal. There is moderate right neural foraminal stenosis at C5-C6. Reviewed by Dr. Murdock. Lumbar Spine CT CT Interpretation Completed By: Radiologist Summary of CT Findings: Lumbar Spine CT IMPRESSION: 1. Minimally distracted right L1 and L2 transverse process fractures. 2. Nondisplaced fracture extending through the right 12th costovertebral junction. 3. Minimally displaced right posterior 10th and 11th rib fractures. 4. No severe osseous encroachment of the spinal canal or neural foramina. Reviewed by Dr. Murdock. Thoracic Spine CT CT Interpretation Completed By: Radiologist Summary of CT Findings: Thoracic Spine CT IMPRESSION: 1. No thoracic spine fracture or traumatic malalignment. 2. Minimally displaced right posterior 10th and 11th rib fractures. Reviewed by Dr. Murdock. - EKG 11:16 Cardiac Rate: NL - 83 BPM EKG Rhythm: Sinus Rhythm ST Segment: Normal Ectopy: None Summary of EKG Findings: EKG at 11:16 shows 83 BPM with normal sinus rhythm, no STEMI. Reviewed and interpreted by Dr. Murdock. Re-Evaluation - Re-Evaluation First Eval Re-Evaluation Time: 12:00 Change: Unchanged Comment: At 12:00, patient is still reporting 13/10 pain on high dose opiates. Patient suffered an acute injury. Will use low dose ketamine as a pain adjunct. Adult Trauma Course/Dx - Course Course Of Treatment: Patient is a 49 y/o F presenting to the ED via EMS for a chief complaint of right-side flank and back pain that occurred after a fall approximately one hour [employer]. She reports she went to walk her dog when she slipped on ice and fell down 3 concrete stairs at her house. Patient notes she fell on the right-side of the back and currently complains of neck pain, right flank pain, right-sided back pain, and right hip pain. After the fall, patient was able to crawl back into her house and was found in her house with her dog by EMS. She also notes shortness of breath due to the pain. She admits a possible head injury. Patient rates her current pain as 13/10 in severity and describes the pain as a stabbing and stinging sensation. Patient denies any fever, chills, erythema of eyes, sore throat, CP, cough, abdominal pain, N/V, dysuria, hematuria, edema, rash, syncope, or dizziness. She denies any aggravating or alleviating factors. She takes Xaralto for a PMHx of blood clots in the bilateral LE which she states was misdiagnosed, and 15 mg of morphine for a PMHx of chronic back pain that she last took the morning of 08/18/19. On exam, 4/5 strength and symmetry in the bilateral LE, abrasion on the right elbow with full ROM of the elbow, no tenderness to the extremities, right flank tenderness, right LE tenderness, midline tenderness over the midline spine. In the ED course, patient was given morphine 6 mg IV and Zofran 4 mg IV. Laboratory abnormal findings: MCH 32, MPV 7.3, INR 1.25, chloride 99, glucose 113. EKG at 11:16 shows 83 BPM with normal sinus rhythm, no STEMI. At 12:00, patient is still reporting 13/10 pain on high dose opiates. Patient suffered an acute injury. Will use low dose ketamine as a pain adjunct. Brain CT IMPRESSION : No acute intracranial abnormality. Chest/Abdomen/Pelvis CT IMPRESSION: 1. MILDLY DISPLACED POSTERIOR RIGHT 10TH AND 11TH RIB FRACTURES. NO PNEUMOTHORAX. 2. OLD LEFT LATERAL FIFTH RIB FRACTURE. 3. A NONDISPLACED FRACTURE THROUGH THE RIGHT 12TH COSTOVERTEBRAL JUNCTION. 4. MINIMALLY DISTRACTED FRACTURES THROUGH THE RIGHT L1 AND L2 TRANSVERSE PROCESSES. 5. NO VISCERAL INJURY IDENTIFIED. Chest X-ray IMPRESSION: Minimally displaced right posterior 10th and 11th rib fractures. No pneumothorax. Cervical Spine CT IMPRESSION: 1. No fracture or traumatic malalignment of the cervical spine. 2. Varying degrees of multilevel spondylosis does not result in severe osseous encroachment spinal canal. There is moderate right neural foraminal stenosis at C5-C6. Lumbar Spine CT IMPRESSION: 1. Minimally distracted right L1 and L2 transverse process fractures. 2. Nondisplaced fracture extending through the right 12th costovertebral junction. 3. Minimally displaced right posterior 10th and 11th rib fractures. 4. No severe osseous encroachment of the spinal canal or neural foramina. Thoracic Spine CT IMPRESSION: 1. No thoracic spine fracture or traumatic malalignment. 2. Minimally displaced right posterior 10th and 11th rib fractures. Patient will be transferred to [facility] with a diagnosis of rib fracture and lumbar spinal fracture for spinal surgery. Patient requires transfer to another facility as there are no available neurosurgeons on-call at [facility]. Patient requested to be transferred to [facility]. At 14:58, Dr. Delgado at [facility] agrees to accept the patient as a [id number] transfer to their service for a diagnosis of rib fracture and lumbar spinal fracture. The patient has been hemodynamically stable in the emergency department. Her pain has been difficult to control due to opiate tolerance and opiate dependence. Ketamine infusion is not currently available at our facility. EMS orders for continued pain medications were written. Patient will be transferred to [facility] with a diagnosis of rib fracture and lumbar spinal fracture. - Diagnoses Provider Diagnoses: Rib fracture, Fracture of lumbar spine - Physician Notifications Discussed Care Of Patient With: Cecilio Delgado MD - At 14:58, Dr. Kennedy at [facility] agrees to accept the patient as a [id number] transfer to their service for a diagnosis of rib fracture and lumbar spinal fracture. Time Discussed With Above Provider: 14:58 Instructed by Provider To: Transfer Discharge ED - Sign-Out/Discharge Documenting (check all that apply): Patient Departure - Transfer - Discharge Plan Condition: Stable Disposition: TRANS HIGHER LVL OF CARE FAC Referrals: Vinicio Angela MD [Primary Care Provider] - - Billing Disposition and Condition Condition: STABLE Disposition: Trans Higher Lvl of Care Fac - Attestation Statements Document Initiated by Scribe: Yes Documenting Scribe: Sylwia Jones Provider For Whom Scribe is Documenting (Include Credential): Yuan Murdock MD Scribe Attestation: Sylwia Duncan scribed for Yuan Murdock MD on 08/18/19 at 1458. Scribe Documentation Reviewed: Yes Provider Attestation: The documentation as recorded by the Sylwia jordan accurately reflects the service I personally performed and the decisions made by Yuan fine MD Status of Scribe Document: Viewed
[2019-08-18] MEDS ORDERED: Morphine 4 MG/ML VIAL (1 ml) 4 MG/ML VIAL IV ONE ×4 (11:09→16:21)
[2019-08-18] MEDS ORDERED: Ondansetron INJ* 2 MG/ML VIAL IV ONE (11:10)
[2019-08-18 11:24] LABS: ABS Eosinophils 0.2 10^3/ul (0-0.6); ABS Lymphocytes 1.4 10^3/ul (1.0-4.8); ABS Monocytes 0.6 10^3/ul (0-0.8); ABS Neutrophils 7.6 10^3/ul (1.5-7.7); Eosinophil % 2.1 %; Hematocrit 38 % (35-47); Hemoglobin 12.6 g/dL (12.0-16.0); Lymphocyte % 14.5 %; Mean Corpuscular HGB Conc 34 g/dL (31-36); Mean Corpuscular Hemoglobin 32 pg (27-31); Mean Corpuscular Volume 96 fL (80-97); Mean Platelet Volume 7.3 fL (7.4-10.4); Platelet Count 266 10^3/uL (150-450); Red Blood Count 3.94 10^6 /uL (3.70-4.87); Red Cell Distribution Width 13 % (10-15); White Blood Count 9.8 10^3/uL (3.5-10.8)
[2019-08-18 11:32] LABS: INR 1.25 (0.82-1.09)
[2019-08-18 11:40] LABS: Albumin 3.6 g/dL (3.2-5.2); Albumin/Globulin Ratio 1.1 (1-3); BUN/Creatinine Ratio 10.1 (8-20); Calcium 8.9 mg/dL (8.6-10.3); EGFR African American 93.6 (>60); EGFR Non-African American 77.4 (>60); Globulin 3.2 g/dL (2-4); Potassium 3.9 mmol/L (3.5-5.0); Total Bilirubin 0.4 mg/dL (0.2-1.0); Total Protein 6.8 g/dL (6.4-8.9)
[2019-08-18] MEDS ORDERED: Iodixanol* (CONTRAST) 320 MG/ML 100 ML SDV IV ONE (11:59)
[2019-08-18] MEDS ORDERED: KETAMINE HCL* 50 MG/ML 10 ML VIAL IV ONE (12:00)
[2019-08-18 15:09] VITALS: BP 114/68
[2019-08-18] MEDS ORDERED: hydrOXYzine HCL TAB* 50 MG PO ONE (17:11)
--- OUTSIDE RECORDS SUMMARY | 2019-08-20 16:01 | XMS REPORT | Summary of Care ---
:1970 Author Organization [facility] Address 1 [facility] [place] [address] Care Team Providers Name Role Phone Vinicio Angela Primary Care Provider Reason for Visit Reason Comments Follow Up pt presents for follow up Encounter Details Date Type Department Care Team Description 08/12/[address] [facility] Vinicio Angela MD Urge incontinence of urine (Primary Dx); Practice [address] [facility] BMI 33.0-33.9,adult; [address] [place] [address] Tobacco user; [place] [address] Type 2 diabetes mellitus without complication, without long-term current use of insulin (HCC); [phone] Depression; Alcoholism ([facility]); Chronic bilateral low back pain without sciatica; Nightmares; Pulmonary embolism, unspecified chronicity, unspecified pulmonary embolism type, unspecified whether acute cor pulmonale present ([facility]); Asteatotic eczema Allergies Active Allergy Reactions Severity Noted Date Comments Ketotifen Other 03/14/2019 Swollen lids, discharge Sulfacetamide Sodium Dermatologic Reaction 12/24/2018 Environmental Respiratory Reaction 11/25/2010 Gentamicin [employer]ER Reaction 11/08/2018 Eyes extremely itchy/crusty Olopatadine Other 03/14/2019 "made my eyes more infected" Astelin Other 11/19/2013 Itchy eyes Polymyxin B Swelling High 10/01/2015 Pt. Thinks she is allergic to it made her eyes worse Shell Fish 11/07/2007 documented as of this encounter (statuses as of 08/13/2019) Medications Medication Sig Dispensed Refills Start Date [...] current use of insulin strips ([facility]) Fluoxetine HCl 40 MG Take 3 [...] FOUR TIMES DAILY. 0.1-0.3 % Ophthalmic Solution gabapentin (NEURONTIN) Take 2 Caps by 60 Cap 5 01/16/2019 Active 300 MG Oral Cap mouth EVERY BEDTIME. Additional information Patient taking differently: 600 mg Oral QHS, 100mg 3 AM and 6 qhs, Reported on 05/16/2019 6:01 PM tretinoin (RETIN-A) 1 Appl by Topical 15 g 0 01/25/2019 Active 0.01 % Apply route EVERY externally Gel BEDTIME. fluticasone (FLONASE) USE 2 SPRAYS IN 16 g 5 02/07/2019 Active 50 MCG/ACT Nasal EACH NOSTRIL ONCE Suspension DAILY allopurinol Take 1 Tab by 30 Tab 4 02/07/2019 Active (ZYLOPRIM) 300 MG mouth DAILY. Oral Tab ferrous sulfate 325 Take 1 Tab by 30 Tab 5 02/07/2019 Active (65 Fe) MG Oral Tab mouth DAILY. hydrOXYzine HCL Take 1 Tab by 90 Tab 5 02/07/2019 Active (ATARAX) 25 MG Oral mouth EVERY EIGHT Tab HOURS NEEDED (itch). diphenoxylate-atropin Take 1 Tab by 60 Tab 1 03/01/2019 Active e (LOMOTIL) 2.5-0.025 mouth FOUR TIMES MG Oral Tab DAILY NEEDED for diarrhea. Max Daily Amount: 4 Tabs. cholestyramine Take 1 PKT by 30 Packet 0 04/16/2019 Active (QUESTRAN) 4 g Oral mouth TWICE Pack DAILY. Cholecalciferol Take 1 Cap by 90 Cap 3 05/15/2019 Active (VITAMIN D3) 2000 mouth DAILY. units Oral Cap clotrimazole 1 Appl by Topical 45 g 1 05/15/2019 Active (LOTRIMIN) 1 % Apply route TWICE externally Cream DAILY. To groin and toe nicotine transdermal Place 21 mg onto 0 Active patch-daily skin DAILY. (NICODERM) 21 MG/24HR Transdermal PATCH 24 HR ibuprofen (MOTRIN) Take 600 mg by 0 Active 600 MG Oral Tab mouth EVERY EIGHT HOURS NEEDED. albuterol HFA Take 2 Puffs by 1 Inhaler 5 05/31/2019 Active (VENTOLIN) 108 (90 inhalation EVERY Base) MCG/ACT FOUR HOURS Inhalation Aero Soln NEEDED (SOB). fexofenadine Take 1 Tab by 30 Tab 4 05/31/2019 Active (MIKIE) 180 MG Oral mouth DAILY. Tab Mometasone Take 2 INHL by 1 Inhaler 5 05/31/2019 Active Furo-Formoterol Fum inhalation TWICE (DULERA) 200-5 DAILY. MCG/ACT Inhalation Aerosol levothyroxine TAKE 1 TABLET BY 30 Tab 5 06/03/2019 Active (SYNTHROID) 25 MCG MOUTH EVERY DAY Oral TabIndications: BEFORE BREAKFAST Hypothyroidism, unspecified type XARELTO 20 MG Oral TAKE 1 TABLET BY 0 05/14/2019 Active Tab MOUTH EVERY DAY (START AFTER COMPLETING 15MG TWICE DAILY LOADING DOSE) rivaroxaban (XARELTO) Take 1 Tab by 30 Tab 1 06/03/2019 Active 20 MG Oral Tab mouth DAILY. magnesium oxide TAKE 1 TABLET BY 30 Tab 1 06/12/2019 Active (MAG-OX) 400 (241.3 MOUTH EVERY DAY Mg) MG Oral Tab clotrimazole Apply to feet 2 x 45 g 1 06/11/2019 Active (LOTRIMIN AF) 1 % a day Apply externally Cream Calcipotriene TOPICAL 1 Appl by Topical 60 g 5 07/05/2019 Active (DOVONEX) 0.005 % route TWICE Apply externally DAILY. Cream clobetasol (TEMOVATE) 1 Appl by Topical 45 g 0 07/05/2019 Active 0.05 % Apply route TWO TIMES externally Cream DAILY NEEDED (rash wrist). furosemide (LASIX) 20 Take 1 Tab by 15 Tab 0 07/11/2019 Active MG Oral Tab mouth EVERY OTHER DAY. morphine 15 MG Oral Take 1 Tab by 45 Tab 0 07/15/2019 Active Tab mouth THREE TIMES DAILY NEEDED (back pain). Max Daily Amount: 45 mg. halobetasol 1 application 2 x 50 g 0 07/15/2019 Active (ULTRAVATE) 0.05 % a day Apply externally Ointment metFORMIN Take 1 Tab by 60 Tab 3 07/22/2019 Active (GLUCOPHAGE) 500 MG mouth TWICE Oral Tab DAILY. calcium citrate Take 1 Tab by 90 Tab 1 07/25/2019 Active (CALCITRATE) 950 MG mouth DAILY. Oral Tab white petrolatum 1 Appl by Topical 100 g 1 07/26/2019 Active Apply externally route TWICE Ointment DAILY. Urea 40 % Apply 1 Appl by Apply 85 g 1 07/26/2019 Active externally Cream externally route TWICE DAILY. fluocinonide (LIDEX) 1 appl 2 x a day 30 g 0 07/26/2019 Active 0.05 % Apply externally Ointment Multiple Take 1 Tab by 30 Tab 5 07/31/2019 Active Vitamins-Iron mouth DAILY. (TAB-A-SERGEY/IRON) Oral Tab Oxybutynin Chloride Take 1 Tab by 30 Tab 5 08/12/2019 Active 15 MG Oral TABLET SR mouth DAILY. 24 HR prazosin (MINIPRESS) Take 1-2 Caps by 60 Cap 0 08/12/2019 Active 1 MG Oral Cap mouth EVERY BEDTIME. erythromycin Apply to eye qhs 1 g 0 08/12/2019 Active (ILOTYCIN) 5 MG/GM Ophthalmic Ointment clonazePAM (KLONOPIN) Take 1 Tab by 30 Tab 0 08/13/2019 Active 2 MG Oral Tab mouth THREE TIMES DAILY. Max Daily Amount: [address] Mendez has not sent it in clonazePAM (KLONOPIN) Take 1 Tab by 21 Tab 0 11/28/201808/13/ Discontinued 2 MG Oral Tab mouth THREE TIMES 2019 (Reorder) DAILY. Max Daily Amount: [address] Mendez or Ronaldo has not sent it in Oxybutynin Chloride Take 1 Tab by 30 Tab 5 02/07/201908/12/ Discontinued 15 MG Oral TABLET SR mouth DAILY. 2019 (Reorder) 24 HR prazosin (MINIPRESS) Take 1-2 Caps by 60 Cap 0 05/01/201908/12/ Discontinued 1 MG Oral Cap mouth EVERY 2019 (Reorder) BEDTIME. cephalexin (KEFLEX) Take 1 Cap by 30 Cap 0 07/26/2019 Discontinued 500 MG Oral Cap mouth THREE TIMES 2019 DAILY. Hospital, Clinic, or Other Ordered Dose Route Frequency Start Date End Date Status Facility Administered Medication miconazole (DESENEX) topical TOP BID 12/21/2016 Active powder 2 %Indications: Infected nail bed of toe documented as of this encounter (statuses as of 08/13/2019) Active Problems Problem Noted Date Asteatotic eczema 08/12/2019 Asthma-COPD overlap syndrome 06/01/2019 Alcoholism 06/01/2019 Type [...] as of this encounter (statuses as of 08/13/2019) Resolved Problems Problem Noted Date Resolved Date [...] as of this encounter (statuses as of 08/13/2019) Immunizations Name Administration Dates Next Due H1N1 [...] Sign Reading Time Taken Comments Blood Pressure 116/78 08/12/2019 4:10 PM EST Pulse 102 08/12/2019 4:10 PM EST Temperature - - Respiratory Rate - - Oxygen Saturation 99% 08/12/2019 4:10 PM EST Inhaled Oxygen Concentration - - Weight 93.4 kg (205 lb 12.8 oz) 08/12/2019 4:10 PM EST Height 167.6 cm (5' 6") 08/12/2019 4:10 PM EST Body Mass Index 33.22 08/12/2019 4:10 PM EST documented in this encounter Patient Instructions Patient InstructionsVinicio Angela MD - 08/12/2019 4:00 PM ESTThe oxybutynin is for urine The prazosin is for night terrors Call psychiatry about your clonopin refill documented in this encounter Progress Notes Vinicio Angela MD - 08/12/2019 4:00 PM EST PATIENT: Renae Lobo : 1970 DATE OF SERVICE: 08/12/2019 CHIEF COMPLAINT: Chief Complaint Patient presents with Follow Up pt presents for follow up Subjective HISTORY OF PRESENT ILLNESS: Renae Lobo is a 49-y.o. female. Patient is overly happy today- says not slept in 2 days . Has been having bad dreams . She used jose alfredo on minipress but appears not refilled in awhile I also see she saw cleaning custodian on her own and put her on prednisone which could make her manic In addition to the minipress she is having urine incontinence She denies having uti symptoms She has had this before. She should have ditropan refills but she did not know the name She is asking for klonopin refill she had an appointment with psychiatry today and missed it . Dr Mendez will be leaving soon and she not sure if reassigned . She is asking me to write the klonopin . She admits to drinking a lot. She said alcohol counselor marriage and family and CARs wont take her back. Not understandwhy She is not complaining of her hands now. She missed the derm appointment. However she asks for dose of emycin ointment for her eyes her CT chest came back as negative for PE She was not taking xarelto with her etoh Past Medical History: Diagnosis Date Allergic Rhinitis 11/07/2007 Seasonal allergies. 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 Asthma 05/11/2007 [place] Back pain spondylosis on xray BMI 36.0-36.9,adult Cataract Cystic acne 11/07/2007 Dr Farah Depression 11/07/[address] Jones Diabetes mellitus (HCC) Eczema Fatty liver 12/28/2009 CHRISTIE/metabolic syndrome GERD (gastroesophageal reflux disease) 11/07/2007 Rees prilose not work Glucose intolerance (impaired glucose tolerance) [...] 1 Appl by Topical route TWICE DAILY. calcium citrate (CALCITRATE) 950 MG Oral Tab Take 1 Tab by mouth DAILY. celeCOXIB (CELEBREX) 200 MG Oral Cap Take [...] Tab Take 1 Tab by mouth DAILY. fluocinonide (LIDEX) 0.05 % Apply externally Ointment 1 appl 2 x a day Fluoxetine HCl 40 MG Oral Cap Take [...] 45 mg. Multiple Vitamins-Iron (TAB-A-SERGEY/IRON) Oral Tab Take 1 Tab by mouth DAILY. mupirocin (BACTROBAN) 2 % Apply externally Ointment Apply three times daily to area on nose nicotine transdermal patch-daily (NICODERM) 21 MG/24HR Transdermal PATCH [address] 21 mg onto skin DAILY. Omeprazole delayed rel cap 20 MG Oral CAPSULE DELAYED RELEASE TAKE 1 CAPSULE BY MOUTH DAILY ONETOGEOVANNY GOMEZ Does not apply Misc 1 Each by [...] 1 Appl by Topical route EVERY BEDTIME. Urea 40 % Apply externally Cream 1 Appl by Apply externally route TWICE DAILY. white petrolatum Apply externally Ointment 1 Appl by Topical route TWICE DAILY. XARELTO 20 MG Oral Tab TAKE 1 TABLET BY MOUTH EVERY DAY (START AFTER COMPLETING 15MG TWICE DAILY LOADING DOSE) Current Facility-Administered Medications Medication miconazole (DESENEX) topical powder 2 % Allergies Allergen Reactions Polymyxin B Swelling Pt. Thinks she is allergic to it made her eyes worse Alaway [Ketotifen] Other Swollen lids, discharge Bleph-10 [Sulfacetamide Sodium] Dermatologic Reaction Environmental Respiratory Reaction Gentamycin [Gentamicin] [employer] Reaction Eyes extremely itchy/crusty Olopatadine Other "made [...] Vaping instead of smoking Drug use: No Sexual activity: Never Lifestyle Physical activity: Days per week: Not on file Minutes per session: Not on file Stress: Not on file Relationships Social connections: Talks on phone: Not on file Gets together: Not on file Attends gnosticist service: Not on file Active member of [...] Asked Social History Narrative Lives alone in [place], unemployed. REVIEW OF SYSTEMS: ROS Objective PHYSICAL EXAM: VITALS: BP 116/78 (BP Location: Left arm, Patient Position: Sitting) | Pulse 102 | Ht 5' 6" (1.676 m) | Wt 205 lb 12.8 oz (93.4 kg) | SpO2 99% | BMI 33.22 kg/m Body mass index is 33.22 kg/m. Physical Exam Vitals signs reviewed. Constitutional: Appearance: She is obese. She is not ill-appearing. Comments: I cant begin to describe behavior , begins the visit by singing me 2 songs , ends the visit by shaking hands and wont let go Eyes: Comments: Normal Cardiovascular: Rate and Rhythm: Normal rate and regular rhythm. Pulmonary: Effort: Pulmonary effort is normal. No respiratory distress. Abdominal: General: There is no distension. Skin: Comments: Hands skin dry but not as cracked as prior ASSESSMENT / IMPRESSION: ICD-9-CM ICD-10-CM 1. Urge incontinence of urine refill ditropan also stop etoh 788.31 N39.41 2. BMI 33.0-33.9,adult This patient's BMI has been calculated and is above average, and BMI management plan is completed. General patient education discussion including: weight loss link to reductionof risk factors for cardiac and other diseases, importance of long-term maintenance treatment in weight loss , and accomplish with exercise as tolerated and diet control V85.33 Z68.33 3. Tobacco user Ready to quit: No Counseling given: Yes 305.1 Z72.0 4. Type 2 diabetes mellitus without complication, without long-term current use of insulin (HCC) I dont think the prednisone was a good idea for her hands 250.00 E11.9 5. Depression and anxiety I dont want to break her contract with psychiatry for klonopin because then she will never go back and I will have to write amberpin rest of her life. She already appears [place] with alcohol [place] etc 300.4 F34.1 6. Alcoholism ([facility]) will call the counceil and find out why they wont see her 303.90 F10.20 7. Chronic bilateral low back pain without sciatica she not abuse the prn morphine 724.2 M54.5 338.29 G89.29 8. Nightmares refill minipress 307.47 F51.5 9. Pulmonary embolism, unspecified chronicity, unspecified pulmonary embolism type, unspecified whether acute cor pulmonale present (HCC) I think false + Stop xarelto Not taking it anyway. She wantsfollow up d dimer and CT scan I26.99 10. Asteatotic eczema 706.8 L30.8 Plan Author: Vinicio Angela MD 08/12/2019 16:36 documented in this encounter Plan of Treatment Date Type Specialty Care Team Description 12/18/2019 Ancillary Procedure Radiology 12/23/2019 Office Visit General Surgery Constance Berrios MD [address] [place] [address] 04/21/2020 Ocular Visit Optometry Dalton Davian, OD [address] [place] [address] [phone] Health Maintenance Due Date Last Done Comments [...] exists Diabetic Eye Exam 04/18/2021 04/18/2019, 04/18/2019, 04/18/2019, Additional history exists PNEUMOCOCCAL 0-64 YRS Completed [...] better. Weight loss vs. 18 mo Lifestyle 28.2 (08/12/2019 4:10 PM No Vinicio Angela MD max (lbs) >= 10 EST) Note: This is an individualized lifestyle goal [...] filedocumented in this encounter Visit Diagnoses Diagnosis Urge incontinence of urine - Primary Urge incontinence BMI 33.0-33.9,adult Body Mass Index 33.0-33.9, adult Tobacco user Tobacco use disorder Type 2 diabetes mellitus without complication, without long-term current use of insulin (HCC) Depression Dysthymic disorder Alcoholism (HCC) Other and unspecified alcohol dependence, unspecified drinking behavior Chronic bilateral low back pain without sciatica Nightmares Other dysfunctions of sleep stages or arousal from sleep Pulmonary embolism, unspecified chronicity, unspecified pulmonary embolism type , unspecified whether acute cor pulmonale present (HCC) Asteatotic eczema Other specified disease of sebaceous glands documented in this encounter Guarantor Name Account Type Relation to Date of Phone Billing Address Patient Renae Lobo Personal/Famil 1970 [address] (Home) [facility] [phone] [place] [address] (Work) [place] [id number] documented as of this encounter
--- OUTSIDE RECORDS SUMMARY | 2019-08-20 16:01 | XMS REPORT | Continuity of Care Document ---
:1970 External Reference #:[id number] Author Name Eduardo Ordonez MD Address [address] [facility] [address] [place] [address] Care Team Providers Name Role Phone Vinicio Angela MD - Family Medicine Care Team Information Composition Molder Problems Active Problems Provider Date Pure hypercholesterolemia Eduardo Ordonez MD Onset: 08/02/2019 Atopic dermatitis Eduardo Ordonez MD Onset: 08/02/2019 Social History Type Date Description Comments Sex Unknown Tobacco Use Start: Unknown Second Hand Smoke Exposure Patient uses a vape. In The Home Tobacco Use Start: Unknown End: Patient is a former smoker recently switched to Unknown vaping Smoking Status Reviewed: 08/02/19 Patient is a former smoker recently switched to vaping Allergies, Adverse Reactions, Alerts Description No Information Available Medications Active Medications SIG Qnty Indications Ordering Provider Date Prednisone 6 tablets (30 30tabs L20.9 Christopher A. 5mg Tablets mg) po daily x MD José Luis 9 5 days Amoxicillin/Clavulanate take one tablet 20tabs L20.9 Christopher A. Potassium by mouth twice MD José Luis 9 875-125mg Tablets a day x10 days Prevacid take 1 capsule 30caps L20.9 Christopher A. 30mg Capsules DR (30 mg) by MD José Luis 9 mouth once a day Elocon apply to 45gm L20.9 Christopher A. 0.1% Ointment affected areas MD José Luis 9 twice a day as needed Cetirizine HCL take one tablet 30tabs L20.9 Christopher A. 10mg Tablets po daily prn MD José Luis 9 Azelastine HCL 1 drop each eye 6ml L20.9 Eduardo Alonzo (Ophthalmic) twice a day as MD José Luis 9 0.05% Solution needed Rosuvastatin Calcium Take 1 Tablet Unknown 20mg By Mouth Every 0 Tablets Day Allopurinol Take 1 Tablet Unknown 300mg Tablets By Mouth Every 0 Day Ferrous Sulfate Take 1 Tablet Unknown 325(65Fe) mg By Mouth Every 0 Tablets Day Fluticasone Propionate Cumming 2 Sprays Unknown Into Each 0 50mcg/Act Suspension Nostril Every Day Ibuprofen Take 1 Tablet Unknown 600mg Tablets By Mouth Every 0 8 Hours as Needed For Moderate Pain Nicotine Apply 1 Patch Unknown 21mg/24HR Patches 24HR Daily AT 8Am 0 Omeprazole Take 1 Capsule Unknown 20mg Capsules DR By Mouth Daily 0 Oxybutynin Chloride ER Take 1 Tablet Unknown 15mg By Mouth Every 0 Tablets ER 24HR Day Clindamycin HCL Take 1 Capsule Unknown 300mg Capsules By Mouth Twice 0 A Day Dulera Inhale 2 Puffs Unknown 200-5mcg/Act Aerosol By Mouth Twice 0 A Day Albuterol Sulfate HFA Inhale 2 Puffs Unknown By Mouth Every 0 108(90Base) mcg/Act 4 Hours as Aerosol Needed For Shortness Of Breath Triamcinolone Acetonide Apply To Wrists Unknown 0.1% Twice A Day 0 Cream Wixela Inhub Inhale 1 Dose Unknown 250-50mcg/Dose By Mouth Twice 0 Aerosol Daily. Rinse Mouth After Use Hydroxyzine HCL Take 1 Tablet Unknown 25mg Tablets By Mouth Every 0 8 Hours as Needed For Itch Citalopram Hydrobromide Take 1 Tablet Unknown 20mg By Mouth Every 0 Tablets Day Prazosin HCL Take 1-2 Unknown 1mg Capsules Capsules By 0 Mouth Every Night AT Bedtime. Diphenoxylate-Atropine Take 1 Tablet Unknown By Mouth 4 0 2.5-0.025mg Tablets Times A Day as Needed For Diarrhea Tretinoin Apply To Face Unknown 0.1% Cream Every Day 0 Metronidazole Take 1 Tablet Unknown 500mg Tablets By Mouth Twice 0 A Day Fluconazole Take 1 Tablet Unknown 150mg Tablets By Mouth Every 0 Day Cholestyramine Take 1 Packet Unknown 4gm Packet By Mouth Twice 0 Daily. Medroxyprogesterone Take 1/2 Tablet Unknown Acetate By Mouth Every 0 10mg Tablets Day Olopatadine HCL Place 1 Drop Unknown 0.2% Solution Into The 0 Affteced Eye(S) Once Daily Sulfamethoxazole/Trimetho Take 1 Tablet Unknown prim DS By Mouth Twice 0 800-160mg Tablets A Day Sulfacetamide Sodium Place 2 Drops Unknown 10% In Both Eyes 4 0 Solution Times Daily. Calcipotriene Vinicio Angela MD 0.005% Cream 0 Daily-[place]ash[place]/Iron/Beta-Sharpe Vinicio Angela MD tene 0 Tablets Cephalexin Take 1 Capsule Unknown 500mg Capsules By Mouth Three 0 Times A Day Fluocinonide Apply To Unknown 0.05% Ointment Affected Area 0 Twice A Day Urea Apply To Unknown 40% Cream Affected Area 0 Twice A Day Calcitrate Take 1 Tablet Unknown 950mg Tablets By Mouth Every 0 Day Metformin HCL Take 1 Tablet Unknown 500mg Tablets By Mouth Twice 0 A Day Levothyroxine Sodium Take 1 Tablet Unknown 25mcg By Mouth Every 0 Tablets Day Before Breakfast Trazodone HCL Take 2 Tablets Unknown 100mg Tablets By Mouth Every 0 Night AT Bedtime as Needed Prednisone Take 1 Tablet Unknown 50mg Tablets By Mouth Daily 0 Gabapentin Take 2 Capsules Unknown 300mg Capsules By Mouth Every 0 Day AT Bedtime Gabapentin Take 1 Capsule Unknown 100mg Capsules By Mouth Three 0 Times A Day Fluoxetine HCL Take 3 Capsules Unknown 40mg Capsules By Mouth In The 0 Morning Clotrimazole Apply To Unknown 1% Cream Affected Area 0 Twice A Day Clonidine HCL Take 1 To 2 Unknown 0.1mg Tablets Tablets By 0 Mouth Daily Clonazepam Take 1 Tablet Unknown 2mg Tablets By Mouth 3 0 Times Daily Cetirizine HCL Take 1 Tablet Unknown 10mg Tablets By Mouth Every [address] 1 Drop In Unknown 0.025% Solution Affected Eye(S) 0 4 Times A Day Halobetasol Propionate Apply To Unknown 0.05% Affected Area 0 Ointment Twice A Day Morphine Sulfate Take 1 Tablet Unknown 15mg Tablets By Mouth 3 0 Times A Day as Needed For Back Pain Fexofenadine HCL Take 1 Tablet Unknown 180mg Tablets By Mouth Every 0 Day Furosemide Take 1 Tablet Unknown 20mg Tablets By Mouth Every 0 Other Day Xarelto Take 1 Tablet Unknown 20mg Tablets By Mouth Every 0 Day Mupirocin Apply To Unknown 2% Ointment Affected Area 0 Twice A Day Clobetasol Propionate Apply To Unknown Emollient Affected Area 0 0.05% Cream On Wrist Twice A Day as Needed Immunizations Description No Information Available Vital Signs Description No Information Available Results Description No Information Available Procedures Description No Information Available Medical Devices Description No Information Available Encounters Type Date Location Provider Dx Diagnosis Office Visit 08/02/2019 [place] Eduardo Ordonez, L20.9 Atopic dermatitis, 2:00p unspecified Assessments Date Code Description Provider 08/02/2019 L20.9 Atopic dermatitis, unspecified Eduardo Ordonez MD Plan of Treatment Future Appointment(s):08/21/2019 2:30 pm - [place] [id number]/02/2019 - Eduardo Ordonez MDL20.9 Atopic dermatitis, unspecifiedNew Medication: Prednisone 5 mg - 6 tablets (30 mg) po daily x 5 daysAmoxicillin/Clavulanate Potassium 875-125 mg - take one tablet by mouth twice a day x10 daysPrevacid 30 mg - take 1 capsule (30 mg) by mouth once a dayElocon 0.1 % - apply to affected areas twice a day as neededCetirizine HCL 10 mg - take one tablet po daily prnAzelastine HCL (Ophthalmic) 0.05 % - 1 drop each eye twice a day as needed Functional Status Description No Information Available Mental Status Description No Information Available Referrals Description No Information Available
--- OUTSIDE RECORDS SUMMARY | 2019-08-20 16:01 | XMS REPORT | Summary of Care ---
:1970 Author Organization [facility] Address [address] [place] [address] Care Team Providers Name Role Phone Vinicio Angela MD Primary Care Provider Reason for Visit Reason Comments Dental Routine Exam Encounter Details Date Type Department Care Team Description 08/08/2019 Office Visit [facility] Jessy Jones Encounter for dental examination and cleaning with abnormal findings (Primary Dx); Center, Division of [address] [place] [address] Dental plaque; Dentistry [address] Dental caries [address] [place] [address] [address] [address], [address] [place] [address] Allergies Active Allergy Reactions Severity Noted Date Comments Hydromorphone Hcl Nausea Only 06/06/2012 Pt. States she cannot take this, Latex Itching, Other (See 06/06/2012 "breakouts" Comments) Other 06/06/2012 Non-specified animals Polymyxin B Swelling High 01/27/2016 Pt. Thinks she is allergic to it made her eyes worse Shellfish-Derived 06/06/2012 Type, reaction Products unknown documented as of this encounter (statuses as of 08/09/2019) Medications Medication Sig Dispensed Refills Start Date End Date Status Fexofenadine HCl (MIKIE Take by mouth. 0 06/06/2012 Active PO) Atorvastatin Calcium Take by mouth. 0 06/06/2012 Active (LIPITOR PO) FLUoxetine HCl (PROZAC Take by mouth. 0 06/06/2012 Active PO) Multiple Vitamin Take 1 tablet 0 06/06/2012 Active (MULTIVITAMIN) tablet by mouth daily. Omeprazole (PRILOSEC PO) Take by mouth. 0 06/06/2012 Active Gabapentin (NEURONTIN PO) Take by mouth. 0 06/06/2012 Active trazodone (DESYREL) 100 Take 100 mg by 0 Active MG tablet mouth nightly. sulfacetamide (BLEPH-10) 1 drop every 3 0 Active 10 % ophthalmic solution (three) hours. levothyroxine (SYNTHROID, Take 25 mcg by 0 Active LEVOTHROID) 25 MCG tablet mouth daily. Qufalqwofap-KOLI-Lfaffoy Take by mouth. 0 Active Prod (NCGJPKNTAON-XXSI-KVSPDC SUPP) 10-325 MG MISC Fluticasone-Salmeterol Inhale into 0 Active (ADVAIR DISKUS) 250-50 the lungs. MCG/DOSE AEPB clonidine (CATAPRES) 0.1 Take 0.1 mg by 0 Active MG tablet mouth 2 (two) times daily. albuterol (PROVENTIL Inhale 2 puffs 0 Active HFA;VENTOLIN HFA) 108 (90 into the lungs BASE) MCG/ACT inhaler every 6 (six) hours as needed. amitriptyline (ELAVIL) 10 Take 10 mg by 0 Active MG tablet mouth nightly. azelastine (OPTIVAR) 0.05 1 drop 2 (two) 0 Active % ophthalmic solution times daily. calcium citrate Take 1 tablet 0 Active (CALCITRATE) 950 MG by mouth daily. tablet Cholecalciferol (VITAMIN Take by mouth. 0 Active D3) 2000 UNITS TABS clonazepam (KLONOPIN) 2 Take 2 mg by 0 Active MG tablet mouth 2 (two) times daily as needed. cyclobenzaprine Take 10 mg by 0 Active (FLEXERIL) 10 MG tablet mouth 3 (three) times daily as needed. dicyclomine (BENTYL) 20 Take 20 mg by 0 Active MG tablet mouth every 6 (six) hours. citalopram (CELEXA) 20 MG Take 20 mg by 0 Active tablet mouth daily. metformin (GLUCOPHAGE) Take 500 mg by 0 Active 500 MG tablet mouth Two times daily with meals. morphine (MSIR) 30 MG Take 30 mg by 0 01/08/2016 Active tablet mouth. allopurinol (ZYLOPRIM) TAKE 1 TABLET 0 01/04/2018 Active 300 MG tablet BY MOUTH DAILY cephALEXin (KEFLEX) 500 Take 500 mg by 0 Active MG capsule mouth Four times daily documented as of this encounter (statuses as of 08/09/2019) Active Problems Problem Noted Date Chest pain 06/09/2019 SOB (shortness of breath) 06/09/2019 BMI 36.0-36.9,adult 05/25/2017 Overview: Overview: This patient's BMI This patient's BMI has been calculated and is above average , and BMI management plan is completed. General patient education discussion including: weight loss link to reduction of r isk factors for cardiac and other diseases, importance of long-term maintenance treatment in weight loss, and accomplish with exercise as tolerated and diet control Lateral epicondylitis, right elbow 02/24/2016 Bilateral low back pain without sciatica 12/02/2015 Diabetes 12/18/2013 Environmental allergies 02/20/2013 Caries 10/03/2012 Dental caries 08/22/2012 Hay fever 06/06/2012 Hypothyroidism 10/15/2011 BMI 33.0-33.9,adult 04/05/2011 Overview: Overview: This patient's BMI has been calculated and is above average, and BMI management plan is completed. General patient education discussion including: weight loss link to reduction of risk factors for car diac and other diseases and is managed by exercise. Tobacco user 04/05/2011 Fatty liver 12/28/2009 IBS (irritable bowel syndrome) 12/28/2009 Allergic rhinitis 11/07/2007 Overview: Overview: Seasonal allergies. Dysthymic disorder 11/07/2007 GERD (gastroesophageal reflux disease) 11/07/2007 Mixed hyperlipidemia 11/07/2007 Asthma 05/11/2007 Leg swelling documented as of this encounter (statuses as of 08/09/2019) Social History Tobacco Use Types Packs/Day Years Used Date Current Every Day Smoker 1.5 18 Smokeless Tobacco: Former User Comments: SD QUITS Alcohol Use Drinks/Week oz/Week Comments No Sex Assigned at Date Recorded Not on file Job Start Date Occupation Industry Not on file Not on file Not on file Travel History Travel Start Travel End No recent travel history available. documented as of this encounter Last Filed Vital Signs Not on filedocumented in this encounter Progress Notes Stanton Ordonez, DDS - 08/08/2019 11:30 AM MARISELA have reviewed the notes, assessments, and procedures performed by Dr. Loco and Jessy oJnes, [facility] and I concur with the documentation of Renae Lobo. General supervision was provided throughout the procedure. Bishnu Cramer DDS - 08/08/2019 11:30 AM ESTOral Examination: lips; labial mucosa; buccal mucosa; hard & soft palate; tongue; floor of mouth; oral pharynx; and , gingiva all with in normal limits. Patient's dentition is heavily restored. Occlusal caries noted on tooth #19; will plan for scientologist. TMJ & OCS: Patient presents with no pain on palpation or opening; normal range of motion associated with TMJ function. Oral cancer screening negative. Radiographs: BWs x 4 taken; interproximal caries noted: #31 MO (will plan for scientologist) #30 MO (will plan for scientologist) #29 MO (limited to enamel, will monitor) #28 DO (limited to enamel, will monitor) #20 DO (will plan for scientologist) Oral Hygiene: recommended brushing, flossing and use of OTC fluoride rinse a minimum of 2x per day, ideally after first meal and prior to bed. Treatment Plan: #19 O #20 DO #31 MO #30 MO RTC: as needed for dental problems/pain, or as scheduled for procedures and recare. Jessy Leon - 08/08/2019 11:30 AM ESTDental Hygiene Progress Note 1. Soft Tissue: Slightly inflamed 2. Periodontal Condition: Gingivitis, Plaque- heavy 3. Bleeding: little bleeding 4. Patient Brushes: 1-2 times per day 5. Flossin-1 times per day 6. Mouthwash: 0-1 times per day 7. Calculus: slight buildup 8. Dental Recall: 6 months 9. Patient uses: regular toothbrush, mouthwash, floss 10. Stain: Slight: coffee, tobacco, soda 11. Preferred drinks: Water, Regular Soda, Coffee and Juice 12. Patient took premedication for: none 13. Smoker: yes 14. Habit: none 15. Overall Hygiene: poor The services provided today were/was: polished flossed reinforced oral hygiene X-rays - Bitewings x4 hand scaled The patient is present at today's appointment with friend. NV: prestos documented in this encounter Plan of Treatment Date Type Specialty Care Team Description 08/21/2019 Office Visit Dentistry Abdiel Dumas, DDS [address] [place] [address] [phone] 10/02/2019 Office Visit Dentistry Abdiel Dumas, DDS [address] [place], [place] [id number] 02/12/2020 Office Visit Dentistry Jessy Jones [address] [facility] [address] [place] [address] [phone] Health Maintenance Due Date Last Done Comments MMR Vaccines (1 of 1 - 1971 Standard series) Pneumococcal Vaccine: 1976 Pediatrics (0 to 5 Years) and At-Risk Patients (6 to 64 Years) (1 of 1 - PPSV23) HIV Screening 1983 Varicella Vaccines (1 of 2 1983 - 13+ 2-dose series) Cervical Cancer Screening 5 1991 years DTaP,Tdap,and Td Vaccines 02/04/2016 01/07/2016 (2 - Td) Hepatitis B Vaccines (2 of 06/09/2017 05/12/2017 3 - Hep B Twinrix risk 3-dose series) Influenza Vaccine 06/18/2019 Dental Oral Exam 02/06/2020 08/08/2019, 12/07/2018, 05/30/2018, Additional history exists Dental Prophylaxis 02/06/2020 08/08/2019, 12/07/2018, 05/30/2018, Additional history exists Dental X-Ray: Bitewings 08/08/2020 08/08/2019, 05/30/2018, 04/18/2017 Dental X-Ray: Full Mouth or 11/22/2020 11/22/2017 Panorex Pneumococcal Vaccine: 65+ 2035 Years (1 of 2 - PCV13) Hepatitis A Vaccines Aged Out 05/12/2017 No longer eligible based on patient's age to complete this topic HIB Vaccines Aged Out No longer eligible based on patient's age to complete this topic IPV Vaccines Aged Out No longer eligible based on patient's age to complete this topic documented as of this encounter Procedures Procedure Name Priority Date/Time Associated Diagnosis Comments AL DENTAL BITEWINGS 08/08/2019 11:30 AM Encounter for dental FOUR FILMS EST examination and cleaning with abnormal findings Encounter for dental examination and cleaning with abnormal findings Encounter for dental examination and cleaning with abnormal findings AL DENTAL PROPHYLAXIS 08/08/2019 11:30 AM Encounter for dental ADULT EST examination and cleaning with abnormal findings Encounter for dental examination and cleaning with abnormal findings Encounter for dental examination and cleaning with abnormal findings AL PERIODIC ORAL 08/08/2019 11:30 AM Encounter for dental EVALUATION EST examination and cleaning with abnormal findings Encounter for dental examination and cleaning with abnormal findings Encounter for dental examination and cleaning with abnormal findings documented in this encounter Results Not on filedocumented in this encounter Visit Diagnoses Diagnosis Encounter for dental examination and cleaning with abnormal findings - Primary Dental plaque Accretions on teeth Dental caries Unspecified dental caries documented in this encounter
--- OUTSIDE RECORDS SUMMARY | 2019-08-20 16:02 | XMS REPORT | Summary of Care ---
:1970 Author Organization [facility] Address [address] [facility] [place] [address] Care Team Providers Name Role Phone Vinicio Angela Primary Care Provider Reason for Referral MRI/CAT/PET Scan (Routine) Status Reason Specialty Diagnoses / Referred By Referred To Procedures Contact Contact Pending Review Diagnoses Other pulmonary embolism without acute cor pulmonale, unspecified chronicity ( HCC) Vinicio Angela MD Procedures CT CHEST PULMONARY ARTERY EMBOLUS [address] [place] [address] Reason for Visit Reason Comments Follow Up pt presents for follow up Encounter Details Date Type Department Care Team Description 07/26/2019 Office Visit [facility] Vinicio Angela MD Asteatotic eczema (Primary Dx); Practice [address] [facility] Other pulmonary embolism without acute cor pulmonale, unspecified chronicity ( HCC); [address] [place] [address] Tobacco user; [place] [address] Alcoholism (HCC); [phone] Peripheral edema Allergies Active Allergy Reactions Severity Noted Date Comments Ketotifen Other 03/14/2019 Swollen lids, discharge Sulfacetamide Sodium Dermatologic Reaction 12/24/2018 Environmental Respiratory Reaction 11/25/2010 Gentamicin LDR RN Reaction 11/08/2018 Eyes extremely itchy/crusty Olopatadine Other 03/14/2019 "made my eyes more infected" Astelin Other 11/19/2013 Itchy eyes Polymyxin B Swelling High 10/01/2015 Pt. Thinks she is allergic to it made her eyes worse Shell Fish 11/07/2007 documented as of this encounter (statuses as of 07/27/2019) Medications Medication Sig Dispensed Refills Start Date [...] Freestyle test current use of insulin strips ([facility]) Fluoxetine HCl 40 MG Take 3 Caps [...] g 0 01/25/2019 Active 0.01 % Apply externally route EVERY Gel BEDTIME. fluticasone (FLONASE) USE 2 SPRAYS IN 16 g 5 02/07/2019 Active 50 MCG/ACT Nasal EACH NOSTRIL ONCE Suspension DAILY allopurinol (ZYLOPRIM) Take 1 Tab by mouth 30 Tab 4 02/07/2019 Active 300 MG Oral Tab DAILY. ferrous sulfate 325 (65 Take 1 Tab by mouth 30 Tab 5 02/07/2019 Active Fe) MG Oral Tab DAILY. hydrOXYzine HCL Take 1 Tab by mouth 90 Tab 5 02/07/2019 Active (ATARAX) 25 MG Oral Tab EVERY EIGHT HOURS NEEDED (itch). Oxybutynin Chloride 15 Take 1 Tab by mouth 30 Tab 5 02/07/2019 Active MG Oral TABLET SR 24 HR DAILY. diphenoxylate-atropine Take 1 Tab by mouth 60 Tab 1 03/01/2019 Active (LOMOTIL) 2.5-0.025 MG FOUR TIMES DAILY Oral Tab NEEDED for diarrhea. Max Daily Amount: 4 Tabs. Multiple Vitamins-Iron TAKE 1 TABLET BY 30 Tab 5 04/16/2019 Active (TAB-A-SERGEY/IRON) Oral MOUTH EVERY DAY Tab cholestyramine Take 1 PKT by mouth 30 Packet 0 04/16/2019 Active (QUESTRAN) 4 g Oral TWICE DAILY. Pack prazosin (MINIPRESS) 1 Take 1-2 Caps by 60 Cap 0 05/01/2019 Active MG Oral Cap mouth EVERY BEDTIME. Cholecalciferol Take 1 Cap by mouth 90 Cap 3 05/15/2019 Active (VITAMIN D3) 2000 units DAILY. Oral Cap clotrimazole (LOTRIMIN) 1 Appl by Topical 45 g 1 05/15/2019 Active 1 % Apply externally route TWICE DAILY. Cream To groin and toe nicotine transdermal Place [...] (SOB). fexofenadine (MIKIE) Take 1 Tab by mouth 30 Tab 4 05/31/2019 Active 180 MG Oral Tab DAILY. Mometasone Take 2 INHL by 1 Inhaler 5 05/31/2019 Active Furo-Formoterol Fum inhalation TWICE (DULERA) 200-5 MCG/ACT DAILY. Inhalation Aerosol levothyroxine TAKE 1 TABLET BY 30 Tab 5 06/03/2019 Active (SYNTHROID) 25 MCG Oral MOUTH EVERY DAY TabIndications: BEFORE BREAKFAST Hypothyroidism, unspecified type XARELTO 20 MG Oral Tab TAKE 1 TABLET BY 0 05/14/2019 Active MOUTH EVERY DAY (START AFTER COMPLETING 15MG TWICE DAILY LOADING DOSE) rivaroxaban (XARELTO) Take 1 Tab by mouth 30 Tab 1 06/03/2019 Active 20 MG Oral Tab DAILY. magnesium oxide TAKE 1 TABLET BY 30 Tab 1 06/12/2019 Active (MAG-OX) 400 (241.3 Mg) MOUTH EVERY DAY MG Oral Tab clotrimazole (LOTRIMIN Apply to feet 2 x a 45 g 1 06/11/2019 Active AF) 1 % Apply day externally Cream Calcipotriene TOPICAL 1 Appl by Topical 60 g 5 07/05/2019 Active (DOVONEX) 0.005 % Apply route TWICE DAILY. externally Cream clobetasol (TEMOVATE) 1 Appl by Topical 45 g 0 07/05/2019 Active 0.05 % Apply externally route TWO TIMES Cream DAILY NEEDED (rash wrist). furosemide (LASIX) 20 Take 1 Tab by mouth 15 Tab 0 07/11/2019 Active MG Oral Tab EVERY OTHER DAY. morphine 15 MG Oral Tab Take 1 Tab by mouth 45 Tab 0 07/15/2019 Active THREE TIMES DAILY NEEDED (back pain). Max Daily Amount: 45 mg. halobetasol (ULTRAVATE) 1 application 2 x a 50 g 0 07/15/2019 Active 0.05 % Apply externally day Ointment metFORMIN (GLUCOPHAGE) Take 1 Tab by mouth 60 Tab 3 07/22/2019 Active 500 MG Oral Tab TWICE DAILY. calcium citrate Take 1 Tab by mouth 90 Tab 1 07/25/2019 Active (CALCITRATE) 950 MG DAILY. Oral Tab white petrolatum Apply 1 Appl by Topical 100 g 1 07/26/2019 Active externally Ointment route TWICE DAILY. Urea 40 % Apply 1 Appl by Apply 85 g 1 07/26/2019 Active externally Cream externally route TWICE DAILY. fluocinonide (LIDEX) 1 appl 2 x a day 30 g 0 07/26/2019 Active 0.05 % Apply externally Ointment cephalexin (KEFLEX) 500 Take 1 Cap by mouth 30 Cap 0 07/26/2019 Active MG Oral Cap THREE TIMES DAILY. triamcinolone Apply to wrists 2 x 45 g 0 06/25/2019 Discontinued (KENALOG,ARISTOCORT) a day 019 0.1 % Apply externally Cream cephalexin (KEFLEX) 500 Take 1 Cap by mouth 21 Cap 0 07/05/2019 Discontinued MG Oral Cap THREE TIMES DAILY. 019 Hospital, Clinic, or Other Ordered Dose Route Frequency Start Date End Date Status Facility Administered Medication miconazole (DESENEX) topical TOP BID 12/21/2016 Active powder 2 %Indications: Infected nail bed of toe documented as of this encounter (statuses as of 07/27/2019) Active Problems Problem Noted Date Asthma-COPD overlap [...] as of this encounter (statuses as of 07/27/2019) Resolved Problems Problem Noted Date Resolved Date [...] as of this encounter (statuses as of 07/27/2019) Immunizations Name Administration Dates Next Due H1N1 [...] Sign Reading Time Taken Comments Blood Pressure 108/64 07/26/2019 3:12 PM EST Pulse 101 07/26/2019 3:12 PM EST Temperature 36.7 07/26/2019 3:12 PM EST C (98.1 F) Respiratory Rate - - Oxygen Saturation 95% 07/26/2019 3:12 PM EST Inhaled Oxygen Concentration - - Weight 96.2 kg (212 lb) 07/26/2019 3:12 PM EST Height 167.6 cm (5' 6") 07/26/2019 3:12 PM EST Body Mass Index 34.22 07/26/2019 3:12 PM EST documented in this encounter Patient Instructions Patient InstructionsVinicio Angela MD - 07/26/2019 3:00 PM ESTDo not picker operator the triamcinolone cream You need an ointment\\ 1st put on the lidex ointment Let it soak in, then put on carmol (urea) Followed by petrolatum then cover with saran wrap if possible documented in this encounter Progress Notes Vinicio Angela MD - 07/26/2019 3:00 PM EST PATIENT: Renae Lobo : 1970 DATE OF SERVICE: 07/26/2019 CHIEF COMPLAINT: Chief Complaint Patient presents with Follow Up pt presents for follow up Subjective HISTORY OF PRESENT ILLNESS: Renae Lobo is a 49-y.o. female. She called wanting to be seen as her hands are not better. They hurt stiff crack . She did not knowthe creams she is putting on. We called [employer] and may be putting on the lotrimin and bactroban that I advised her . She did picker operator the ultravate ointment 07/15. The ER sent in triamcinolone yesterday. She had gone to ER and cbc and cmp unremarkable but she was drunk too. She also says she is bleeding a lot and the xarelto is not agreeing with her . Recall she went to ER and she had lot of small areas called PE but follow up CT few days later negative. I suspected the first to be false + but her D dimers have been high. Her legs are swollen again I had always blamed that on the heat of summer when her legs the worst but very cold today. In fact she says she is freezing but is not wearing pants or a coat. Says she not have the money Past Medical History: Diagnosis Date Allergic Rhinitis 11/07/2007 Seasonal allergies. 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 Asthma 05/11/2007 [place] Back pain spondylosis on xray BMI 36.0-36.9,adult Cataract Cystic acne 11/07/2007 Dr Farah Depression 11/07/[address] Jones Diabetes mellitus (HCC) Eczema Fatty liver 12/28/2009 CHRISTIE/metabolic syndrome GERD (gastroesophageal reflux disease) 11/07/2007 [facility] not work Glucose intolerance (impaired glucose tolerance) [...] Dermatologic Reaction Environmental Respiratory Reaction Gentamycin [Gentamicin] LDR RN Reaction Eyes extremely itchy/crusty Olopatadine Other "made [...] file Gets together: Not on file Attends [employer] service: Not on file Active member of [...] Asked Social History Narrative Lives alone in [place], unemployed. REVIEW OF SYSTEMS: ROS Objective PHYSICAL EXAM: VITALS: BP 108/64 (BP Location: Left arm, Patient Position: Sitting) | Pulse 101 | Temp 98.1 F (36.7 C) | Ht 5' 6" (1.676 m) | Wt 212 lb (96.2 kg ) | SpO2 95% | BMI 34.22 kg/m Body mass index is 34.22 kg/m. Physical Exam Vitals signs reviewed. Constitutional: General: She is not in acute distress. Appearance: She is ill-appearing. She is not toxic-appearing. Cardiovascular: Rate and Rhythm: Normal rate and regular rhythm. Pulmonary: Effort: Pulmonary effort is normal. No respiratory distress. Musculoskeletal: Right lower leg: Edema present. Left lower leg: Edema present. Comments: Hands fingers forearms 1/2 way are pinked and cracked scaly but no oozing ASSESSMENT / IMPRESSION: ICD-9-CM ICD-10-CM 1. Asteatotic eczema Patient Instructions Do not picker operator the triamcinolone cream You need an ointment\\ 1st put on the lidex ointment Let it soak in, then put on carmol (urea) Followed by petrolatum then cover with saran wrap if possible She missed her derm appointment because friend not take her , she is told to make it this time 706.8 L30.8 2. Other pulmonary embolism without acute cor pulmonale, unspecified chronicity (HCC) I cant tell her to stop xarelto yet , will get d dimer but that could be + with accute phase reactant. I never suspected she had PE in first place ? False +. Never been able to find a DVT 415.[address] CHEST PULMONARY ARTERY EMBOLUS 3. Tobacco user 305.1 Z72.0 4. Alcoholism (HCC) she said the alcoholism [facility] wont take her. I dont know why unless she breaks their rules 303.90 F10.20 5. Peripheral edema 782.3 R60.9 Obviously not the heat. She has seen vascula She has had echos, labs, she likely missed cardiologyappointment . Hard to helpsomeone who cant help themself Plan Author: Vinicio Angela MD 07/27/2019 06:56 documented in this encounter Plan of Treatment Date Type Specialty Care Team Description 12/18/2019 Ancillary Procedure Radiology 12/23/2019 Office Visit General Surgery Constance Berrios MD [address] [place] [address] [phone] 04/21/2020 Ocular Visit Optometry Davian Hoffman, OD [address] [place] [address] Name Type Priority Associated Diagnoses Date/Time D DIMER Lab Routine Other pulmonary embolism without acute 07/26/2019 4: 12 PM EST cor pulmonale, unspecified chronicity (HCC) Name Type Priority Associated Diagnoses Order Schedule CT CHEST PULMONARY Imaging Routine Other pulmonary embolism Expected: 07/26, ARTERY EMBOLUS without acute cor Expires: 07/25/2020 pulmonale, unspecified chronicity (HCC) Health Maintenance Due Date Last Done Comments [...] better. Weight loss vs. 18 mo Lifestyle 22 (07/26/2019 3:12 PM EST) No Vinicio Angela MD max (lbs) >= [...] filedocumented in this encounter Visit Diagnoses Diagnosis Asteatotic eczema - Primary Other specified disease of sebaceous glands Other pulmonary embolism without acute cor pulmonale, unspecified chronicity ( HCC) Tobacco user Tobacco use disorder Alcoholism (HCC) Other and unspecified alcohol dependence, unspecified drinking behavior Peripheral edema Edema documented in this encounter Guarantor Name Account Type Relation to Date of Phone Billing Address Patient Renae Lobo Personal/Famil 1970 [address] (Home) [facility] [phone] [place] [address] (Work) [place] [address] documented as of this encounter
== END 2019-08-18 17:50 | disposition short-term general hospital (02) ==
LOC: ED 10:50
DX: S22.41XA Multiple fractures of ribs, right side, initial encounter for closed fracture (principal); S32.019A Unspecified fracture of first lumbar vertebra, initial encounter for closed fracture; S32.029A Unspecified fracture of second lumbar vertebra, initial encounter for closed fracture; W00.0XXA Fall on same level due to ice and snow, initial encounter; Y93.K1 Activity, walking an animal; Y92.9 Unspecified place or not applicable; E11.9 Type 2 diabetes mellitus without complications; E03.9 Hypothyroidism, unspecified; E78.00 Pure hypercholesterolemia, unspecified; I10 Essential (primary) hypertension; J44.9 Chronic obstructive pulmonary disease, unspecified; K76.0 Fatty (change of) liver, not elsewhere classified; F41.9 Anxiety disorder, unspecified; F32.9 Major depressive disorder, single episode, unspecified; Z87.891 Personal history of nicotine dependence; Z86.711 Personal history of pulmonary embolism; Z79.01 Long term (current) use of anticoagulants; Z88.8 Allergy status to other drugs, medicaments and biological substances; Z91.040 Latex allergy status
CPT/HCPCS: 36415; 70450; 71045; 71260; 72125; 72128; 72131; 74177; 80053; 83605; 85025; 85610; 93005; 96374; 96375; 96376; 99283; A9270-GY; J2270; J2405; Q9967

== ENCOUNTER 2019-09-23 16:34 | Emergency (ER) | payer OTHER ==
--- OUTSIDE RECORDS SUMMARY | 2019-09-23 16:45 | XMS REPORT | Summary of Care ---
:1970 Author Organization [facility] Address [address] [place] [address] Care Team Providers Name Role Phone Vinicio Angela Primary Care Provider Reason for Referral Refer to Department Only (Routine) Status Reason Specialty Diagnoses / Referred By Referred To Procedures Contact Contact Pending Review NEUROSURGERY / Diagnoses Closed fracture of transverse process of lumbar vertebra with routine healing, subsequent encounter Vinicio Angela Neurosurgery MD [address] [place] [id number] Scheduling Instructions For Pituitary Masses: Refer to Endocinology and Ophthalmology for testing. Patients already having this testing should have an internal referral to Neurosurgery placed. For Suspected Normal Pressure Hydrocephalus: Refer to neurology for a dementia work up, have a large volume lumbar puncture (40 cc) performed. For incontinence, refer to Urology. Obtain Physical Therapy Gait evaluation before and after large volume lumbar puncture. Patients should have the above work ups performed prior to consulting Neurosurgery. For Confirmed Normal Pressure Hydrocephalus: Consult Neurosurgery. Reason for Visit Reason Comments Transitional Care Management pt presents for TCM from [facility] Encounter Details Date Type Department Care Team Description 08/26/2019 Office Visit [facility] Vinicio Angela MD Closed fracture of multiple ribs of right side with routine healing, subsequent encounter (Primary Dx); Practice [address] Closed fracture of transverse process of lumbar vertebra with routine healing , subsequent encounter; [address] [id number] Chronic bilateral low back pain without sciatica; [place] [address] Tobacco user; [phone] Anxiety and depression Allergies Active Allergy Reactions Severity Noted Date Comments Ketotifen Other 03/14/2019 Swollen lids, discharge Sulfacetamide Sodium Dermatologic Reaction 12/24/2018 Environmental Respiratory Reaction 11/25/2010 Gentamicin INFANT CAREGIVER Reaction 11/08/2018 Eyes extremely itchy/crusty Olopatadine Other 03/14/2019 "made my eyes more infected" Astelin Other 11/19/2013 Itchy eyes Polymyxin B Swelling High 10/01/2015 Pt. Thinks she is allergic to it made her eyes worse Shell Fish 11/07/2007 documented as of this encounter (statuses as of 08/26/2019) Medications Medication Sig Dispensed Refills Start Date [...] Freestyle test current use of insulin strips (HCC) Fluoxetine HCl 40 MG Take 3 Caps [...] (CRESTOR) 20 MG Oral mouth DAILY. Tab gabapentin (NEURONTIN) Take 2 Caps by 60 [...] mouth EVERY EIGHT Tab HOURS NEEDED (itch). cholestyramine Take 1 PKT by 30 Packet [...] MG Oral Tab mouth EVERY OTHER DAY. halobetasol 1 application 2 x 50 g 0 07/15/2019 Active (ULTRAVATE) 0.05 % a day Apply externally Ointment metFORMIN Take 1 Tab by 60 Tab 3 07/22/2019 Active (GLUCOPHAGE) 500 MG mouth TWICE Oral Tab DAILY. white petrolatum 1 Appl by Topical 100 [...] Dr Mendez has not sent it in diphenoxylate-atropin Take 1 Tab by 60 Tab 1 08/26/2019 Active e (LOMOTIL) 2.5-0.025 mouth FOUR TIMES MG Oral Tab DAILY NEEDED for diarrhea. Max Daily Amount: 4 Tabs. Oxycodone HCl 10 MG Take 1 Tab by 60 Tab 0 08/26/2019 Active Oral Tab mouth EVERY SIX HOURS NEEDED (Pain). Max Daily Amount: 40 mg. Cancel the morphine OXYcodone (OXYCONTIN) Take 1 Tab by 30 Tab 0 08/26/2019 Active 20 MG Oral Tablet mouth EVERY Extended Release 12 TWELVE HOURS. Max hour Abuse-Deterrent Daily Amount: 40 mg. Cancel the morphine calcium citrate Take 1 Tab by 90 Tab 1 08/26/2019 Active (CALCITRATE) 950 MG mouth DAILY. Oral Tab Dextran Place 1 Drop to 1 Each 5 08/26/2019 Active 70-Hypromellose, PF, the external eye (ARTIFICIAL TEARS PF) FOUR TIMES DAILY. 0.1-0.3 % Ophthalmic Solution methocarbamol Take 1 Tab by 60 Tab 0 08/26/2019 Active (ROBAXIN) 500 MG Oral mouth FOUR TIMES Tab DAILY. morphine 15 MG Oral Take 1 Tab by 60 Tab 0 08/26/2019 Active Tab mouth EVERY FOUR HOURS NEEDED (severe pain). Max Daily Amount: [address] 1 Drop to 1 Each 5 11/16/2018 70-Hypromellose, PF, the external eye 2019 (Reorder) (ARTIFICIAL TEARS PF) FOUR TIMES DAILY. 0.1-0.3 % Ophthalmic Solution diphenoxylate-atropin Take 1 Tab by 60 Tab 1 03/01/2019 e (LOMOTIL) 2.5-0.025 mouth FOUR TIMES 2019 (Reorder) MG Oral Tab DAILY NEEDED for diarrhea. Max Daily Amount: 4 Tabs. calcium citrate Take 1 Tab by 90 Tab 1 07/25/2019 (CALCITRATE) 950 MG mouth DAILY. 2019 (Reorder) Oral Tab morphine 15 MG Oral Take 1 Tab by 60 Tab 0 08/22/2019 Tab mouth EVERY SIX 2019 (Reorder) HOURS NEEDED (severe pain). Max Daily Amount: 60 mg. Disregard previous Rx Do not fill this till 08/25/19 Hospital, Clinic, or Other Ordered Dose Route Frequency Start Date End Date Status Facility Administered Medication miconazole (DESENEX) topical TOP BID 12/21/2016 Active powder 2 %Indications: Infected nail bed of toe documented as of this encounter (statuses as of 08/26/2019) Active Problems Problem Noted Date Closed fracture of multiple ribs of right side 08/20/2019 Closed fracture of transverse process of lumbar vertebra 08/20/2019 Asteatotic eczema 08/12/2019 Asthma-COPD overlap syndrome 06/01/2019 [...] as of this encounter (statuses as of 08/26/2019) Resolved Problems Problem Noted Date Resolved Date [...] as of this encounter (statuses as of 08/26/2019) Immunizations Name Administration Dates Next Due H1N1 Injectable Adult 09/22/2009 Hep A / Hep B Combined Vaccine (Adult) 05/12/2017 Influenza (IM) Preservative Free 06/26/2018, 07/30/2015, 07/26/2013, 07/03/2012, 07/01/2011, 06/19/2009 Influenza (IM) W/Pres 06/08/2016, 10/03/2014 Influenza Vaccine Whole 05/13/2017 PNEUMOCOCCAL POLYSACCHARIDE VACCINE 06/26/2018 TDAP Vaccine 01/07/2016 TETANUS & DIPHTHERIA TOXOID (OVER 7 08/18/2019 YRS) documented as of this encounter Social History Tobacco Use Types Packs/Day Years Used Date Current Every Day Smoker Cigarettes 0.5 30 Smokeless Tobacco: Never Used Tobacco Cessation: Ready to Quit: No; Counseling Given: Yes Comments: Pt does not smoke cigarettes, vapes Alcohol Use Drinks/Week oz/Week Comments Yes 0 [...] Reading Time Taken Comments Blood Pressure 108/64 08/26/2019 3:57 PM EST Pulse 95 08/26/2019 3:57 PM EST Temperature - - Respiratory Rate - - Oxygen Saturation 96% 08/26/2019 3:57 PM EST Inhaled Oxygen Concentration - - Weight 97 kg (213 lb 12.8 oz) 08/26/2019 3:57 PM EST Height 167.6 cm (5' 6") 08/26/2019 3:57 PM EST Body Mass Index 34.51 08/26/2019 3:57 PM EST documented in this encounter Patient Instructions Patient InstructionsVinicio Angela MD - 08/26/2019 3:40 PM ESTWill Rx the eye drops and follow up 2 weeksElectronically signed by Vinicio Angela MD at 2018 8:19 PM EST documented in this encounter Progress Notes Vinicio Angela MD - 08/26/2019 3:40 PM EST PATIENT: Renae Lobo : 1970 DATE OF SERVICE: 08/26/2019 CHIEF COMPLAINT: Chief Complaint Patient presents with Transitional Care Management pt presents for TCM from [facility] Subjective HISTORY OF PRESENT ILLNESS: Renae Lobo is a 49-y.o. female. In for hospital follow up. TCM call was attempted but not completed . Admitted 08/18 and discharged 08/21. Diagnosis was multiple rib fracture thru right side specificallt t 10-T12 and transverse processes fracture at l1 and L2 . She had gone out on the to walk dog and fell down the steps. She denied being drunk. She fell and was in horrible pain , people helped her get into the house and she went to [facility] [place] and transfer to [facility] . She had chronic back pain and has a morphine prn Rx she uses mostly for sleep and not daily although written tid prn. They changed her regimen to oxycontin 20 bid and oxycodone 10 q 4 for breakthru pain and she said that barely controlled her pain . However these Rx needed a prior auth and she did not get the meds for a whole day. Then she did notget the Morphine I called in for Monday so out of 5 days home she has only had pain meds 3 days She is not moving around much and afraid of blood clot . Past Medical History: Diagnosis Date Allergic Rhinitis [...] Dr Mendez has not sent it in cloNIDine (CATAPRES) [...] for diarrhea. Max Daily Amount: 4 Tabs. erythromycin (ILOTYCIN) 5 MG/GM Ophthalmic Ointment Apply to eye qhs ferrous sulfate 325 (65 Fe) MG Oral Tab Take 1 Tab by mouth DAILY. fexofenadine (IMKIE) 180 MG Oral Tab Take 1 Tab [...] Take 1 Tab by mouth TWICE DAILY. methocarbamol (ROBAXIN) 500 MG Oral Tab Take 1 Tab by mouth FOUR TIMES DAILY. Mometasone Furo-Formoterol Fum (DULERA) 200-5 MCG/ACT Inhalation Aerosol Take 2 INHL by inhalation TWICE DAILY. morphine 15 MG Oral Tab Take 1 Tab by mouth EVERY FOUR HOURS NEEDED ( severe pain). Max Daily Amount: 90 mg. Multiple Vitamins-Iron (TAB-A-SERGEY/IRON) Oral Tab Take 1 Tab by mouth DAILY. mupirocin (BACTROBAN) 2 % Apply externally Ointment Apply three times daily to area on nose nicotine transdermal patch-daily (NICODERM) 21 MG/24HR Transdermal PATCH [address] 21 mg onto skin DAILY. Omeprazole delayed rel cap 20 MG Oral CAPSULE DELAYED RELEASE TAKE 1 CAPSULE BY MOUTH DAILY ONETOUCH XOCHITL LANCELADIO FINE Does not apply Misc 1 Each by Does not apply route TWICE DAILY. Oxybutynin Chloride 15 MG Oral TABLET SR 24 HR Take 1 Tab by mouth DAILY. OXYcodone (OXYCONTIN) 20 MG Oral Tablet Extended Release 12 hour Abuse- Deterrent Take 1 Tab by mouth EVERY TWELVE HOURS. Max Daily Amount: 40 mg. Cancel the morphine Oxycodone HCl 10 MG Oral Tab Take 1 Tab by mouth EVERY SIX HOURS NEEDED (Pain). Max Daily Amount: 40 mg. Cancel the morphine prazosin (MINIPRESS) 1 MG Oral Cap Take [...] Dermatologic Reaction Environmental Respiratory Reaction Gentamycin [Gentamicin] INFANT CAREGIVER Reaction Eyes extremely itchy/crusty Olopatadine Other "made [...] 15.00 Types: Cigarettes Smokeless tobacco: Never Used Tobacco comment: Pt does not smoke cigarettes, vapes Substance and Sexual Activity Alcohol use: Yes Alcohol/week: 0.0 standard drinks Comment: Vaping instead of smoking Drug use: No Sexual activity: Never Lifestyle Physical activity: Days per week: Not on file Minutes per session: Not on file Stress: Not on file Relationships Social connections: Talks on phone: Not on file Gets together: Not on file Attends adventism service: Not on file Active member of [...] Asked Social History Narrative Lives alone in [place], unemployed. REVIEW OF SYSTEMS: Review of Systems Eyes: Eyes mucus again She wants the e mycin ointment , she not sure if she picked it up written 2 weeks ago and artificialtears Respiratory: Negative for shortness of breath. Psychiatric/Behavioral: We worked hard on getting alcohol [place] to get her back in but then she missed appointment due to unable to get around . Objective PHYSICAL EXAM: VITALS: BP 108/64 (BP Location: Left arm, Patient Position: Sitting) | Pulse 95 | Ht 5' 6" (1.676m) | Wt 213 lb 12.8 oz (97 kg) | SpO2 96% | BMI 34.51 kg /m Body mass index is 34.51 kg/m. Physical Exam Vitals signs reviewed. Constitutional: General: She is not in acute distress. Appearance: She is obese. She is not toxic-appearing. Eyes: Comments: Both eyes little puffy with some d/c but not injected Cardiovascular: Rate and Rhythm: Normal rate and regular rhythm. Pulmonary: Effort: Pulmonary effort is normal. No respiratory distress. Musculoskeletal: Right lower leg: Edema present. Left lower leg: Edema present. Neurological: Comments: Non focal Psychiatric: Comments: Dress and hygiene poor as usual Good eye contact Thoughts and speech perseverate as prior ASSESSMENT / IMPRESSION: ICD-9-CM ICD-10-CM 1. Closed fracture of multiple ribs of right side with routine healing, subsequent encounter again the oxycontin and oxycodone were not approved tonight so I wrote for morphine but changed it to 6 in aday I also told her the old oxycodone regimen was too many morphine equivalents and with her klonopin high dose she should not be on so much medicine vs the pain from multiple fractures . She said she would drink if di not get her pain meds or klonopin V54.19 S22.41XD 2. Closed fracture of transverse process of lumbar vertebra with routine healing , subsequent encounter She wants to see a neurosurgeon I tried to tell her that it would not change mgmt but she is insistent as usual V54.17 S32.009D REFER TO NEUROSURGERY 3. Chronic bilateral low back pain without sciatica hope to wean off pain meds quickly 724.2 M54.5 338.29 G89.29 4. Tobacco user Ready to quit: No Counseling given: Yes Comment: Pt does not smoke cigarettes, vapes 305.1 Z72.0 5. Anxiety and depression she is going to try to get back into [facility] but I wrote the klonopin last time as my hand was forced 300.00 F41.9 311 F32.9 * Plan TCM Statement. Review of the hospitalization: I am seeing for transition of care following hospitalization. The date of discharge was: 08/21 The discharge diagnosis was Multiple rib fracture and transverese processes fx . I reviewed the discharge summary, discharge instructions, and pertinent additional documentation obtained during hospitalization. I reconciled the medications. I also reviewed the Transition of Care documentation done by staff. The tests that were not available at the time of discharge were reviewed. Additional tests which are not yet available include: none Coordination of care. (delete one and this phrase) - I am satisfied that appropriate referrals are in place to deal with the problems identified during hospitalization, and that the patient has adequate community resources and support in place. - Additional testing related to hospitilization was requested today: no See orders. I confirmed the patient's understanding of the diagnosis and plan of care. Specific education that was provided today: Patient Instructions Will Rx the eye drops and follow up 2 weeks The current and discharge medications were reconciled by me, today The source document was hospital discharge summary Author: Vinicio Angela MD 08/26/2019 19:45 documented in this encounter Plan of Treatment Date Type Specialty Care Team Description 09/04/2019 Office Visit Trauma 09/09/2019 Office Visit Family Practice Vinicio Angela MD [address] [place] [address] [phone] 12/18/2019 Ancillary Procedure Radiology 12/23/2019 Office Visit General Surgery Constance Berrios MD [address] [place] [address] [phone] 04/21/2020 Ocular Visit Optometry Davian Hoffman, OD [address] [place] [address] [phone] Name Type Priority Associated Diagnoses Order Schedule REFER TO NEUROSURGERY Referral Routine Closed fracture of Expected: 2018, transverse process of Expires: 08/26/2020 lumbar vertebra with routine healing, subsequent encounter Health Maintenance Due Date Last Done Comments [...] better. Weight loss vs. 18 mo Lifestyle 20.2 (08/26/2019 3:57 PM No Vinicio Angela MD max (lbs) [...] filedocumented in this encounter Visit Diagnoses Diagnosis Closed fracture of multiple ribs of right side with routine healing, subsequent encounter - Primary Closed fracture of transverse process of lumbar vertebra with routine healing, subsequent encounter Chronic bilateral low back pain without sciatica Tobacco user Tobacco use disorder Anxiety and depression Dysthymic disorder documented in this encounter documented as of this encounter Advance Directives Code Status Date Activated Date Inactivated Comments Full Code 08/18/2019 10:55 PM Does the patient have decision making capacity? Yes Order was discussed with: Patient I discussed all options and patient/surrogate requested and agreed to: Full Code
--- OUTSIDE RECORDS SUMMARY | 2019-09-23 16:46 | XMS REPORT | Summary of Care ---
:1970 Author Organization [facility] Address [address] [address] Care Team Providers Name Role Phone Vinicio Angela Primary Care Provider Reason for Visit Reason Comments Fall Auth/Cert Status Reason Specialty Diagnoses / Procedures Referred By Contact Referred To Contact Encounter Details Date Type Department Care Team Description 08/18/2019 - Hospital Encounter [facility] [address] [place] Elena Stratton MD [address] [place] [address] Inpatient 08/21/2019 1 Carlos Verde MD [address] [place] [place] [address] [place] [address] Allergies Active Allergy Reactions Severity Noted Date Comments Ketotifen Other 03/14/2019 Swollen lids, discharge Sulfacetamide Sodium Dermatologic Reaction 12/24/2018 Environmental Respiratory Reaction 11/25/2010 Gentamicin AUDIOMETRIST Reaction 11/08/2018 Eyes extremely itchy/crusty Olopatadine Other 03/14/2019 "made my eyes more infected" Astelin Other 11/19/2013 Itchy eyes Polymyxin B Swelling High 10/01/2015 Pt. Thinks she is allergic to it made her eyes worse Shell Fish 11/07/2007 documented as of this encounter (statuses as of 08/22/2019) Medications Medication Sig Dispensed Refills Start Date [...] Freestyle test current use of insulin strips ([facility]) Fluoxetine HCl 40 MG Take 3 Caps [...] Dr Mendez has not sent it in methocarbamol Take 2 Tabs by 18 Tab 0 08/21/201908/24/ Active (ROBAXIN) 500 MG Oral mouth THREE TIMES 2019 Tab DAILY for 3 days. OXYcodone 10 MG Oral Take 1 Tab by 18 Tab 0 08/21/201908/24/ Active Tab mouth EVERY FOUR 2019 HOURS NEEDED (Pain) for up to 3 days. Max Daily Amount: 60 mg. OXYcodone (OXYCONTIN) Take 1 Tab by 6 Tab 0 08/21/201908/24/ Active 20 MG Oral Tablet mouth EVERY 2019 Extended Release 12 TWELVE HOURS for hour Abuse-Deterrent 3 days. Max Daily Amount: 40 mg. ondansetron (ZOFRAN Take 1 Tab by 12 Tab 0 08/21/201908/24/ Active ODT) 4 MG Oral TABLET mouth EVERY SIX 2019 DISPERSIBLE HOURS NEEDED (nausea) for up to 3 days. morphine 15 MG Oral Take 1 Tab by 45 Tab 0 07/15/201908/21/ Discontinued Tab mouth THREE TIMES 2019 (Reorder) DAILY NEEDED (back pain). Max Daily Amount: 45 mg. Hospital, Clinic, or Other Ordered Dose Route Frequency Start Date End Date Status Facility Administered Medication miconazole (DESENEX) topical TOP BID 12/21/2016 Active powder 2 %Indications: Infected nail bed of toe documented as of this encounter (statuses as of 08/22/2019) Active Problems Problem Noted Date Closed fracture [...] as of this encounter (statuses as of 08/22/2019) Resolved Problems Problem Noted Date Resolved Date [...] as of this encounter (statuses as of 08/22/2019) Immunizations Name Administration Dates Next Due H1N1 [...] Cigarettes 0.5 30 Smokeless Tobacco: Never Used Comments: Pt does not smoke cigarettes, vapes [...] Sign Reading Time Taken Comments Blood Pressure 152/73 08/21/2019 11:15 AM EST Pulse 76 08/21/2019 11:15 AM EST Temperature 36.7 08/21/2019 11:15 AM EST C (98 F) Respiratory Rate 17 08/21/2019 11:15 AM EST Oxygen Saturation 97% 08/21/2019 11:15 AM EST Inhaled Oxygen Concentration - - Weight 91.6 kg (202 lb) 08/18/2019 7:06 PM EST Height 167.6 cm (5' 6") 08/19/2019 1:00 PM EST Body Mass Index 32.6 08/18/2019 7:06 PM EST documented in this encounter Discharge Summaries Liberty Sharp MD - 08/21/2019 12:38 PM [facility] [place] [id number] [facility] Summary Patient ID: Renae Lobo [id number] 49-y.o. 1970 Admission date: 08/18/2019 Discharge date: 08/21/2019 Admitting Physician: Carlos Jimenez MD Indication for Admission: Closed fracture of multiple ribs of right side Principal Diagnosis: Closed fracture of multiple ribs of right side Other medical problems managed in the hospital: Patient Active Problem List Diagnosis Allergic Rhinitis Mixed hyperlipidemia Depression GERD (gastroesophageal reflux disease) Hepatic steatosis BMI 33.0-33.9,adult Tobacco user Hypothyroidism Bilateral low back pain without sciatica Type 2 diabetes mellitus without complication, without long-term current use of insulin (HCC) Asthma-COPD overlap syndrome (HCC) Alcoholism (HCC) Asteatotic eczema Closed fracture of multiple ribs of right side Closed fracture of transverse process of lumbar vertebra (HCC) Discharged Condition: good Hospital Course: Renae Lobo is a 49-y.o. female admitted on 08/18/19 following a fall on ice in which she sustained minimally displaced right 10-11 rib fractures, minimally displaced right L1 and L2 transverse process fractures and a nondisplaced fracture extending through the 12th costovertebral junction. She was admitted for pain control and incentive spirometry. The patient had difficulty with pain control throughout her hospital stay. Per patient, she takes morphine 15mg three times at home and this regimen was titrated up for pain control. She was evaluated by Physical and Occupational therapy while she was admitted who recommended home and she will be discharged to [facility]. she remained afebrile and hemodynamically stable with no acute events throughout the majority of thepostoperative recovery. Upon discharge Renae Lobo is tolerating a regular diet without nausea/ emesis, pain is controlled on oral medications, she is ambulating independently , and she is voiding spontaneously. BP 152/73 Pulse 76 Temp 98 F (36.7 C) (Temporal) Resp 17 Ht 5' 6" ( 1.676 m) Wt 202 lb (91.6 kg) SpO2 97% BMI 32.6 kg/m2 General: alert, no distress, oriented times 3 Lungs: unlabored breathing on RA Heart: regular rate, normotensive Abd: some tenderness to RUQ Ext: warm, well perfused Renae Lobo will follow up with Trauma Clinic in 2 weeks for post hospital appointment. We have also recommended that she follow up with her PCP for post hospital visit. Consults: CONSULT TO GENERAL SURGERY CONSULT TO DELIVERY DRIVER ASSISTANT/CASE MANAGEMENT CONSULT TO DELIVERY DRIVER ASSISTANT/CASE MANAGEMENT PER PROTOCOL Treatments: analgesia DVT Prophylaxis Procedures: Xr Chest 1 View Result Date: 08/19/2019 Procedure(s): XR CHEST 1 VIEW Date of service: 08/19/2019 4:50 AM Provided clinical information: 49 years, Female, "rib fx" Procedure and materials: Standard protocol. Comparison studies: 11/08/2016, CT 08/01/2019 Observations: Lung volumes are low. There is faint density in the right lung base with blunting of the costophrenic angle. Left lung is clear. No pneumothorax. Cardiac silhouette is stable. No acute osseous findings. Faintly seen callus at the subacute left fifth rib fracture evident on theprior CT. Right basilar opacity may represent a combination of atelectasis, consolidation , or small effusion. Signed by Federico Tobias on 08/19/2019 5:57 AM Operations: Complications: None Medications: Current Discharge Medication List START taking these medications methocarbamol 500 MG Tabs Commonly known as: ROBAXIN Dose: 1,000 mg Quantity: 18 Tab Refills: 0 Take 2 Tabs by mouth THREE TIMES DAILY for 3 days. ondansetron 4 MG Tbdp Commonly known as: ZOFRAN ODT Dose: 4 mg Quantity: 12 Tab Refills: 0 Take 1 Tab by mouth EVERY SIX HOURS NEEDED (nausea) for up to 3 days. * Oxycodone HCl 10 MG Tabs Dose: 10 mg Quantity: 18 Tab Refills: 0 Take 1 Tab by mouth EVERY FOUR HOURS NEEDED (Pain) for up to 3 days. Max Daily Amount: 60 mg. * OXYcodone 20 MG T12a Commonly known as: OXYCONTIN Dose: 20 mg Quantity: 6 Tab Refills: 0 Take 1 Tab by mouth EVERY TWELVE HOURS for 3 days. Max Daily Amount: 40 mg. * This list has 2 medication(s) that are the same as other medications prescribed for you. Read thedirections carefully, and ask your doctor or other care provider to review them with you. CONTINUE these medications which have changed gabapentin 300 MG Caps Commonly known as: NEURONTIN Dose: 600 mg What changed: additional instructions Quantity: 60 Cap Refills: 5 Take 2 Caps by mouth EVERY BEDTIME. CONTINUE these medications which have NOT CHANGED albuterol HFA 108 (90 Base) MCG/ACT Aers Commonly known as: VENTOLIN Dose: 2 Puff Doctor's comments: DX Code Needed . Quantity: 1 Inhaler Refills: 5 Take 2 Puffs by inhalation EVERY FOUR HOURS NEEDED (SOB). allopurinol 300 MG Tabs Commonly known as: ZYLOPRIM Dose: 300 mg Quantity: 30 Tab Refills: 4 Take 1 Tab by mouth DAILY. Calcipotriene TOPICAL 0.005 % Crea Commonly known as: DOVONEX Dose: 1 Appl Quantity: 60 g Refills: 5 1 Appl by Topical route TWICE DAILY. calcium citrate 950 MG Tabs Commonly known as: CALCITRATE Dose: 1 Tab Quantity: 90 Tab Refills: 1 Take 1 Tab by mouth DAILY. celeCOXIB 200 MG Caps Commonly known as: CeleBREX Dose: 200 mg Quantity: 30 Cap Refills: 2 Take 1 Cap by mouth DAILY. CELEXA 20 MG Tabs Generic drug: citalopram Dose: 1 Tab Refills: 0 Take 1 Tab by mouth DAILY. cholestyramine 4 g Pack Commonly known as: QUESTRAN Dose: 4 g Quantity: 30 Packet Refills: 0 Take 1 PKT by mouth TWICE DAILY. clobetasol 0.05 % Crea Commonly known as: TEMOVATE Dose: 1 Appl Quantity: 45 g Refills: 0 1 Appl by Topical route TWO TIMES DAILY NEEDED (rash wrist). clonazePAM 2 MG Tabs Commonly known as: KLONOPIN Dose: 2 mg Quantity: 30 Tab Refills: 0 Take 1 Tab by mouth THREE TIMES DAILY. Max Daily Amount: [address] Mendez has not sent it in cloNIDine 0.1 MG Tabs Commonly known as: CATAPRES Quantity: 30 Tab Refills: 0 TAKE 1 TABLET BY MOUTH DAILY * clotrimazole 1 % Crea Commonly known as: LOTRIMIN Dose: 1 Appl Quantity: 45 g Refills: 1 1 Appl by Topical route TWICE DAILY. To groin and toe * clotrimazole 1 % Crea Commonly known as: LOTRIMIN AF Quantity: 45 g Refills: 1 Apply to feet 2 x a day Dextran 70-Hypromellose (PF) 0.1-0.3 % Soln Commonly known as: ARTIFICIAL TEARS PF Dose: 1 Drop Quantity: 1 Each Refills: 5 Place 1 Drop to the external eye FOUR TIMES DAILY. diphenoxylate-atropine 2.5-0.025 MG Tabs Commonly known as: LOMOTIL Dose: 1 Tab Doctor's comments: Not to exceed 4 additional fills before 07/03/2018. Quantity: 60 Tab Refills: 1 Take 1 Tab by mouth FOUR TIMES DAILY NEEDED for diarrhea. Max Daily Amount: 4 Tabs. erythromycin 5 MG/GM Oint Commonly known as: ILOTYCIN Quantity: 1 g Refills: 0 Apply to eye qhs ferrous sulfate 325 (65 Fe) MG Tabs Dose: 325 mg Quantity: 30 Tab Refills: 5 Take 1 Tab by mouth DAILY. fexofenadine 180 MG Tabs Commonly known as: MIKIE Dose: 180 mg Quantity: 30 Tab Refills: 4 Take 1 Tab by mouth DAILY. fluocinonide 0.05 % Oint Commonly known as: LIDEX Quantity: 30 g Refills: 0 1 appl 2 x a day Fluoxetine HCl 40 MG Caps Dose: 3 Cap Quantity: 90 Cap Refills: 2 Take 3 Caps by mouth DAILY. fluticasone 50 MCG/ACT Susp Commonly known as: FLONASE Quantity: 16 g Refills: 5 USE 2 SPRAYS IN EACH NOSTRIL ONCE DAILY fluticasone-salmeterol diskus 250-50 MCG/DOSE Aepb Commonly known as: ADVAIR DISKUS Dose: 1 INHL Quantity: 3 Inhaler Refills: 1 Take 1 INHL by inhalation TWICE DAILY. furosemide 20 MG Tabs Commonly known as: LASIX Dose: 20 mg Quantity: 15 Tab Refills: 0 Take 1 Tab by mouth EVERY OTHER DAY. Glucosamine-Chondroitin 500-400 MG Caps Commonly known as: GLUCOSAMINE CHONDR COMPLEX Dose: 1 Cap Quantity: 90 Cap Refills: 5 Take 1 Cap by mouth THREE TIMES DAILY. * Glucose Blood Strp Commonly known as: ONETOUCH VERIO Dose: 1 Strip Quantity: 100 Strip Refills: 3 1 Strip by In Vitro route TWICE DAILY. contolled non-insulin dependent diabetes * Glucose Blood Strp Dose: 1 Strip Quantity: 100 Strip Refills: 5 1 Strip by In Vitro route TWICE DAILY. E11.9 last OV 03/14/17 Freestyle test strips halobetasol 0.05 % Oint Commonly known as: ULTRAVATE Quantity: 50 g Refills: 0 1 application 2 x a day hydrOXYzine HCL 25 MG Tabs Commonly known as: ATARAX Dose: 25 mg Quantity: 90 Tab Refills: 5 Take 1 Tab by mouth EVERY EIGHT HOURS NEEDED (itch). ibuprofen 600 MG Tabs Commonly known as: MOTRIN Dose: 600 mg Refills: 0 Take 600 mg by mouth EVERY EIGHT HOURS NEEDED. levothyroxine 25 MCG Tabs Commonly known as: SYNTHROID Quantity: 30 Tab Refills: 5 TAKE 1 TABLET BY MOUTH EVERY DAY BEFORE BREAKFAST magnesium oxide 400 (241.3 Mg) MG Tabs Commonly known as: MAG-OX Quantity: 30 Tab Refills: 1 TAKE 1 TABLET BY MOUTH EVERY DAY metFORMIN 500 MG Tabs Commonly known as: GLUCOPHAGE Dose: 500 mg Quantity: 60 Tab Refills: 3 Take 1 Tab by mouth TWICE DAILY. Mometasone Furo-Formoterol Fum 200-5 MCG/ACT Aero Commonly known as: DULERA Dose: 2 INHL Quantity: 1 Inhaler Refills: 5 Take 2 INHL by inhalation TWICE DAILY. morphine 15 MG Tabs Dose: 15 mg Quantity: 45 Tab Refills: 0 Take 1 Tab by mouth THREE TIMES DAILY NEEDED (back pain). Max Daily Amount: 45 mg. mupirocin 2 % Oint Commonly known as: BACTROBAN Quantity: 22 g Refills: 1 Apply three times daily to area on nose nicotine transdermal patch-daily 21 MG/24HR Pt24 Commonly known as: NICODERM Dose: 21 mg Refills: 0 Place 21 mg onto skin DAILY. Omeprazole delayed rel cap 20 MG Cpdr Quantity: 30 Cap Refills: 5 TAKE 1 CAPSULE BY MOUTH DAILY ONETOUCH DELICA LANCETS FINE Misc Dose: 1 Each Quantity: 100 Each Refills: 3 1 Each by Does not apply route TWICE DAILY. Oxybutynin Chloride 15 MG Tb24 Dose: 1 Tab Quantity: 30 Tab Refills: 5 Take 1 Tab by mouth DAILY. prazosin 1 MG Caps Commonly known as: MINIPRESS Dose: 1-2 mg Quantity: 60 Cap Refills: 0 Take 1-2 Caps by mouth EVERY BEDTIME. Rosuvastatin Calcium 20 MG Tabs Commonly known as: Crestor Dose: 20 mg Quantity: 90 Tab Refills: 1 Take 1 Tab by mouth DAILY. Spacer/Aero-Holding Chambers Lauren Dose: 1 Device Quantity: 1 Each Refills: 0 1 Device by Does not apply route DIRECTED. To use with albuterol inhaler for asthma (ICD 493.0) TAB-A-SERGEY/IRON Tabs Dose: 1 Tab Doctor's comments: PT IS NOT SURE IF SHE IS CONTINUING ON THIS MED Quantity: 30 Tab Refills: 5 Take 1 Tab by mouth DAILY. trazodone 100 MG Tabs Commonly known as: DESYREL Quantity: 60 Tab Refills: 1 TAKE 2 TABLETS BY MOUTH EVERY NIGHT AT BEDTIME NEEDED tretinoin 0.01 % Gel Commonly known as: RETIN-A Dose: 1 Appl Quantity: 15 g Refills: 0 1 Appl by Topical route EVERY BEDTIME. Urea 40 % Crea Dose: 1 Appl Quantity: 85 g Refills: 1 1 Appl by Apply externally route TWICE DAILY. Vitamin D3 50 MCG (2000 UT) Caps Dose: 1 Cap Quantity: 90 Cap Refills: 3 Take 1 Cap by mouth DAILY. white petrolatum Oint Dose: 1 Appl Quantity: 100 g Refills: 1 1 Appl by Topical route TWICE DAILY. * XARELTO 20 MG Tabs Generic drug: rivaroxaban Refills: 0 TAKE 1 TABLET BY MOUTH EVERY DAY (START AFTER COMPLETING 15MG TWICE DAILY LOADING DOSE) * rivaroxaban 20 MG Tabs Commonly known as: XARELTO Dose: 20 mg Quantity: 30 Tab Refills: 1 Take 1 Tab by mouth DAILY. * This list has 6 medication(s) that are the same as other medications prescribed for you. Read thedirections carefully, and ask your doctor or other care provider to review them with you. Where to Get Your Medications These medications were sent to [place] [id number] [place] [address] Hours: M-Sat: 9am-7pm methocarbamol 500 MG Tabs ondansetron 4 MG Tbdp OXYcodone 20 MG T12a Oxycodone HCl 10 MG Tabs Oxygen or Positive Pressure Devices: none Patient Instructions: Activity/Restrictions: Activity as tolerated Exercise and walk daily. Skin/Wound Care: Non applicable Discharge Diet: Your Regular Diet Special Instructions: Please take alternating Tylenol 650 mg and Motrin 600 mg every four hours for pain and take Narcotic medication only for breakthrough pain You have been written a prescription for a narcotic pain medication called Oxy-IR (hydrocodone-acetaminophen). Do not drive while taking pain meds and do not drive while you are in pain. Narcotics can make you nauseous, so do not take this medication on an empty stomach. Narcotics can also make you constipated, so you may want to take a stool softener like Colace (docusate) while you are taking narcotics to prevent constipation. Stop taking Colace if you develop loose or runny stools. You may also try Miralax if you need additional help having bowel movements. Follow up with your PCP for post hospital visit and to discuss continuation of anticoagulation with Xarelto. Follow up with Trauma clinic in 2 weeks for repeat Xray and pos-hospital visit. No orders of the defined types were placed in this encounter. Total duration of time spent: 20 minutes. Provider Signature: Liberty Sharp MD Associated attestation - Carlos Jimenez MD - 08/21/2019 3:26 PM ESTPatient was personally seen and examined. I substantially agree with the resident's observations and assessments. Ok for dc Attending: Carlos Jimenez MD 08/21/2019 15:25documented in this encounter Discharge Instructions Chantelle Bettencourt RN - 08/21/2019Provider's Instructions Reason for Admission or Diagnosis:Rib fractures, Rib fractures Activity/Restrictions: Activity as tolerated Exercise and walk daily. Skin/Wound Care: Non applicable Discharge Diet: Your Regular Diet Special Instructions: Please take alternating Tylenol 650 mg and Motrin 600 mg every four hours for pain and take Narcotic medication only for breakthrough pain You have been written a prescription for a narcotic pain medication called Oxy-IR (hydrocodone-acetaminophen). Do not drive while taking pain meds and do not drive while you are in pain. Narcotics can make you nauseous, so do not take this medication on an empty stomach. Narcotics can also make you constipated, so you may want to take a stool softener like Colace (docusate) while you are taking narcotics to prevent constipation. Stop taking Colace if you develop loose or runny stools. You may also try Miralax if you need additional help having bowel movements. Follow up with your PCP for post hospital visit and to discuss continuation of anticoagulation with Xarelto. Follow up with Trauma clinic in 2 weeks for repeat Xray and pos-hospital visit. Discharge Provider: Liberty Sharp MD Attending: Carlos Jimenez MD Time: 12:28 Nurse's Instructions Problems to report to your Physician: Excessive pain or discomfort Fever > 100.5 degrees Difficulty breathing Increase or smell in wound drainage Skin/Wound Care: Skin intact on discharge: Medical Equipment/Supplies to help you at home Patient's medications returned Help arranged for you Home Health/Receiving Agency: Other preprinted instructions reviewed and given Follow-Up Care: trauma clinic On [address] [facility] [place] [email or web address] Smoking: If you or your caregiver smoke, we recommend that you quit. For smoking cessation help, please callthe National Quit Line at . QUESTIONS OR CONCERNS AFTER DISCHARGE Dietitian Home Care Needs *Please Return Patient Satisfaction Survey* documented in this encounter Progress Notes Mauro Dobbins MD - 08/20/2019 8:56 AM EST [facility] [address] [place]. [id number] Trauma and Acute Care Surgery Progress Note Date of Service: 08/20/2019 Patient: Renae Garcia #: [id number] Attending: CARLOS JIMENEZ MD ,MD Subjective Interval History: Pt complaining of right sided flank and chest pain. IS this morning [id number]. Pt is very anxious and is concerned about pain and other medications. Patient claimed to have had near-fall yesterday as documented by the charge nurse. Initially, she was threatening litigiousactivity. She was evaluated afterwards, and was found to have no significant change in physical exam. Physical: Objective: Blood pressure 118/64, pulse 75, temperature 97.6 F (36.4 C) , temperature source Temporal, resp. rate 18, height 5' 6" (1.676 m), weight 202 lb (91.6 kg), SpO2 92 %, not currently . Intake/Output Summary (Last 24 hours) at 08/20/2019 1036 Last data filed at 08/20/2019 0500 Gross per 24 hour Intake 900 ml Output Net 900 ml General: alert, anxious Lungs: unlabored breathing on room air Heart: regular rate and rhythm Ext: moving all extremities Data: Recent Labs 08/18/19195608/19/1934208/20/19 033 WBC 11.24* 11.57* 10.81* HGB 11.5 10.9* 10.8* HCT 34.8 33.3* 33.3* PLAT 229 212 216 Recent Labs 08/18/19195608/19/1934208/20/19 033 NA 138 137 136 K 4.0 3.9 4.0 CL 103 104 100 CO2 29 27 29 GLUCOSE 88 96 116* BUN 9 10 9 CREATININE 0.7 0.7 0.7 CALCIUM 8.8 8.3 9.1 EGFR >60 >60 >60 Assessment/Plan Renae Lobo is a 49-y.o. female with h/o anxiety, DMII, on xarelto for PE who presents to [facility] as trauma evaluation after falling on ice and hitting the middle of her back and head against concrete stairs and sustaining below injuries: Injury Complex: - minimally displaced right posterior 10, 11 rib fx - minimally distracted right L1 and L2 transverse process fx - nondisplaced fx extending through 12th costovertebral junction Management of medical care has been difficult for all staff due to labile, conflicting and aggressive patient behavior. She questions many aspects of her care. She requests EtOH services with some staff, but will refuse to discuss such options with other staff. After beginning CIWA protocol, she intermittently refuses to cooperate with the assessment or ativan administration. Patient complains of pain, and claims to not receive, be offered medications, etc., while thereafter refusing other analgestic medications despite repeated explanation by multiple MDs. There are documented and confirmed attempts by multiple nursing staff to administer her medication. Patient has been verbally abusive of the nursing staff, with inappropriate, dismissive, and splitting behavior towards the resident surgeons. Patient has at times threatened to leave AMA, but was amenable to staying after further explanation. Plan: - Analgesia: Home Morphine 15mg PO TID; Allopurinol, Gabapentin - holding home celecoxib, ibuprofen - Inpatient Oxycontin 20 mg q12; Oxycodone q4hrs PRN; Tylenol scheduled, Robaxin scheduled -Continue Home klonopin, neuropsychotropics, PPI, anticholinergics, antihypertensive, inhalational corticosteroids and beta agonists, thyroid, topical products, urologic - GI: Diabetic Diet, Zofran PRN, home PPI, - holding home lasix, antibiotics - CIWA with Ativan per protocol - PT/OT: recommend home without need for home health or rehab - SW: outpatient alcohol rehabilitation services - Incentive spirometry - OOB and ambulate TID - Continue to hold Xarelto - Lovenox for DVT ppx Problems: DVT Prophylaxis: lovenox GI Prophylaxis: not indicated Nutrition: diabetic Tucker remains in place for the following reason(s): No tucker present Author: Mauro Dobbins MD 08/20/19 11:05 Associated attestation - Carlos Jimenez MD - 08/20/2019 12:41 PM ESTPatient was personally seen and examined. I substantially agree with the resident's observations and assessments. Working on pain control, although difficult as patient takes narcotics on chronic basis Attending: Carlos Jimenez MD 08/20/2019 12:41HartLiberty MD - 08/19/2019 10:59 AM EST [facility] [address] [place]. [id number] Trauma and Acute Care Surgery Progress Note Date of Service: 08/19/2019 Patient: Renae Garcia #: [id number] Attending: CARLOS JIMENEZ MD , Subjective: Pt complaining of right sided ribcage pain. IS this morning was 1250. Pt is very anxiousand is concerned about restarting home medications. Physical: Objective: Blood pressure 96/52, pulse 105, temperature 98.6 F (37 C), temperature source Temporal, resp. rate 23, weight 202 lb (91.6 kg), SpO2 94 %, not currently . Intake/Output Summary (Last 24 hours) at 08/19/2019 1103 Last data filed at 08/19/2019 0446 Gross per 24 hour Intake 1630 ml Output Net 1630 ml General: alert, anxious Lungs: unlabored breathing on 2L NC Heart: regular rate and rhythm Ext: moving all extremities Data: Recent Labs 08/18/19195608/19/19 0343 WBC 11.24* 11.57* HGB 11.5 10.9* HCT 34.8 33.3* PLAT 229 212 Recent Labs 08/18/19195608/19/19 0343 NA 138 137 K 4.0 3.9 CL 103 104 CO2 29 27 GLUCOSE 88 96 BUN 9 10 CREATININE 0.7 0.7 CALCIUM 8.8 8.3 EGFR >60 >60 Assessment/Plan Renae Lobo is a 49-y.o. female with h/o anxiety, DMII, on xarelto for PE who presents to [facility] as trauma evaluation after falling on ice and hitting the middle of her back and head against concrete stairs and sustaining below injuries: Injury Complex: - minimally displaced right posterior 10, 11 rib fx - minimally distracted right L1 and L2 transverse process fx - nondisplaced fx extending through 12th costovertebral junction Plan: - Transfer to floor - Encourage po pain medications - restart home pain medications and long acting oxycontin - PT/OT/SW - Incentive spirometry - OOB and ambulate TID - Continue to hold Xarelto - Lovenox for DVT ppx Problems: DVT Prophylaxis: lovenox GI Prophylaxis: not indicated Nutrition: diabetic Tucker remains in place for the following reason(s): No tucker present Author: Liberty Sharp MD Associated attestation - Flaquito Soares MD - 08/19/2019 10:15 PM [facility] Supervising MD Documentation Date of Service: 08/19/19 B# [id number] I saw and evaluated the patient. Discussed with resident and agree with the resident's findings andplan as documented in the resident's note. Additional Comments: Continue aggressive IS. Pain management is still insufficient, so we will titrate up as necessary. Flaquito Soares MD Supervising Physiciandocumented in this encounter Plan of Treatment Date Type Specialty Care Team Description 08/26/2019 Office Visit Family Practice Vinicio Angela MD [address] [place] [address] [phone] 09/04/2019 Office Visit Trauma 12/18/2019 Ancillary Procedure Radiology 12/23/2019 Office Visit General Surgery Constance Berrios MD [address] [place] [place] [address] [phone] 04/21/2020 Ocular Visit Optometry Davian Hoffman, [address] [place] [address] [phone] Name Type Priority Associated Diagnoses Order Schedule XR CHEST 1 VIEW Imaging Routine Closed fracture of multiple Expected: 09/04, ribs of right side, initial Expires: 08/21/2020 encounter Health Maintenance Due Date Last Done [...] better. Weight loss vs. 18 mo Lifestyle 32 (08/18/2019 7:06 PM EST) No Vinicio Angela MD max [...] encounter Procedures Procedure Name Priority Date/Time Associated Comments Diagnosis MAGNESIUM LEVEL Routine 08/20/2019 3:38 Results for this AM EST procedure are in the results section. BASIC METABOLIC PANEL Routine 08/20/2019 3:38 Results for this AM EST procedure are in the results section. CBC NO DIFFERENTIAL Routine 08/20/2019 3:38 Results for this AM EST procedure are in the results section. XR CHEST 1 VIEW Routine 08/19/2019 5:50 Results for this AM EST procedure are in the results section. MAGNESIUM LEVEL Routine 08/19/2019 3:43 Results for this AM EST procedure are in the results section. BASIC METABOLIC PANEL Routine 08/19/2019 3:43 Results for this AM EST procedure are in the results section. CBC NO DIFFERENTIAL Routine 08/19/2019 3:43 Results for this AM EST procedure are in the results section. RAINBOW DRAW RED TOP STAT 08/18/2019 7:57 PM EST RAINBOW DRAW GAY TOP STAT 08/18/2019 7:57 Results for this PM EST procedure are in the results section. CBC WITH DIFFERENTIAL STAT 08/18/2019 7:57 Results for this PM EST procedure are in the results section. RAINBOW LAB HOLD TUBES STAT 08/18/2019 7:57 Results for this PM EST procedure are in the results section. COMPREHENSIVE METABOLIC STAT 08/18/2019 7:57 Results for this PANEL PM EST procedure are in the results section. ALCOHOL LEVEL, MEDICAL STAT 08/18/2019 7:57 Results for this PM EST procedure are in the results section. PROTHROMBIN TIME STAT 08/18/2019 7:57 Results for this PM EST procedure are in the results section. PARTIAL THROMBOPLASTIN STAT 08/18/2019 7:57 Results for this TIME PM EST procedure are in the results section. CARDIOLOGY TEST RESULT 08/18/2019 12:00 PM EST documented in this encounter Results BASIC METABOLIC PANEL (08/20/2019 3:38 AM EST) Glucose 116 (H) 70 - 99 mg/dl [facility] BUN 9 7 - 17 mg/dl [facility] Creatinine 0.7 0.7 - 1.2 mg/dl [facility] Sodium 136 134 - 145 mmol/L [facility] Potassium 4.0 3.5 - 5.1 mmol/L [facility] Chloride 100 98 - 107 mmol/L [facility] CO2 29 22 - 30 mmol/L [facility] Calcium 9.1 8.3 - 10.1 mg/dl [facility] eGFR >60 See Interpretation [facility] Comment: Below ml/min/1.73ml GROUP Estimated GFR Interpretation: Sq LABORATORY Above 60ml/min/1.73m2 = Normal Renal Function 30-59 ml/min/1.73m2 = Stage 3 Chronic Kidney Disease 15-29 ml/min/1.73m2 = Stage 4 Chronic Kidney Disease Less than 15 ml/min/1.73m2 = Stage 5 Chronic Kidney Disease The GFR value is calculated using the Modification of Diet in Renal Disease ( MDRD) Study Equation which can be found at: https://www.kidney.org/content/vkjb-darog-ifjyktqc BUN/Creatinine 13 6 - 22 RATIO [facility] Ratio GROUP LABORATORY Anion Gap 7 3 - 11 mmol/L [facility] Specimen Blood - Blood specimen (specimen) Performing Organization Address [facility] [place], [place] Phone Number [facility] [address] [place] [address] [phone] MAGNESIUM LEVEL (08/20/2019 3:38 AM EST) Magnesium 1.7 1.6 - 2.3 MG/DL [facility] Specimen Blood - Blood specimen (specimen) Performing Organization Address [facility] [place], [place] Phone Number [facility] [address] [place] [address] CBC NO DIFFERENTIAL (08/20/2019 3:38 AM EST) WBC Count 10.81 (H)Comment: 3.98 - 10.04 [facility] Methodology was K/uL GROUP LABORATORY changed 09/20/2018. Please note updated reference range and units. RBC Count 3.40 (L) 3.93 - 5.22 [facility] M/UL [facility] Hemoglobin 10.8 (L) 11.2 - 15.7 [facility] g/dL GROUP LAB[facility]ATORY Hematocrit 33.3 (L) 34.1 - 44.9 % [facility] MCV 97.9 (H) 79.4 - 94.8 [facility] FL GROUP LABORATORY MCH 31.8 25.6 - 32.2 [facility] PG GROUP LABORATORY MCHC 32.4 32.2 - 35.5 [facility] g/dL GROUP LABORATORY Platelet Count 216 182 - 369 [facility] K/uL GROUP LAB[facility]ORY MPV 9.4 9.4 - 12.3 FL [facility] RDW 12.5 11.7 - 14.4 % [facility] Specimen Blood - Blood specimen (specimen) Performing Organization Address [facility]/State/Zipcode Phone Number [facility] [employer] [facility]ORY [address] [place] [address] [phone] XR CHEST 1 VIEW (08/19/2019 5:50 AM EST) Specimen Impressions Performed At Right basilar opacity may represent a combination of atelectasis, consolidation, or small effusion. Signed by Federico Tobias on 08/19/2019 5:57 AM Narrative Performed At Procedure(s): XR CHEST 1 VIEW Date of service: 08/19/2019 4:50 AM Provided clinical information: 49 years, Female, "rib fx" Procedure and materials: Standard protocol. Comparison studies: 11/08/2016, CT 08/01/2019 Observations: Lung volumes are low. There is faint density in the right lung base with blunting of the costophrenic angle. Left lung is clear. No pneumothorax. Cardiac silhouette is stable. No acute osseous findings. Faintly seen callus at the subacute left fifth rib fracture evident on the prior CT. Procedure Note Interface, Rad Results - 08/19/2019 5:59 AM EST Procedure(s): XR CHEST 1 VIEW Date of service: 08/19/2019 4:50 AM Provided clinical information: 49 years, Female, "rib fx" Procedure and materials: Standard protocol. Comparison studies: 11/08/2016, CT 08/01/2019 Observations: Lung volumes are low. There is faint density in the right lung base with blunting of the costophrenic angle. Left lung is clear. No pneumothorax. Cardiac silhouette is stable. No acute osseous findings. Faintly seen callus at the subacute left fifth rib fracture evident on the prior CT. IMPRESSION Right basilar opacity may represent a combination of atelectasis, consolidation, or small effusion. Signed by Federico Tobias on 08/19/2019 5:57 AM MAGNESIUM LEVEL (08/19/2019 3:43 AM EST) Magnesium 1.4 (L) 1.6 - 2.3 MG/DL [facility]ORY Specimen Blood - Blood specimen (specimen) Performing Organization Address City/State/Zipcode Phone Number [employer] [facility] [address] [place] [address] BASIC METABOLIC PANEL (08/19/2019 3:43 AM EST) Glucose 96 70 - 99 mg/dl [facility] BUN 10 7 - 17 mg/dl [facility] Creatinine 0.7 0.7 - 1.2 mg/dl [facility] Sodium 137 134 - 145 mmol/L [facility] Potassium 3.9 3.5 - 5.1 mmol/L [facility] Chloride 104 98 - 107 mmol/L [facility] CO2 27 22 - 30 mmol/L [facility] Calcium 8.3 8.3 - 10.1 mg/dl [facility] eGFR >60 See Interpretation [facility] Comment: Below ml/min/1.73ml GROUP Estimated GFR Interpretation: Sq LABORATORY Above 60ml/min/1.73m2 = Normal Renal Function 30-59 ml/min/1.73m2 = Stage 3 Chronic Kidney Disease 15-29 ml/min/1.73m2 = Stage 4 Chronic Kidney Disease Less than 15 ml/min/1.73m2 = Stage 5 Chronic Kidney Disease The GFR value is calculated using the Modification of Diet in Renal Disease ( MDRD) Study Equation which can be found at: https://www.kidney.org/content/qykh-echdz-ufqqyuan BUN/Creatinine 14 6 - 22 RATIO [facility] Ratio [facility] Anion Gap 6 3 - 11 mmol/L [facility] Specimen Blood - Blood specimen (specimen) Performing Organization Address City/State/Zipcode Phone Number [facility] [address] [place] [address] CBC NO DIFFERENTIAL (08/19/2019 3:43 AM EST) WBC Count 11.57 (H)Comment: 3.98 - 10.04 [facility] Methodology was K/uL GROUP LABORATORY changed 09/20/2018. Please note updated reference range and units. RBC Count 3.44 (L) 3.93 - 5.22 [facility] M/UL [facility] Hemoglobin 10.9 (L) 11.2 - 15.7 [facility] g/dL GROUP LAB[facility]ATORY Hematocrit 33.3 (L) 34.1 - 44.9 % [facility] MCV 96.8 (H) 79.4 - 94.8 [facility] FL GROUP LABORATORY MCH 31.7 25.6 - 32.2 [facility] PG GROUP LABORATORY MCHC 32.7 32.2 - 35.5 [facility] g/dL GROUP LAB[facility]ORY Platelet Count 212 182 - 369 [facility] K/uL [facility] MPV 9.2 (L) 9.4 - 12.3 FL [facility] RDW 12.4 11.7 - 14.4 % [facility] Specimen Blood - Blood specimen (specimen) Performing Organization Address [facility] Number [facility] [address] [place] [address] ALCOHOL LEVEL, MEDICAL (08/18/2019 7:57 PM EST) Blood Alcohol <10.00 0.00 - 10.00 [facility] MG/DL [facility] Alcohol % Comment: None [facility] Detected GROUP LAB[facility]ORY Specimen Blood - Blood specimen (specimen) Performing Organization Address [facility] [place], [place] Phone Number [facility] [address] [place] [address] [phone] RAINBOW DRAW PINK TOP (08/18/2019 7:57 PM EST) Specimen Blood - Blood specimen (specimen) Performing Organization Address [facility] Phone Number [facility] [address] [place] [address] RAINBOW DRAW GAY TOP (08/18/2019 7:57 PM EST) HOLD EXTRA TUBE [place] Hold [facility] Specimen Blood - Blood specimen (specimen) Performing Organization Address [facility] Number [facility] [address] [place] [address] [phone] PARTIAL THROMBOPLASTIN TIME (08/18/2019 7:57 PM EST) PTT 25.3Comment: 21.3 - 35.9 SEC [facility] Reference range GROUP LAB[facility]ATORY updated 07/09/2019. Specimen Blood - Blood specimen (specimen) Performing Organization Address [facility] [place], [place] Phone Number [facility] [address] [place] [address] PROTHROMBIN TIME (08/18/2019 7:57 PM EST) INR 1.25 (H)Comment: INR 0.88 - 1.13 [facility] Therapeutic Range: Ratio GROUP LABORATORY 2.0 - 3.5 Protime 15.4 (H)Comment: 12.0 - 14.5 sec [facility] Reference range GROUP LAB[facility]ATORY updated 07/09/2019. Specimen Blood - Blood specimen (specimen) Performing Organization Address City/State/Zipcode Phone Number [facility] [address] [facility] [place] [address] COMPREHENSIVE METABOLIC PANEL (08/18/2019 7:57 PM EST) Sodium 138 134 - 145 mmol/L [facility] Potassium 4.0 3.5 - 5.1 mmol/L [facility] Chloride 103 98 - 107 mmol/L [facility] CO2 29 22 - 30 mmol/L [facility] Calcium 8.8 8.3 - 10.1 mg/dl [facility] Albumin 3.6 3.5 - 5.0 g/dl [facility] BUN 9 7 - 17 mg/dl [facility] Creatinine 0.7 0.7 - 1.2 mg/dl [facility] Glucose 88 70 - 99 mg/dl [facility] Total Protein 6.8 6.3 - 8.2 g/dl [facility] Total Bilirubin 0.4 0.0 - 1.1 MG/DL [facility] AST 42 15 - 46 U/L [facility] ALT 31 9 - 52 U/L [facility] Alkaline 58 40 - 150 U/L [facility] Phosphatase [facility] eGFR >60 See Interpretation [facility] Comment: Below ml/min/1.73ml GROUP Estimated GFR Interpretation: Sq LABORATORY Above 60ml/min/1.73m2 = Normal Renal Function 30-59 ml/min/1.73m2 = Stage 3 Chronic Kidney Disease 15-29 ml/min/1.73m2 = Stage 4 Chronic Kidney Disease Less than 15 ml/min/1.73m2 = Stage 5 Chronic Kidney Disease The GFR value is calculated using the Modification of Diet in Renal Disease ( MDRD) Study Equation which can be found at: https://www.kidney.org/content/mjpw-mbueh-sopylonf BUN/Creatinine 13 - 22 RATIO [facility] GROUP LABORATORY Anion Gap 6 3 - 11 mmol/L [facility] A/G Ratio 1.1 0.8 - 2.0 ratio [facility] Specimen Blood - Blood specimen (specimen) Performing Organization Address City/State/Zipcode Phone Number [facility] [address] [place] [place] [address] [phone] CBC WITH DIFFERENTIAL (08/18/2019 7:57 PM EST) WBC Count 11.24 (H) 3.98 - 10.04 [facility] K/uL LABORATORY RBC Count 3.63 (L) 3.93 - 5.22 M/UL [facility] Hemoglobin 11.5 11.2 - 15.7 g/dL [facility] Hematocrit 34.8 34.1 - 44.9 % [facility] MCV 95.9 (H) 79.4 - 94.8 FL [facility] MCH 31.7 25.6 - 32.2 PG [facility] MCHC 33.0 32.2 - 35.5 g/dL [facility] Platelet Count 229 182 - 369 K/uL [facility] MPV 9.0 (L) 9.4 - 12.3 FL [facility] RDW 12.3 11.7 - 14.4 % [facility] Neutrophil % 75.2 (H) 34.0 - 71.1 % [facility] Lymphocyte % 16.3 (L) 19.3 - 51.7 % [facility] Monocyte % 6.2 4.7 - 12.5 % [facility] Eosinophil % 1.3 0.7 - 5.8 % [facility] Basophil % 0.6 0.1 - 1.2 % [facility] nRBC % 0.0 0.0 - 0.2 % [facility] Neutrophil # 8.45 (H) 1.56 - 6.13 K/UL [facility] Lymphocyte # 1.83 1.18 - 3.74 K/UL [facility] Monocyte # 0.70 0.24 - 0.86 K/UL [facility] Eosinophil # 0.15 0.04 - 0.36 K/UL [facility] Basophil # 0.07 0.01 - 0.08 K/UL [facility] Immature Gran % 0.4 0.0 - 0.4 % [facility] Immature Gran # 0.04 (H) 0.00 - 0.03 K/uL [facility] NRBC # 0.00 0.00 - 0.12 K/uL [facility] Specimen Blood - Blood specimen (specimen) Performing Organization Address City/State/Zipcode Phone Number [facility] [address] [place] [address] CARDIOLOGY TEST RESULT (08/18/2019 12:00 PM EST) Narrative Performed At documented in this encounter Visit Diagnoses Diagnosis Infected nail bed of toe Closed fracture of multiple ribs, unspecified laterality, initial encounter Closed fracture of transverse process of lumbar vertebra, initial encounter ( [facility]) Closed fracture of multiple ribs of right side, initial encounter documented in this encounter Administered Medications Medication Order MAR Action Action Date Dose Rate Site acetaminophen (TYLENOL) tablet Given 08/20/2019 8:56 AM EST 1,000 mg 1,000 mg 1,000 mg, Oral, Q8 HRS, 15 doses, First dose on Mon08/18/19 at 2255, Last dose on Mon08/23/19 at 1500 albuterol HFA (PROVENTIL,VENTOLIN) Given 08/19/2019 1:19 AM EST 2 Puffs inhalation (RT ADMIN) 2 Puff 2 Puff, Inhalation, Q4 HRS PRN, Starting Mon08/18/19 at 2257, Until Mon08/19/19 at 0137, SOB albuterol HFA (PROVENTIL,VENTOLIN) Given 08/19/2019 7:46 AM EST 2 Puffs inhalation (RT ADMIN) 2 Puff 2 Puff, Inhalation, RT BID, Starting Mon08/19/19 at 0140, Until Mon08/19/19 at 1752, SOB albuterol HFA (VENTOLIN) inhalation Given 08/21/2019 8:45 AM EST 2 Puffs (Supervised Pt Admin) 2 Puff 2 Puff, Inhalation, BID, 60 doses, First dose on Mon08/19/19 at 2100, Last dose on Mon09/18/19 at 0900, Shake Well, Given 08/20/2019 9:24 PM EST 1 Puff Given 08/20/2019 9:10 AM EST 2 Puffs allopurinol (ZYLOPRIM) tablet 300 mg Given 08/21/2019 8:39 AM EST 300 mg 300 mg, Oral, DAILY, First dose on Mon08/19/19 at 0900, Until Discontinued Given 08/20/2019 8:57 AM EST 300 mg Given 08/19/2019 10:15 PM EST 300 mg artificial tears ophthalmic ointment Both Eyes, Q4 HRS PRN, Starting Mon08/21/19 at 0111, Until Mon08/21/19 at 1707 , dry eyes atorvastatin (LIPITOR) tablet 40 mg Given 08/21/2019 8:35 AM EST 40 mg 40 mg, Oral, DAILY, First dose on Mon08/19/19 at 0900, Until Discontinued Given 08/20/2019 9:15 AM EST 40 mg Given 08/19/2019 8:49 AM EST 40 mg budesonide (RHINOCORT AQ) nasal spray 2 Given 08/21/2019 8:51 AM EST 2 Sprays [place] 2 [place], Nasal, BID, First dose on 08/18/19 at 2305, Until Discontinued Given 08/20/2019 9:24 PM EST 2 Sprays Given 08/20/2019 9:11 AM EST 2 Sprays cholecalciferol (VITAMIN D) 1,000 Units Given 08/21/2019 8:38 AM EST 1,000 Units 1,000 Units, Oral, DAILY, First dose on Mon08/19/19 at 0900, Until Discontinued Given 08/20/2019 8:56 AM EST 1,000 Units Given 08/19/2019 8:49 AM EST 1,000 Units cholestyramine (QUESTRAN) oral powder 4 g Given 08/19/2019 1:16 PM EST 4 g 4 g, Oral, BID, First dose on 08/18/19 at 2305, Until Discontinued citalopram (CeleXA) tablet 20 mg Given 08/21/2019 8:38 AM EST 20 mg 20 mg, Oral, DAILY, First dose on Mon08/19/19 at 0900, Until Discontinued Given 08/20/2019 8:56 AM EST 20 mg Given 08/19/2019 8:49 AM EST 20 mg clonazePAM (KLONOPIN) tablet 2 mg Given 08/21/2019 8:41 AM EST 2 mg 2 mg, Oral, TID, 21 doses, First dose on Mon08/19/19 at 0900, Last dose on Mon08/25/19 at 2100 Given 08/20/2019 9:50 PM EST 2 mg Given 08/20/2019 4:44 PM EST 2 mg cloNIDine (CATAPRES) tablet 0.1 mg Given 08/21/2019 8:38 AM EST 0.1 mg 0.1 mg, Oral, DAILY, First dose on Mon08/19/19 at 0900, Until Discontinued Given 08/20/2019 8:56 AM EST 0.1 mg Given 08/20/2019 1:02 AM EST 0.1 mg diphenoxylate-atropine (LOMOTIL) 2.5-0.025 mg Given 08/19/2019 12:55 AM EST 1 Tab 1 Tab 1 Tab, Oral, QID PRN, Starting Mon08/18/19 at 2259, Until Mon08/21/19 at 1707, diarrhea, DO NOT CRUSH. Dissolve tablet in 5 mL of water PRIOR to administering via a TUBE route., docusate sodium (COLACE) capsule 100 mg Given 08/19/2019 10:14 PM EST 100 mg 100 mg, Oral, BID, First dose on Mon08/18/19 at 2300, Until Discontinued, This medication dosage form should NOT be crushed. Please call the inpatient Pharmacy for more information. [facility] ext. [phone] [employer] ext. [phone] [facility] ext. [phone] , docusate sodium (COLACE) capsule 100 mg Given 08/21/2019 12:49 PM EST 100 mg 100 mg, Oral, BID, First dose on Mon08/21/19 at 0900, Until Discontinued, This medication dosage form should NOT be crushed. Please call the inpatient Pharmacy for more information. [facility] ext. [phone] [employer] ext. [phone] [facility] ext. [phone] , enoxaparin (LOVENOX) injection Given 08/19/2019 12:37 PM EST 30 mg Abdominal Tissue 30 mg/0.3 mL 30 mg 30 mg, Subcutaneous, Q12 HRS, 30 doses, First dose on Mon08/18/19 at 2355, Last dose on Mon09/02/19 at 1200, (CONTRAINDICATED with epidural catheter), fexofenadine (MIKIE) tablet 180 mg Given 08/21/2019 8:39 AM EST 180 mg 180 mg, Oral, DAILY, First dose on Mon08/19/19 at 0900, Until Discontinued Given 08/20/2019 8:56 AM EST 180 mg Given 08/19/2019 8:49 AM EST 180 mg fluoxetine (PROZAC) capsule 120 mg Given 08/21/2019 8:33 AM EST 120 mg 120 mg, Oral, DAILY, First dose on Mon08/19/19 at 1110, Until Discontinued Given 08/20/2019 8:57 AM EST 120 mg Given 08/19/2019 12:36 PM EST 120 mg gabapentin (NEURONTIN) capsule 600 mg Given 08/19/2019 12:55 AM EST 600 mg 600 mg, Oral, QHS, First dose on 08/18/19 at 2305, Until Discontinued gabapentin (NEURONTIN) capsule 600 mg Given 08/21/2019 8:36 AM EST 600 mg 600 mg, Oral, BID, First dose (after last modification) on Mon08/19/19 at 2100, Until Discontinued Given 08/20/2019 9:24 PM EST 600 mg Given 08/20/2019 8:57 AM EST 600 mg hydrOXYzine HCL (ATARAX) tablet 25 mg Given 08/21/2019 8:50 AM EST 25 mg 25 mg, Oral, Q8 HRS PRN, Starting 08/18/19 at 2257, Until Mon08/21/19 at 1707, itch Given 08/20/2019 9:55 PM EST 25 mg Given 08/19/2019 10:40 PM EST 25 mg ketamine (KETALAR) injection 20 mg Given 08/18/2019 8:33 PM EST 10 mg 20 mg, Intravenous Push, NOW, 1 dose, [place] 08/18/19 at 1945, Slow push, ketamine (KETALAR) injection 20 mg Given 08/18/2019 9:51 PM EST 20 mg 20 mg, Intravenous Push, NOW, 1 dose, [place] 08/18/19 at 2145 levothyroxine (SYNTHROID) tablet 25 mcg Given 08/21/2019 7:02 AM EST 25 mcg 25 mcg, Oral, PRE BREAKFAST, First dose on Mon08/19/19 at 0600, Until Discontinued Given 08/20/2019 6:18 AM EST 25 mcg Given 08/19/2019 6:54 AM EST 25 mcg lidocaine transdermal Patch applied 08/21/2019 8:47 AM 2 Patches Back - Lower patch (LIDODERM) topical EST Right 5 % 2 Patch, Topical, DAILY, First dose on Mon08/19/19 at 2240, Until Discontinued, Apply in AM, remove in PM. (no more than 12 h on per day). Please make sure previous patch is removed from site., Patch applied 08/20/2019 12:50 AM EST 2 Patches Chest - Right magnesium hydroxide (MILK OF MAGNESIA) 400 MG/5ML oral suspension 30 mL 30 mL, Oral, DAILY, First dose (after last modification) on Mon08/21/19 at 0900 , Until Discontinued magnesium oxide tablet 500 mg Given 08/19/2019 10:13 PM EST 500 mg 500 mg, Oral, X1, 1 dose, First dose on Mon08/19/19 at 1850 medication communication order Oral, CONTINUOUS, Starting Mon08/19/19 at 1850, Until Mon08/21/19 at 1707 methocarbamol (ROBAXIN) tablet 1,000 mg Given 08/21/2019 8:52 AM EST 500 mg 1,000 mg, Oral, TID, First dose (after last modification) on Mon08/20/19 at 1600, Until Discontinued Given 08/20/2019 9:24 PM EST 500 mg Given 08/20/2019 4:44 PM EST 500 mg methocarbamol (ROBAXIN) tablet 500 mg Given 08/19/2019 10:13 PM EST 500 mg 500 mg, Oral, QID, 12 doses, First dose on Mon08/19/19 at 1300, Last dose on Mon08/22/19 at 0900 miconazole (DESENEX) topical Given 08/20/2019 9:56 PM EST 1 g Groin - Bilateral powder 2 % Topical, BID, First dose (after last reorder) on Mon08/18/19 at 2305, Until Discontinued, Apply to affected toes and groin region, Given 08/20/2019 9:00 AM EST Groin - Bilateral Given 08/19/2019 8:49 AM EST [place] miconazole (MONISTAT) topical cream 2 % Given 08/20/2019 10:01 PM EST Other Topical, BID, First dose on Mon08/19/19 at 0150, Until Discontinued Given 08/19/2019 10:22 PM EST [place] - Bilateral Given 08/19/2019 8:39 AM EST Multiple Sites (see comments) Mometasone Furo-Formoterol Fum (DULERA) Given 08/19/2019 7:46 AM EST 2 INHL 200-5 MCG/ACT inhalation (RT ADMIN) 2 INHL 2 INHL, Inhalation, RT BID, Starting 08/18/19 at 2258, Until Mon08/19/19 at 1752, PER RT FREQUENCY Mometasone Furo-Formoterol Fum (DULERA) Given 08/21/2019 8:45 AM EST 2 INHL 200-5 MCG/ACT inhalation (Supervised Pt Admin) 2 INHL 2 INHL, Inhalation, BID, 60 doses, First dose on Mon08/19/19 at 2100, Last dose on Mon09/18/19 at 0900 Given 08/20/2019 9:24 PM EST 2 INHL Given 08/20/2019 9:09 AM EST 2 INHL morphine (PF) syringe 2 mg New Bag 08/19/2019 6:56 AM EST 2 mg 2 mg, Intravenous, Q2 HRS PRN, Starting 08/18/19 at 2152, Until Mon08/19/19 at 1110, PRN severe breakthrough pain after PO pain medications have already been given and/or immediate effect required New Bag 08/19/2019 3:09 AM EST 2 mg New Bag 08/19/2019 1:00 AM EST 2 mg morphine immediate release tablet 15 mg Given 08/21/2019 8:41 AM EST 15 mg 15 mg, Oral, TID PRN, Starting 08/18/19 at 2257, Until Mon08/21/19 at 1707, back pain Given 08/21/2019 12:48 AM EST 15 mg Given 08/20/2019 4:52 PM EST 15 mg nicotine transdermal Patch applied 08/20/2019 9:17 AM 1 Patch Arm - Upper patch-daily (NICODERM) EST Right topical 21 mg/24 hr 1 Patch 1 Patch (21 mg), Transdermal, DAILY, First dose on Mon08/19/19 at 0900, Until Discontinued, Apply one patch in the morning on hairless skin on upper body. Rotate sites. Remove prior to MRI to avoid griffin. Please make sure to remove previous patch from site., Patch applied 08/19/2019 8:49 AM EST 1 Patch Arm-Left Patch applied 08/19/2019 1:20 AM EST 1 Patch Arm - Upper Right nicotine transdermal Patch applied 08/21/2019 8:56 AM 1 Patch Arm - Upper patch-daily (NICODERM) EST Right topical 21 mg/24 hr 1 Patch 1 Patch (21 mg), Transdermal, DAILY, First dose (after last modification) on Mon08/21/19 at 0120, Until Discontinued, Apply one patch in the morning on hairless skin on upper body. Rotate sites. Remove prior to MRI to avoid griffin. Please make sure to remove previous patch from site., Patch applied 08/21/2019 1:43 AM EST 1 Patch Arm - Upper Left normal saline bolus 1,000 mL New Bag 08/18/2019 8:33 PM EST 1,000 mL 1,000 mL, Intravenous, BOLUS, 1 dose, [place] 08/18/19 at 2045 ondansetron (ZOFRAN ODT) soluble tablet 4 mg Given 08/19/2019 6:32 PM EST 4 mg 4 mg, Oral, NOW, 1 dose, Mon08/19/19 at 1810 ondansetron (ZOFRAN) injection 4 mg Given 08/18/2019 10:24 PM EST 4 mg 4 mg, Intravenous Push, X1, 1 dose, First dose on Mon08/18/19 at 2325 ondansetron (ZOFRAN) injection 4 mg Given 08/19/2019 10:31 PM EST 4 mg 4 mg, Intravenous Push, Q8 HRS PRN, Starting Mon08/19/19 at 0302, Until Mon08/20/19 at 1108, Nausea/Vomiting - IV - 1st line - If immediate effect required or patient cannot tolerate PO Given 08/19/2019 12:53 PM EST 4 mg Given 08/19/2019 3:09 AM EST 4 mg ondansetron (ZOFRAN) injection 4 mg Given 08/20/2019 5:06 PM EST 4 mg 4 mg, Intravenous Push, Q4 HRS PRN, Starting Mon08/20/19 at 1100, Until Mon08/21/19 at 1707, Nausea/Vomiting - IV - 1st line - If immediate effect required or patient cannot tolerate PO Given 08/20/2019 12:58 PM EST 4 mg ONDANSETRON HCL 4 MG/2ML IJ SOLN 1 dose, Starting Mon08/18/19 at 2222, Until Mon08/18/19 at 2224, Leonor Cuevas: jhonathan vaughnide, Leonor Cuevas: jhonathan vaughnide, oxybutynin (DITROPAN) tablet 5 mg Given 08/21/2019 8:35 AM EST 5 mg 5 mg, Oral, TID, First dose on 08/18/19 at 2305, Until Discontinued Given 08/20/2019 9:24 PM EST 5 mg Given 08/20/2019 4:44 PM EST 5 mg OXYcodone (OXY-IR,OXY-FAST) immediate release Given 08/21/2019 8:42 AM EST 10 mg tablet 10 mg 10 mg, Oral, Q4 HRS PRN, Starting 08/18/19 at 2152, Until Mon08/21/19 at 1707, Severe Pain (pain scale 7-10) - PO - 1st line - if immediate effect not required and patient can tolerate PO Given 08/20/2019 9:52 PM EST 10 mg Given 08/20/2019 4:59 PM EST 10 mg OXYcodone (OXY-IR,OXY-FAST) immediate release tablet 5 mg 5 mg, Oral, Q4 HRS PRN, Starting 08/18/19 at 2152, Until Mon08/21/19 at 1707 , Moderate Pain (pain scale 4-6) - PO - 1st line - if immediate effect not required and patient can tolerate PO OXYcodone (OXYCONTIN) 12 hour tablet 10 mg Given 08/20/2019 12:48 AM EST 10 mg 10 mg, Oral, Q12 HRS, 10 doses, First dose on Mon08/19/19 at 1210, Last dose on Mon08/24/19 at 0010, This medication dosage form should NOT be crushed. Please call the inpatient Pharmacy for more information. [facility] ext. [phone] [place] [phone] [facility] ext. [phone] , Given 08/19/2019 12:53 PM EST 10 mg OXYcodone (OXYCONTIN) 12 hour tablet 20 mg Given 08/21/2019 12:53 PM EST 20 mg 20 mg, Oral, Q12 HRS, 8 doses, First dose (after last modification) on Mon08/20/19 at 1210, Last dose on Mon08/24/19 at 0010, This medication dosage form should NOT be crushed. Please call the inpatient Pharmacy for more information. [facility] ext. [phone] [place] [phone] [facility] ext. [phone] , Given 08/21/2019 12:42 AM EST 20 mg Given 08/20/2019 12:58 PM EST 10 mg pantoprazole (PROTONIX) enteric coated tablet Given 08/21/2019 8:36 AM EST 40 mg 40 mg 40 mg, Oral, PRE BREAKFAST, First dose on 08/19/19 at 0700, Until Discontinued, This medication dosage form should NOT be crushed. Please call the inpatient Pharmacy for more information. [facility] ext. [phone] [facility] ext. [phone] , Given 08/20/2019 9:12 AM EST 40 mg Given 08/19/2019 6:54 AM EST 40 mg prazosin (MINIPRESS) capsule 1-2 mg Given 08/20/2019 9:24 PM EST 1 mg 1-2 mg, Oral, QHS, First dose on 08/18/19 at 2305, Until Discontinued ramelteon (ROZEREM) tablet 8 mg 8 mg, Oral, QHS PRN, Starting 08/19/19 at 2237, Until Mon08/21/19 at 1707, Sleep/Insomnia - 1st line, Administer within 30 minutes of going to bed. Should not be taken with or immediately after a high-fat meal., tetanus-diphtheria toxoids-Td (TENIVAC) Given 08/18/2019 9:19 PM 0.5 mL Arm-Right injection (adult) 0.5 mL EST 0.5 mL, Intramuscular, NOW, 1 dose, 08/18/19 at 2000, Before a vaccine is administered, the patient or the parent/authorized community engagement representative must receive a copy of the most current Vaccine Information Statement (VIS) available for that vaccine. The VIS can be found as a reference link within the medication on the eMAR, within the LINKS section in EPIC, on the EPIC pre-login screen, in the [employer] Library on the Intranet or at the following website: http://www.immunize.org/vis/. Allow the patient or the parent/authorized community engagement representative time to read the VIS prior to agreeing to receive the vaccine. You must record in the patient's medical record the date the VIS was given, the publication date of the VIS (VIS Date which appears on the bottom of the VIS), welder experimental, lot number and expiration date of the vaccine, site of injection, date/time of administration. , trazodone (DESYREL) tablet 100 mg Given 08/20/2019 9:24 PM EST 100 mg 100 mg, Oral, QHS, First dose on 08/18/19 at 2305, Until Discontinued Given 08/19/2019 10:14 PM EST 100 mg Given 08/19/2019 12:56 AM EST 100 mg documented in this encounter Guarantor Name Account Type Relation to Date of Phone Billing Address Patient Renae Lobo Personal/Famil 1970 [address] (Home) [phone] [place] [id number] (Work) [place] [address] documented as of this encounter Advance Directives Code Status Date Activated Date Inactivated Comments Full Code 08/18/2019 10:55 PM Does the patient have decision making capacity? Yes Order was discussed with: Patient I discussed all options and patient/surrogate requested and agreed to: Full Code
[2019-09-23 17:20] VITALS: BP 140/87
--- NOTE | 2019-09-23 17:37 | UC ---
UC General HPI - HPI Summary HPI Summary: 49-year-old woman comes in with a chief complaint of right rib pain low back pain and bilateral feet fungal infection. On August 18, 2019 patient slipped and fell and broke several ribs and some vertebrae in her back and she went to the [facility] emergency department where she was transferred to [facility]. Patient reports since that time she's been on morphine and also oxycodone. Her primary care physician is been and imaging the morphine. She indicates that she's not sure when the morphine prescription is coming and she wishes to have some short-acting oxycodone to help with the pain. Patient has bilateral foot fungus which she is treating with clotrimazole. She is worried about bacterial infection in her feet. She has not seen a insurance solicitor. No fevers. - History of Current Complaint Chief Complaint: UCBackPain Stated Complaint: RIB INJURY, BACK INJURY, INFECTION IN FOOT Time Seen by Provider: 09/23/19 17:05 Hx Last Menstrual Period: 06/18/19 Pain Intensity: 18 - Allergy/Home Medications Allergies/Adverse Reactions: Allergies Allergy/AdvReac Type Severity Reaction Status Date / Time shrimp Allergy Severe Anaphylatic Verified 09/23/19 17:18 Shock ketotifen [From [place]] Allergy Eyes Verified 09/23/19 17:18 Itchy/Swollen/Red/Watery latex Allergy Rash Verified 09/23/19 17:18 seafood Allergy Severe hives, Uncoded 09/23/19 17:18 difficulty breathing environmental Allergy Wheezing Uncoded 09/23/19 17:18 eye drops Allergy Unknown Uncoded 09/23/19 17:18 Reaction Details PMH/Surg Hx/FS Hx/Imm Hx Previously Healthy: Yes Endocrine History: Diabetes, Dyslipidemia Cardiovascular History: Hypertension Respiratory History: Pulmonary Embolism - Surgical History Surgical History: Yes Surgery Procedure, Year, and Place: D&C. DENTAL EXTRACTION - Family History Known Family History: Positive: Respiratory Disease - COPD, Blood Disorder - blood clots, Other - COPD Family History: FHx of anxiety, depression, OCD - Social History Alcohol Use: Occasionally Alcohol Amount: pt states occasional use of alcohol Substance Use Type: None Smoking Status (MU): Former Smoker Type: Cigarettes Amount Used/How Often: vapes Length of Time of Smoking/Using Tobacco: since age 13 Have You Smoked in the Last Year: Yes Household Exposure Type: Cigarettes - Immunization History Most Recent Influenza Vaccination: season Most Recent Pneumonia Vaccination: never Review of Systems All Other Systems Reviewed And Are Negative: Yes Constitutional: Positive: Other - SEE HPI Skin: Positive: Other - SEE HPI Eyes: Positive: Negative ENT: Positive: Negative Respiratory: Positive: Negative Cardiovascular: Positive: Other - SEE HPI Gastrointestinal: Positive: Negative Motor: Positive: Negative Neurovascular: Positive: Negative Musculoskeletal: Positive: Other: - SEE HPI Neurological: Positive: Negative Psychological: Positive: Negative Is Patient Immunocompromised?: No Physical Exam Triage Information Reviewed: Yes Appearance: Well-Appearing, Well-Nourished, Pain Distress - MILD WITH RIB AND LOW BACK EXAM Vital Signs: Initial Vital Signs Temp 99.5 F 09/23/19 17:18 Pulse 105 09/23/19 17:18 Resp 18 09/23/19 17:18 BP 140/87 09/23/19 17:18 Pulse Ox 96 09/23/19 17:18 Vital Signs Reviewed: Yes Eye Exam: Normal Eyes: Positive: Conjunctiva Clear Neck: Positive: Supple Respiratory: Positive: Lungs clear, Normal breath sounds, No respiratory distress, Other: - Tenderness to palpation posterior lateral ribs bilaterally. Mild tenderness to palpation upper lumbar spine. Cardiovascular: Positive: RRR Musculoskeletal: Positive: Strength Intact Neurological: Positive: Alert Psychological: Positive: Age Appropriate Behavior Skin: Positive: Other - Both feet have fungal infection on the toes. Is no drainage no fluctuant area. There is an area of erythema adjacent to the toenail of the left great toe. No streaking. Course/Dx - Course Course Of Treatment: Patient reports that her primary care doctor is managing the morphine for her chronic pain the patient is not sure when the morphine prescription will be available. Patient did request oxycodone to help with immediate pain. I did send a prescription for oxycodone to be used to bridge the gap between now and when the morphine prescription became available. The pharmacist called and let me know that the morphine prescription has just been filled. Therefore I asked the pharmacist to cancel the oxycodone prescription. Patient will take morphine as directed and follow-up with her primary care physician. I did suggest to her the possibility of going to the pain clinic for her chronic back and rib pain. For her feet she is going to continue with the topical Chlortrimazole. She requested an antibiotic for any bacterial infection. There is a small area of erythema adjacent to the left great toenail however, I did not find any fluctuant areas. No streaking. I did write a prescription for Keflex. Have the patient follow-up with podiatry for her feet. - Diagnoses Provider Diagnosis: Fungal infection of foot, Rib pain on right side, Low back pain Discharge ED - Sign-Out/Discharge Documenting (check all that apply): Patient Departure All imaging exams completed and their final reports reviewed: No Studies - Discharge Plan Condition: Stable Disposition: HOME Prescriptions: Cephalexin CAP* [Keflex CAP*] 500 mg PO TID #21 cap Patient Education Materials: Athlete's Foot (ED), Skin Yeast Infection (ED) Referrals: Vinicio Angela MD [Primary Care Provider] - Lynn Foss NP [Nurse Practitioner] - Sven Lewis DPM [Doctor of Podiatric Medicine] - Sariah Toledo DPM [Doctor of Podiatric Medicine] - Additional Instructions: FOLLOW UP WITH YOUR DOCTOR SCHEDULED THIS MONTH. FOR YOUR RIB AND BACK PAIN, DISCUSS TREATMENT AT THE PAIN CLINIC WITH YOUR PRIMARY CARE PHYSICIAN. FOLLOW UP WITH PODIATRY. GET REEVALUATED SOONER IF NOT IMPROVED OR WORSE OR ANY QUESTIONS OR CONCERNS. - Billing Disposition and Condition Condition: STABLE Disposition: Home
== END 2019-09-23 18:00 | disposition home or self-care (01) ==
LOC: UCEAST 16:34
DX: B35.3 Tinea pedis (principal); R07.81 Pleurodynia; M54.5 Low back pain; E11.9 Type 2 diabetes mellitus without complications; I10 Essential (primary) hypertension; G89.29 Other chronic pain; Z87.891 Personal history of nicotine dependence; W01.0XXD Fall on same level from slipping, tripping and stumbling without subsequent striking against object, subsequent encounter; Z91.040 Latex allergy status; Z91.013 Allergy to seafood; Z88.8 Allergy status to other drugs, medicaments and biological substances; Z91.09 Other allergy status, other than to drugs and biological substances
CPT/HCPCS: 99212; G0463

== ENCOUNTER 2019-10-16 17:36 | Emergency (ER) | payer OTHER ==
[~2019-10-16 17:36] MED LIST: Lidocaine Patch REMOVE* 1 NOTE MISC PATCH OFF SCH
[2019-10-16] MEDS ORDERED: Acetaminophen TAB* 325 MG PO ONE (18:03)
[2019-10-16] MEDS ORDERED: Cyclobenzaprine TAB* 10 MG PO ONE (18:03)
--- NOTE | 2019-10-16 18:03 | ED ---
Back Pain - HPI Summary HPI Summary: Patient with history of chronic pain and opiate abuse presents for persistent back pain status post fall 6 weeks ago. She was evaluated here. Fall, positive for rib fractures and transverse process fractures at L1-L2. Patient was transferred to [facility]. Patient states persistent pain since. States he is in severe pain. Patient ultimately states she's had a couple falls since, and then denies trauma. Patient has history of presenting for pain medication. Patient on Xarelto. Patient moving and writhing in bed. Patient observed ambulating to the bathroom with no apparent distress. - History of Current Complaint Chief Complaint: EDBackInjuryPain Stated Complaint: BACK PAIN PER EMS Time Seen by Provider: 10/16/19 17:43 Hx Obtained From: Patient Hx Last Menstrual Period: 06/18/19 Onset/Duration: Lasting Weeks Onset/Duration: Started Weeks Ago Timing: Constant Back Pain Location: Is Diffuse Severity Initially: Severe Severity Currently: Severe Pain Intensity: 18 Pain Scale Used: 0-10 Numeric Character: Dull, Aching, Throbbing Aggravating Symptom(s): Movement, Lifting, Bending Alleviating Symptom(s): Nothing Associated Signs And Symptoms: Positive: Negative - Allergies/Home Medications Allergies/Adverse Reactions: Allergies Allergy/AdvReac Type Severity Reaction Status Date / Time shrimp Allergy Severe Anaphylatic Verified 10/16/19 17:44 Shock ketotifen [From [facility]] Allergy Eyes Verified 10/16/19 17:44 Itchy/Swollen/Red/Watery latex Allergy Rash Verified 10/16/19 17:44 seafood Allergy Severe hives, Uncoded 10/16/19 17:44 difficulty breathing environmental Allergy Wheezing Uncoded 10/16/19 17:44 eye drops Allergy Unknown Uncoded 10/16/19 17:44 Reaction Details PMH/Surg Hx/FS Hx/Imm Hx Endocrine/Hematology History: Reports: Hx Diabetes - Type 2, Hx Thyroid Disease - HYPOTHYROIDISM Denies: Hx Anemia Cardiovascular History: Reports: Hx Angina, Hx Embolism - pulmonary embolism, Hx Hypercholesterolemia, Hx Hypertension Denies: Hx Aneurysm, Hx Angioplasty, Hx Auto Implanted Cardiovert Defib, Hx Cardiac Arrest, Hx Cardiomegaly, Hx Congenital Heart Disease, Hx Congestive Heart Failure, Hx Coronary Artery Disease, Hx Deep Vein Thrombosis, Hx Myocardial Infarction, Hx Valvular Heart Disease Respiratory History: Reports: Hx Asthma, Hx Chronic Obstructive Pulmonary Disease (COPD), Hx Pulmonary Embolism, Hx Seasonal Allergies GI History: Reports: Other GI Disorders - fatty liver disease Denies: Hx Ulcer History: Denies: Hx Chronic Renal Failure, Hx Renal Disease Musculoskeletal History: Denies: Hx Rheumatoid Arthritis, Hx Osteoporosis Sensory History: Reports: Hx Contacts or Glasses Denies: Hx Eye Prosthesis, Hx Legally Blind, Hx Deafness, Hx Hearing Aid Opthamlomology History: Reports: Hx Contacts or Glasses Denies: Hx Eye Prosthesis, Hx Legally Blind Neurological History: Denies: Hx Dementia, Hx Developmental Delay, Hx Headaches, Hx Migraine, Hx Nerve Disease, Hx Seizures, Hx Spinal Cord Injury, Hx Transient Ischemic Attacks (TIA) Psychiatric History: Reports: Hx Anxiety, Hx Depression - Surgical History Surgery Procedure, Year, and Place: D&C. DENTAL EXTRACTION Infectious Disease History: No Infectious Disease History: Denies: Hx Clostridium Difficile, Hx Hepatitis, Hx Human Immunodeficiency Virus (HIV), Hx of Known/Suspected MRSA, Hx Shingles, Hx Tuberculosis, Hx Known/ Suspected VRE, Hx Known/Suspected VRSA, History Other Infectious Disease, Traveled Outside the [place] in Last 30 Days - Family History Known Family History: Positive: Respiratory Disease - COPD, Blood Disorder - blood clots, Other - COPD Family History: FHx of anxiety, depression, OCD - Social History Alcohol Use: Occasionally Alcohol Amount: pt states occasional use of alcohol Hx Substance Use: No Substance Use Type: Reports: None Hx Tobacco Use: Yes Smoking Status (MU): Light Every Day Tobacco Smoker Type: Cigarettes Amount Used/How Often: vapes Length of Time of Smoking/Using Tobacco: since age 13 Have You Smoked in the Last Year: Yes Review of Systems Constitutional: Negative Eyes: Negative ENT: Negative Cardiovascular: Negative Respiratory: Negative Gastrointestinal: Negative Genitourinary: Negative Musculoskeletal: Other Skin: Negative Neurological: Negative Psychological: Normal All Other Systems Reviewed And Are Negative: Yes Physical Exam - Summary Physical Exam Summary: No ecchymosis, erythema, deformity, swelling, mass noted to back. Patient arrives in pain when touched anywhere on back. Legs freely while driving. Ambulated to the bathroom in no apparent distress. No evidence of trauma anywhere. Triage Information Reviewed: Yes Vital Signs On Initial Exam: Initial Vitals Temp Pulse Resp BP Pulse Ox 98.7 F 91 16 107/65 95 10/16/19 17:37 10/16/19 17:37 10/16/19 17:37 10/16/19 17:37 10/16/19 17:37 Vital Signs Reviewed: Yes Appearance: Positive: Well-Appearing Skin: Positive: Warm Head/Face: Positive: Normal Head/Face Inspection Eyes: Positive: Normal Neck: Positive: Supple Respiratory/Lung Sounds: Positive: Clear to Auscultation Cardiovascular: Positive: Normal Abdomen Description: Positive: Nontender Musculoskeletal: Positive: Normal Neurological: Positive: Normal Psychiatric: Positive: Normal AVPU Assessment: Alert - Yanci Coma Scale Best Eye Response: 4 - Spontaneous Best Motor Response: 6 - Obeys Commands Best Verbal Response: 5 - Oriented Coma Scale Total: 15 Procedures - Sedation Patient Received Moderate/Deep Sedation with Procedure: No Diagnostics - Vital Signs Vital Signs Temp Pulse Resp BP Pulse Ox 10/16/19 17:37 98.7 F 91 16 107/65 95 - Laboratory Lab Statement: Any lab studies that have been ordered have been reviewed, and results considered in the medical decision making process. Back Pain Course/Dx - Course Course Of Treatment: Patient with history of chronic pain and opiate abuse presents for persistent back pain status post fall 6 weeks ago. She was evaluated here. Fall, positive for rib fractures and transverse process fractures at L1-L2. Patient was transferred to [facility]. Patient states persistent pain since. States he is in severe pain. Patient ultimately states she's had a couple falls since, and then denies trauma. Patient has history of presenting for pain medication. Patient on Xarelto. Patient moving and writhing in bed. Patient observed ambulating to the bathroom with no apparent distress. Vital signs within normal limits. Repeat x-ray of ribs and chest negative for new process. Flexeril and lidocaine patch administered. - Diagnoses Provider Diagnoses: Chronic pain due to injury Discharge ED - Sign-Out/Discharge Documenting (check all that apply): Patient Departure - Discharge Plan Condition: Stable Disposition: HOME Patient Education Materials: Chronic Back Pain (DC) Referrals: Vinicio Angela MD [Primary Care Provider] - Additional Instructions: Continue taking your prescription pain medication for chronic back pain after injury. Follow-up with primary care for further management of chronic back pain after injury. Return to the ED for any new or worsening symptoms. - Billing Disposition and Condition Condition: STABLE Disposition: Home - Attestation Statements Provider Attestation: I was available for consultation for this patient. I did not evaluate the patient, or participate in any medical decision making or disposition decisions unless I am specifically named in the chart as having consulted on the patient. If I have consulted on the patient, please see my own ED note on the patient encounter. Negra Rothman MD
[2019-10-16] MEDS ORDERED: Lidocaine PATCH 5%* 1 PATCH TRANSDERM SCH (19:00)
[2019-10-16 19:49] VITALS: BP 108/65
== END 2019-10-16 19:48 | disposition home or self-care (01) ==
LOC: ED 17:36
DX: M54.9 Dorsalgia, unspecified (principal); G89.29 Other chronic pain; W19.XXXD Unspecified fall, subsequent encounter; E11.9 Type 2 diabetes mellitus without complications; E03.9 Hypothyroidism, unspecified; E78.00 Pure hypercholesterolemia, unspecified; I10 Essential (primary) hypertension; Z86.711 Personal history of pulmonary embolism; J44.9 Chronic obstructive pulmonary disease, unspecified; K76.0 Fatty (change of) liver, not elsewhere classified; F41.9 Anxiety disorder, unspecified; F32.9 Major depressive disorder, single episode, unspecified; F17.210 Nicotine dependence, cigarettes, uncomplicated; Z79.01 Long term (current) use of anticoagulants; Z79.899 Other long term (current) drug therapy; Z88.8 Allergy status to other drugs, medicaments and biological substances; Z91.040 Latex allergy status
CPT/HCPCS: 71111; 99282; A9270-GY

== ENCOUNTER → 2019-10-17 01:32 | Emergency (ER) | payer OTHER ==
[~2019-10-17 01:32] MED LIST changes: +Haloperidol INJ IV/IM* 5 MG/ML AMP IM ONE; +LORazepam INJ* 2 MG/ML 1 ML VIAL IM ONE; +LORazepam INJ* 2 MG/ML 1 ML VIAL IV PUSH ONE; +LORazepam INJ* 2 MG/ML 1 ML VIAL ONE; -Lidocaine Patch REMOVE* 1 NOTE MISC PATCH OFF SCH; +Lorazepam PYXIS KEY PRN; +Mirtazapine TAB* 15 MG PO ONE; +Sterile Water for Inj* 10 ML ONE; +Ziprasidone IM INJ* 20 MG/ML VIAL IM ONE; +diPHENhydraMINE IV* 50 MG/ML 1 ml VIAL (BENADRYL) IM ONE
--- NOTE | 2019-10-17 01:54 | ED ---
Psychiatric Complaint - HPI Summary HPI Summary: Patient is a 49 y/o F presenting to the ED on a 941 for a psychiatric complaint. On patient arrival, patient is screaming that she is in pain and is agitated. Per state police, patient called 911 and was expressing SI. When police were sent to her house, patient did not open the door and police needed to break open her door. Upon police entering the house, patient appearing to be intoxicated from alcohol and was lying on her couch. Patient became hostile upon rousing and continued to express SI. Patient was uncooperative with police , so patient was brought to [facility] on a 941. Patient was previously seen at [facility] on 10/16/19 and had an x-ray performed after the patient complained of back pain that showed unremarkable findings. She has a history of rib fracture in August 2019 that required transfer to [facility]. She is prescribed narcotics. Patient has a psychiatric history of anxiety and depression. - History Of Current Complaint Chief Complaint: EDSuicidal Time Seen by Provider: 10/17/19 01:42 Hx Obtained From: Patient, Other: - State police Hx Last Menstrual Period: 06/18/19 Onset/Duration: Sudden Onset, Still Present Timing: Constant Severity Initially: Moderate Severity Currently: Moderate Aggravating Factor(s): Nothing Alleviating Factor(s): Nothing Associated Signs And Symptoms: Positive: Hostile Related History: Positive For: Prior Psychiatric Issues Has Suicidal: Reports: Thoughts Ingestion History: Type/Name Of Drug - Alcohol - Allergies/Home Medications Allergies/Adverse Reactions: Allergies Allergy/AdvReac Type Severity Reaction Status Date / Time shrimp Allergy Severe Anaphylatic Verified 10/16/19 17:44 Shock ketotifen [From [place]] Allergy Eyes Verified 10/16/19 17:44 Itchy/Swollen/Red/Watery latex Allergy Rash Verified 10/16/19 17:44 seafood Allergy Severe hives, Uncoded 10/16/19 17:44 difficulty breathing environmental Allergy Wheezing Uncoded 10/16/19 17:44 eye drops Allergy Unknown Uncoded 10/16/19 17:44 Reaction Details PMH/Surg Hx/FS Hx/Imm Hx Previously Healthy: Yes Endocrine/Hematology History: Reports: Hx Diabetes - Type 2, Hx Thyroid Disease - HYPOTHYROIDISM Denies: Hx Anemia Cardiovascular History: Reports: Hx Angina, Hx Embolism - pulmonary embolism, Hx Hypercholesterolemia, Hx Hypertension Denies: Hx Aneurysm, Hx Angioplasty, Hx Auto Implanted Cardiovert Defib, Hx Cardiac Arrest, Hx Cardiomegaly, Hx Congenital Heart Disease, Hx Congestive Heart Failure, Hx Coronary Artery Disease, Hx Deep Vein Thrombosis, Hx Myocardial Infarction, Hx Valvular Heart Disease Respiratory History: Reports: Hx Asthma, Hx Chronic Obstructive Pulmonary Disease (COPD), Hx Pulmonary Embolism, Hx Seasonal Allergies GI History: Reports: Other GI Disorders - fatty liver disease Denies: Hx Ulcer History: Denies: Hx Chronic Renal Failure, Hx Renal Disease Musculoskeletal History: Denies: Hx Rheumatoid Arthritis, Hx Osteoporosis Sensory History: Reports: Hx Contacts or Glasses Denies: Hx Eye Prosthesis, Hx Legally Blind, Hx Deafness, Hx Hearing Aid Opthamlomology History: Reports: Hx Contacts or Glasses Denies: Hx Eye Prosthesis, Hx Legally Blind EENT History: Denies: Hx Deafness Neurological History: Denies: Hx Dementia, Hx Developmental Delay, Hx Headaches, Hx Migraine, Hx Nerve Disease, Hx Seizures, Hx Spinal Cord Injury, Hx Transient Ischemic Attacks (TIA) Psychiatric History: Reports: Hx Anxiety, Hx Depression - Surgical History Surgical History: Yes Surgery Procedure, Year, and Place: [facility]&C. DENTAL EXTRACTION Infectious Disease History: No Infectious Disease History: Denies: Hx Clostridium Difficile, Hx Hepatitis, Hx Human Immunodeficiency Virus (HIV), Hx of Known/Suspected MRSA, Hx Shingles, Hx Tuberculosis, Hx Known/ Suspected VRE, Hx Known/Suspected VRSA, History Other Infectious Disease, Traveled Outside the [place] in Last 30 Days - Family History Known Family History: Positive: Respiratory Disease - COPD, Blood Disorder - blood clots, Other - COPD Family History: FHx of anxiety, depression, OCD - Social History Occupation: Disabled Alcohol Use: Occasionally Alcohol Amount: pt states occasional use of alcohol Hx Substance Use: No Substance Use Type: Reports: None Hx Tobacco Use: Yes Smoking Status (MU): Light Every Day Tobacco Smoker Type: Cigarettes Amount Used/How Often: vapes Length of Time of Smoking/Using Tobacco: since age 13 Have You Smoked in the Last Year: Yes Review of Systems Positive: Myalgia - Diffuse Psychological: Other - Positive agitation and SI All Other Systems Reviewed And Are Negative: Yes Physical Exam - Summary Physical Exam Summary: Constitutional: Well-developed, Well-nourished, Alert. (-) Distressed Skin: Warm, Dry HENT: Normocephalic; Atraumatic Eyes: Conjunctiva normal Neck: Musculoskeletal ROM normal neck. (-) JVD, (-) Stridor, (-) Tracheal deviation Cardio: Rhythm regular, rate normal, Heart sounds normal; Intact distal pulses; The pedal pulses are 2+ and symmetric. Radial pulses are 2+ and symmetric. (-) Murmur Pulmonary/Chest wall: Effort normal. (-) Respiratory distress, (-) Wheezes, (-) Rales Abd: Soft, (-) tenderness, (-) Distension, (-) Guarding, (-) Rebound Musculoskeletal: (-) Edema Lymph: (-) Cervical adenopathy Neuro: Alert, Oriented x3 Psych: Very restless, agitated Triage Information Reviewed: Yes Vital Signs On Initial Exam: Initial Vitals Temp Pulse Resp BP Pulse Ox 0 F 0 0 0/0 0 10/17/19 01:38 10/17/19 01:38 10/17/19 01:38 10/17/19 01:38 10/17/19 01:38 Vital Signs Reviewed: Yes Procedures - Sedation Patient Received Moderate/Deep Sedation with Procedure: No Diagnostics - Vital Signs Vital Signs Temp Pulse Resp BP Pulse Ox 10/17/19 01:38 0 F 0 0 0/0 0 - Laboratory Result Diagrams: 10/17/19 03:59 10/17/19 03:59 Lab Statement: Any lab studies that have been ordered have been reviewed, and results considered in the medical decision making process. Re-Evaluation - Re-Evaluation First Eval Re-Evaluation Time: 03:26 Change: Unchanged Comment: At 03:26, patient is complaining of back pain and having restless legs. Course/Dx - Course Course Of Treatment: Patient is a 49 y/o F presenting to the ED on a 941 for a psychiatric complaint. On patient arrival, patient is screaming that she is in pain and is agitated. Per state police, patient called 911 and was expressing SI. When police were sent to her house, patient did not open the door and police needed to break open her door. Upon police entering the house, patient appearing to be intoxicated from alcohol and was lying on her couch. Patient became hostile upon rousing and continued to express SI. Patient was uncooperative with police, so patient was brought to [facility] on a 941. Patient was previously seen at [facility] on 10/16/19 and had an x-ray performed after the patient complained of back pain that showed unremarkable findings. She has a history of rib fracture in August 2019 that required transfer to [facility]. She is prescribed narcotics. Patient has a psychiatric history of anxiety and depression. On exam, patient is very restless and agitated. In the ED course, patient was given Geodon 10 mg IM, Ativan 2 mg IM, Haldol 5 mg IM , and Benadryl 50 mg IM. At 03:26, patient is complaining of back pain and having restless legs. Laboratory abnormal findings: MCH 34, glucose 110, urine specific gravity 1.003, urine leukocyte esterase trace, urine squamous eptih cells present, urine bacteria 2+, urine opiates screen presumptive positive, serum alcohol 185. Patient is a sign-out at 07:00 on 10/17/[address] Glenys Orantes MD to Dr. Yuan Murdock at shift change, pending sobriety, mental health evaluation, and disposition. - Differential Dx/Clinical Impression Provider Diagnosis: Substance induced mood disorder Discharge ED - Sign-Out/Discharge Documenting (check all that apply): Sign-Out Patient Signing out patient TO: Yuan Murdock - Patient is a sign-out at 07:[address] Glenys Orantes MD to Dr. Yuan Murdock at shift change, pending sobriety, mental health evaluation, and disposition. - Discharge Plan Condition: Stable Referrals: Vinicio Angela MD [Primary Care Provider] - - Billing Disposition and Condition Condition: STABLE - Attestation Statements Document Initiated by Gil: Yes Documenting Scribe: Sylwia Jones Provider For Whom Gil is Documenting (Include Credential): Glenys King MD Scribe Attestation: Sylwia Duncan scribed for Glenys Orantes MD on 10/17/19 at 0705. Scribe Documentation Reviewed: Yes Provider Attestation: The documentation as recorded by the Sylwia jordan accurately reflects the service I personally performed and the decisions made by me, Glenys Orantes MD Status of Scribe Document: Viewed - Assessment for Patient Restraint Evaluation of the Patient's Immediate Situation: Patient is agitated and uncooperative with staff. Patient's Reaction to Intervention: Patient is yelling and continues to be agitated and uncooperative. Patient's Medication and Behavioral Condition: Patient was given Remeron 15 mg PO, Geodon 10 mg IM, Ativan 2 mg IM, Haldol 5 mg IM and Benadryl 50 mg IM. After being given these medications, patient de- escalated. Evaluate Need for Continued Restraint: Terminate
[2019-10-17 03:02] LABS: Urine Appearance Cloudy; Urine Bilirubin Negative (Negative); Urine Blood Negative (Negative); Urine Color Straw; Urine Glucose Negative (Negative); Urine Ketones Negative (Negative); Urine Nitrite Negative (Negative); Urine Protein Negative (Negative); Urine Specific Gravity 1.003 (1.010-1.030); Urine Urobilinogen Negative (Negative)
[2019-10-17 03:10] LABS: Urine Bacteria 2+ (Absent); Urine Red Blood Cell Absent (Absent); Urine Squamous Epithelial Cell Present (Absent); Urine White Blood Cell Trace(0-5/hpf) (Absent)
[2019-10-17 03:19] LABS: Urine Benzodiazepine Screen None Detected (None Detect); Urine Opiates Screen Presumptive Positive (None Detect)
[2019-10-17 04:14] LABS: ABS Basophils 0.1 10^3/ul (0-0.2); ABS Eosinophils 0.2 10^3/ul (0-0.6); ABS Monocytes 0.6 10^3/ul (0-0.8); ABS Neutrophils 5.4 10^3/ul (1.5-7.7); Eosinophil % 2.9 %; Hematocrit 36 % (35-47); Lymphocyte % 23.8 %; Mean Corpuscular HGB Conc 36 g/dL (31-36); Mean Corpuscular Hemoglobin 34 pg (27-31); Mean Corpuscular Volume 94 fL (80-97); Mean Platelet Volume 8.6 fL (7.4-10.4); Platelet Count 303 10^3/uL (150-450); Red Blood Count 3.84 10^6 /uL (3.70-4.87); Red Cell Distribution Width 14 % (10-15); White Blood Count 8.3 10^3/uL (3.5-10.8)
[2019-10-17 04:30] LABS: ALT 22 U/L (7-52); AST 33 U/L (13-39); Albumin 4.2 g/dL (3.2-5.2); Albumin/Globulin Ratio 1.3 (1-3); Alkaline Phosphatase 59 U/L (34-104); Anion Gap 9 mmol/L (2-11); Blood Urea Nitrogen 6 mg/dL (6-24); CO2 Carbon Dioxide 27 mmol/L (22-32); Chloride 102 mmol/L (101-111); EGFR African American 113.2 (>60); EGFR Non-African American 93.6 (>60); Globulin 3.3 g/dL (2-4); Glucose 110 mg/dL (70-100); Potassium 3.5 mmol/L (3.5-5.0); Sodium 138 mmol/L (135-145); Total Protein 7.5 g/dL (6.4-8.9)
[2019-10-17 04:34] LABS: Acetaminophen < 15 mcg/mL; Alcohol 185 mg/dL (<10); Salicylate < 2.50 mg/dL (<30)
[2019-10-17 04:49] LABS: TSH (Thyroid Stimulating Horm) 1.09 mcIU/mL (0.34-5.60)
--- NOTE | 2019-10-17 07:25 | ED ---
Progress - Progress Note Progress Note: Patient signed out from Dr. Nowak upon shift change 10/17/2019 07:00 awaiting clinical sobriety and psychiatric evaluation and pending disposition. Re-Evaluation - Re-Evaluation First Eval Re-Evaluation Time: 03:26 Change: Unchanged Comment: At 03:26, patient is complaining of back pain and having restless legs. Course/Dx - Course Course Of Treatment: 49 y/o F signed out from Dr. Nwoak upon shift change 07:00 awaiting clinical sobriety and psychiatric evaluation and pending disposition. Psychiatric ice skating instructor reviewed case with Dr. Serrato psychiatry. THe patient will be discharged. - Diagnoses Provider Diagnoses: Substance abuse, Major depressive disorder - Provider Notifications Time Discussed With Above Provider: 10:50 Instructed by Provider To: Other - Psychiatric ice skating instructor reviewed case with Dr. Serrato psychiatry. THe patient will be discharged. Discharge ED - Sign-Out/Discharge Documenting (check all that apply): Patient Departure - Discharge Plan Condition: Stable Referrals: [facility] MACHINE OPERATOR/TENDER [Other] (YOU HAVE AN APPOINTMENT ON AT 10;00 AM WITH NEO RUANO AT [facility]) Vinicio Angela MD [Primary Care Provider] - - Attestation Statements Document Initiated by Scribe: Yes Documenting Scribe: So Contreras Provider For Whom Gil is Documenting (Include Credential): Yuan Murdock MD Scribe Attestation: So Duncan, scribed for Yuan Murdock MD on 10/17/19 at 1050. Status of Scribe Document: Ready
[2019-10-17 07:28] VITALS: BP 133/76
--- NOTE | 2019-10-17 17:29 | ED ---
Imaging and Labs Follow Up Follow Up Type: Imaging Imaging Result: IMPRESSION: 1. SUBACUTE NONDISPLACED FRACTURES OF THE RIGHT POSTERIOR 10TH, 11TH AND 12TH RIBS. 2. FRACTURES OF THE RIGHT L1 AND L2 TRANSVERSE PROCESSES UNCHANGED AND NOTED ON THE PRIOR CT STUDY. R3 Preliminary Imaging Read R3 <Electronically signed by Dick Ramos MD in [place]> 10/17/19714 Dictated By: Dick Ramos MD Dictated Date/Time: 10/17/19658 Transcribed Date/Time: 10/17/19658 Copy to: CC:Vinicio Angela MD; Negra Rothman MD; Ricki DUARTE Provider Diagnoses: Substance abuse, Major depressive disorder
== END | disposition home or self-care (01) ==
LOC: ED 01:32
DX: F19.94 Other psychoactive substance use, unspecified with psychoactive substance-induced mood disorder (principal); F32.9 Major depressive disorder, single episode, unspecified; S22.41XD Multiple fractures of ribs, right side, subsequent encounter for fracture with routine healing; X58.XXXD Exposure to other specified factors, subsequent encounter; E11.9 Type 2 diabetes mellitus without complications; E03.9 Hypothyroidism, unspecified; E78.00 Pure hypercholesterolemia, unspecified; I10 Essential (primary) hypertension; J44.9 Chronic obstructive pulmonary disease, unspecified; F41.9 Anxiety disorder, unspecified; F17.210 Nicotine dependence, cigarettes, uncomplicated; Z86.711 Personal history of pulmonary embolism; Z88.8 Allergy status to other drugs, medicaments and biological substances; Z91.040 Latex allergy status
CPT/HCPCS: 36415; 80053; 80307; 80320; 80329; 81003; 81015; 84443; 85025; 87086; 96372; 99285; A9270-GY; G0480; J1200; J1630; J2060; J3486